=== PATIENT | female | born 1960 | race Hispanic/Latino ===

== ENCOUNTER 2017-07-31 05:38 | Emergency (ER) | payer OTHER ==
[~2017-07-31] VITALS: Ht 157.5 cm; Wt 149.7 kg
[~2017-07-31 05:38] MED LIST: ASPIR 8181 MG PO; GABAPENTIN300 MG PO; HIGH CHOLESTEROL; LANTUS100 UNITS/ SC; LIPITOR20 MG PO; LISINOPRIL-HCT1 EACH PO; METFORMIN HCL500 M2 PO; METOPROLOL SUCC50 MG PO; NOVOLOG100 UNITS1 SC/PO; PRILOSEC40 MG PO; VICTOZA 2-0.6 MG/0.1
[2017-07-31 06:32] LABS: BASOPHILS % 0.2 % (0.0-1.0); EOSINOPHILS # (AUTO) 0.1 (0.0-0.4); EOSINOPHILS % 1.4 % (0.0-6.0); HEMATOCRIT 28.4 % (34.2-44.1); HEMOGLOBIN 8.4 g/dL (12.0-16.0); LYMPHOCYTES # (AUTO) 1.6 (1.0-3.2); LYMPHOCYTES % 18.6 % (18.0-39.1); MEAN CORPUSCULAR HEMOGLOBIN 22.4 pg (28-32); MEAN CORPUSCULAR HGB CONC 29.6 g/dL (31-35); MEAN CORPUSCULAR VOLUME 75.7 fL (81-99); MONOCYTES # (AUTO) 0.6 (0.2-0.8); MONOCYTES % 7.3 % (4.4-11.3); NEUTROPHILS # (AUTO) 6.1 (2.1-6.9); NEUTROPHILS % 72.1 % (38.7-80.0); PLATELET COUNT 258 x10e3/uL (140-360); RED BLOOD COUNT 3.75 x10e6/uL (3.6-5.1); RED CELL DISTRIBUTION WIDTH 17.9 % (11.7-14.4)
[2017-07-31 06:44] LABS: INR 1.58; PROTHROMBIN TIME 17.7 seconds (11.9-14.5)
[2017-07-31 06:45] LABS: PARTIAL THROMBOPLASTIN TIME 40.7 seconds (23.8-35.5)
--- NOTE | 2017-07-31 06:53 | Diagnostic Imaging Report ---
CHEST SINGLE (PORTABLE), 07/31/2017 5:49 AM Technique: CHEST SINGLE (PORTABLE) Comparison: None available. Clinical history: Dizziness Findings: See Impression Impression: Limited by body habitus, portable technique and motion 1. Mildly enlarged cardiomediastinal silhouette, accentuated by technique. 2. No consolidation. No effusion or pneumothorax. Signed by: Dr Shari Omer MD on 07/31/2017 6:49 AM
--- NOTE | 2017-07-31 06:58 | Diagnostic Imaging Report ---
Examination: CT BRAIN WITHOUT CONTRAST History:Dizziness. Comparison studies:None Technique: Axial images were obtained from the skull base to the vertex. Coronal and sagittal images reconstructed from the axial data. Intravenous contrast: None Findings: Scalp: No abnormalities. Bones: No fractures, blastic or lytic lesions. Brain sulci: Appropriate for age. Ventricles: Normal in size and configuration. No hydrocephalus. Extra-axial space: No abnormalities. Parenchyma: No abnormal densities. No masses, hemorrhage, or acute or chronic cortical based vascular insults.. Sellar/suprasellar region: No abnormalities. Craniocervical junction: Patent foramen magnum. No Chiari one malformation. Incidental findings: None. Impression: No intracranial abnormalities. Signed by: Dr. Karina Bautista M.D. on 07/31/2017 6:54 AM
[2017-07-31 07:01] LABS: ALANINE AMINOTRANSFERASE 18 IU/L (0-55); ALBUMIN 3.4 g/dL (3.5-5.0); ALBUMIN/GLOBULIN RATIO 0.8 (0.8-2.0); ALKALINE PHOSPHATASE 85 IU/L (40-150); ANION GAP 14.8 mmol/L (8-16); BLOOD UREA NITROGEN 22 mg/dL (7-26); BUN/CREATININE RATIO 19 (6-25); CALCIUM 9.5 mg/dL (8.4-10.2); CARBON DIOXIDE 29 mmol/L (22-29); CHLORIDE 100 mmol/L (98-107); CREATINE KINASE 259 IU/L (29-168); CREATININE, SERUM 1.18 mg/dL (0.57-1.11); EST GLOMERULAR FILTRATION RATE 47 ML/MIN (60-); GLUCOSE 264 mg/dL (74-118); POTASSIUM 3.8 mmol/L (3.5-5.1); SODIUM 140 mmol/L (136-145)
== END 2017-07-31 07:21 | disposition home or self-care (01) ==
LOC: ER 05:38
DX: R42 Dizziness and giddiness (principal); I10 Essential (primary) hypertension; D50.0 Iron deficiency anemia secondary to blood loss (chronic)
CPT/HCPCS: 36415; 70450; 71045; 80053; 82550; 82553; 84484; 85025; 85610; 85730; 99283

== ENCOUNTER → 2019-10-06 | Outpatient (CLI) | payer OTHER ==
[2019-10-06 11:26] LABS: ALBUMIN 3.5 g/dL (3.5-5.0)
[2019-10-06 12:41] LABS: BILIRUBIN,DIRECT 0.2 mg/dL (0.0-0.5)
== END ==
LOC: LAB 10:24
PROVIDERS: ATTEND Podiatrist Foot & Ankle Surgery
DX: B35.1 Tinea unguium (principal)
CPT/HCPCS: 36415; 80076

== ENCOUNTER 2019-12-03 09:54 | Inpatient (IN) | payer OTHER ==
[~2019-12-03] VITALS: Ht 157.5 cm; Wt 149.7 kg
--- NOTE | 2019-12-03 10:12 | Emergency Department Note ---
History of Present Illnes History of Present Illness History of Present Illness This is a 59 year old female with 2 week history of LLE infection without tactile fevers or dypsnea. . Historian: Patient, Family Member Arrival Mode: Car [employer]ision Dyer Required: No Onset (how long ago): week(s) (2) Radiation: Reports extremity Severity: moderate Timing of current episode: constant Progression: worsening Context: Reports recent immobilization Exacerbating factors: immobilization Associated symptoms: Denies denies other symptoms, Denies confusion, Denies chest pain, Denies cough, Denies diaphoresis, Denies fever/chills, Denies headaches, Denies loss of appetite, Denies malaise, Denies nausea/vomiting, Denies rash, Denies seizure, Denies shortness of breath, Denies syncope, Denies weakness, Denies other Past Medical/Family History Physician Review I have reviewed the patient's past medical and family history. Any updates have been documented here. Past Medical History Recent Fever: Yes Clinical Suspicion of Infectio: Yes New/Unexplained Change in Ment: No Past Medical History: Hypertension, Diabetes Other Medical History: PULMONARY EMBOLISM Past Surgical History: Cholecysctectomy, Other Surgery: C SECTION Social History Smoking Cessation: Never Smoker Alcohol Use: None Any Illegal Drug Use: No Other Last Tetanus: UTD Review of Systems Review of Systems Constitutional: Denies fever EENTM: Reports no symptoms Cardiovascular: Reports no symptoms Respiratory: Reports dyspnea Gastrointestinal: Reports no symptoms Genitourinary: Reports no symptoms Musculoskeletal: Reports no symptoms Integumentary: Reports no symptoms, Reports rash, Reports poor turgor Neurological: Reports no symptoms Psychological: Reports no symptoms Endocrine: Reports no symptoms Hematological/Lymphatic: Reports no symptoms Physical Exam Related Data Allergies: Coded Allergies: No Known Drug Allergies (Verified Allergy, Unknown, 02/06/16) Triage Vital Signs Vital Signs Date Time Temp Pulse Resp B/P (MAP) Pulse Ox O2 Delivery O2 Flow Rate FiO2 12/03/19 10:10 98.4 122 32 138/66 60 Room Air 12/03/19 11:07 6.0 12/03/19 23:25 40 Vital signs reviewed: Yes Physical Exam CONSTITUTIONAL Constitutional: Present morbidly obese, Present ill appearing HENT HENT: Present normocephalic, Present atraumatic, Present oropharynx clear/moist, Present nose normal HENT L/R: Present left ext ear normal, Present right ext ear normal EYES Eyes: Reports PERRL, Reports conjunctivae normal NECK Neck: Present ROM normal PULMONARY Pulmonary: Present effort normal, Present breath sounds normal CARDIOVASCULAR Cardiovascular: Present LLE edema, Present RLE edema GASTROINTESTINAL Abdominal: Present soft, Present nontender, Present bowel sounds normal GENITOURINARY Genitourinary: Present exam deferred SKIN Skin: Present erythema (LLE ) MUSCULOSKELETAL Musculoskeletal: Present ROM normal NEUROLOGICAL Neurological: Present alert, Present oriented x 3, Present no gross motor or sensory deficits PSYCHOLOGICAL Psychological: Present mood/affect normal, Present judgement normal Results Laboratory Lab results reviewed: Yes Laboratory comments Laboratory Tests Test 12/04/19 16:09 Bedside Glucose 147 mg/dL (70-120) Imaging Imaging results reviewed: Yes Impressions [place] [id number] Patient Name: MAHESH LEWIS MR #: [id number] : 1960 Age/Sex: 59/F Req #: [id number] Adm Physician: Ordered by: RAZIA SRIVASTAVA DO Report #: [id number] Location: ER Room/Bed: Procedure: [id number] DX/CHEST SINGLE (PORTABLE) Exam Date: 12/03/19 Exam Time: 1250 REPORT STATUS: Signed TECHNIQUE: Frontal view of the chest. INDICATION: ^Y ^60% room air ^20191203 ^1250 COMPARISON: 07/31/2017 DISCUSSION: Limited evaluation due to portable technique and patient body habitus. Lines and hardware: Overlying EKG leads are noted Heart and mediastinum: Cardio medius on the silhouette is enlarged. Central vascular congestive opacities are noted. Lungs and pleura: Prominent interstitial markings are noted. Negative for large effusion, focal consolidation or large pneumothorax. Soft tissues and bones: No acute abnormality. IMPRESSION: Limited evaluation. Cardiomegaly, significant vascular congestion and prominent interstitial markings are concerning for fluid overload/pulmonary edema. Negative for effusions. Signed by: Brittany Orozco MD on 12/03/2019 2:56 PM Dictated By: BRITTANY OROZCO MD 55 Transcribed By: WILDA on 12/03/191455 COPY TO: RAZIA SRIVASTAVA DO~ Venous Duplex L LE : NEGATIVE FOR DVT Procedures 12 Lead ECG Interpretation ECG Interpretation : ECG: ECG 1 Precision Dyer: Interpreted by ED physician Date: Dec 03, 2019 Prior ECG tracings: reviewed Rhythm: sinus tachycardia Rate: tachycardia Conduction: right bundle branch block ST segments normal: Yes T waves normal: Yes Clinical Impression: dysrhythmia - atrial Critical Care Time Total Critical Care Time (min): 31 Critcal care necessary due to: cardiac failure, respiratory failure, sepsis Critcal care time spent by me: develop tx plan w patient/surrogate, discussion w consultants, discussion w primary provider, examination of patient, obtaining hx from patient/surrogate, order/perform tx or interventions, order/review laboratory studies, order/review radiographic studies, pulse oximetry, re- evaluation of patient condition Assessment & Plan Medical Decision Making MDM Diff Dx : sepsis, COVID-19 infection, pulmonary embolus, ACS. Case d/w with cardiology regarding elevated troponin. Plan to treat conservatively. Dr Martina López input much appreciated. Reassessment Reassessment time: 15:55 Reassessment seen at bedside NAD. Denies CP or SOB. Troponins negative Assessment & Plan Final Impression: (1) Hypoxia (2) Cellulitis of left leg (3) Renal insufficiency (4) Elevated troponin Depart Disposition: ADMITTED Home Meds Reported Medications Insulin Aspart (Insulin Aspart Flexpen) 100 Unit/1 Ml Insuln.pen, 60 SQ TIDWM 12/04/19 Buspirone Hcl (BUSPIRONE HCL) 5 Mg Tablet, 7.5 MG PO BID, #60 TAB 12/04/19 Insulin Degludec (Tresiba Flextouch U-200) 200 Unit/1 Ml Insuln.pen, 120 UNITS SQ HS 12/04/19 Rivaroxaban (XARELTO) 20 Mg Tablet, 20 MG PO DAILY 12/04/19 Pregabalin (LYRICA) 150 Mg Capsule, 150 MG PO BID, CAP 12/04/19 Losartan/Hydrochlorothiazide (LOSARTAN-HCTZ 100-25 MG TAB) 1 Each Tablet, 1 TAB PO DAILY 12/04/19 Terbinafine Hcl (TERBINAFINE HCL) 250 Mg Tablet, 250 MG PO DAILY, #30 TAB 12/04/19 Ferrous Sulfate (FERROUS SULFATE) 325 Mg Tablet, 325 MG PO 12/04/19 Clindamycin Hcl (CLINDAMYCIN HCL) 150 Mg Capsule, 3 CAP PO Q8HR 12/04/19 Duloxetine Hcl (CYMBALTA) 30 Mg Capsule.dr, 30 MG PO DAILY, #30 CAP 12/04/19 Omeprazole (PRILOSEC) 40 Mg Capsule.dr, 40 MG PO DAILY 02/07/16 Atorvastatin Calcium (LIPITOR) 20 Mg Tablet, 40 MG PO HS, #30 TAB 02/07/16 Metoprolol Succinate (METOPROLOL SUCCINATE) 50 Mg Tab.er.24h, 50 MG PO BID, MG 02/07/16 Discontinued Reported Medications Aspirin (ASPIR 81) 81 Mg Tablet.dr, 81 MG PO DAILY 02/07/16 Lisinopril/Hydrochlorothiazide (LISINOPRIL-HCTZ 20-12.5 MG TAB) 1 Each Tablet, 1 TAB PO BID 02/07/16 Gabapentin (GABAPENTIN) 300 Mg Capsule, 600 MG PO TID, #60 CAP 02/07/16 Insulin Glargine (LANTUS) 100 Units/Ml Ml, 40 UNITS SC HS 02/06/16 Insulin Glargine (LANTUS) 100 Units/Ml Ml, 60 UNITS SC TIDWM 02/06/16 Insulin Aspart (NOVOLOG) 100 Units/1 Ml Inj, 10 SC/PO TID 02/06/16 Metformin Hcl (METFORMIN HCL ER) 500 Mg Tab.er.24, 1000 MG PO BID, #60 TAB 02/06/16 RAZIA SRIVASTAVA DO Dec 03, 2019 10:11
[2019-12-03] MEDS ORDERED: VANCOMYCIN 500MG/NS 0.9% 100ML 100 ML IV ONE (11:00)
[2019-12-03 11:22] LABS: BASOPHILS % 0.2 % (0.0-1.0); EOSINOPHILS % 0.1 % (0.0-6.0); HEMATOCRIT 31.6 % (34.2-44.1); HEMOGLOBIN 9.5 g/dL (12.0-16.0); LYMPHOCYTES % 12.5 % (18.0-39.1); MEAN CORPUSCULAR HEMOGLOBIN 26.7 pg (28-32); MEAN CORPUSCULAR HGB CONC 30.1 g/dL (31-35); MEAN CORPUSCULAR VOLUME 88.8 fL (81-99); MONOCYTES # (AUTO) 0.8 (0.2-0.8); MONOCYTES % 9.5 % (4.4-11.3); NEUTROPHILS # (AUTO) 6.3 (2.1-6.9); NEUTROPHILS % 77.2 % (38.7-80.0); PLATELET COUNT 195 x10e3/uL (140-360); RED BLOOD COUNT 3.56 x10e6/uL (3.6-5.1); RED CELL DISTRIBUTION WIDTH 16.7 % (11.7-14.4)
--- OUTSIDE RECORDS SUMMARY | 2019-12-03 11:23 | XMS REPORT ---
Author Author Desi Parnell Organization [employer] Address Unknown Phone Unavailable Care Team Providers Care Structural Architect Name Role Phone Pako Parnell CP Unavailable Allergies, Adverse Reactions, Alerts Substance Reaction Event Type N.K.D.A. Info Not Available Non Drug Allergy Problems Problem Type Condition Code Onset Dates Condition Statu s Problem Morbid (severe) obesity due to excess calories E66.01 Active Problem Lower extremity edema M79.89 Active Problem Type 2 diabetes mellitus with diabetic neuropathy, uns pecified E11.40 Active Problem Personal history of pulmonary embolism Z86.711 Active Problem Hypertensive heart disease without heart failure I11.9 Active Problem Venous insufficiency (chronic) (peripheral) I87.2 Active Problem Right bundle-branch block I45.10 Ac tive Problem Dyspnea, unspecified R06.00 Active Problem Mixed hyperlipidemia E78.2 Active Problem Tachycardia, unspecified R00.0 Act lon Assessment Right bundle-branch block I45.10 Ac tive Assessment Mixed hyperlipidemia E78.2 Active Assessment Morbid (severe) obesity due to excess calories E66.01 Active Assessment Type 2 diabetes mellitus with diabetic n europathy, unspecified E11.40 Active Assessment Hypertensive heart disease without heart failure I11.9 Active Assessment Venous insufficiency (chronic) (peripheral) I87.2 Active Assessment Personal history of pulmonary embolism Z86.711 Active Assessment Lower extremity edema M79.89 Active Assessment Dyspnea, unspecified R06.00 Active Medications Medication Code System Code Instructions Start Date End Date Status Dosage Potassium Chloride [place] [facility] [place] 51253123873 20 MEQ Orally Once a day August 19, 2018 Feb 15, 2019 Active 1 tablet with food NovoLog Flexpen ND 76396710965 100 UNIT/ML Subcutaneous Active not defined Atorvastatin Calcium ND 77396476555 40 MG Orally Once a day Active 1 tablet Furosemide ND 97630428954 40 mg Oral Twice a day Ac tive 1 tablet Losartan Potassium-HCTZ [facility] [place] 10947688895 100-25 MG Orally Once a day Active 1 tablet Lantus [facility] [place] 65919886219 100 UNIT/ML Subcutaneous Ac tive not defined Omeprazole [facility] [place] 91758166055 40 MG Orally Once a day A ctive 1 capsule Gabapentin [facility] [place] 41353036785 300 MG Orally Three times a day Active 1 capsule Xarelto [facility] [place] 86789948839 15 MG Orally Once a day Acti ve 1 tablet with food Vital Signs Date/Time: October 29, 2018 BMI 60.22 Index Weight 340 lbs Height 5 ft 3 in in Cardiac Monitoring Heart Rate 87 /min Blood Pressure Diastolic 69 mm Hg Blood Pressure Systolic 126 mm Hg Results No Known Results Summary Purpose [employer] Submission
--- OUTSIDE RECORDS SUMMARY | 2019-12-03 11:23 | XMS REPORT ---
Author Author Desi Iqbal Organization [employer] Address Unknown Phone Unavailable Care Team Providers Care Cyber Security Consultant Name Role Phone Miranda Iqbal Unavailable Allergies, Adverse Reactions, Alerts Substance Reaction Event Type N.K.D.A. Info Not Available Non Drug Allergy Problems Problem Type Condition Code Onset Dates Condition Statu s Assessment Type 2 diabetes mellitus with diabetic chronic k idney disease E11.22 Active Assessment BMI 50.0-59.9, adult Z68.43 Active Assessment Chronic kidney disease, stage III (moderate) N18.3 Active Assessment Hot flashes R23.2 Active Assessment Arthritis M19.90 Active Assessment Gastroesophageal reflux disease without esophagitis K2 1.9 Active Assessment Diabetic neuropathy E11.40 Active Problem GERD (gastroesophageal reflux disease) K21.9 Active Assessment Hyperlipemia E78.5 Active Problem Gastroesophageal reflux disease without esophagitis K2 1.9 Active Assessment Acquired hypothyroidism E03.9 Acti ve Problem Epistaxis R04.0 Active Problem Dyspnea on exertion R06.09 Active Problem Arthritis M19.90 Active Problem Decreased urine output R34 Activ e Problem Hot flashes R23.2 Active Problem Leg swelling M79.89 Active Assessment Hypertension I10 Active Problem Acquired hypothyroidism E03.9 Acti ve Assessment Type 2 diabetes mellitus with hyperglycemia E11.65 Active Problem Localized swelling of both lower legs R22.43 Active Problem Shortness of breath R06.02 Active Problem Type 2 diabetes mellitus with diabetic chronic kidney disease E11.22 Active Problem Chronic kidney disease, stage III (moderate) N18.3 Active Problem BMI 50.0-59.9, adult Z68.43 Active Problem Type 2 diabetes mellitus with hyperglycemia E11.65 Active Problem Diabetic neuropathy E11.40 Active Problem Obesity, morbid, BMI 50 or higher E66.01 Active Problem Microalbuminuria R80.9 Active Problem Hyperlipemia E78.5 Active Problem Hypertension I10 Active Problem Low vitamin D level E55.9 Active Medications Medication Code System Code Instructions Start Date End Date Status Dosage Tresiba FlexTouch [facility] [address]-55 200 UNIT/ML Subcutaneous daily Active 130 units at night NovoLog [facility] [address]-28 100 UNIT/ML Subcutaneous three times a day (tid) Active 55 units Atorvastatin Calcium [facility] [address]-29 40 mg Orally Once a day Active 1 tablet Synthroid [facility] 08742767475 50 MCG Orally daily Active take 1 tablet by mouth at 6.30 am Losartan Potassium-HCTZ [facility] [address]-61 100-25 MG Orally Once a day Active 1 tablet Metoprolol Tartrate [facility] [address]-90 100 MG Orally Twice a day Active 1 tablet Gabapentin [facility] [address]-74 800 MG Orally three times a day (tid) Active 1 capsule Omeprazole [facility] [address]-01 40 mg Orally Once a day Active 1 capsule Cymbalta [facility] [address]-20 30 MG Orally twice a day (bid) Active 1 capsule Accu-Chek SmartView [facility] 77051924876 - Active USE TO CHECK BLOOD GLUCOSE TWICE A DAY Amlodipine Besylate [facility] [address]-42 5 MG Orally Once a day Active 1 tablet Vital Signs Date/Time: November 07, 2016 BMI 57.99 Index Weight 317.1 lbs Height 62 in Temperature 97.1 F Cardiac Monitoring Heart Rate 75 /min Blood Pressure Diastolic 76 mm Hg Blood Pressure Systolic 143 mm Hg Results No Known Results Summary Purpose [employer] Submission
--- OUTSIDE RECORDS SUMMARY | 2019-12-03 11:23 | XMS REPORT ---
Author Author Desi Iqbal Organization [employer] Address Unknown Phone Unavailable Care Team Providers Care Director Of Business Continuity Name Role Phone Miranda Iqbal Unavailable Allergies, [...] Active Problem Leg swelling M79.89 Active Assessment Type 2 diabetes mellitus with hyperglycemia E11.65 Active Problem Acquired hypothyroidism E03.9 Acti ve Assessment Hypertension I10 Active Problem Localized swelling of both lower [...] Instructions Start Date End Date Status Dosage Atorvastatin Calcium [facility] [address]-48 40 mg Orally Once a day Active 1 tablet Gabapentin [facility] [address]-10 800 MG Orally three times a day (tid) Active 1 capsule Metoprolol Tartrate [facility] [address]-58 100 MG Orally Twice a day Active 1 tablet Lisinopril-Hydrochlorothiazide [facility] [address]-62 2 0-12.5 MG Orally twice a day (bid) Inactive 1 tablet Losartan Potassium-HCTZ [facility] [address]-35 100-25 MG Orally Once a day September 04, 2016 Active 1 tablet Synthroid [facility] 75266309506 50 MCG Orally daily Active take 1 tablet by mouth at 6.30 am Cymbalta [facility] [address]-97 30 MG Orally twice a day (bid) Active 1 capsule Tresiba FlexTouch [facility] [address]-72 200 UNIT/ML Subcutaneous daily Active 120 units at night Accu-Chek SmartView [facility] 84643520359 - Active USE TO CHECK BLOOD GLUCOSE TWICE A DAY Amlodipine Besylate [facility] [address]-01 5 MG Orally Once a day September 04, 2016 Active 1 tablet Omeprazole [facility] [address]-87 40 mg Orally Once a day Active 1 capsule Vital Signs Date/Time: September 04, 2016 BMI 57.90 Index Weight 316.6 lbs Height 62 in Temperature 98.4 F Cardiac Monitoring Heart Rate 73 /min Blood Pressure Diastolic 82 mm Hg Blood Pressure Systolic 160 mm Hg Results No Known Results Summary Purpose [employer] Submission
--- OUTSIDE RECORDS SUMMARY | 2019-12-03 11:23 | XMS REPORT ---
Author Author Desi Iqbal Organization [employer] Address Unknown Phone Unavailable Care Team Providers Care Sample Card Maker Name Role Phone Miranda Iqbal Unavailable Encounters Encounter Location Date new patient here to establish [facility] 2015 Unknown [facility] August 01, 2015 Problems Problem Type Condition ICD-9 Code Onset Dates Condition Statu s Problem Type 2 diabetes mellitus with hyperglycemia E11.65 Active Problem BMI 50.0-59.9, adult Z68.43 Active Problem Hypertension I10 Active Problem Leg swelling M79.89 Active Problem Obesity, morbid, BMI 50 or higher E66.01 Active Problem Diabetic neuropathy E11.40 Active Social History Social History Element Qualifiers Date Reported Tobacco Use: . Are you a: never smoker July 13 Use of recreational / street drugs? . Answer: No Avinash 2015 Do you have pets? . Status: No July 14, 2015 Caffeine intake? . Status: No July 14, 2015 Do you exercise? . Answer: No July 14, 2015 Do you drink alcohol? . Status: No July 14, 2015 Summary Purpose [employer]Works Submission
--- OUTSIDE RECORDS SUMMARY | 2019-12-03 11:23 | XMS REPORT ---
Author Author Desi Parnell Organization [employer] Address Unknown Phone Unavailable Care Team Providers Care Toll Collector Name Role Phone Pako Parnell CP Unavailable Allergies, Adverse Reactions, Alerts Substance Reaction Event Type N.K.D.A. Info Not Available Non Drug Allergy Problems Problem Type Condition Code Onset Dates Condition Statu s Problem Morbid (severe) obesity due to excess calories E66.01 Active Problem Lower extremity edema M79.89 Active Problem Hypertensive heart disease without heart failure I11.9 Active Problem Mixed hyperlipidemia E78.2 Active Problem Personal history of pulmonary embolism Z86.711 Active Problem Dyspnea, unspecified R06.00 Active Problem Type 2 diabetes mellitus with diabetic neuropathy, uns pecified E11.40 Active Problem Tachycardia, unspecified R00.0 Act lon Problem Right bundle-branch block I45.10 Ac tive Assessment Morbid (severe) obesity due to excess calories E66.01 Active Assessment Type 2 diabetes mellitus with diabetic n europathy, unspecified E11.40 Active Assessment Personal history of pulmonary embolism Z86.711 Active Assessment Hypertensive heart disease without heart failure I11.9 Active Assessment Right bundle-branch block I45.10 Ac tive Assessment Lower extremity edema M79.89 Active Assessment Mixed hyperlipidemia E78.2 Active Assessment Dyspnea, unspecified R06.00 Active Medications Medication Code System Code Instructions Start Date End Date Status Dosage Xarelto [facility] 37407857553 15 MG Orally Once a day Acti ve 1 tablet with food Atorvastatin Calcium ND 70030121174 40 MG Orally Once a day Active 1 tablet Gabapentin ND 95002246258 300 MG Orally Three times a day Active 1 capsule Lantus ND 06623004868 100 UNIT/ML Subcutaneous Ac tive not defined Lisinopril-Hydrochlorothiazide ND 78209909721 20-12.5 MG Orally Once a day Active 1 tablet Metformin HCl ND 51551244861 1000 mg Orally Twice a day Active 1 tablet NovoLog Flexpen ND 67941648753 100 UNIT/ML Subcutaneous Active not defined Losartan Potassium-HCTZ [facility] 59884463897 100-25 MG Orally Once a day Active 1 tablet Omeprazole [facility] 16304552173 40 MG Orally Once a day A ctive 1 capsule Aspirin [facility] 63301653714 81 MG Orally Once a day Acti ve 1 tablet Duloxetine HCl [facility] 00375289023 30 MG Orally Once a day Active 1 capsule Metoprolol Tartrate [facility] 37624695877 100 MG Orally Twice a day Active 1 tablet Ergocalciferol [facility] 79776234501 70419 UNIT Orally Ac tive 1 capsule Victoza [facility] 60818613008 18 MG/3ML Subcutaneous Once a day Active 0.2 ml Amlodipine Besylate [facility] 81973026182 5 MG Orally Once a day Active 1 tablet Vital Signs Date/Time: July 21, 2018 BMI 65.18 Index Weight 368 lbs Height 5 ft 3 in in Cardiac Monitoring Heart Rate 89 /min Blood Pressure Diastolic 89 mm Hg Blood Pressure Systolic 160 mm Hg Results No Known Results Summary Purpose [employer]Works Submission
--- OUTSIDE RECORDS SUMMARY | 2019-12-03 11:23 | XMS REPORT ---
Author Author Desi Iqbal Organization [employer] Address Unknown Phone Unavailable Care Team Providers Care Pipe Supervisor Name Role Phone Miranda Iqbal Unavailable Allergies, Adverse Reactions, Alerts Substance Reaction Event Type N.K.D.A. Info Not Available Non Drug Allergy Encounters Encounter Location Date new patient here to [facility] 2015 Problems Problem Type Condition ICD-9 Code Onset Dates Condition Statu s Assessment Obesity, morbid, BMI 50 or higher E66.01 Active Assessment Type 2 diabetes mellitus with hyperglycemia E11.65 Active Assessment BMI 50.0-59.9, adult Z68.43 Active Assessment Leg swelling M79.89 Active Assessment Diabetic neuropathy E11.40 Active Problem Type 2 diabetes mellitus with hyperglycemia E11.65 Active Problem BMI 50.0-59.9, adult Z68.43 Active Problem Hypertension I10 Active Problem Leg swelling M79.89 Active Assessment Hypertension I10 Active Problem Obesity, morbid, BMI 50 or higher E66.01 Active Problem Diabetic neuropathy E11.40 Active Medications Medication Code System Code Instructions Start Date End Date Status Dosage Gabapentin [facility] [address]-15 300 MG Orally daily Ac tive Unknown Amlodipine Besylate [facility] [address]-69 10 MG Orally Once a day Active 1 tablet NovoLog Flexpen [facility] [address]-35 15 Subcutaneous three ti mes a day (tid) Active Unknown Lisinopril [facility] [address]-24 40 MG Orally Once a day Active 1 tablet Metformin HCl [facility] [address]-78 1000 mg Orally Twice a day Jun Active 1 tablet with meals Gabapentin [facility] [address]-31 300 MG Orally twice a day ( bid) July 14, 2015 Active 1 capsule Lansoprazole [facility] [address]-60 30 MG Orally Once a day Active 1 capsule Victoza [facility] [address]-69 Active Unknown Lisinopril-Hydrochlorothiazide [facility] [address]-20 2 0-12.5 MG Orally Once a day July 14, 2015 Active 1 tablet Metformin HCl [facility] [address]-31 1000 MG Orally Twice a day Active 1 tablet with meals Lantus SoloStar [facility] [address]-10 100 UNIT/ML Subcutaneous every morning July 14, 2015 Active 10 units NIFEdipine ER [facility] [address]-85 90 MG Orally Once a day Active 1 tablet Social History Social History Element Qualifiers Date [...] alcohol? . Status: No July 14, 2015 Vital Signs Date/Time: July 14, 2015 Weight 304.4 lbs Height 62 in Temperature 98.6 F Cardiac Monitoring Heart Rate 105 /min Blood Pressure Diastolic 101 mm Hg Blood Pressure Systolic 168 mm Hg Summary Purpose [employer] Submission
--- OUTSIDE RECORDS SUMMARY | 2019-12-03 11:23 | XMS REPORT ---
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 Name Role Phone Pako Parnell CP Unavailable [...] diabetic n europathy, unspecified E11.40 Active Assessment Venous insufficiency (chronic) (peripheral) I87.2 Active Assessment Lower extremity edema M79.89 Active Assessment Personal history of pulmonary embolism Z86.711 Active Assessment Dyspnea, unspecified R06.00 Active Assessment Hypertensive heart disease without heart failure I11.9 Active Medications Medication Code System Code Instructions Start Date End Date Status Dosage Atorvastatin Calcium ND 28460864079 40 MG Orally Once a day Active 1 tablet NovoLog Flexpen [facility] 70366258655 100 UNIT/ML Subcutaneous Active not defined Gabapentin ND 15070338012 300 MG Orally Three times a day Active 1 capsule Duloxetine HCl ND 64401372553 30 MG Orally Once a day Active 1 capsule Potassium Chloride ER [facility] 12842370953 20 MEQ Orally Once a day August 19, 2018 Feb 15, 2019 Active 1 tablet with food Xarelto [facility] 73369790867 15 MG Orally Once a day Acti ve 1 tablet with food Amlodipine Besylate [facility] 52839810537 5 MG Orally Once a day Inactive 1 tablet Lantus [facility] 69748884855 100 UNIT/ML Subcutaneous Ac tive not defined Omeprazole [facility] 65658380296 40 MG Orally Once a day A ctive 1 capsule Furosemide [facility] 16514262411 40 mg Oral Twice a day Ac tive 1 tablet Losartan Potassium-HCTZ [facility] 12504796081 100-25 MG Orally Once a day Active 1 tablet Vital Signs Date/Time: August 19, 2018 BMI 65.54 Index Weight 370 lbs Height 5 ft 3 in in Cardiac Monitoring Heart Rate 86 /min Blood Pressure Diastolic 68 mm Hg Blood Pressure Systolic 138 mm Hg Results No Known Results Summary Purpose [employer] Submission
--- OUTSIDE RECORDS SUMMARY | 2019-12-03 11:23 | XMS REPORT | Continuity of Care Document ---
Author Author Jose Luis [place] [employer] Address Unknown Phone Unavailable Care Team Providers Care Crew Caller Name Role Phone [facility] [email or web address] Information [employer] Unavailable Un available Problems Problem Status Onset Date Classification Date Reported Comments Source Obstructive sleep apnea (adult) (pediatric) 04/02/2018 10/14/2018 [facility] Pain in left knee 03/27/2018 10/09/2018 [facility] CPAP [id number] Active 03/12/2018 [facility] 1ST NIGHT - 17090 Active 01/21/2018 [facility] Encounter for screening for malignant neoplasm of colo n 12/26/2017 07/08/2018 [facility] UNK Active 0 12/18/2017 [facility] DIFF BREATHING Active 07/27/2017 [facility] MARCUM (DYSPNEA ON EXERTION), BILATERAL PUL Active 07/27/2017 [facility] RENAL FAILURE Active 06/06/2016 [facility] SCREENING NO PAIN, NO LUMPS, NO IMPLA Active 03/28/2016 [facility] M79.89=OTHER SPECIFIED SOFT TISSUE DISOR Active 08/09/2015 [facility] BMI 50.0-59.9, adult Active Diagnosis 11/08/2016 [facility] Chronic kidney disease, stage III (moderate) Active Diagnosis 11/08/2016 [facility] Hot flashes Active Diagnosis 11/08/2016 [facility] Arthritis Active Diagnosis 11/08/2016 [facility] Gastroesophageal reflux disease without esophagitis Active Diagnosis 11/08/2016 [facility] Diabetic neuropathy Active Diagnosis 11/08/2016 [facility] GERD (gastroesophageal reflux disease) Active Problem [facility] Hyperlipemia Active Diagnosis 11/08/2016 [facility] Acquired hypothyroidism Active Diagnosis 11/08/2016 [facility] Epistaxis Active Problem 11/08/2016 [facility] Dyspnea on exertion Active Problem 11/08/2016 [facility] Decreased urine output Active Problem 11/08/2016 [facility] Leg swelling Active Problem 11/08/2016 [facility] Type 2 diabetes mellitus with hyperglycemia Active Diagnosis 11/08/2016 [facility] Hypertension Active Diagnosis 11/08/2016 [facility] Localized swelling of both lower legs Active Problem [facility] Shortness of breath Active Problem 11/08/2016 [facility] Obesity, morbid, BMI 50 or higher Active Problem [facility] Microalbuminuria Active Problem 11/08/2016 [facility] Low vitamin D level Active Problem 11/08/2016 [facility] Morbid (severe) obesity due to excess calories Active Problem 10/30/2018 Pako Parnell MD, P A Lower extremity edema Active Problem 10/30/2018 Pako Parnell MD, PA Type 2 diabetes mellitus with diabetic n europathy, unspecified Active Prob kassandra 10/30/2018 Pako Parnell MD, PA Personal history of pulmonary embolism Active Problem Pako Parnell MD, PA Hypertensive heart disease without heart failure Active Problem 10/30/2018 Pako Parnell MD, P A Venous insufficiency (chronic) (peripheral) Active Problem 10/30/2018 Pako Parnell MD, P A Right bundle-branch block Acti ve Problem Pako Parnell MD, PA Dyspnea, unspecified Active Problem 10/30/2018 Pako Parnell MD, PA Mixed hyperlipidemia Active Problem 10/30/2018 Pako Parnell MD, PA Tachycardia, unspecified Active Problem 10/30/2018 Pako Parnell MD, PA UTI (urinary tract infection) Active Diagnosis 0 08/05/2015 [facility] Concern about STD in female without diagnosis Active Diagnosis 03/23/2016 [facility] Final: Acute kidney failure, unspecified 06/11/2016 [facility] Diabetes mellitus (disorder) R esolved Problem 07/2018 [facility] [place] Hyperlipidemia (disorder) Reso lved Problem 07/2018 [facility] J[place],[facility] Hypertensive disorder, systemic arterial (disorder) Resolved Problem 10/16/2018 [facility], [place] [place],[facility] Morbid obesity (disorder) Acti ve Problem 07/2018 [facility], [place],[facility] Unspecified chronic gastritis without bleeding 07/08/2018 [facility] Anemia, unspecified 07/08/2018 [facility] Hypertensive chronic kidney disease with stage 1 through stage 4 chronic kidney disease, or unspecified chronic kidney disease 07/08/2018 [facility] Chronic kidney disease, stage 3 (moderate) 07/08/2018 [facility] Type 2 diabetes mellitus with diabetic c hronic kidney disease 07/08/2018 [facility] Vitamin D deficiency, unspecified 07/08/2018 [facility] Other tear of medial meniscus, current i njury, left knee, initial encounter 10/09/2018 [facility] [place] Effusion, left knee 10/09/2018 [facility] [place] Spinal stenosis, lumbar region without n eurogenic claudication 10/09/2018 [facility] [place] Osteophyte, vertebrae 10/09/2018 [facility] [place] Other intervertebral disc displacement, lumbar region 10/09/2018 [facility] [place] Unilateral primary osteoarthritis, left knee 10/09/2018 [facility] [place] Dorsalgia, unspecified 10/09/2018 [facility] [place] Other forms of dyspnea 08/02/2017 [facility] ACUTE KIDNEY FAILURE, UNSPECIFIED Active [facility] RENAL FAILURE FOLLOWING INCOMPLETE SPONT Active [facility] COUGH Active [facility] UNSPECIFIED ASTHMA, UNCOMPLICATED Active [facility] OTHER FORMS OF DYSPNEA Active [facility] OTHER PULMONARY EMBOLISM WITHOUT ACUTE C Active [facility] Medications Medication Details Route Status Patient Instructions Ordering Provider Order Date Source Potassium Chloride ER 1 tablet with food Orally Active 20 MEQ Orally Once a day Parmjit 08/19/2018 Pako Parnell MD, PA Sodium Chloride 0.9% IV 1,000 mL 1,000 mL, Rate: 25 ml/hr, Infuse over: 40 hr, Route: IV, Dosing Weight 140.909 kg, Total Volume: 1,000, Start date: 12/19/17 8:06:00 CDT, Duration: 30 day, Stop date: 01/18/18 8:05:00 CDT, 2.54, m2 Inactive 12/19/2017 [facility] Ferrousal 325 mg oral tablet 3 25 mg = 1 tab, PO, Q-M-W-F, 0 Refill(s) Active 12/18/2017 [facility] ferrous sulfate PO, 0 Refill(s) Inactive 12/18/2017 [facility] gabapentin 800 MG Oral Tablet [Neurontin] 800 mg = 1 tab, PO, 0 Refill(s) Active 12/18/2017 [facility] Oxymetazoline hydrochloride 0.5 MG/ML Na [facility] [Afrin] Notes: (Same as: Afrin) Inactive 07/30/2017 [facility] Amlodipine 5 mg, PO, Daily, 0 Refill(s) Active 07/30/2017 [facility] Hydrochlorothiazide 25 MG / Losartan Pot assium 100 MG Oral Tablet 1 tab, PO, Daily, 0 Refill(s) Active 07/30/2017 [facility] metoprolol tartrate 100 mg oral tablet 100 mg = 1 tab, PO, BID, 0 Refill(s) Active 07/30/2017 [facility] DULoxetine 30 mg oral delayed release capsule 30 mg = 1 cap, PO, BID, 0 Refill(s) Active 07/30/2017 [facility] Vitamin D3 10,000 intl units oral capsule 10,000 IntlUnit = 1 cap, PO, QID, 0 Refill(s) Active 07/30/2017 [facility] Aspirin 81 MG Enteric Coated Tablet 81 mg = 1 tab, PO, Daily, # 90 tab, 3 Refill(s) Active 07/30/2017 [facility] omeprazole 40 mg oral delayed release capsule 40 mg = 1 cap, PO, Daily, 0 Refill(s) Active 07/30/2017 [facility] Furosemide 40 MG Oral Tablet 4 0 mg = 1 tab, PO, Daily, 0 Refill(s) Active 07/30/2017 [facility] levothyroxine 50 mcg (0.05 mg) oral tablet 50 microgram = 1 tab, PO, Q630AM, # 30 tab, 0 Refill(s), Pharmacy: [facility]/pharmacy #[id number] Active 07/29/2017 [facility] metoprolol tartrate 50 mg oral tablet 50 mg = 1 tab, PO, Q12H, # 60 tab, 0 Refill(s), Pharmacy: [facility]/pharmacy #[id number] Inactive 07/29/2017 [facility] rivaroxaban 15 MG Oral Tablet [Xarelto] 15 mg = 1 tab, PO, Q12H, # 42 tab, 0 Refill(s), Pharmacy: [facility]/pharmacy #[id number] Active 07/29/2017 [facility] Thyroxine Notes: Take 1 hour b efore or 2 hours after meal; Enteral feeds may interefere with the absorption of this medication.(Same as:Levothroid, Synthroid) No Longer Active 07/29/2017 [facility] Xarelto Notes: (Same as: Xarel to) Administer with food No Longer Active 07/29/2017 [facility] Mupirocin 0.02 MG/MG Topical Ointment 1 appl, Route: TOP, Q12H, Drug form: OINT, Start date: 07/28/17 21:00:00 CDT, Duration: 5 day, Stop date: 08/02/17 9:00:00 CDT No Longer Active 07/29/2017 [facility] Insulin Lispro Notes: (Same as : Humalog ) Roll in palms of hands gently; Do not shake `vigorously. "Single Patient Use Only " WASTE: F/P - Black; E - Municipal Trash Bin Stable for 28 days at room temp erature. Expires in days from Date No Longer Active 07/29/2017 [facility] Tylenol Notes: Do not exceed 4 gm/day. (Same as: Tylenol) No Longer Active 07/28/2017 [facility] Hydrochlorothiazide 25 MG / Metoprolol T artrate 100 MG Oral Tablet 1 tab, PO, BID, # 60 tab, 0 Refill(s) No Longer Active 07/28/2017 [facility] Tresiba FlexTouch 140 units, S UB-Q, Bedtime, 0 Refill(s) Active 07/28/2017 [facility] NovoLog 55 units, SUB-Q, TID-M eals, 0 Refill(s) Active 07/28/2017 [facility] insulin detemir 65 unit, Route : SUB-Q, Drug form: SOLN, Daily, Dosing Weight 150, kg, Start date: 07/28/17 9:00:00 CDT, Duration: 30 day, Stop date: 08/26/17 9:00:00 CDT Inactive 07/28/2017 [facility] metoprolol tartrate Notes: (Sa me as: Lopressor) No Longer Active 07/28/2017 [facility] insulin glargine Notes: (Same as: Lantus) Do not hold insulin without contacting prescriber WASTE: F/P - Black; E - Municipal Trash Bin "single patient use only" Inactive 07/28/2017 [facility] Humalog Notes: (Same as: Humal og ) Roll in palms of hands gently; Do not shake `vigorously. "Single Patient Use Only " WASTE: F/P - Black; E - Municipal Trash Bin Stable for 28 days at room temperature. Expires in days from Date No Longer Active 07/28/2017 [facility] NovoLog 12 unit, Route: SUB-Q, Drug form: SOLN, TID- Before Meals, Dosing Weight 150, kg, Start date: 07/28/17 7:30:00 CDT, Duration: 30 day, Stop date: 08/26/17 16:30:00 CDT Inactive 07/28/2017 [facility] Hydralazine Notes: (Same as: A presoline) Push over 5 minutes No Longer Active 07/28/2017 [facility] Insulin Lispro Notes: (Same as : Humalog ) Roll in palms of hands gently; Do not shake `vigorously. "Single Patient Use Only " WASTE: F/P - Black; E - Municipal Trash Bin Stable for 28 days at room temp erature. Expires in days from Date No Longer Active 07/28/2017 [facility] Dextrose 50% Syringe 12.5 gm, 25 mL, Route: IVP, Drug Form: INJ, Dosing Weight 150, kg, PRN, PRN Blood Glucose Results, Start date: 07/28/17 4:50:00 CDT, Duration: 30 day, Stop date: 08/27/17 4:49:00 CDT No Longer Active 07/28/2017 [facility] Glucagon 1 mg, Route: IM, Drug form: PDR/INJ, PRN, Dosing Weight 150, kg, PRN Blood Glucose Results, Start date: 07/28/17 4:50:00 CDT, Duration: 30 day, Stop date: 08/27/17 4:49:00 CDT No Longer Active 07/28/2017 [facility] Lasix Notes: (Same as: Lasix) Inactive 07/28/2017 [facility] Heparin 40 unit/kg Bolus (Heparin Dosing Weight) Route: IVP, PRN, 3,600 unit, 3.6 mL, Drug form: INJ, PRN, Heparin Protocol, Start date: 07/28/17 2:47:00 CDT Stop date: 08/27/17 2:46:00 CDT, 30 day Inactive 07/28/2017 [facility] Saline Flush 0.9% Notes: (Same as: BD Posiflush) No Longer Active 07/28/2017 [facility] Ondansetron Notes: (Same as: Rebecca hopper) MEDICATION WASTE Product Size: 4 mg Product Wasted: ___ mg No Longer Active 07/28/2017 [facility] Heparin 80 unit/kg Bolus (Heparin Dosing Weight) Route: IVP, PRN, 7,200 unit, 7.2 mL, Drug form: INJ, PRN, Heparin Protocol, Start date: 07/28/17 0:43:00 CDT Stop date: 08/27/17 0:42:00 CDT, 30 day Inactive 07/28/2017 [facility] heparin additive 25,000 unit [18 unit/kg /hr] + Premix Diluent Dextrose 5% 500 mL 500 mL, Rate: 32.42 ml/hr, Infuse over: 15.4 hr, Route: IV, Dosing Weight 90.06 kg, Total Volume: 500 mL, Start date: 07/28/17 0:43:00 CDT, Duration: 30 day, Stop date: 08/27/17 0:42:00 CDT, 2.02, m2 Inactive 07/28/2017 [facility] Heparin - one time bolus for DVT/PE 7,200 unit, 7.2 mL, Route: IVP, Drug form: INJ, ONCE, Dosing Weight 150, kg, Priority: STAT, Start date: 07/28/17 0:43:00 CDT, Stop date: 07/28/17 0:43:00 CDT Inactive 07/28/2017 [facility] Losartan Potassium-HCTZ 1 tabl et Orally Active 100-25 MG Orally Once a day 09/04/2016 [facility] Amlodipine Besylate 1 tablet Orally Active 5 MG Orally Once a day 09/04/2016 [facility] Cymbalta 1 capsule Orally Active 30 MG Orally twice a da y (bid) 06/19/2016 [facility] Insulin, Aspart, Human Notes: Roll in palms of hands gently; Do not shake vigorously. (Same as: NovoLOG) "single patient use only" WASTE: F/P - Black; E - Municipal Trash Bin Stable for 28 days at room temperature. Expires in days from Date Inactive 06/09/2016 [facility] insulin detemir 100 units/mL subcutaneous solution 65 unit, SUB-Q, Bedtime, # 15 mL, 0 Refill(s), Pharmacy: [facility]/pharmacy #[id number] Active 06/08/2016 [facility] levothyroxine 50 mcg (0.05 mg) oral tablet 50 microgram = 1 tab, PO, Q630AM, # 30 tab, 0 Refill(s), Pharmacy: [facility]/pharmacy #[id number] Active 06/08/2016 [facility] Insulin, Aspart, Human 100 UNT/ML Inject able Solution [NovoLog] 12 unit, SUB-Q, TID-Before Meals, # 15 m L, 0 Refill(s), other Active 06/08/2016 [facility] levothyroxine 50 mcg (0.05 mg) oral tablet 50 microgram = 1 tab, PO, Q630AM, # 30 tab, 0 Refill(s), other Inactive 06/08/2016 [facility] insulin detemir 100 units/mL subcutaneous solution 65 unit, SUB-Q, Bedtime, 0 Refill(s) Inactive 06/08/2016 [facility] Insulin, Aspart, Human Notes: Roll in palms of hands gently; Do not shake vigorously. (Same as: NovoLOG) "single patient use only" WASTE: F/P - Black; E - Municipal Trash Bin Stable for 28 days at room temperature. Expires in days from Date No Longer Active 06/08/2016 [facility] Glucagon 1 mg, Route: IM, PRN, Dosing Weight 150.085, kg, PRN Blood Glucose Results, Start date: 06/07/16 22:14:00 [employer]ARMACEUTICAL SALES SPECIALIST, Duration: 30 day, Stop date: 07/07/16 23:13:00 CDT Inactive 06/08/2016 [facility] Dextrose 50% Syringe 50 mL, Ro mohegan: IVP, Dosing Weight 150.085, kg, PRN, PRN Blood Glucose Results, Start date: 06/07/16 22:14:00 PHARMACEUTICAL SALES SPECIALIST, Duration: 30 day, Stop date: 07/07/16 23:13:00 CDT Inactive 06/08/2016 [facility] Magnesium Sulfate Notes: WASTE : F/P - Sink; E - Municipal Trash Bin Inactive 06/07/2016 [facility] Calcium Carbonate Notes: (Same As: Tumblanquita) Calcium Carbonate 500 mg = 200 mg elemental calcium Dose = mg calcium carbonate ( mg elemental calcium) No Longer Active 06/07/2016 [facility] Synthroid Notes: Take 1 hour b efore or 2 hours after meal; Enteral feeds may interefere with the absorption of this medication.(Same as:Levothroid, Synthroid) No Longer Active 06/07/2016 [facility] Insulin Glargine 100 UNT/ML Injectable S olution [Lantus] Route: SUB-Q, Drug form: SOLN, Bedtime, Dosing Weight 150.085, kg, Start date: 06/06/16 21:00:00 PHARMACEUTICAL SALES SPECIALIST, Duration: 30 day, Stop date: 07/05/16 21:00:00 CDT Inactive 06/07/2016 [facility] Levemir FlexPen Notes: Same as Levemir Do not hold insulin without contacting prescriber WASTE: F/P - Black; E - Municipal Trash Bin "single patient use only" No Longer Active 06/07/2016 [facility] sodium chloride 0.9% 1000 ml INJ 1,000 mL 1,000 mL, Rate: 75 ml/hr, Infuse over: 13.3 hr, Route: IV, Dosing Weight 150.085 kg, Total Volume: 1,000, Start date: 06/06/16 16:01:00 PHARMACEUTICAL SALES SPECIALIST, Duration: 2 doses or times, Stop date: 06/07/16 18:36:00 PHARMACEUTICAL SALES SPECIALIST No Longer Active 06/06/2016 [facility] Calcium Gluconate Notes: WASTE : F/P - Sink; E - Municipal Trash Bin Inactive 06/06/2016 [facility] gabapentin 300 MG Oral Capsule Notes: (Same as: Neurontin) No Longer Active 06/06/2016 [facility] metoprolol tartrate Notes: (Sa me as: Lopressor) No Longer Active 06/06/2016 [facility] atorvastatin Notes: (Same as: Lipitor) No Longer Active 06/06/2016 [facility] Aspirin Notes: Take with food. No Longer Active 06/06/2016 [facility] pneumococcal capsular polysaccharide typ e 1 vaccine / pneumococcal capsular polysaccharide type 10A vaccine / pneumococcal capsular polysaccharide type 11A vaccine / pneumococcal capsular polysaccharide type 12F vaccine / pneumococcal capsular polysacchar Notes: (Same as: Pneumovax 23) Refrigerate Inactive 06/06/2016 [facility] influenza virus vaccine, inactivated Notes: (Same as: Fluzone Quadrivalent, Fluarix Quadrivalent) For 3 years of age and older (0.5 mL IM) Shake well before use Inactive 06/06/2016 [facility] Lasix Notes: (Same as: Lasix) MEDICATION WASTE Product Size: 40 mg Product Wasted: ___ mg No Longer Active 06/06/2016 [facility] Lovenox Notes: (Same as: Loven ox) No Longer Active 06/06/2016 [facility] Insulin Glargine 100 UNT/ML Injectable S olution [Lantus] Route: SUB-Q, Drug form: SOLN, Breakfast , Dosing Weight 150.085, kg, Start date: 06/06/16 8:00:00 PHARMACEUTICAL SALES SPECIALIST, Duration: 30 day, Stop date: 07/05/16 8:00:00 CDT Inactive 06/06/2016 [facility] Levemir FlexPen Notes: Same as Levemir Do not hold insulin without contacting prescriber WASTE: F/P - Black; E - Municipal Trash Bin "single patient use only" No Longer Active 06/06/2016 [facility] Zithromax Notes: (Same As: Zit hromax IV) No Longer Active 06/06/2016 [facility] NovoLog Notes: Roll in palms o f hands gently; Do not shake vigorously. (Same as: NovoLOG) "single patient use only" WASTE: F/P - Black; E - Municipal Trash Bin Stable for 28 days at room temperature. Expires in days from Date No Longer Active 06/06/2016 [facility] Insulin, Aspart, Human Notes: Roll in palms of hands gently; Do not shake vigorously. (Same as: NovoLOG) "single patient use only" WASTE: F/P - Black; E - Municipal Trash Bin Stable for 28 days at room temperature. Expires in days from Date No Longer Active 06/06/2016 [facility] Dextrose 50% Syringe 12.5 gm, 25 mL, Route: IVP, Drug Form: INJ, Dosing Weight 150.085, kg, PRN, PRN Blood Glucose Results, Start date: 06/06/16 7:06:00 PHARMACEUTICAL SALES SPECIALIST, Duration: 30 day, Stop date: 07/06/16 8:05:00 CDT No Longer Active 06/06/2016 [facility] Glucagon 1 mg, Route: IM, Drug form: PDR/INJ, PRN, Dosing Weight 150.085, kg, PRN Blood Glucose Results, Start date: 06/06/16 7:06:00 PHARMACEUTICAL SALES SPECIALIST, Duration: 30 day, Stop date: 07/06/16 8:05:00 CDT No Longer Active 06/06/2016 [facility] Ondansetron Notes: (Same as: Rebecca hopper) MEDICATION WASTE Product Size: 4 mg Product Wasted: ___ mg No Longer Active 06/06/2016 [facility] Morphine Notes: (Same as:MORPh ine Sulfate) No Longer Active 06/06/2016 [facility] naproxen 500 mg oral tablet 50 0 mg = 1 tab, PO, BID, PRN Pain Score 1-5, 0 Refill(s) N o Longer Active 06/06/2016 [facility] NovoLog 10 unit, SUB-Q, TID-Be fore Meals, 0 Refill(s) No Longer Active 06/06/2016 [facility] metoprolol tartrate 100 mg oral tablet 100 mg = 1 tab, PO, BID, 0 Refill(s) Active 06/06/2016 [facility] Hydrochlorothiazide 12.5 MG / Lisinopril 20 MG Oral Tablet 1 tab, PO, BID, 0 Refill(s) No Longer Active 06/06/2016 [facility] Insulin Glargine 100 UNT/ML Injectable S olution [Lantus] 60 units, SUB-Q, Bedtime, 0 Refill(s) Active 06/06/2016 [facility] Aspirin 81 mg, PO, Daily, 0 Re fill(s) Active 06/06/2016 [facility] gabapentin 800 MG Oral Tablet 800 mg = 1 tab, PO, TID, 0 Refill(s) Active 06/06/2016 [facility] Metformin 1,000 mg, PO, BID, w ith meals, 0 Refill(s) No Longer Active 06/06/2016 [facility] atorvastatin 40 mg oral tablet 40 mg = 1 tab, PO, Daily, 0 Refill(s) Active 06/06/2016 [facility] Lasix 1 tablet Orally Active 40 MG Orally three time s a day (tid) [facility] 05/30/2016 [facility] Naproxen 1 tablet as needed Orally Active 500 MG Orally every 12 hrs [facility] 04/27/2016 [facility] Victoza 1.8 mg Subcutaneous Active 18 MG/3ML Subcutaneous Once a day [facility] 01/20/2016 [facility] Victoza 1.2 mg Subcutaneous Active 18 MG/3ML Subcutaneous Once a day [facility] 11/26/2015 [facility] Metoprolol Tartrate 1 tablet Orally Active 25 MG Orally Twice a day [facility] 09/05/2015 [facility] Victoza 1.2 mg Subcutaneous Active 18 MG/3ML Subcutaneous Once a day [facility] 09/05/2015 [facility] NovoLog Flexpen as directed Subcutaneous Active 100 UNIT/ML Subcutaneous as directed [facility] 08/04/2015 [facility] Ergocalciferol 1 capsule Orally Active 50444 UNIT Orally once a week [facility] 08/04/2015 [facility] Omeprazole 1 capsule Orally Active 40 mg Orally Once a day [facility] 08/04/2015 [facility] Ciprofloxacin HCl 1 tablet Orally Active 500 mg Orally Twice a day [facility] 08/04/2015 [facility] Atorvastatin Calcium 1 tablet Orally Active 40 mg Orally Once a day [facility] 08/04/2015 [facility] Metformin HCl 1 tablet with me als Orally Active 1000 mg Orally Twice a day [facility] 07/14/2015 [facility] Gabapentin 1 capsule Orally Active 300 MG Orally twice a d ay (bid) [facility] 07/14/2015 [facility] Lisinopril-Hydrochlorothiazide 1 tablet Orally Active 20-12.5 MG Orally Once a day [facility] 07/14/2015 [facility] Lantus SoloStar 20 units Subcutaneous Active 100 UNIT/ML Subcutaneous every morning [facility] 07/14/2015 [facility] Atorvastatin Calcium 1 tablet Orally Active 40 mg Orally Once a day [facility] Gabapentin 1 capsule Orally Active 800 MG Orally three mingo es a day (tid) [facility] Metoprolol Tartrate 1 tablet Orally Active 100 MG Orally Twice a day [facility] Lisinopril-Hydrochlorothiazide 1 tablet Orally Active 20-12.5 MG Orally twice a day (bid) [facility] [place] Synthroid take 1 tablet by trice th at 6.30 am Orally Active 50 MCG Orally daily [facility] Cymbalta 1 capsule Orally Active 30 MG Orally twice a da y (bid) [facility] Tresiba FlexTouch 130 units at night Subcutaneous Active 200 UNIT/ML Subcutaneous daily [facility] Accu-Chek SmartView USE TO CORNELIUS CK BLOOD GLUCOSE TWICE A DAY NA Active - [facility] Omeprazole 1 capsule Orally Active 40 mg Orally Once a day [facility] Atorvastatin Calcium 1 tablet Orally Active 40 MG Orally Once a day Parmjit Parnell MD, PA NovoLog Flexpen not defined Subcutaneous Active 100 UNIT/ML Subcutaneous Parmjit Parnell MD, PA Gabapentin 1 capsule Orally Active 300 MG Orally Three mingo es a day Parmjit Parnell MD, DIXON Duloxetine HCl 1 capsule Orally Active 30 MG Orally Once a day Parmjit Parnell MD, PA Xarelto 1 tablet with food Orally Active 15 MG Orally Once a day Parmjit Parnell MD, PA Amlodipine Besylate 1 tablet Orally Active 5 MG Orally Once a day Parmjit Parnell MD, PA Lantus not defined Subcutaneous Active 100 UNIT/ML Subcutaneou s Parmjit Parnell MD, PA Omeprazole 1 capsule Orally Active 40 MG Orally Once a day Parmjit Parnell MD, DIXON Furosemide 1 tablet Oral Active 40 mg Oral Twice a day Parmjit Parnell MD, DIXON Losartan Potassium-HCTZ 1 tabl et Orally Active 100-25 MG Orally Once a day Parmjit Parnell MD, PA Gabapentin 1 capsule Orally Active 300 MG Orally three mingo es a day (tid) [facility] Amlodipine Besylate 1 tablet Orally Active 10 MG Orally Once a day [facility] NovoLog Flexpen 35 units Subcutaneous Active 100 UNIT/ML Subcutaneous three times a day (tid) [facility] Lisinopril 1 tablet Orally Active 40 MG Orally Once a day [facility] Lansoprazole 1 capsule Orally Active 30 MG Orally Once a day [facility] Victoza Unknown NA Active [facility] Metformin HCl 1 tablet with me als Orally Active 1000 mg Orally Twice a day [facility] NIFEdipine ER 1 tablet Orally Active 90 MG Orally Once a day [facility] Lisinopril-Hydrochlorothiazide 1 tablet Orally Active 20-12.5 MG Orally Once a day Parmjit Parnell MD, PA Metformin HCl 1 tablet Orally Active 1000 mg Orally Twice a day Parmjit Parnell MD, DIXON Aspirin 1 tablet Orally Active 81 MG Orally Once a day Parmjit Parnell MD, PA Metoprolol Tartrate 1 tablet Orally Active 100 MG Orally Twice a day Parmjit Parnell MD, PA Ergocalciferol 1 capsule Orally Active 95914 UNIT Orally Parmjit Parnell MD, DIXON Victoza 0.2 ml Subcutaneous Active 18 MG/3ML Subcutaneous Once a day Parmjit Parnell MD, PA NovoLog 55 units Subcutaneous Active 100 UNIT/ML Subcutaneou s three times a day (tid) [facility] Losartan Potassium-HCTZ 1 tabl et Orally Active 100-25 MG Orally Once a day [facility] Amlodipine Besylate 1 tablet Orally Active 5 MG Orally Once a day [facility] Lantus SoloStar 90 units in th e mornings and 70 units at night Subcutaneous Active 100 UNIT/ML Subcutaneous every morning [facility] Gabapentin 1 capsule Orally Active 600 MG Orally three mingo es a day (tid) [facility] Metoprolol Tartrate 1 tablet Orally Active 50 mg Orally Twice a day [facility] Allergies, Adverse Reactions, Alerts Substance Category Reaction Severity Reaction type Status Date Reported Comments Source N.K.D.A. Adverse Reaction Info Not Available Adverse Reaction Active 10/29/2018 Pako Parnell MD, PA No Known Medication Allergies Assertion Drug nacho Sainz Neuro Immunizations Immunization Date Given Site Status Last Updated Comments Source FLU SHOT 3 & UP 06/19/2016 completed [facility] Primary pneumococcal 23-valent vaccine 06/06/2016 Right deltoid completed [facility] [place] [facility], inactivated 06/06/2016 Left deltoid completed Arnaldo Crowley, KELLY [facility] JONO [place] FLU SHOT 3 & UP 05/30/2016 completed [facility] Primary FLU SHOT 3 & UP 03/22/2016 completed [facility] Primary FLU SHOT 3 & UP 02/21/2016 completed [facility] Primary FLU SHOT 3 & UP 09/27/2015 completed [facility] Primary Results Order Name Results Value Reference Range Date Interpretation Comments Source ELECTROLYTES AGAP 16.9 10.0 - 20.0 07/30/2017 [facility] ELECTROLYTES eGFR 57 07/30/2017 Result Comment: The eGFR is calculated using the CKD-EPI formula. In most young, healthy individuals the eGFR will be >90 mL/min/1.73m2. The eGFR declines with age. An eGFR of 60-89 may be normal in some populations, particularly the elderly, for whom the CKD-EPI formula has not been extensively validated. Use of the eGFR is not recommended in the following populations:

Individuals with unstable creatinine concentrations, including patients and those with serious co-morbid conditions.

Patients with extremes in muscle mass or diet.

The data above are obtained from the National Kidney Disease Education Program (NKDEP) which additionally recommends that when the eGFR is used in patients with extremes of body mass index for purposes of drug dosing, the eGFR should be multiplied by the estimated BMI. [facility] ELECTROLYTES Sodium Lvl 145 135 - 145 07/30/2017 [facility] ELECTROLYTES Potassium Lvl 3.9 3.5 - 5.1 07/30/2017 [facility] ELECTROLYTES Chloride Lvl 103 95 - 109 07/30/2017 [facility] ELECTROLYTES BUN 23 7 - 22 07/30/2017 [facility] ELECTROLYTES Creatinine Lvl 1.0 8 0.50 - 1.40 07/30/2017 [facility] ELECTROLYTES Glucose Lvl 298 70 - 99 07/30/2017 [facility] ELECTROLYTES Calcium Lvl 9.6 8.5 - 10.5 07/30/2017 [facility] ELECTROLYTES CO2 29 24 - 32 07/30/2017 [facility] HEMATOLOGY Platelet 276 133 - 450 07/30/2017 [facility] HEMATOLOGY MPV 8.6 7.4 - 10.4 07/30/2017 [facility] HEMATOLOGY MCH 22.2 27.0 - 31.0 07/30/2017 [facility] HEMATOLOGY MCHC 30.6 32.0 - 36.0 07/30/2017 [facility] HEMATOLOGY RDW 18.1 11.5 - 14.5 07/30/2017 [facility] HEMATOLOGY Hct 30.9 36.0 - 48.0 07/30/2017 [facility] HEMATOLOGY MCV 72.6 80.0 - 98.0 07/30/2017 [facility] HEMATOLOGY WBC 9.4 3.7 - 10.4 07/30/2017 [facility] HEMATOLOGY RBC 4.25 4.20 - 5.40 07/30/2017 [facility] HEMATOLOGY Hgb 9.4 12.0 - 16.0 07/30/2017 [facility] HEMATOLOGY Segs-Bands # 7.1 1.5 - 8.1 07/30/2017 [facility] HEMATOLOGY Lymphocytes # 1.4 1.0 - 5.5 07/30/2017 [facility] HEMATOLOGY Monocytes # 0.8 0.0 - 0.8 07/30/2017 [facility] HEMATOLOGY Eosinophils # 0.1 0.0 - 0.5 07/30/2017 [facility] HEMATOLOGY Microcyte 1+ *ABN* (07/30/17 6:04 AM) None Seen 07/30/2017 [facility] HEMATOLOGY Hypochrom 1+ (07/30/17 6:04 AM) None Seen 07/30/2017 [facility] HEMATOLOGY Lymphocytes 15.4 20.0 - 40.0 07/30/2017 [facility] HEMATOLOGY Segs 75.5 45.0 - 75.0 07/30/2017 [facility] HEMATOLOGY Basophils 0.4 0.0 - 1.0 07/30/2017 [facility] Monocytes 8.1 2.0 - 12.0 07/30/2017 [facility] HEMATOLOGY Eosinophils 0.6 0.0 - 4.0 07/30/2017 [facility] HEMATOLOGY Plt Morph Tiana l (07/30/17 6:04 AM) 07/30/2017 [facility] SPECIAL CHEMISTRY Hgb A1C 7.8 <=5.6 % 07/29/2017 [facility] CARDIAC ENZYMES CK MB <1.0 0.5 - 3.6 07/28/2017 [facility] CARDIAC ENZYMES CK MB Index <1.2 0.0 - 2.5 07/28/2017 [facility] CARDIAC ENZYMES Total CK 81 12 - 191 07/28/2017 [facility] CARDIAC ENZYMES Troponin-I <0.02 0.00 - 0.40 07/28/2017 [facility] HEMATOLOGY PTT 91.2 22.9 - 35.8 07/28/2017 [facility] URINE CHEM U Creatinine 15.30 07/28/2017 [facility] URINE CHEM U Sodium 124 07/28/2017 [facility] CARDIAC ENZYMES CK MB Index 1.1 0.0 - 2.5 07/28/2017 [facility] CARDIAC ENZYMES CK MB 1.0 0.5 - 3.6 07/28/2017 [facility] CARDIAC ENZYMES Troponin-I <0.02 0.00 - 0.40 07/28/2017 [facility] CARDIAC ENZYMES Total CK 93 12 - 191 07/28/2017 [facility] CHEM PANEL eGFR 43 07/28/2017 Result Comment: The eGFR is calculated using the CKD-EPI formula. In most young, healthy individuals the eGFR will be >90 mL/min/1.73m2. The eGFR declines with age. An eGFR of 60-89 may be normal in some populations, particularly the elderly, for whom the CKD-EPI formula has not been extensively validated. Use of the eGFR is not recommended in the following populations:

Individuals with unstable creatinine concentrations, including patients and those with serious co-morbid conditions.

Patients with extremes in muscle mass or diet.

The data above are obtained from the National Kidney Disease Education Program (NKDEP) which additionally recommends that when the eGFR is used in patients with extremes of body mass index for purposes of drug dosing, the eGFR should be multiplied by the estimated BMI. [facility] CHEM PANEL BUN 34 7 - 22 07/28/2017 [facility] CHEM PANEL Glucose Lvl 177 70 - 99 07/28/2017 [facility] CHEM PANEL Potassium Lvl 3.7 3.5 - 5.1 07/28/2017 [facility] CHEM PANEL Chloride Lvl 107 95 - 109 07/28/2017 [facility] CHEM PANEL Sodium Lvl 143 135 - 145 07/28/2017 [facility] CHEM PANEL Creatinine Lvl 1.37 0.50 - 1.40 07/28/2017 [facility] CHEM PANEL B/C Ratio 25 6 - 25 07/28/2017 [facility] CHEM PANEL AGAP 8.7 10.0 - 20.0 07/28/2017 [facility] CHEM PANEL CO2 31 24 - 32 07/28/2017 [facility] CHEM PANEL Total Protein 7.3 6.4 - 8.4 07/28/2017 [facility] CHEM PANEL Globulin 4.1 2.7 - 4.2 07/28/2017 [facility] CHEM PANEL A/G Ratio 0.8 0.7 - 1.6 07/28/2017 [facility] CHEM PANEL Bili Total 0.3 0.2 - 1.3 07/28/2017 [facility] CHEM PANEL Alk Phos 92 39 - 136 07/28/2017 [facility] CHEM PANEL Calcium Lvl 8.5 8.5 - 10.5 07/28/2017 [facility] CHEM PANEL AST 17 0 - 37 07/28/2017 [facility] CHEM PANEL ALT 20 0 - 65 07/28/2017 [facility] CHEM PANEL Albumin Lvl 3.2 3.5 - 5.0 07/28/2017 [facility] MCHC 30.7 32.0 - 36.0 07/28/2017 [facility] MCH 22.4 27.0 - 31.0 07/28/2017 [facility] HEMATOLOGY RDW 18.1 11.5 - 14.5 07/28/2017 [facility] MCV 73.0 80.0 - 98.0 07/28/2017 [facility] Platelet 263 133 - 450 07/28/2017 [facility] MPV 8.6 7.4 - 10.4 07/28/2017 [facility] RBC 3.82 4.20 - 5.40 07/28/2017 [facility] Hgb 8.6 12.0 - 16.0 07/28/2017 [facility] Hct 27.9 36.0 - 48.0 07/28/2017 [facility] WBC 7.6 3.7 - 10.4 07/28/2017 [facility] Microcyte 1+ *ABN* (07/28/17 3:45 AM) None Seen 07/28/2017 [facility] Eosinophils # 0.2 0.0 - 0.5 07/28/2017 [facility] Lymphocytes 33.6 20.0 - 40.0 07/28/2017 [facility] HEMATOLOGY Segs 55.4 45.0 - 75.0 07/28/2017 [facility] Monocytes # 0.6 0.0 - 0.8 07/28/2017 [facility] Basophils 0.5 0.0 - 1.0 07/28/2017 [facility] Segs-Bands # 4.2 1.5 - 8.1 07/28/2017 [facility] Lymphocytes # 2.5 1.0 - 5.5 07/28/2017 [facility] Eosinophils 2.9 0.0 - 4.0 07/28/2017 [facility] Monocytes 7.6 2.0 - 12.0 07/28/2017 [facility] CARDIAC ENZYMES BNP 13 <=100 pg/mL 07/28/2017 [facility] CARDIAC ENZYMES Total CK 103 12 - 191 07/28/2017 [facility] CARDIAC ENZYMES CK MB <1.0 0.5 - 3.6 07/28/2017 [facility] CARDIAC ENZYMES Troponin-I <0.02 0.00 - 0.40 07/28/2017 [facility] CARDIAC ENZYMES CK MB Index <1.0 0.0 - 2.5 07/28/2017 [facility] CHEM PANEL eGFR 36 07/28/2017 Result Comment: The eGFR is calculated using the CKD-EPI formula. In most young, healthy individuals the eGFR will be >90 mL/min/1.73m2. The eGFR declines with age. An eGFR of 60-89 may be normal in some populations, particularly the elderly, for whom the CKD-EPI formula has not been extensively validated. Use of the eGFR is not recommended in the following populations:

Individuals with unstable creatinine concentrations, including patients and those with serious co-morbid conditions.

Patients with extremes in muscle mass or diet.

The data above are obtained from the National Kidney Disease Education Program (NKDEP) which additionally recommends that when the eGFR is used in patients with extremes of body mass index for purposes of drug dosing, the eGFR should be multiplied by the estimated BMI. [facility] CHEM PANEL Total Protein 7.8 6.4 - 8.4 07/28/2017 [facility] CHEM PANEL Calcium Lvl 8.2 8.5 - 10.5 07/28/2017 [facility] CHEM PANEL CO2 31 24 - 32 07/28/2017 [facility] CHEM PANEL Chloride Lvl 103 95 - 109 07/28/2017 [facility] CHEM PANEL Potassium Lvl 3.8 3.5 - 5.1 07/28/2017 [facility] CHEM PANEL Bili Total 0.3 0.2 - 1.3 07/28/2017 [facility] CHEM PANEL Alk Phos 105 39 - 136 07/28/2017 [facility] CHEM PANEL AST 13 0 - 37 07/28/2017 [facility] CHEM PANEL ALT 20 0 - 65 07/28/2017 [facility] CHEM PANEL Albumin Lvl 3.2 3.5 - 5.0 07/28/2017 [facility] CHEM PANEL Creatinine Lvl 1.57 0.50 - 1.40 07/28/2017 [facility] CHEM PANEL Sodium Lvl 145 135 - 145 07/28/2017 [facility] CHEM PANEL BUN 38 7 - 22 07/28/2017 [facility] CHEM PANEL Glucose Lvl 296 70 - 99 07/28/2017 [facility] CHEM PANEL A/G Ratio 0.7 0.7 - 1.6 07/28/2017 [facility] CHEM PANEL Globulin 4.6 2.7 - 4.2 07/28/2017 [facility] CHEM PANEL B/C Ratio 24 6 - 25 07/28/2017 [facility] CHEM PANEL AGAP 14.8 10.0 - 20.0 07/28/2017 [facility] HEMATOLOGY PTT 32.6 22.9 - 35.8 07/28/2017 [facility] HEMATOLOGY PT 12.9 12.0 - 14.7 07/28/2017 [facility] HEMATOLOGY INR 0.97 0.85 - 1.17 07/28/2017 [facility] MCH 23.0 27.0 - 31.0 07/28/2017 [facility] RBC 4.01 4.20 - 5.40 07/28/2017 [facility] MCV 74.0 80.0 - 98.0 07/28/2017 [facility] Hgb 9.2 12.0 - 16.0 07/28/2017 [facility] WBC 8.1 3.7 - 10.4 07/28/2017 [facility] HEMATOLOGY Hct 29.7 36.0 - 48.0 07/28/2017 [facility] Platelet 280 133 - 450 07/28/2017 [facility] MPV 8.3 7.4 - 10.4 07/28/2017 [facility] MCHC 31.0 32.0 - 36.0 07/28/2017 [facility] RDW 18.1 11.5 - 14.5 07/28/2017 [facility] Monocytes 5.8 2.0 - 12.0 07/28/2017 [facility] Lymphocytes 22.0 20.0 - 40.0 07/28/2017 [facility] Segs 69.1 45.0 - 75.0 07/28/2017 [facility] Microcyte 1+ *ABN* (07/27/17 9:14 PM) None Seen 07/28/2017 [facility] HEMATOLOGY Basophils 0.5 0.0 - 1.0 07/28/2017 [facility] HEMATOLOGY Eosinophils 2.6 0.0 - 4.0 07/28/2017 [facility] Lymphocytes # 1.8 1.0 - 5.5 07/28/2017 [facility] Segs-Bands # 5.6 1.5 - 8.1 07/28/2017 [facility] HEMATOLOGY Monocytes # 0.5 0.0 - 0.8 07/28/2017 [facility] HEMATOLOGY Eosinophils # 0.2 0.0 - 0.5 07/28/2017 [facility] CHEM PANEL eGFR 31 06/08/2016 Result Comment: The eGFR is calculated using the CKD-EPI formula. In most young, healthy individuals the eGFR will be >90 mL/min/1.73m2. The eGFR declines with age. An eGFR of 60-89 may be normal in some populations, particularly the elderly, for whom the CKD-EPI formula has not been extensively validated. Use of the eGFR is not recommended in the following populations:

Individuals with unstable creatinine concentrations, including patients and those with serious co-morbid conditions.

Patients with extremes in muscle mass or diet.

The data above are obtained from the National Kidney Disease Education Program (NKDEP) which additionally recommends that when the eGFR is used in patients with extremes of body mass index for purposes of drug dosing, the eGFR should be multiplied by the estimated BMI. [facility] CHEM PANEL Calcium Lvl 7.4 8.5 - 10.5 06/08/2016 [facility] CHEM PANEL Sodium Lvl 137 135 - 145 06/08/2016 [facility] CHEM PANEL Creatinine Lvl 1.80 0.50 - 1.40 06/08/2016 [facility] CHEM PANEL AGAP 13.8 10.0 - 20.0 06/08/2016 [facility] CHEM PANEL CO2 29 24 - 32 06/08/2016 [facility] CHEM PANEL Chloride Lvl 98 95 - 109 06/08/2016 [facility] CHEM PANEL Potassium Lvl 3.8 3.5 - 5.1 06/08/2016 [facility] CHEM PANEL Glucose Lvl 339 70 - 99 06/08/2016 [facility] CHEM PANEL BUN 39 7 - 22 06/08/2016 [facility] HEMATOLOGY RDW 15.0 11.5 - 14.5 06/08/2016 [facility] HEMATOLOGY MCHC 31.9 32.0 - 36.0 06/08/2016 [facility] MPV 9.9 7.4 - 10.4 06/08/2016 [facility] Platelet 253 133 - 450 06/08/2016 [facility] MCH 24.4 27.0 - 31.0 06/08/2016 [facility] HEMATOLOGY Hgb 10.1 12.0 - 16.0 06/08/2016 [facility] HEMATOLOGY MCV 76.4 80.0 - 98.0 06/08/2016 [facility] HEMATOLOGY Hct 31.7 36.0 - 48.0 06/08/2016 [facility] HEMATOLOGY RBC 4.15 4.20 - 5.40 06/08/2016 [facility] HEMATOLOGY WBC 6.4 3.7 - 10.4 06/08/2016 [facility] CHEM PANEL Glucose Lvl 300 70 - 99 06/07/2016 [facility] CHEM PANEL BUN 53 7 - 22 06/07/2016 [facility] CHEM PANEL Calcium Lvl 6.7 8.5 - 10.5 06/07/2016 Result Comment: Critical Result(s) lulu hines at 06/07/2016 06:47 byjw. Read back OK. [facility] CHEM PANEL B/C Ratio 20 6 - 25 06/07/2016 [facility] CHEM PANEL CO2 29 24 - 32 06/07/2016 [facility] CHEM PANEL AGAP 16.2 10.0 - 20.0 06/07/2016 [facility] CHEM PANEL Potassium Lvl 4.2 3.5 - 5.1 06/07/2016 [facility] CHEM PANEL Chloride Lvl 95 95 - 109 06/07/2016 [facility] CHEM PANEL Creatinine Lvl 2.60 0.50 - 1.40 06/07/2016 [facility] CHEM PANEL Sodium Lvl 136 135 - 145 06/07/2016 [facility] CHEM PANEL Bili Total 0.5 0.2 - 1.3 06/07/2016 [facility] CHEM PANEL Alk Phos 77 39 - 136 06/07/2016 [facility] CHEM PANEL ALT 32 0 - 65 06/07/2016 [facility] CHEM PANEL AST 27 0 - 37 06/07/2016 [facility] CHEM PANEL Albumin Lvl 2.9 3.5 - 5.0 06/07/2016 [facility] CHEM PANEL Globulin 3.0 2.7 - 4.2 06/07/2016 [facility] CHEM PANEL A/G Ratio 1.0 0.7 - 1.6 06/07/2016 [facility] CHEM PANEL Total Protein 5.9 6.4 - 8.4 06/07/2016 [facility] CHEM PANEL eGFR 20 06/07/2016 Result Comment: The eGFR is calculated using the CKD-EPI formula. In most young, healthy individuals the eGFR will be >90 mL/min/1.73m2. The eGFR declines with age. An eGFR of 60-89 may be normal in some populations, particularly the elderly, for whom the CKD-EPI formula has not been extensively validated. Use of the eGFR is not recommended in the following populations:

Individuals with unstable creatinine concentrations, including patients and those with serious co-morbid conditions.

Patients with extremes in muscle mass or diet.

The data above are obtained from the National Kidney Disease Education Program (NKDEP) which additionally recommends that when the eGFR is used in patients with extremes of body mass index for purposes of drug dosing, the eGFR should be multiplied by the estimated BMI. [facility] CHEM PANEL Magnesium Lvl 1.4 1.8 - 2.4 06/07/2016 [facility] HEMATOLOGY Microcyte 1+ *ABN* (06/07/16 6:06 AM) None Seen 06/07/2016 [facility] Basophils # 0.1 0.0 - 0.2 06/07/2016 [facility] HEMATOLOGY Basophils 1.1 0.0 - 1.0 06/07/2016 [facility] HEMATOLOGY Monocytes # 0.7 0.0 - 0.8 06/07/2016 [facility] HEMATOLOGY Eosinophils 5.9 0.0 - 4.0 06/07/2016 [facility] HEMATOLOGY Monocytes 10.3 2.0 - 12.0 06/07/2016 [facility] Segs-Bands # 3.6 1.5 - 8.1 06/07/2016 [facility] Lymphocytes # 1.9 1.0 - 5.5 06/07/2016 [facility] Eosinophils # 0.4 0.0 - 0.5 06/07/2016 [facility] HEMATOLOGY Segs 54.3 45.0 - 75.0 06/07/2016 [facility] Lymphocytes 28.4 20.0 - 40.0 06/07/2016 [facility] HEMATOLOGY WBC 6.6 3.7 - 10.4 06/07/2016 [facility] HEMATOLOGY RBC 3.66 4.20 - 5.40 06/07/2016 [facility] MCV 76.4 80.0 - 98.0 06/07/2016 [facility] MCH 24.3 27.0 - 31.0 06/07/2016 [facility] MCHC 31.9 32.0 - 36.0 06/07/2016 [facility] HEMATOLOGY Hgb 8.9 12.0 - 16.0 06/07/2016 [facility] HEMATOLOGY Hct 28.0 36.0 - 48.0 06/07/2016 [facility] HEMATOLOGY RDW 15.3 11.5 - 14.5 06/07/2016 [facility] HEMATOLOGY Platelet 225 133 - 450 06/07/2016 [facility] HEMATOLOGY MPV 10.0 7.4 - 10.4 06/07/2016 [facility] PARATHYROID PROFILE Ca Norm WB 0.80 1.05 - 1.25 06/07/2016 [facility] PARATHYROID PROFILE Ca Ion WB 0.83 1.05 - 1.25 06/07/2016 Result Comment: Critical Result(s) lulu zuñiga at 06/07/2016 06:32 byjw. Read back OK. [facility] ANEMIA STUDY TIBC 402 228 - 428 06/07/2016 [facility] ANEMIA STUDY Iron 41 30 - 160 06/07/2016 [facility] ANEMIA STUDY UIBC 361 110 - 370 06/07/2016 [facility] ANEMIA STUDY % [place] 10 12 - 57 06/07/2016 [facility] CHEM PANEL eGFR 16 06/06/2016 Result Comment: The eGFR is calculated using the CKD-EPI formula. In most young, healthy individuals the eGFR will be >90 mL/min/1.73m2. The eGFR declines with age. An eGFR of 60-89 may be normal in some populations, particularly the elderly, for whom the CKD-EPI formula has not been extensively validated. Use of the eGFR is not recommended in the following populations:

Individuals with unstable creatinine concentrations, including patients and those with serious co-morbid conditions.

Patients with extremes in muscle mass or diet.

The data above are obtained from the National Kidney Disease Education Program (NKDEP) which additionally recommends that when the eGFR is used in patients with extremes of body mass index for purposes of drug dosing, the eGFR should be multiplied by the estimated BMI. [facility] CHEM PANEL AGAP 16.7 10.0 - 20.0 06/06/2016 [facility] CHEM PANEL CO2 29 24 - 32 06/06/2016 [facility] CHEM PANEL Calcium Lvl 6.6 8.5 - 10.5 06/06/2016 Result Comment: Critical Result(s) lulu Mcintosh at 06/06/2016 11:04 by iona. Read back OK. [facility] CHEM PANEL Glucose Lvl 329 70 - 99 06/06/2016 [facility] CHEM PANEL BUN 54 7 - 22 06/06/2016 [facility] CHEM PANEL Sodium Lvl 137 135 - 145 06/06/2016 [facility] CHEM PANEL Creatinine Lvl 3.10 0.50 - 1.40 06/06/2016 [facility] CHEM PANEL Potassium Lvl 3.7 3.5 - 5.1 06/06/2016 [facility] CHEM PANEL Chloride Lvl 95 95 - 109 06/06/2016 [facility] URINE AND STOOL UA Urobilinogen <=1.0 mg/dL 0.1 - 1.0 06/06/2016 [facility] URINE AND STOOL UA Color Ltyellow 06/06/2016 [facility] URINE AND STOOL UA Sq Epi None Seen 06/06/2016 [facility] URINE AND STOOL UA pH 5.0 5.0 - 8.0 06/06/2016 [facility] URINE AND STOOL UA Bacteria Occasional /HPF None Seen /HPF 06/06/2016 [facility] URINE AND STOOL UA Hyal Cast 1 0 - 2 06/06/2016 [facility] URINE AND STOOL UA RBC <1 0 - 2 06/06/2016 [facility] URINE AND STOOL UA WBC <1 0 - 5 06/06/2016 [facility] URINE AND STOOL UA Leuk Est Negative (06/06/16 6:51 AM) Negative 06/06/2016 [facility] URINE AND STOOL UA Blood Negative (06/06/16 6:51 AM) Negative 06/06/2016 [facility] URINE AND STOOL UA Bili Negative *NA* (06/06/16 6:51 AM) Negative 06/06/2016 [facility] URINE AND STOOL UA Nitrite Negative (06/06/16 6:51 AM) Negative 06/06/2016 [facility] URINE AND STOOL UA Protein Negative mg/dL Negative mg/dL 06/06/2016 [facility] URINE AND STOOL UA Ketones Negative mg/dL Negative mg/dL 06/06/2016 [facility] URINE AND STOOL UA Glucose Negative mg/dL Negative mg/dL 06/06/2016 [facility] URINE AND STOOL UA Spec Grav 1.009 <=1.030 06/06/2016 [facility] URINE AND STOOL UA Turbidity Slight *ABN* (06/06/16 6:51 AM) Clear 06/06/2016 [facility] Pathology Reports No Data Provided for This Section Diagnostic Reports Report Value Date Source Spine lumbar series DX EXAM: X R LUMBAR SPINE 5 VIEWS DATE: 07/10/2018 16:33 CDT INDICATION: - acute low back pain COMPARISON: None. TECHNIQUE: AP, lateral, coned lateral, LPO and RPO radiographs of the lumbar spine FINDINGS: 5 nonrib bearing, lumbar-type vertebral bodies are present. Vertebral body heights are preserved. Degenerative disc height loss is present at L3-L4 and L4-L5. Anterior and lateral osteophytes are present throughout the lumbar spine. There is no spondylolysis or spondylolisthesis. Aortic calcifications are noted. Cholecystectomy clips are present in the right upper abdomen. IMPRESSION: 1. No acute abnormality. 2. Multilevel degenerative changes. 07/10/2018 [facility] Hip 2/3 views uni w pelvis DX EXAM: XR RIGHT HIP 2 VIEW DATE: 07/10/2018 16:33 CDT INDICATION: - right hip pain. Fall 2 weeks ago COMPARISON: None. TECHNIQUE: 2 views of the hip including the pelvis FINDINGS: Limited study due to patient body habitus/technique. No acute fracture or malalignment is identified. Hip joint spaces are preserved. Bilateral greater trochanteric enthesophytes. Degenerative changes of the lower lumbar spine. No soft tissue abnormality is identified. IMPRESSION: No acute abnormality. MRI of the hip may be considered if there is a persistent clinical concern. 07/10/2018 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 CLINICAL INDICATION: 57 years Female M54.9 Dorsalgia, u nspecified - M54.9 Dorsalgia, unspecified . Comparison: None available. TECHNIQUE: Sagittal T1, sagittal T2 with fat saturation, axial T1 and axial T2 images were obtained. FINDINGS: Mild straightening of the lumbar lordosis. The vertebrae are otherwise normal in shape, signal intensity and alignment. The paravertebral musculature demonstrates mild fatty atrophy in keeping with deconditioning. The conus medullaris terminates normally at the T12-L1 level. There is no intradural mass lesion. T12-L1: There is preservation of the disc signal intensity, height, with no bulging, herniation, spinal stenosis, or neural foraminal stenosis. L1-L2: There is preservation of the disc signal intensity, height, with no bulging, herniation, spinal stenosis, or neural foraminal stenosis. L2-L3: There is preservation of the disc signal intensity, height, with no bulging, herniation, spinal stenosis, or neural foraminal stenosis. L3-L4: Disc is desiccated with mild disc height loss. 4 mm disc bulge with minimal facet hypertrophy and ligamentum flavum thickening. This results in mild bilateral canal, neural foraminal, and lateral recess narrowing with slight crowding of the nerve roots. No focal disc herniation. L4-L5: Disc is desiccated with mild disc height loss. Midline subligamentous 4 mm disc protrusion with mild annular fissuring and superimposed mild/moderate disc bulge with minimal facet hypertrophy, right-sided joint fluid, ligamentum flavum thickening. This results in mild right greater than left lateral recess narrowing with slight displacement/impingement on the descending right L5 nerve root. No significant canal/neural foraminal narrowing. L5-S1: Disc is desiccated with mild disc height loss. Midline subligamentous 5 mm disc protrusion with mild annular fissuring and superimposed mild disc bulge. This results in moderate right and mild left lateral recess narrowing. Impingement/compression of the descending right S1 nerve root and contact with the descending left S1 nerve root. Extraforaminal disc osteophyte complexes measure up to 5 mm with mild bilateral neural foraminal narrowing causing deformity of bilateral L5 foraminal/extraforaminal nerve roots. No significant canal stenosis. IMPRESSION: 1. Disc protrusions with annular fissuri ng at L5-S1 greater than L4-5 with slight impingement/compression of the descending right S1 nerve root and contact to the descending right L5 and left S1 nerve roots. 2. Foraminal/extraforaminal disc osteoph yte complexes also causes slight deformity of bilateral L5 nerve roots. Other mild stenoses as above. 03/21/2018 [facility] [place] Knee wo contrast MRI EXAMINATI ON: MRI of the left knee without contrast HISTORY: M25.562 Pain in left knee;; left knee medial meniscus tear; left knee patellofemoral compartment predominant chondrosis/osteoarthrosis COMPARISON: Radiographs dated 01/27/2018 are reviewed. TECHNIQUE: Multiplanar, multisequence magnetic resonance imaging of the left knee is performed with a local coil without contrast. Dedicated extremity coil could not be utilized secondary to body habitus. FINDINGS: Menisci: --Medial: There are 2 separate horizonta l undersurface tears of the medial meniscus including a horizontal undersurface tear near the body/posterior horn junction and an additional horizontal undersurface tear involving the posterior horn, near the posterior horn/root junction (series 4, image 11 and series 100, images 23 and 20). --Lateral: The anterior horn, body, and posterior horn are intact. Ligaments: The cruciate ligaments are intact. The medial collateral ligament and lateral collateral ligament complex are intact. Extensor mechanism: The extensor mechanism is intact. Muscles: There is normal signal intensity and muscle bulk of the musculature at the knee. Cartilage: Within the medial compartment, there is deep partial thickness chondrosis and chondral thinning involving the central weightbearing medial femoral condyle and matching medial tibial plateau. Within the lateral compartment, there is no substantial focal chondral defect identified. Within the patellofemoral compartment, there are foci of deep partial thickness to near full-thickness chondrosis involving the patellar median ridge and medial aspect of the lateral patellar facet with underlying subchondral cyst formation. There is also mild partial-thickness chondrosis involving the matching superior aspect of the lateral trochlea. Bone: There is subchondral cyst formation along the patellar median ridge and medial aspect of the lateral patellar facet. There is no acute fracture. There is medial and patellofemoral compartment osteophyte formation. There are no suspicious bone marrow replacing lesions. Soft tissues: There is mild scattered subcutaneous edema along the anterior aspect of the knee. There is a small knee effusion without Weller's cyst. IMPRESSION: 1. Multifocal horizontal undersurface te aring of the left knee medial meniscus as described in detail above. 2. Moderate patellofemoral and mild to m oderate medial compartment, bicompartmental chondrosis of the left knee as described in detail above, including subchondral cyst formation along the patellar median ridge and medial aspect of the lateral patellar facet. 3. Small left knee effusion. 4. Nonspecific mild scattered subcutaneo us edema along the anterior aspect of the left knee. 5. Intact left knee cruciate and collate ral ligaments. 03/21/2018 [facility] [place] Knee 1-2 Views unilateral DX E XAM: XR LEFT KNEE 2 VIEWS DATE: 01/27/2018 11:32 AM CDT INDICATION: - acute pain of left knee COMPARISON: None. TECHNIQUE: AP and lateral radiographs of the knee FINDINGS: No acute fracture or malalignment is identified. Moderate medial joint space narrowing is seen along with mild tricompartmental osteophytosis. No knee joint effusion is present. No soft tissue abnormality is identified. IMPRESSION: Moderate osteoarthrosis of the right knee most prominent in the medial compartment. 01/27/2018 [facility] Pulmonary Embolism CTA Clinical Indication: Dyspnea. Comparison: Chest radiograph dated 07/27/2017 TECHNIQUE: Sequential trans-axial images were obtained with a multi-detector helical CT after iodinated contrast administration. Coronal and sagittal reconstructions were obtained. 3-D MIP reconstructions performed. 75 cc of Visipaque contrast material was used for the exam. CT Radiation Dose DLP 942.12 mGy-cm FINDINGS: LUNG PARENCHYMA AND PLEURA: There are no lung nodules. There is no interstitial lung disease. Mild vascular congestion is noted. No airspace opacities identified There are no pleural effusions. There is no pneumothorax. AIRWAY: The central airway is normal. MEDIASTINUM: There is no mediastinal lymphadenopathy. HEART: The cardiac chambers appear unremarkable. There is no pericardial effusion. VASCULAR STRUCTURES: There is suboptimal opacification of the pulmonary arterial tree. There is filling defect in the subsegmental branch of the left lower lobe pulmonary artery (image #54, series 2 similarly there is to resume the defect in the right lower lobe pulmonary arterial subsegmental branch. The main, right and left pulmonary arteries are normal. The great vessels are unremarkable. Calcified plaque in gastric aorta are noted. There is no aneurysm or dissection of the thoracic aorta.. There is no thoracic aortic dissection or aneurysm. The superior vena cava is unremarkable. OSSEOUS STRUCTURES: There are mild degenerative changes in the thoracic spine.. VISUALIZED UPPER ABDOMEN: Cholecystectomy.. IMPRESSION: 1. Positive for pulmonary embolism in manzano bsegmental branch of bilateral lower lobe pulmonary arteries. 2. Mild vascular congestion. No pneumoni a seen. 3. Cholecystectomy. Findings were discussed with Dr. Landry on 07/28/2017, 1217 hours SL: NOEMI 07/27/2017 [facility] Chest 1view DX Patient Name: Sy GOLDBERG : 1960; Age: 57 years y/o Female MR: [id number] * CHEST, portable, 1 view HISTORY: Dyspnea. COMPARISON: None TECHNIQUE: A portable frontal radiograph of the chest was obtained. FINDINGS: There is no evidence of an active or acute process within the chest. The lungs are clear. There are no pleural effusions. The heart is normal in size. The regional skeleton is unremarkable. IMPRESSION: 1. No active disease. SL: SYLVIA-PC 07/27/2017 [facility] Knee 1-2 Views unilateral DX E XAM: XR RIGHT KNEE 2 VIEWS DATE: 02/05/2017 10:30 AM CDT INDICATION: - M25.561 Pain in right knee COMPARISON: None. TECHNIQUE: AP and lateral radiographs of the knee FINDINGS: No acute fracture or malalignment is identified. Minimal amount of joint space narrowing in the medial compartment. No knee joint effusion is present. No soft tissue abnormality is identified. IMPRESSION: Minimal joint space narrowing of the medial compartment. 02/05/2017 [facility] Spine lumbar series DX EXAM: X R LUMBAR SPINE 5 VIEWS DATE: 02/05/2017 10:30 AM CDT INDICATION: - M54.5 Low back pain COMPARISON: None. TECHNIQUE: AP, lateral, coned lateral, LPO and RPO radiographs of the lumbar spine FINDINGS: 5 nonrib bearing, lumbar-type vertebral bodies are present. Vertebral body heights and disc heights are preserved. There is no spondylolysis or spondylolisthesis. Osteophytes involving L4, L3, L2, T12, T11, and T10. There is a moderate amount of joint space narrowing in the thoracic spine with sclerotic endplate changes. No soft tissue abnormality is identified. IMPRESSION: 1. 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 2. Limited exam due to poor image quali ty. 02/05/2017 [facility] Femur series DX EXAM: XR RIGHT FEMUR 2 VIEWS DATE: 02/05/2017 10:31 AM CDT INDICATION: - M79.651 Pain in right thigh COMPARISON: None. TECHNIQUE: AP and lateral radiographs of the femur FINDINGS: No acute fracture or malalignment is identified. No soft tissue abnormality is identified. IMPRESSION: No acute abnormality. 02/05/2017 [facility] Retroperitoneal Complete US St udy: Retroperitoneal Complete US Clinical Indication: Abdominal fullness Comparison: None TECHNIQUE: Multiple longitudinal and transverse real time sonographic images of the kidneys and urinary bladder are obtained. FINDINGS: The kidneys are normal in size and echotexture and without stones or hydronephrosis. The right kidney measures 12.8 x 4.3 x 6.6 cm. The left kidney measures 11.8 x 5.4 x 5.7 cm. The urinary bladder is collapsed and contains a Lopez catheter, limiting evaluation. IMPRESSION: 1. Normal renal ultrasound. SL: [id number] 06/06/2016 [facility] Breast Mammo Scrn SILAS incl CAD MA - BREAST MAMMO SCRN SILAS INCL CAD MA BILATERAL DIGITAL SCREENING MAMMOGRAM WITH CAD: 05/30/2016 CLINICAL: Routine. Current study was evaluated with a Computer Aided Detection (CAD) system. Comparison is made with mammogram(s) dated 02/02/13 - 10/05/10. There are scattered fibroglandular densities in both breasts. Technologist indicates the exam is limited secondary to the patient's body habitus. Optimal positioning was not allowed. Best images obtained were submitted. There are benign calcifications in both breasts. There also are benign intramammary nodes in the right breast. Additionally there are benign vascular calcifications in the left breast. There also are benign densities in the left breast. No significant masses, calcifications, or other findings are seen in either breast. There has been no significant interval change. IMPRESSION: BENIGN There is no mammographic evidence of malignancy. A 1 year screening mammogram is recommended. Jessica guido/penrad:05/31/2016 14:53:39 Insurance Claims Assistant: Gabby Guevara, [facility] This exam was dictated and interpreted by [id number] for [facility]. 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 Lungs: The lungs are grossly clear. Mediastinum: The cardiac silhouette is mildly enlarged. Midline trachea. Bones and soft tissues: No acute abnormalities. IMPRESSION: No acute cardiopulmonary abnormalities. SL: [id number] 05/30/2016 [facility] Ext Lower Arterial Doppler bilat US Clinical Indication: leg pain and swelling; Comparison: None Bilateral lower extremity arterial Doppler ultrasound exam. Normal triphasic waveforms seen within the lower extremity arteries from the common femoral to the distal anterior tibial and posterior tibial at the ankle. Normal peak systolic velocity in the right femoral artery up to 1.4 m/s. Normal peak systolic velocity left femoral artery up to 1.6 m/s. Normal popliteal artery peak systolic velocity of 0.7 m/s on the right and 0.9 m/s on the left. Normal waveforms and velocities within the distal anterior tibial artery and posterior tibial artery at both ankles. IMPRESSION: Sonographically unremarkable. SL: [id number] 08/12/2015 [facility] Ext Lower Venous Doppler Bilat US Clinical Indication: Bilateral leg swelling.; Comparison: None Findings: Bilateral lower extremity venous Doppler ultrasound exam demonstrates normal flow and compressibility of the common femoral, superficial femoral and popliteal venous segments. Normal distal augmentation. IMPRESSION: No evidence for deep vein thrombosis within either lower extremity. SL: [id number] 08/12/2015 [facility] Consultation Notes No Data Provided for This Section Discharge Summaries No Data Provided for This Section History and Physicals No Data Provided for This Section Vital Signs Vital Sign Value Date Comments Source Weight 340 10/29/2018 Pako Parnell MD, [place] Heart Rate 87 10/29/2018 Pako Parnell MD, [place] Diastolic (mm Hg) 69 10/29/2018 Pako Parnell MD, [place] Systolic (mm Hg) 126 10/29/2018 Pako Parnell MD, [facility] Weight 370 08/19/2018 Pako Parnell MD, [facility] Heart Rate 86 08/19/2018 Pako Parnell [facility], [facility] Diastolic (mm Hg) 68 08/19/2018 Pako Parnell MD, [facility] Systolic (mm Hg) 138 08/19/2018 Pako Parnell MD, [facility] Weight 368 07/21/2018 Pako Parnell MD, [facility] Heart Rate 89 07/21/2018 Pako Parnell MD, [facility] Diastolic (mm Hg) 89 07/21/2018 Pako Parnell MD, [facility] Systolic (mm Hg) 160 07/21/2018 Pako Parnell MD, [facility] Respitory Rate 11 12/19/2017 [facility] Systolic (mm Hg) 124 12/19/2017 [facility] Diastolic (mm Hg) 54 12/19/2017 [facility] Systolic (mm Hg) 125 12/19/2017 [facility] Diastolic (mm Hg) 60 12/19/2017 [facility] Respitory Rate 20 12/19/2017 [facility] Respitory Rate 21 12/19/2017 [facility] Systolic (mm Hg) 99 12/19/2017 [facility] Diastolic (mm Hg) 43 12/19/2017 [facility] Weight 140.909 12/18/2017 [facility] Height 157.48 cm 12/18/2017 [facility] BMI Calculated 56.82 12/18/2017 [facility] Systolic (mm Hg) 162 07/30/2017 [facility] Diastolic (mm Hg) 77 07/30/2017 [facility] Heart Rate 92 07/30/2017 [facility] Temperature Oral (F) 99 F 07/30/2017 [facility] Respitory Rate 20 07/30/2017 [facility] Systolic (mm Hg) 155 07/30/2017 [facility] Diastolic (mm Hg) 74 07/30/2017 [facility] Respitory Rate 20 07/30/2017 [facility] Heart Rate 100 07/30/2017 [facility] Temperature Oral (F) 98.2 F 07/30/2017 [facility] Systolic (mm Hg) 162 07/30/2017 [facility] Diastolic (mm Hg) 76 07/30/2017 [facility] Heart Rate 98 07/30/2017 [facility] Respitory Rate 20 07/30/2017 [facility] Temperature Oral (F) 98.5 F 07/30/2017 [facility] Weight 159.003 07/28/2017 [facility] BMI Calculated 60.48 07/28/2017 [facility] Weight 150 07/28/2017 [facility] Height 157.48 cm 07/28/2017 [facility] Weight 317.1 11/07/2016 [facility] Primary Height 62 0 11/07/2016 [facility] Primary Temperature Oral (F) 97.1 F 11/07/2016 [facility] Primary Heart Rate 75 11/07/2016 [facility] Primary Diastolic (mm Hg) 76 11/07/2016 [facility] Primary Systolic (mm Hg) 143 11/07/2016 [facility] Primary Weight 316.6 09/04/2016 [facility] Primary Height 62 0 09/04/2016 [facility] Primary Temperature Oral (F) 98.4 F 09/04/2016 [facility] Primary Heart Rate 73 09/04/2016 [facility] Primary Diastolic (mm Hg) 82 09/04/2016 [facility] Primary Systolic (mm Hg) 160 09/04/2016 [facility] Primary Weight 318.0 07/31/2016 [facility] Primary Height 62 0 07/31/2016 [facility] Primary Temperature Oral (F) 97.9 F 07/31/2016 [facility] Primary Heart Rate 112 07/31/2016 [facility] Primary Diastolic (mm Hg) 77 07/31/2016 [facility] Primary Systolic (mm Hg) 153 07/31/2016 [facility] Primary Weight 321.6 06/19/2016 [facility] Primary Height 62 0 06/19/2016 [facility] Primary Temperature Oral (F) 97.0 F 06/19/2016 [facility] Primary Heart Rate 76 06/19/2016 [facility] Primary Diastolic (mm Hg) 79 06/19/2016 [facility] Primary Systolic (mm Hg) 136 06/19/2016 [facility] Primary Systolic (mm Hg) 155 06/08/2016 [facility] Diastolic (mm Hg) 77 06/08/2016 [facility] Temperature Oral (F) 98.1 F 06/08/2016 [facility] Respitory Rate 18 06/08/2016 [facility] Heart Rate 72 06/08/2016 [facility] Temperature Oral (F) 97.6 F 06/08/2016 [facility] Respitory Rate 18 06/08/2016 [facility] Heart Rate 71 06/08/2016 [facility] Systolic (mm Hg) 137 06/08/2016 [facility] Diastolic (mm Hg) 73 06/08/2016 [facility] Systolic (mm Hg) 122 06/08/2016 [facility] Diastolic (mm Hg) 69 06/08/2016 [facility] Heart Rate 70 06/08/2016 [facility] Respitory Rate 18 06/08/2016 [facility] Temperature Oral (F) 98 F 06/08/2016 [facility] Height 157.48 cm 06/06/2016 [facility] Weight 150.085 06/06/2016 [facility] BMI Calculated 60.52 06/06/2016 [facility] Weight 336.6 05/30/2016 [facility] Primary Height 62 0 05/30/2016 [facility] Primary Temperature Oral (F) 97.7 F 05/30/2016 [facility] Primary Heart Rate 87 05/30/2016 [facility] Primary Diastolic (mm Hg) 79 05/30/2016 [facility] Primary Systolic (mm Hg) 149 05/30/2016 [facility] Primary Weight 321.9 04/27/2016 [facility] Primary Height 62 0 04/27/2016 [facility] Primary Temperature Oral (F) 98.2 F 04/27/2016 [facility] Primary Heart Rate 90 04/27/2016 [facility] Primary Diastolic (mm Hg) 95 04/27/2016 [facility] Primary Systolic (mm Hg) 178 04/27/2016 [facility] Primary Weight 319.7 03/22/2016 [facility] Primary Height 62 1 05/23/2015 [facility] Primary Temperature Oral (F) 98.0 F 03/22/2016 [facility] Primary Heart Rate 91 03/22/2016 [facility] Primary Diastolic (mm Hg) 79 03/22/2016 [facility] Primary Systolic (mm Hg) 149 03/22/2016 [facility] Primary Weight 312.1 02/21/2016 [facility] Primary Height 62 1 04/22/2015 [facility] Primary Temperature Oral (F) 98.2 F 02/21/2016 [facility] Primary Heart Rate 90 02/21/2016 [facility] Primary Diastolic (mm Hg) 92 02/21/2016 [facility] Primary Systolic (mm Hg) 170 02/21/2016 [facility] Primary Weight 310.2 11/21/2015 [facility] Primary Height 62 0 11/21/2015 [facility] Primary Temperature Oral (F) 97.9 F 11/21/2015 [facility] Primary Heart Rate 101 11/21/2015 [facility] Primary Diastolic (mm Hg) 87 11/21/2015 [facility] Primary Systolic (mm Hg) 151 11/21/2015 [facility] Primary Weight 305.2 09/27/2015 [facility] Primary Height 62 0 09/27/2015 [facility] Primary Temperature Oral (F) 97.9 F 09/27/2015 [facility] Primary Heart Rate 101 09/27/2015 [facility] Primary Diastolic (mm Hg) 90 09/27/2015 [facility] Primary Systolic (mm Hg) 159 09/27/2015 [facility] Primary Weight 306.0 09/05/2015 [facility] Primary Height 62 0 09/05/2015 [facility] Primary Temperature Oral (F) 98.2 F 09/05/2015 [facility] Primary Heart Rate 101 09/05/2015 [facility] Primary Diastolic (mm Hg) 84 09/05/2015 [facility] Primary Systolic (mm Hg) 156 09/05/2015 [facility] Primary Weight 299.7 08/04/2015 [facility] Primary Height 62 0 08/04/2015 [facility] Primary Temperature Oral (F) 97.1 F 08/04/2015 [facility] Primary Heart Rate 50 08/04/2015 [facility] Primary Diastolic (mm Hg) 81 08/04/2015 [facility] Primary Systolic (mm Hg) 158 08/04/2015 [facility] Primary Weight 304.4 07/14/2015 [facility] Primary Height 62 0 07/14/2015 [facility] Primary Temperature Oral (F) 98.6 F 07/14/2015 [facility] Primary Heart Rate 105 07/14/2015 [facility] Primary Diastolic (mm Hg) 101 07/14/2015 [facility] Primary Systolic (mm Hg) 168 07/14/2015 [facility] Primary Encounters Location Location Details Encounter Type Encounter Number Reason For Visit Attending Provider ADM Date DC Date Status Source [facility] Primary Care new patient here to establish care [id number] 07/14/2015 07/14/2015 [facility] Primary Care new patient here to establish care [id number] 07/14/2015 07/14/2015 [facility] Primary Care new patient here to establish care [id number] 07/14/2015 07/14/2015 Pako Parnell MD, [facility] Primary Care new patient here to establish care [id number] 07/14/2015 07/14/2015 [facility] Primary Care new patient here to establish care [id number] 07/14/2015 07/14/2015 [facility] Primary Care new patient here to establish care [id number] 07/14/2015 07/14/2015 [facility] Primary Care new patient here to establish care [id number] 07/14/2015 07/14/2015 [facility] Primary Care new patient here to establish care [id number] 07/14/2015 07/14/2015 [facility] Primary Care new patient here to establish care [id number] 07/14/2015 07/14/2015 [facility] Primary Care new patient here to establish care [id number] 07/14/2015 07/14/2015 [facility] Primary Care new patient here to establish care [id number] 07/14/2015 07/14/2015 [facility] Primary Care new patient here to establish care [id number] 07/14/2015 07/14/2015 [facility] Primary Care Unknown [id number] 08/01/19 16 08/01/2015 [facility] Primary Care Unknown [id number] 08/01/19 16 08/01/2015 Pako Parnell MD, [facility] Care Unknown [id number] 08/01/19 16 08/01/2015 [facility] Primary Care Unknown [id number] 08/01/19 16 08/01/2015 [facility] Primary Care Unknown [id number] 08/01/19 16 08/01/2015 [facility] Care Unknown [id number] 08/01/19 16 08/01/2015 [facility] Primary Care Unknown [id number] 08/01/19 16 08/01/2015 [facility] Care Unknown [id number] 08/01/19 16 08/01/2015 [facility] Care Unknown [id number] 08/01/19 16 08/01/2015 [facility] Care Unknown [id number] 08/01/19 16 08/01/2015 [facility] Care Unknown [id number] 08/01/19 16 08/01/2015 [facility] Primary Care Patient here to follow up on labs, blood pressure and diabetes [id number] 08/04/2015 08/04/2015 Pako Parnell MD, [place] [facility] Primary Care Patient here to follow up on labs, blood pressure and diabetes [id number] 08/04/2015 08/04/2015 [facility] Primary Care Patient here to follow up on labs, blood pressure and diabetes [id number] 08/04/2015 08/04/2015 [facility] Primary Care Patient here to follow up on labs, blood pressure and diabetes [id number] 08/04/2015 08/04/2015 [facility] Primary Care Patient here to follow up on labs, blood pressure and diabetes [id number] 08/04/2015 08/04/2015 [facility] Primary Care Patient here to follow up on labs, blood pressure and diabetes [id number] 08/04/2015 08/04/2015 [facility] Primary Care Patient here to follow up on labs, blood pressure and diabetes [id number] 08/04/2015 08/04/2015 [facility] Primary Care Patient here to follow up on labs, blood pressure and diabetes [id number] 08/04/2015 08/04/2015 [facility] Primary Care Patient here to follow up on labs, blood pressure and diabetes [id number] 08/04/2015 08/04/2015 [facility] Primary Care Patient here to follow up on labs, blood pressure and diabetes [id number] 08/04/2015 08/04/2015 [facility] Outpatient [id number] Miranda Iqbal 08/12/2015 08/13/2015 [facility] Primary Care Unknown [id number] 09/05/19 16 09/05/2015 Pako Parnell MD, [place] [facility] Primary Care Unknown [id number] 09/05/19 16 09/05/2015 [facility] Primary Care Unknown [id number] 09/05/19 16 09/05/2015 [facility] Care Unknown [id number] 09/05/19 16 09/05/2015 [facility] Care Unknown [id number] 09/05/19 16 09/05/2015 [facility] Care Unknown [id number] 09/05/19 16 09/05/2015 [facility] Care Unknown [id number] 09/05/19 16 09/05/2015 [facility] Care Unknown [id number] 09/05/19 16 09/05/2015 [facility] Care Unknown [id number] 09/05/19 16 09/05/2015 [facility] Primary Care Patient here to follow up on diabetes and blood pressure [id number] 09/27/2015 09/27/2015 Pako Parnell MD, PA [facility] Primary Care Patient here to follow up on diabetes and blood pressure [id number] 09/27/2015 09/27/2015 [facility] Primary Care Patient here to follow up on diabetes and blood pressure [id number] 09/27/2015 09/27/2015 [facility] Primary Care Patient here to follow up on diabetes and blood pressure [id number] 09/27/2015 09/27/2015 [facility] Primary Care Patient here to follow up on diabetes and blood pressure [id number] 09/27/2015 09/27/2015 [facility] Primary Care Patient here to follow up on diabetes and blood pressure [id number] 09/27/2015 09/27/2015 [facility] Primary Care Patient here to follow up on diabetes and blood pressure [id number] 09/27/2015 09/27/2015 [facility] Primary Care Patient here to follow up on diabetes and blood pressure [id number] 09/27/2015 09/27/2015 [facility] Pako Parnell MD, [place] carotid & arterial dopplers [id number] 09/27/2015 09/27/2015 Pako Parnell MD, [place] Pako Parnell MD, [place] carotid & arterial dopplers [id number] 09/27/2015 09/27/2015 [facility] Pako Parnell MD, [place] carotid & arterial dopplers [id number] 09/27/2015 09/27/2015 [facility] Pako Parnell MD, [place] carotid & arterial dopplers [id number] 09/27/2015 09/27/2015 [facility] Pako Parnell MD, [place] carotid & arterial dopplers [id number] 09/27/2015 09/27/2015 [facility] Pako Parnell MD, PA carotid & arterial dopplers [id number] 09/27/2015 09/27/2015 [facility] Pako Parnell MD, [place] carotid & arterial dopplers [id number] 09/27/2015 09/27/2015 [facility] Primary Care patient here for medication refill [id number] 11/21/2015 11/21/2015 [facility] Primary Care patient here for medication refill [id number] 11/21/2015 11/21/2015 [facility] Primary Care patient here for medication refill [id number] 11/21/2015 11/21/2015 [facility] Primary Care patient here for medication refill [id number] 11/21/2015 11/21/2015 [facility] Primary Care patient here for medication refill [id number] 11/21/2015 11/21/2015 [facility] Primary Care patient here for medication refill [id number] 11/21/2015 11/21/2015 [facility] Care Patient here for ER follow up on stomach pain. [id number] 02/21/2016 02/21/2016 [facility] Care Patient here for ER follow up on stomach pain. [id number] 02/21/2016 02/21/2016 [facility] Primary Care Patient here for ER follow up on stomach pain. [id number] 02/21/2016 02/21/2016 [facility] Primary Care Patient here for ER follow up on stomach pain. [id number] 02/21/2016 02/21/2016 [facility] Primary Care Patient here for ER follow up on stomach pain. [id number] 02/21/2016 02/21/2016 [facility] Care wwe and labs [id number] 03/22/20 16 03/22/2016 [facility] wwe and labs [id number] 03/22/20 16 03/22/2016 [facility] Care wwe and labs [id number] 03/22/20 16 03/22/2016 [facility] Care wwe and labs [id number] 03/22/20 16 03/22/2016 [facility] Primary Care patient here need medication refill [id number] 04/27/2016 04/27/2016 [facility] Primary Care patient here need medication refill [id number] 04/27/2016 04/27/2016 [facility] Primary Care patient here need medication refill [id number] 04/27/2016 04/27/2016 [facility] Care Patient here for high blood pressure and diabetes [id number] 05/30/2016 05/30/2016 [facility] Primary Care Patient here for high blood pressure and diabetes [id number] 05/30/2016 05/30/2016 [facility] Outpatient [id number] Miranda Iqbal 05/30/2016 05/31/2016 [facility] Inpatient [id number] Stanley Galeana 06/06/2016 06/09/2016 [facility] Primary Care patient here for sick visit, went to the ER and stated that she was diagnosed with strep, but was not scribed anything for it [id number] 06/19/2016 06/19/2016 [facility] [place] [facility] [id number] Alexx Kwok 02/05/2017 02/06/2017 [facility] Inpatient [id number] Navya Nevarez 07/28/2017 07/30/2017 [facility] Outpatient [id number] Avinash Locke 12/19/2017 12/19/2017 [facility] [place] [facility] [id number] 00 Alexx Kwok 01/27/2018 01/28/2018 [facility] Outpatient [id number] Tyrese Garrison 02/05/2018 02/05/2018 [facility] - [place] Out[facility] Diag Services [id number] Alexx Kwok 03/21/2018 03/22/2018 [facility] Outpatient [id number] Tyrese Garrison 03/27/2018 03/27/2018 [facility] Neuro[facility] Phone Message [id number] 03/27/2018 03/29/2018 [facility] [place] [facility] Di[facility] Services [id number] Genoveva Ramos 07/10/2018 07/11/2018 [facility] Procedures Procedure Code Date Perfomer Comments Source Colonoscopy [id number] 12/19/2017 [facility], [facility] [place], [place],[facility] section [id number] 04/15/1991 [facility] [place],[facility] ast,[facility] Cholecystectomy [id number] 04/15/1991 [facility] Assessment and Plan Assessment and Plan Date Source Extracted from:Title: Clinical Document Author: Rosendo Orozco MD Date: 07/30/17 Pulmonary/Critical Care Medicine progess note Rosendo Orozco MD SUBJECTIVE: Examined. Patient feeling comfortable. She is ambulating. No more active bleeding. OBJECTIVE: Vitals Tmp(F) Tmp(C) Ttype BP MAP Pulse RR SpO2 FIO2 ETCO2 07/30 07:25 98.2 36.78 oral 155/74 --- 100 20 95 --- --- 07/30 04:48 ---- ---- ---- 1 62/76 --- --- -- --- --- --- 07/30 04:15 98.5 36.94 oral 188/74 --- 98 20 --- --- --- 07/30 01:52 ---- ---- ---- 1 64/78 --- --- -- --- --- --- 07/30 00:02 98.9 37.17 oral 191/81 --- 94 20 --- --- --- 24 Hr Tmax: 98.9F (37.17c) at 07/30 00:0 2 Vital Signs are the last 5 in the past 48 hours. 24 Hr Tmin: 98.2F (36.78c) at 07/30 07: 25 Weights are the last 5 in 60 days, plus initial. Date Wt(kg) Wt(lb) Ht(cm) Ht(in) Method BMI BSA 07/28 159.00 349.81 Measur ed 04/14 (initial) 150.00 330.00 Estimated 60.5 2.56 07/27 157.48 62.00 Stated 24 Hr Point of Care Glucoses 07/30 1218 Glucose POC 293 H 07/30 0820 Glucose POC 335 H 07/30 0324 Glucose POC 285 H 07/29 2043 Glucose POC 352 H 07/29 1716 Glucose POC 361 H 07/29 1225 Glucose POC 252 H Most Recent Scores: 07/30/17 Pain Intensity NRS (0-10 ) 0 07/29/17 [facility] Fall Score 6 07/29/17 [place] Score 15 07/29/17 [place] Score 21 Lines, Tubes, and Drains: 07/27/2017 21:14 Peripheral Lines: Antec ubital Left 18 gauge Over the needle catheter (no surgical procedures documented) Labs (Last four charted values) WBC 9.4 (JUL 30) 7.6 (JUL 15) 8.1 (JUL 14) Hgb L 9.4 (JUL 30) L 8.6 (JUL 15) L 9.2 (JUL 14) Hct L 30.9 (JUL 30) L 27.9 (JUL 15) L 29.7 (JUL 14) Plt 276 (JUL 30) 263 (JUL 15) 280 (JUL 14) Na 145 (JUL 17) 143 (JUL 15) 145 (JUL 14) K 3.9 (JUL 17) 3.7 (JUL 15) 3.8 (JUL 14) CO2 29 (JUL 17) 31 (JUL 15) 31 (JUL 14) Cl 103 (JUL 30) 107 (JUL 15) 103 (JUL 14) Cr 1.08 (JUL 30) 1.37 (JUL 15) H 1.57 (JUL 14) BUN H 23 (JUL 17) H 34 (JUL 15) H 38 (JUL 14) Glucose Random H 298 (JUL 17) H 177 (JUL 15) H 296 (JUL 14) Ca 9.6 (JUL 17) 8.5 (JUL 15) L 8.2 (JUL 14) PT 12.9 (JUL 27) INR 0.97 (JUL 27) PTT H 91.2 (JUL 15) 32.6 (JUL 14) Troponin <0.02 (JUL 15) <0.02 (JUL 15) <0.02 (JUL 14) CK MB <1.0 (JUL 15) 1.0 (JUL 15) <1.0 (APR 14) Total CK 81 (JUL 28) 93 (JUL 28) 103 (JUL 27) RADIOLOGY: ASSESSMENT and EXAM: HEENT:normocephalic,atraumatic, morbid obesity Skin:no rash Chest: symmetrical expansion, no wheezing,no rales, no crackles Heart: Regular rhythm, no murmurs Abdomen: Soft, nontender, bowel sounds present Ext: no edema CLOTH DYEING RANGE TENDER: alert and oriented, no focal neurological defecits DIAGNOSES and PROBLEMS: Pulmonary embolism Morbid Obesity Epistaxis PLAN and TREATMENT: Seen and examined. Patient breathing better. No more active bleeding. She can be discharged home on Xarelto. She will follow-up with me in 1 week. She will require polysomnography and pulmonary function tests as outpatient. Weight reduction would be appropriate. Discussed with patient at length. All questions answered. Scheduled Meds (6): 07/28/17 insulin lispro (Humalog) 12 uni t SUB-Q TID-Before Meals 07/29/17 levothyroxine 50 microgram PO Q 630AM 07/28/17 metoprolol (metoprolol tartrate ) 50 mg PO Q12H 07/28/17 mupirocin topical (mupirocin to pical 2% ointment) 1 appl TOP Q12H 07/30/17 oxymetazoline nasal (Afrin 0.05 % nasal spray) 2 spray NASAL Q8H 07/28/17 rivaroxaban (Xarelto) 15 mg PO Q12H Unscheduled Meds: None Extracted from:Title: ENT Consultation Author: Ady Faria MD Date: 07/30/17 Impression and Plan 57 yo F with h/o morbid obesity, HTN, DM , now with epistaxis on xarelto for PE - nose bleeds have stopped with nasal sa line and afrin. Clear for discharge from ENT perspective - continued afrin BID x 5 days, nasal sa line TID - she can come to my clinic in 2 weeks. Will follow. Extracted from:Title: Admission H&P * Author: Tab Dong MD Date: 07/28/17 Impression and Plan #SOB Likely due to new onset PEs. CXR and EKG are unremarkable. Started on PE treatment as below. #PE CTA PE shows bilateral lower lobe PEs. Started on heparin infusion due to elevated Cr #JAYLENE Unknown cause. Has a Hx of HTN and DM. Will get urine studies. #DM Uses insulin per records. BG is high and last a1c was 9.7 in 2017. Will add long acting insulin and sliding scale and check A1C. #ANEMIA Possibly anemia of chronic disease. no active bleeding. will check iron studies. DVT PPX: on heparin ggt Diet: carb controlled Dispo: CLYDE DONG MD HOSPITALIST - UIP 07/30/2017 [facility] Extracted from:Title: Progress Note Author: Sejal Young MD Date: 06/08/16 Assessment/Plan 1.Acute renal failure Creatinine with slight improvement to 2.6<3.1 mg/dL with baseline 0.9 mg/dL from March. discontinue lopez catheter and assess urine output follow up in renal clinic 2.Hypocalcemia calcium better 3.Urine retention voiding after lopez removed Extracted from:Title: Nephrology Consult Note Author: Sejal Young MD Date: 06/06/16 Assessment/Plan 1.Acute renal failure Creatinine significantly elevated at 3.1 mg/dL with baseline 0.9 mg/dL from March. will give fluid challenge with NS hold lasix 2.Hypocalcemia check ionized calcium check magnesium 3.Urine retention better afterfoley catheter placement Orders: calcium carbonate, 1,000 mg, 2 tab, Route: PO, Drug form: CHEWTAB, BID-Meals, Dosing Weight 150.085, kg, Start date: 06/07/16 8:00:00 [employer] SALES [employer]IST, Duration: 30 day, Stop date: 07/06/16 17:00:00 CDT 06/09/2016 [facility] Plan of Care No Data Provided for This Section Social History Social History Date Source Social History ElementQualifiersDate Rep orted Smoke Exposure: . Second Hand Smoke Exposure: No June 19, 2016 Tobacco Use: . Are you a: never smoker June 19, 2016 Use of recreational / street drugs? . Answer: No June 19, 2016 Alcohol Screening: . Points: 0, Interpretation: Negative June 19, 2016 Do you have pets? . Status: No June 19, 2016 Caffeine intake? . Status: No June 19, 2016 New since last visit: none. June 19, 2016 Do you exercise? . Answer: No June 19, 2016 Do you drink alcohol? . Status: No June 19, 2016 06/19/2016 [facility] Primary Social History TypeResponse Substance Abuse Use: None. Alcohol Never Smoking Status Cigarette Smoking Last 365 Days No; Reg Smoking Cessation Counseling No; Never smoker; Exposure to Tobacco Smoke None entered on: 12/18/17 06/06/2016 [facility] Social History TypeResponse Substance Abuse Use: None. Alcohol Never Smoking Status Cigarette Smoking Last 365 Days No; Reg Smoking Cessation Counseling No; Never smoker; Exposure to Tobacco Smoke None entered on: 12/18/17 06/06/2016 [facility] Social History TypeResponse Substance Abuse Use: None. Alcohol Never Smoking Status Cigarette Smoking Last 365 Days No; Reg Smoking Cessation Counseling No; Never smoker; Exposure to Tobacco Smoke None entered on: 12/18/17 06/06/2016 [facility] Social History TypeResponse Substance Abuse Use: None. Alcohol Never Smoking Status Cigarette Smoking Last 365 Days No; Reg Smoking Cessation Counseling No; Never smoker; Exposure to Tobacco Smoke None entered on: 12/18/17 06/06/2016 [facility] Family History Value Date S ource QualifierDescriptionCommentDate Reported Maternal Grandmother Comment not available September 27, 2015 Paternal Grandmother Comment not available September 27, 2015 Siblings Comment not available September 27, 2015 Maternal Grandfather Comment not available September 27, 2015 Children Comment not available September 27, 2015 Father Comment not available September 27, 2015 Paternal Grandfather Comment not available September 27, 2015 Mother Comment not available September 27, 2015 Other: Comment not available September 27, 2015 09/28/2015 [facility] Primary Advance Directives No Data Provided for This Section Functional Status No Data Provided for This Section
--- OUTSIDE RECORDS SUMMARY | 2019-12-03 11:24 | XMS REPORT | Summary of Care ---
Author Author [facility] Organization [facility] Address Unknown Phone Unavailable Encounter PRAKASH Lama(FIN) [id number] Date(s): 12/19/17 - 12/19/17 [facility] [address] [place] [address]- Encounter Diagnosis Encounter for screening for malignant neoplasm of colon (Final) - 12/25/17 Unspecified chronic gastritis without bleeding (Final) - Anemia, unspecified (Final) - Hypertensive chronic kidney disease with stage 1 through stage 4 chronic kidney disease, or unspecified chronic kidney disease (Final) - Chronic kidney disease, stage 3 (moderate) (Final) - Type 2 diabetes mellitus with diabetic chronic kidney disease (Final) - Vitamin D deficiency, unspecified (Final) - Discharge Disposition: Home or Self Care Attending Physician: Avinash Locke MD Referring Physician: Avinash Locke MD Vital Signs 1 2 3 Most recent to oldest [Reference Range]: 157.48 cm (12/18/17 4:23 PM) Height 124/54 mmHg (12/19/17 9:50 AM) 125/60 mmHg (12/19/17 9:35 AM) 99/43 mmHg (12/19/17 9:18 AM) Blood Pressure [90-140/60-90 mmHg] 11 BRMIN *LOW* (12/19/17 9:50 AM) 20 BRMIN (12/19/17 9:35 AM) 21 BRMIN *HI* (12/19/17 9:18 AM) Respiratory Rate [14-20 BRMIN] 140.909 kg (12/18/17 4:23 PM) Weight 56.82 m2 (12/18/17 4:23 PM) Body Mass Index Problem List Condition Effective Dates Status Health Status Informan t Diabetes Resolved mellitus(Confirmed) Hyperlipemia(Confirm Resolved ed) Hypertension(Confirm Resolved ed) Morbid Active obesity(Confirmed) Allergies, Adverse Reactions, Alerts Substance Reaction Severity Status NKDA Active Medications ferrous sulfate PO, 0 Refill(s) Start Date: 12/18/17 Stop Date: 12/18/17 Status: Deleted Ferrousal 325 mg oral tablet 325 mg = 1 tab, PO, Q-M-W-F, 0 Refill(s) Start Date: 12/18/17 Status: Ordered Neurontin 800 mg oral tablet 800 mg = 1 tab, PO, 0 Refill(s) Start Date: 12/18/17 Status: Ordered Sodium Chloride 0.9% IV 1,000 mL 1,000 mL, Rate: 25 ml/hr, Infuse over: 40 hr, Route: IV, Dosing Weight 140.909 k g, Total Volume: 1,000, Start date: 12/19/17 8:06:00 CDT, Duration: 30 day, Stop date: 01/18/18 8:05:00 CDT, 2.54, m2 Start Date: 12/19/17 Stop Date: 12/19/17 Status: Discontinued Results No data available for this section Immunizations Given and Recorded Vaccine Date Status Refusal Reason pneumococcal 23-valent vaccine 06/06/16 Given influenza virus vaccine, inactivated 06/06/16 G iven Procedures Procedure Date Related Diagnosis Body Site Status Colonoscopy 12/19/17 Completed section 1991 Completed Cholecystectomy 1991 Completed Social History Social History Type Response Substance Abuse Use: None. Alcohol Never Smoking Status Cigarette Smoking Last 365 Days No; Reg Smoking Cessation Counseling No; Never smoker; Exposure to Tobacco Smoke None entered on: 12/18/17 Assessment and Plan No data available for this section
--- OUTSIDE RECORDS SUMMARY | 2019-12-03 11:24 | XMS REPORT ---
Author Author Desi Iqbal Organization [employer] Address Unknown Phone Unavailable Care Team Providers Care Pig Iron Loader Name Role Phone Miranda Iqbal Unavailable Allergies, Adverse Reactions, Alerts Substance Reaction Event Type N.K.D.A. Info Not Available Non Drug Allergy Encounters Encounter Location Date Unknown [facility] September 05, 2015 Patient here to follow up on diabetes and blood pressu re [facility] September 27, 2015 patient here for medication refill [facility] A 2015 Patient here for ER follow up on stomach pain. [facility] Feb 21, 2016 new patient here to [facility] M 2015 Unknown [facility] August 01, 2015 Patient here to follow up on labs, blood pressure and diabetes [facility] August 04, 2015 carotid & arterial dopplers Pako Parnell MD, [place] September 26, 2 016 Problems Problem Type Condition ICD-9 Code Onset Dates Condition Statu s Problem Diabetic neuropathy E11.40 Active Problem BMI 50.0-59.9, adult Z68.43 Active Problem Obesity, morbid, BMI 50 or higher E66.01 Active Problem GERD (gastroesophageal reflux disease) K21.9 Active Problem Hyperlipemia E78.5 Active Problem Gastroesophageal reflux disease without esophagitis K2 1.9 Active Problem Hypertension I10 Active Problem Type 2 diabetes mellitus with hyperglycemia E11.65 Active Problem Microalbuminuria R80.9 Active Problem Low vitamin D level E55.9 Active Assessment Gastroesophageal reflux disease without esophagitis K2 1.9 Active Assessment Microalbuminuria R80.9 Active Assessment Hyperlipemia E78.5 Active Assessment Hypertension I10 Active Assessment Diabetic neuropathy E11.40 Active Assessment Type 2 diabetes mellitus with hyperglycemia E11.65 Active Assessment BMI 50.0-59.9, adult Z68.43 Active Problem Leg swelling M79.89 Active Medications Medication Code System Code Instructions Start Date End Date Status Dosage Lisinopril-Hydrochlorothiazide [facility] [address]-53 2 0-12.5 MG Orally twice a day (bid) Active 1 tablet Omeprazole [facility] [address]-85 40 mg Orally Once a day Active 1 capsule Gabapentin [facility] [address]-85 800 MG Orally three times a day (ti d) Active 1 capsule Metoprolol Tartrate [facility] [address]-60 25 MG Orally Twice a day September 05, 2015 Active 1 tablet Atorvastatin Calcium [facility] [address]-32 40 mg Orally Once a day Active 1 tablet Lantus SoloStar [facility] [address]-40 100 UNIT/ML Subcutaneous mis ry morning Active 70 units in the mornings and 40 units at night NovoLog Flexpen [facility] [address]-28 100 UNIT/ML Subc utaneous three times a day (tid) Active 10 units Metformin HCl [facility] [address]-96 1000 mg Orally Twice a day Active 1 tablet with meals Metoprolol Tartrate [facility] [address]-81 50 mg Orally Twice a day Active 1 tablet Social History Social History Element Qualifiers Date Reported Smoke Exposure: . Second Hand Smoke Exposure: No Feb Tobacco Use: . Are you a: never smoker Feb 21, 2016 Use of recreational / street drugs? . Answer: No Feb 21, 2016 Alcohol Screening: . Points: 0, Interpretation: Negative Feb 21, 2016 Do you have pets? . Status: No Feb 21, 2016 Caffeine intake? . Status: No Feb 21, 2016 New since last visit: none. Feb 21, 2016 Do you exercise? . Answer: No Feb 21, 2016 Do you drink alcohol? . Status: No Feb 21, 2016 Vital Signs Date/Time: Feb 21, 2016 Weight 312.1 lbs Height 62 in Temperature 98.2 F Cardiac Monitoring Heart Rate 90 /min Blood Pressure Diastolic 92 mm Hg Blood Pressure Systolic 170 mm Hg Immunizations Vaccine Administration Date FLU SHOT 3 & UP Feb 21, 2016 Summary Purpose [employer]ClinicalWorks Submission
--- OUTSIDE RECORDS SUMMARY | 2019-12-03 11:24 | XMS REPORT | Summary of Care ---
Author Author [facility] Organization [facility] Address Unknown Phone Unavailable Encounter HQ Daina(FIN) [id number] Date(s): 03/26/18 - 03/26/18 [facility] [address] [place] [address]- Encounter Diagnosis Obstructive sleep apnea (adult) (pediatric) (Final) - 04/01/18 Discharge Disposition: Home or Self Care Attending Physician: Tyrese Garrison MD Referring Physician: Tyrese Garrison MD Vital Signs No data available for this section Problem List Condition Effective Dates Status Health Status Informan t Diabetes Resolved mellitus(Confirmed) Hyperlipemia(Confirm Resolved ed) Hypertension(Confirm Resolved ed) Morbid Active obesity(Confirmed) Allergies, Adverse Reactions, Alerts No Known Medication Allergies Medications No data available for this section Results No data available for this section [...]
--- OUTSIDE RECORDS SUMMARY | 2019-12-03 11:24 | XMS REPORT ---
Author Author Desi Ibqal Organization [employer] Address Unknown Phone Unavailable Care Team Providers Care Dispute Specialist Name Role Phone Miranda Iqbal Unavailable Allergies, Adverse Reactions, Alerts Substance Reaction Event Type N.K.D.A. Info Not Available Non Drug Allergy Encounters Encounter Location Date new patient here to establish care [facility] M arch 2015 Unknown [facility] August 01, 2015 Patient here to follow up on labs, blood pressure and diabetes [facility] August 04, 2015 Problems Problem Type Condition ICD-9 Code Onset Dates Condition Statu s Problem Leg swelling M79.89 Active Problem Obesity, morbid, BMI 50 or higher E66.01 Active Problem Diabetic neuropathy E11.40 Active Problem Hyperlipemia E78.5 Active Assessment Low vitamin D level E55.9 Active Problem Microalbuminuria R80.9 Active Problem GERD (gastroesophageal reflux disease) K21.9 Active Problem Type 2 diabetes mellitus with hyperglycemia E11.65 Active Problem BMI 50.0-59.9, adult Z68.43 Active Problem Low vitamin D level E55.9 Active Problem Hypertension I10 Active Assessment GERD (gastroesophageal reflux disease) K21.9 Active Assessment Leg swelling M79.89 Active Assessment UTI (urinary tract infection) N39.0 Active Assessment Microalbuminuria R80.9 Active Assessment BMI 50.0-59.9, adult Z68.43 Active Assessment Hyperlipemia E78.5 Active Assessment Diabetic neuropathy E11.40 Active Assessment Type 2 diabetes mellitus with hyperglycemia E11.65 Active Assessment Obesity, morbid, BMI 50 or higher E66.01 Active Assessment Hypertension I10 Active Medications Medication Code System Code Instructions Start Date End Date Status Dosage NovoLog Flexpen [facility] [address]-60 100 UNIT/ML Subcutaneous as directed August 04, 2015 Active as directed Lant[facility] Solo[facility] [address]-73 100 UNIT/ML Subcutaneous every morning July 14, 2015 Active 20 units Ergocalciferol [facility] [address]-73 64805 UNIT Orally once a week August 04, 2015 November 02, 2015 Active 1 capsule Metformin HCl [facility] [address]-36 1000 mg Orally Twice a day Jun Active 1 tablet with meals Metformin HCl [facility] [address]-35 1000 mg Orally Twice a day Active 1 tablet with meals Lisinopril-Hydrochlorothiazide [facility] [address]-70 2 0-12.5 MG Orally twice a day (bid) Active 1 tablet Gabapentin [facility] [address]-38 300 MG Orally twice a day ( bid) July 14, 2015 Active 1 capsule Omeprazole [facility] [address]-28 40 mg Orally Once a day August 03 016 Active 1 capsule Gabapentin [facility] [address]-34 300 MG Orally three times a day (ti d) Active 1 capsule Ciprofloxacin HCl [facility] [address]-86 500 mg Orally Twice a day August 04, 2015 August 09, 2015 Active 1 tablet Lisinopril-Hydrochlorothiazide [facility] [address]-66 2 0-12.5 MG Orally Once a day July 14, 2015 Active 1 tablet Lantus SoloStar [facility] [address]-69 100 UNIT/ML Subcutaneous mis ry morning Active 40 units in the mornings and 10 units at night Atorvastatin Calcium [facility] [address]-42 40 mg Orally Once a day August 04, 2015 Active 1 tablet Social History Social History Element Qualifiers Date Reported Tobacco Use: . Are you a: never smoker August 03 Use of recreational / street drugs? . Answer: No 2015 Do you have pets? . Status: No August 04, 2015 Caffeine intake? . Status: No August 04, 2015 Do you exercise? . Answer: No August 04, 2015 Do you drink alcohol? . Status: No August 04, 2015 Vital Signs Date/Time: August 04, 2015 Weight 299.7 lbs Height 62 in Temperature 97.1 F Cardiac Monitoring Heart Rate 50 /min Blood Pressure Diastolic 81 mm Hg Blood Pressure Systolic 158 mm Hg Summary Purpose eClinicalWorks Submission
--- OUTSIDE RECORDS SUMMARY | 2019-12-03 11:24 | XMS REPORT | Summary of Care ---
Author Author [facility] Organization [facility] Address Unknown Phone Unavailable Encounter PRAKASH Lama(FIN) [id number] Date(s): 02/05/17 - 02/05/17 [facility] Outpatient Imaging - [address], [address] [place] [phone] Discharge Disposition: Home or Self Care Attending Physician: Alexx Kwok MD Vital Signs No data available for this section Problem List Condition Effective Dates Status Health Status Informan t Diabetes Resolved mellitus(Confirmed) Hyperlipemia(Confirm Resolved ed) Hypertension(Confirm Resolved ed) Allergies, Adverse Reactions, Alerts Substance Reaction Severity Status NKDA Active Medications No data available for this section Results No data available for this section Immunizations Given and Recorded Vaccine Date Status Refusal Reason influenza virus vaccine, inactivated 06/06/16 G iven pneumococcal 23-valent vaccine 06/06/16 Given Procedures Procedure Date Related Diagnosis Body Site section Cholecystectomy Social History Social History Type Response Substance Abuse Use: None. Alcohol Never Smoking Status Never smoker; Exposure to T obacco Smoke None; Cigarette Smoking Last 365 Days No; Reg Smoking Cessation Counseli ng No Assessment and Plan No data available for this section
--- OUTSIDE RECORDS SUMMARY | 2019-12-03 11:24 | XMS REPORT ---
Author Author Desi Iqbal Organization [employer] Address Unknown Phone Unavailable Care Team Providers Care Circuit Court Clerk Name Role Phone Miranda Iqbal CP Unavailable Allergies, Adverse Reactions, Alerts Substance Reaction Event Type N.K.D.A. Info Not Available Non Drug Allergy Encounters Encounter Location Date Unknown [facility] September 05, 2015 Patient here to follow up on diabetes and blood pressu re [facility] September 27, 2015 patient here for medication refill [facility] A 2015 Patient here for ER follow up on stomach pain. [facility] Feb 21, 2016 new patient here to establish care [facility] M 2015 carotid & arterial dopplers Pako Parnell MD, [place] September 26 016 Unknown [facility] August 01, 2015 Patient here to follow up on labs, blood pressure and diabetes [facility] August 04, 2015 Patient here for high blood pressure and diabetes [facility] May 30, 2016 wwe and labs [facility] Mar 22, 2016 patient here need medication refill [facility] Apr 27, 2016 Problems Problem Type Condition ICD-9 Code Onset Dates Condition Statu s Assessment BMI 50.0-59.9, adult Z68.43 Active Assessment Arthritis M19.90 Active Problem Type 2 diabetes mellitus with hyperglycemia E11.65 Active Assessment Gastroesophageal reflux disease without esophagitis K2 1.9 Active Problem Hypertension I10 Active Assessment Microalbuminuria R80.9 Active Problem Low vitamin D level E55.9 Active Problem Hyperlipemia E78.5 Active Problem Microalbuminuria R80.9 Active Problem Shortness of breath R06.02 Active Problem Dyspnea on exertion R06.09 Active Assessment Dyspnea on exertion R06.09 Active Assessment Hyperlipemia E78.5 Active Problem Localized swelling of both lower legs R22.43 Active Assessment Diabetic neuropathy E11.40 Active Problem Gastroesophageal reflux disease without esophagitis K2 1.9 Active Problem GERD (gastroesophageal reflux disease) K21.9 Active Problem Arthritis M19.90 Active Problem Epistaxis R04.0 Active Assessment Hypertension I10 Active Assessment Type 2 diabetes mellitus with hyperglycemia E11.65 Active Assessment Localized swelling of both lower legs R22.43 Active Assessment Shortness of breath R06.02 Active Problem Obesity, morbid, BMI 50 or higher E66.01 Active Problem BMI 50.0-59.9, adult Z68.43 Active Problem Leg swelling M79.89 Active Problem Diabetic neuropathy E11.40 Active Medications Medication Code System Code Instructions Start Date End Date Status Dosage Lantus SoloStar [facility] [address]-29 100 UNIT/ML Subcutaneous mis ry morning Active 90 units in the mornings and 70 units at night Atorvastatin Calcium [facility] [address]-48 40 mg Orally Once a day Active 1 tablet Lasix [facility] [address]-82 40 MG Orally three times a day (t id) May 30, 2016 Active 1 tablet Metformin HCl [facility] [address]-23 1000 mg Orally Twice a day Active 1 tablet with meals Lisinopril-Hydrochlorothiazide [facility] [address]-73 2 0-12.5 MG Orally twice a day (bid) Active 1 tablet Gabapentin [facility] [address]-04 800 MG Orally three times a day (ti d) Active 1 capsule Metoprolol Tartrate [facility] [address]-17 100 MG Orally Twice a day Active 1 tablet Omeprazole [facility] [address]-29 40 mg Orally Once a day Active 1 capsule NovoLog Flexpen [facility] [address]-79 100 UNIT/ML Subc utaneous twice a day (bid) Active 20-30 units Social History Social History Element Qualifiers Date Reported Smoke Exposure: . Second Hand Smoke Exposure: No May Tobacco Use: . Are you a: never smoker May 30, 2016 Use of recreational / street drugs? . Answer: No May 30, 2016 Alcohol Screening: . Points: 0, Interpretation: Negative May 30, 2016 Do you have pets? . Status: No May 30, 2016 Caffeine intake? . Status: No May 30, 2016 New since last visit: none. May 30, 2016 Do you exercise? . Answer: No May 30, 2016 Do you drink alcohol? . Status: No May 30, 2016 Vital Signs Date/Time: May 30, 2016 Weight 336.6 lbs Height 62 in Temperature 97.7 F Cardiac Monitoring Heart Rate 87 /min Blood Pressure Diastolic 79 mm Hg Blood Pressure Systolic 149 mm Hg Immunizations Vaccine Administration Date FLU SHOT 3 & UP May 30, 2016 Summary Purpose eClinicalWorks Submission
--- OUTSIDE RECORDS SUMMARY | 2019-12-03 11:24 | XMS REPORT | Summary of Care ---
Author Author [facility] Organization [facility] Address Unknown Phone Unavailable Encounter HQ Saidantr_maria elena(FIN) [id number] Date(s): 03/27/18 - 03/28/18 [facility] [address] [place] [address]- [phone] Vital Signs No data available for this [...]
--- OUTSIDE RECORDS SUMMARY | 2019-12-03 11:24 | XMS REPORT | Summary of Care ---
Author Author [facility]patient [facility] - [facility] Organization [facility] - [facility] Address Unknown Phone Unavailable Encounter HQ Daina(FIN) [id number] Date(s): 01/27/18 - 01/27/18 [facility] Outpatient Imaging [address], [address] [place] [phone] Encounter Diagnosis Pain in left knee (Final) - 01/31/18 Discharge Disposition: Home or Self Care Attending Physician: Alexx Kwok MD Referring Physician: Alexx Kwok MD Vital Signs No [...]
--- OUTSIDE RECORDS SUMMARY | 2019-12-03 11:24 | XMS REPORT ---
Author Author Desi Iqbal Organization [employer] Address Unknown Phone Unavailable Care Team Providers Care Railways Assistant Name Role Phone Miranda Iqbal Unavailable Allergies, Adverse Reactions, Alerts Substance Reaction Event Type N.K.D.A. Info Not Available Non Drug Allergy Encounters Encounter Location Date Unknown [facility] September 05, 2015 Patient here to follow up on diabetes and blood pressu re [facility] September 27, 2015 patient here for medication refill [facility] A ug 2015 Patient here for ER follow up on stomach pain. [facility] Feb 21, 2016 new patient here to establish care [facility] M arch 2015 Unknown [facility] August 01, 2015 Patient here to follow up on labs, blood pressure and diabetes [facility] August 04, 2015 wwe and labs [facility] Mar 22, 2016 carotid & arterial dopplers Pako Parnell MD, [place] September 26 016 Problems Problem Type Condition ICD-9 Code [...] Low vitamin D level E55.9 Active Assessment Colon cancer screening Z12.11 Activ e Assessment Concern about STD in female without diagnosis Z71.1 Active Assessment Well woman exam Z01.419 Active Problem Leg swelling M79.89 Active Medications Medication Code System Code Instructions Start Date End Date Status Dosage [facility] [address]-85 800 MG Orally three times a day (ti d) Active 1 capsule Metformin HCl [facility] [address]-01 1000 mg Orally Twice a day Active 1 tablet with meals Atorvastatin [facility] [address]-30 40 mg Orally Once a day Active 1 tablet Lantus SoloStar [facility] [address]-58 100 UNIT/ML Subcutaneous mis ry morning Active 70 units in the mornings and 40 units at night Metoprolol Tartrate [facility] [address]-44 25 MG Orally Twice a day September 05, 2015 Active 1 tablet Lisinopril-Hydrochlorothiazide [facility] [address]-60 2 0-12.5 MG Orally twice a day (bid) Active 1 tablet Metoprolol Tartrate [facility] [address]-90 50 mg Orally Twice a day Active 1 tablet NovoLog Flexpen [facility] [address]-48 100 UNIT/ML Subc utaneous three times a day (tid) Active 10 units Omeprazole [facility] [address]-47 40 mg Orally Once a day Active 1 capsule Social History Social History Element Qualifiers Date Reported Smoke Exposure: . Second Hand Smoke Exposure: No Mar Tobacco Use: . Are you a: never smoker Mar 22, 2016 Use of recreational / street drugs? . Answer: No Mar 22, 2016 Alcohol Screening: . Points: 0, Interpretation: Negative Mar 22, 2016 Do you have pets? . Status: No Mar 22, 2016 Caffeine intake? . Status: No Mar 22, 2016 New since last visit: none. Mar 22, 2016 Do you exercise? . Answer: No Mar 22, 2016 Do you drink alcohol? . Status: No Mar 22, 2016 Vital Signs Date/Time: Mar 22, 2016 Weight 319.7 lbs Height 62 in Temperature 98.0 F Cardiac Monitoring Heart Rate 91 /min Blood Pressure Diastolic 79 mm Hg Blood Pressure Systolic 149 mm Hg Immunizations Vaccine Administration Date FLU SHOT 3 & UP Mar 22, 2016 Summary Purpose eClinicalWorks Submission
--- OUTSIDE RECORDS SUMMARY | 2019-12-03 11:24 | XMS REPORT | Summary of Care ---
Author Author [facility] Address Unknown Phone Unavailable Encounter HQ Yadir_maria elena(BRUCE) [id number] Date(s): 08/12/15 - 08/12/15 [facility] [address] [place] [address]- [phone] Discharge Disposition: Home Attending Physician: Miranda Iqbal MD Referring Physician: Miranda Iqbal MD Vital Signs No data available for this section Problem List No data available for this section Allergies, Adverse Reactions, Alerts No data available for this section Medications No data available for this section Results No data available for this section Immunizations No data available for this section Procedures No data available for this section Social History No data available for this section Assessment and Plan No data available for this section
--- OUTSIDE RECORDS SUMMARY | 2019-12-03 11:24 | XMS REPORT ---
Author Author Desi Iqbal Organization [employer] Address Unknown Phone Unavailable Care Team Providers Care Plant Ecologist Name Role Phone Miranda Iqbal Unavailable Allergies, Adverse Reactions, Alerts Substance Reaction Event Type N.K.D.A. Info Not Available Non Drug Allergy Encounters Encounter Location Date Unknown [facility] September 05, 2015 Patient here to follow up on diabetes and blood pressu re [facility] September 27, 2015 patient here for medication refill [facility] A ug 2015 carotid & arterial dopplers Pako Parnell MD, [place] September 26 016 new patient here to [facility] arch 2015 Unknown [facility] August 01, 2015 Patient here to follow up on labs, blood pressure and diabetes [facility] August 04, 2015 Problems Problem Type Condition ICD-9 Code Onset Dates Condition Statu s Problem Leg swelling M79.89 Active Problem Obesity, morbid, BMI 50 or higher E66.01 Active Problem Diabetic neuropathy E11.40 Active Problem Hyperlipemia E78.5 Active Problem Microalbuminuria R80.9 Active Problem GERD (gastroesophageal reflux disease) K21.9 Active Problem Type 2 diabetes mellitus with hyperglycemia E11.65 Active Problem BMI 50.0-59.9, adult Z68.43 Active Problem Low vitamin D level E55.9 Active Problem Hypertension I10 Active Assessment BMI 50.0-59.9, adult Z68.43 Active Assessment Hyperlipemia E78.5 Active Assessment Microalbuminuria R80.9 Active Assessment Hypertension I10 Active Assessment Diabetic neuropathy E11.40 Active Assessment Type 2 diabetes mellitus with hyperglycemia E11.65 Active Medications Medication Code System Code Instructions Start Date End Date Status Dosage Lantus SoloStar [facility] [address]-09 100 UNIT/ML Subcutaneous mis ry morning Active 60 units in the mornings and 20 units at night [facility] [address]-91 40 mg Orally Once a day Active 1 capsule Lisinopril-Hydrochlorothiazide [facility] [address]-92 2 0-12.5 MG Orally twice a day (bid) Active 1 tablet Gabapentin [facility] [address]-79 600 MG Orally three times a day (ti d) Active 1 capsule NovoLog Flexpen [facility] [address]-01 100 UNIT/ML Subcutaneous as di rected Active as directed Metformin HCl [facility] [address]-57 1000 mg Orally Twice a day Active 1 tablet with meals Victoza [facility] [address]-66 18 MG/3ML Subcutaneous Once a day Jan 20, 2016 Active 1.8 mg Metoprolol Tartrate [facility] [address]-40 50 mg Orally Twice a day Active 1 tablet Atorvastatin Calcium [facility] [address]-66 40 mg Orally Once a day Active 1 tablet Metoprolol Tartrate [facility] [address]-51 25 MG Orally Twice a day September 05, 2015 Active 1 tablet Social History Social History Element Qualifiers Date Reported Tobacco Use: . Are you a: never smoker Nov 21, 2015 Use of recreational / street drugs? . Answer: No Nov 21, 2015 Do you have pets? . Status: No Nov 21, 2015 Caffeine intake? . Status: No Nov 21, 2015 Do you exercise? . Answer: No Nov 21, 2015 Do you drink alcohol? . Status: No Nov 21, 2015 Vital Signs Date/Time: Nov 21, 2015 Weight 310.2 lbs Height 62 in Temperature 97.9 F Cardiac Monitoring Heart Rate 101 /min Blood Pressure Diastolic 87 mm Hg Blood Pressure Systolic 151 mm Hg Summary Purpose eClinicalWorks Submission
--- OUTSIDE RECORDS SUMMARY | 2019-12-03 11:24 | XMS REPORT | Summary of Care ---
Author Author [facility] Organization [facility] Address Unknown Phone Unavailable Encounter HQ Daina(FIN) [id number] Date(s): 03/21/18 - 03/21/18 [facility] - [place] [address] [place] [address]- [phone] Encounter Diagnosis Other tear of medial meniscus, current injury, left knee, initial encounter (Final) - Effusion, left knee (Final) - Spinal stenosis, lumbar region without neurogenic claudication (Final) - Osteophyte, vertebrae (Final) - Other intervertebral disc displacement, lumbar region (Final) - Unilateral primary osteoarthritis, left knee (Final) - Pain in left knee (Final) - 03/26/18 Dorsalgia, unspecified (Final) - Discharge Disposition: Home or [...]
--- OUTSIDE RECORDS SUMMARY | 2019-12-03 11:24 | XMS REPORT ---
Author Author Desi Iqbal Organization [employer] Address Unknown Phone Unavailable Care Team Providers Care Grounds Cleaner Name Role Phone Miranda Iqbal Unavailable Allergies, Adverse Reactions, Alerts Substance Reaction Event Type N.K.D.A. Info Not Available Non Drug Allergy Encounters Encounter Location Date Unknown [facility] September 05, 2015 new patient here to establish care [facility] arch 2015 Unknown [facility] August 01, 2015 Patient here to follow up on labs, blood pressure and diabetes [facility] August 04, 2015 Problems Problem [...] E55.9 Active Problem Hypertension I10 Active Assessment Microalbuminuria R80.9 Active Assessment GERD (gastroesophageal reflux disease) K21.9 Active Assessment BMI 50.0-59.9, adult Z68.43 Active Assessment Hyperlipemia E78.5 Active Assessment Leg swelling M79.89 Active Assessment Type 2 diabetes mellitus with hyperglycemia E11.65 Active Assessment Diabetic neuropathy E11.40 Active Assessment Hypertension I10 Active Medications Medication Code System Code Instructions Start Date End Date Status Dosage NovoLog Flexpen [facility] [address]-81 100 UNIT/ML Subcutaneous as directed August 04, 2015 Active as directed Lisinopril-Hydrochlorothiazide [facility] [address]-04 2 0-12.5 MG Orally twice a day (bid) Active [address] [facility] [address]-31 100 UNIT/ML Subcutaneous as di rected Active as directed Ergocalciferol [facility] [address]-47 46376 UNIT Orally once a week August 04, 2015 November 02, 2015 Active 1 capsule Lantus SoloStar [facility] [address]-97 100 UNIT/ML Subcutaneous mis ry morning Active 50 units in the mornings and 20 units at night Omeprazole [facility] [address]-67 40 mg Orally Once a day Active 1 capsule Atorvastatin Calcium [facility] [address]-46 40 mg Orally Once a day Active 1 tablet Victoza [facility] [address]-86 18 MG/3ML Subcutaneous Once a day September 05, 2015 November 04, 2015 Active 1.2 mg Atorvastatin Calcium [facility] [address]-22 40 mg Orally Once a day August 04, 2015 Active 1 tablet Metformin HCl [facility] [address]-56 1000 mg Orally Twice a day Active 1 tablet with meals Metoprolol Tartrate [facility] [address]-58 25 MG Orally Twice a day September 05, 2015 Active 1 tablet Gabapentin [facility] [address]-57 300 MG Orally three times a day (ti d) Active 1 capsule Omeprazole [facility] [address]-54 40 mg Orally Once a day August 03 016 Active 1 capsule Lantus SoloStar [facility] [address]-74 100 UNIT/ML Subcutaneous mis ry morning Active 40 units in the mornings and 10 units at night Lantus SoloStar [facility] [address]-84 100 UNIT/ML Subcutaneous every morning July 14, 2015 Active 20 units Social History Social History Element Qualifiers Date Reported Tobacco Use: . Are you a: never smoker September 05, 2015 Use of recreational / street drugs? . Answer: No September 05, 2015 Do you have pets? . Status: No September 05, 2015 Caffeine intake? . Status: No September 05, 2015 Do you exercise? . Answer: No September 05, 2015 Do you drink alcohol? . Status: No September 05, 2015 Vital Signs Date/Time: September 05, 2015 Weight 306.0 lbs Height 62 in Temperature 98.2 F Cardiac Monitoring Heart Rate 101 /min Blood Pressure Diastolic 84 mm Hg Blood Pressure Systolic 156 mm Hg Summary Purpose eClinicalWorks Submission
--- OUTSIDE RECORDS SUMMARY | 2019-12-03 11:24 | XMS REPORT | Summary of Care ---
Author Author [facility] Organization [facility] Address Unknown Phone Unavailable Encounter PRAKASH Lama(BRUCE) [id number] Date(s): 07/10/18 - 07/10/18 [facility] Outpatient Imaging [facility] [address], [address] [place] [phone] Discharge Disposition: Home or Self Care Attending Physician: Genoveva Ramos MD Referring Physician: Genoveva Ramos MD Vital Signs No data available for [...]
--- OUTSIDE RECORDS SUMMARY | 2019-12-03 11:24 | XMS REPORT ---
Author Author Desi Iqbal Organization [employer] Address Unknown Phone Unavailable Care Team Providers Care Bath Mixer Name Role Phone Miranda Iqbal Unavailable Allergies, Adverse Reactions, Alerts Substance Reaction Event Type N.K.D.A. Info Not Available Non Drug Allergy Encounters Encounter Location Date Unknown [facility] September 05, 2015 Patient here to follow up on diabetes and blood pressu re [facility] September 27, 2015 patient here for medication refill [facility] A 2015 Patient here for ER follow up on stomach pain. [facility] Feb 21, 2016 new patient here to [facility] M 2015 patient here for sick visit, went to the ER and stated that she was diagnosed with strep, but was not scribed anything for it [facility] June 19, 2016 Unknown [facility] August 01, 2015 carotid & arterial dopplers Pako Parnell MD, PA September 26 016 Patient here to follow up on labs, blood pressure and diabetes [facility] August 04, 2015 Patient here for high blood pressure and diabetes [facility] May 30, 2016 wwe and labs [facility] Mar 22, 2016 patient here need medication refill [facility] Apr 27, 2016 Problems Problem Type Condition ICD-9 Code Onset Dates Condition Statu s Assessment Type 2 diabetes mellitus with diabetic chronic k idney disease E11.22 Active Assessment Hot flashes R23.2 Active Assessment Chronic kidney disease, stage III (moderate) N18.3 Active Assessment BMI 50.0-59.9, adult Z68.43 Active Assessment Arthritis M19.90 Active Assessment Gastroesophageal reflux disease without esophagitis K2 1.9 Active Assessment Microalbuminuria R80.9 Active Assessment Diabetic neuropathy E11.40 Active Problem Microalbuminuria R80.9 Active Assessment Hyperlipemia E78.5 Active Problem Hyperlipemia E78.5 Active Assessment Dyspnea on exertion R06.09 Active Problem GERD (gastroesophageal reflux disease) K21.9 Active Problem Epistaxis R04.0 Active Problem Gastroesophageal reflux disease without esophagitis K2 1.9 Active Problem Type 2 diabetes mellitus with diabetic chronic kidney disease E11.22 Active Problem Chronic kidney disease, stage III (moderate) N18.3 Active Assessment Hypertension I10 Active Assessment Shortness of breath R06.02 Active Problem Hot flashes R23.2 Active Assessment Localized swelling of both lower legs R22.43 Active Problem Dyspnea on exertion R06.09 Active Problem Arthritis M19.90 Active Problem Localized swelling of both lower legs R22.43 Active Problem Shortness of breath R06.02 Active Problem Diabetic neuropathy E11.40 Active Problem Obesity, morbid, BMI 50 or higher E66.01 Active Assessment Type 2 diabetes mellitus with hyperglycemia E11.65 Active Problem Leg swelling M79.89 Active Problem Hypertension I10 Active Problem Low vitamin D level E55.9 Active Problem BMI 50.0-59.9, adult Z68.43 Active Problem Type 2 diabetes mellitus with hyperglycemia E11.65 Active Medications Medication Code System Code Instructions Start Date End Date Status Dosage Lasix [facility] [address]-94 40 MG Orally three times a day (t id) May 30, 2016 Active 1 tablet Lisinopril-Hydrochlorothiazide [facility] [address]-19 2 0-12.5 MG Orally twice a day (bid) Active 1 tablet Tresiba FlexTouch [facility] [address]-89 200 UNIT/ML Subcutaneous hany ly Active 100 units at night Gabapentin [facility] [address]-45 800 MG Orally three times a day (ti d) Active 1 capsule Metoprolol Tartrate [facility] [address]-68 100 MG Orally Twice a day Active 1 tablet Atorvastatin Calcium [facility] [address]-80 40 mg Orally Once a day Active 1 tablet Lantus SoloStar [facility] [address]-94 100 UNIT/ML Subcutaneous mis ry morning Active 90 units in the mornings and 70 units at night Metformin HCl [facility] [address]-93 1000 mg Orally Twice a day Active 1 tablet with meals NovoLog Flexpen [facility] [address]-35 100 UNIT/ML Subc utaneous three times a day (tid) Active 50 units Cymbalta [facility] [address]-70 30 MG Orally twice a day (bid) June 19, 2016 Active 1 capsule Omeprazole [facility] [address]-51 40 mg Orally Once a day Active 1 capsule Social History Social History Element Qualifiers Date Reported Smoke Exposure: . Second Hand Smoke Exposure: No June 19, 2016 Tobacco Use: . Are you a: never smoker June 19 Use of recreational / street drugs? . Answer: No Avinash 2016 Alcohol Screening: . Points: 0, Interpretation: Negative June 19, 2016 Do you have pets? . Status: No June 19, 2016 Caffeine intake? . Status: No June 19, 2016 New since last visit: none. June 19, 2016 Do you exercise? . Answer: No June 19, 2016 Do you drink alcohol? . Status: No June 19, 2016 Vital Signs Date/Time: June 19, 2016 Weight 321.6 lbs Height 62 in Temperature 97.0 F Cardiac Monitoring Heart Rate 76 /min Blood Pressure Diastolic 79 mm Hg Blood Pressure Systolic 136 mm Hg Immunizations Vaccine Administration Date FLU SHOT 3 & UP June 19, 2016 Summary Purpose eClinicalWorks Submission
--- OUTSIDE RECORDS SUMMARY | 2019-12-03 11:24 | XMS REPORT ---
Author Author Desi Iqbal Organization [employer] Address Unknown Phone Unavailable Care Team Providers Care Informatics Pharmacist Name Role Phone Miranda Iqbal Unavailable Allergies, Adverse Reactions, Alerts Substance Reaction Event Type N.K.D.A. Info Not Available Non Drug Allergy Encounters Encounter Location Date Unknown [facility] September 05, 2015 Patient here to follow up on diabetes and blood pressu re [facility] September 27, 2015 new patient here to establish care [facility] M arch 2015 Unknown [facility] August 01, 2015 Patient here to follow up on labs, blood pressure and diabetes [facility] August 04, 2015 Problems [...] E78.5 Active Assessment Microalbuminuria R80.9 Active Assessment Type 2 diabetes mellitus with hyperglycemia E11.65 Active Assessment Diabetic neuropathy E11.40 Active Assessment Hypertension I10 Active Medications Medication Code System Code Instructions Start Date End Date Status Dosage [facility] [address]-89 2 0-12.5 MG Orally twice a day (bid) Active 1 tablet Victoza [facility] [address]-52 18 MG/3ML Subcutaneous Once a day September 05, 2015 November 04, 2015 Active 1.2 mg NovoLog Flexpen [facility] [address]-83 100 UNIT/ML Subcutaneous as di rected Active as directed Lantus SoloStar [facility] [address]-16 100 UNIT/ML Subcutaneous mis ry morning Active 50 units in the mornings and 20 units at night Metoprolol Tartrate [facility] [address]-08 25 MG Orally Twice a day September 05, 2015 Active 1 tablet Gabapentin [facility] [address]-69 600 MG Orally three times a day (ti d) Active 1 capsule Ergocalciferol [facility] [address]-20 52676 UNIT Orally once a week August 04, 2015 November 02, 2015 Active 1 capsule Victoza [facility] [address]-71 18 MG/3ML Subcutaneous Once a day Nov 26, 2015 Active 1.2 mg Atorvastatin Calcium [facility] [address]-77 40 mg Orally Once a day Active 1 tablet Metformin HCl [facility] [address]-94 1000 mg Orally Twice a day Active 1 tablet with meals Omeprazole [facility] [address]-16 40 mg Orally Once a day Active 1 capsule Metoprolol Tartrate [facility] [address]-04 50 MG Orally Twice a day Active 1 tablet Social History Social History Element Qualifiers Date Reported Tobacco Use: . Are you a: never smoker September 27, 2015 Use of recreational / street drugs? . Answer: No September 27, 2015 Do you have pets? . Status: No September 27, 2015 Caffeine intake? . Status: No September 27, 2015 Do you exercise? . Answer: No September 27, 2015 Do you drink alcohol? . Status: No September 27, 2015 Family history Qualifier Description Comment Date Reported Maternal Grandmother Comment not available September 27, 2015 Paternal Grandmother Comment not available September 27, 2015 Siblings Comment not available September 26 Maternal Grandfather Comment not available September 27, 2015 Children Comment not available September 26 Father Comment not available September 26 Paternal Grandfather Comment not available September 27, 2015 Mother Comment not available September 26 Other: Comment not available September 26 Vital Signs Date/Time: September 27, 2015 Weight 305.2 lbs Height 62 in Temperature 97.9 F Cardiac Monitoring Heart Rate 101 /min Blood Pressure Diastolic 90 mm Hg Blood Pressure Systolic 159 mm Hg Immunizations Vaccine Administration Date FLU SHOT 3 & UP September 27, 2015 Summary Purpose eClinicalWorks Submission
--- OUTSIDE RECORDS SUMMARY | 2019-12-03 11:24 | XMS REPORT | Summary of Care ---
Author Author [facility] Organization [facility] Address Unknown Phone Unavailable Encounter PRAKASH Lama(BRUCE) [id number] Date(s): 07/27/17 - 07/30/17 [facility] [address] [place] [address]- [phone] Encounter Diagnosis Other forms of dyspnea (Final) - Discharge Disposition: Home or Self Care Attending Physician: Navya Nevarez MD Admitting Physician: Navya Nevarez MD Vital Signs 1 2 3 Most recent to oldest [Reference Range]: 157.48 cm (07/27/17 8:28 PM) Height 99 DegF (07/30/17 11:17 AM) 98.2 DegF (07/30/17 7:25 AM) 98.5 DegF (07/30/17 4:15 AM) Temperature Oral [96.4-99.1 DegF] 162/77 mmHg *HI* (07/30/17 11:17 AM) 155/74 mmHg *HI* (07/30/17 7:25 AM) 162/76 mmHg *HI* (07/30/17 4:48 AM) Blood Pressure [90-140/60-90 mmHg] 20 BRMIN (07/30/17 11:17 AM) 20 BRMIN (07/30/17 7:25 AM) 20 BRMIN (07/30/17 4:15 AM) Respiratory Rate [14-20 BRMIN] 92 bpm (07/30/17 11:17 AM) 100 bpm (07/30/17 7:25 AM) 98 bpm (07/30/17 4:15 AM) Peripheral Pulse Rate [60-100 bpm] 159.003 kg (07/28/17 6:06 AM) 150 kg (07/27/17 8:28 PM) Weight 60.48 m2 (07/27/17 8:28 PM) Body Mass Index Problem List Condition Effective Dates Status Health Status Informan t Diabetes Resolved mellitus(Confirmed) Hyperlipemia(Confirm Resolved ed) Hypertension(Confirm Resolved ed) Allergies, Adverse Reactions, Alerts Substance Reaction Severity Status NKDA Active Medications Afrin 0.05% nasal spray 2 spray, Route: NASAL, Q8H, Drug form: SPRY, Start date: 07/30/17 0:00:00 CDT, D uration: 3 day, Stop date: 08/01/17 16:00:00 CDT Notes: (Same as: Afrin) Start Date: 07/30/17 Stop Date: 07/30/17 Status: Discontinued amLODIPine 5 mg, PO, Daily, 0 Refill(s) Start Date: 07/29/17 Status: Ordered aspirin 81 mg tablet, enteric coated 81 mg = 1 tab, PO, Daily, # 90 tab, 3 Refill(s) Start Date: 07/29/17 Status: Ordered Dextrose 50% Syringe 12.5 gm, 25 mL, Route: IVP, Drug Form: INJ, Dosing Weight 150, kg, PRN, PRN Bloo d Glucose Results, Start date: 07/28/17 4:50:00 CDT, Duration: 30 day, Stop date : 08/27/17 4:49:00 CDT Start Date: 07/28/17 Stop Date: 07/30/17 Status: Discontinued Dextrose 50% Syringe 25 gm, 50 mL, Route: IVP, Drug Form: INJ, Dosing Weight 150, kg, PRN, PRN Blood Glucose Results, Start date: 07/28/17 4:50:00 CDT, Duration: 30 day, Stop date: 08/27/17 4:49:00 CDT Start Date: 07/28/17 Stop Date: 07/30/17 Status: Discontinued DULoxetine 30 mg oral delayed release capsule 30 mg = 1 cap, PO, BID, 0 Refill(s) Start Date: 07/29/17 Status: Ordered furosemide 40 mg oral tablet 40 mg = 1 tab, PO, Daily, 0 Refill(s) Start Date: 07/29/17 Status: Ordered glucagon 1 mg, Route: IM, Drug form: PDR/INJ, PRN, Dosing Weight 150, kg, PRN Blood Gluco se Results, Start date: 07/28/17 4:50:00 CDT, Duration: 30 day, Stop date: 08/27 4:49:00 CDT Start Date: 07/28/17 Stop Date: 07/30/17 Status: Discontinued Heparin - one time bolus for DVT/PE 7,200 unit, 7.2 mL, Route: IVP, Drug form: INJ, ONCE, Dosing Weight 150, kg, Gina ority: STAT, Start date: 07/28/17 0:43:00 CDT, Stop date: 07/28/17 0:43:00 CDT Start Date: 07/28/17 Stop Date: 07/28/17 Status: Completed Heparin 40 unit/kg Bolus (Heparin Dosing Weight) Route: IVP, PRN, 3,600 unit, 3.6 mL, Drug form: INJ, PRN, Heparin Protocol, Star t date: 07/28/17 2:47:00 CDT Stop date: 08/27/17 2:46:00 CDT, 30 day Start Date: 07/28/17 Stop Date: 07/28/17 Status: Discontinued Heparin 80 unit/kg Bolus (Heparin Dosing Weight) Route: IVP, PRN, 7,200 unit, 7.2 mL, Drug form: INJ, PRN, Heparin Protocol, Star t date: 07/28/17 0:43:00 CDT Stop date: 08/27/17 0:42:00 CDT, 30 day Start Date: 07/28/17 Stop Date: 07/28/17 Status: Discontinued heparin additive 25,000 unit [18 unit/kg/hr] + Premix Diluent Dextrose 5% 500 mL 500 mL, Rate: 32.42 ml/hr, Infuse over: 15.4 hr, Route: IV, Dosing Weight 90.06 kg, Total Volume: 500 mL, Start date: 07/28/17 0:43:00 CDT, Duration: 30 day, St op date: 08/27/17 0:42:00 CDT, 2.02, m2 Start Date: 07/28/17 Stop Date: 07/28/17 Status: Discontinued Humalog 12 unit, 0.12 mL, Route: SUB-Q, Drug form: SOLN, TID-Before Meals, Start date: 0 07/28/17 7:30:00 CDT, Duration: 30 day, Stop date: 08/26/17 16:30:00 CDT Notes: (Same as: Humalog ) Roll in palms of hands gently; Do not shake `eliasu sly. "Single Patient Use Only " WASTE: F/P - Black; E - [facility] St able for 28 days at room temperature.Expires in days from Da te Start Date: 07/28/17 Stop Date: 07/30/17 Status: Discontinued hydrALAZINE 10 mg, 0.5 mL, Route: IV, Drug form: INJ, Q4H, Dosing Weight 150, kg, PRN Hypert ension, Start date: 07/28/17 5:00:00 CDT, Duration: 30 day, Stop date: 08/27/17 4:59:00 CDT Notes: (Same as: Apresoline)Push over 5 minutes Start Date: 07/28/17 Stop Date: 07/30/17 Status: Discontinued hydrochlorothiazide-losartan 25 mg-100 mg oral tablet 1 tab, PO, Daily, 0 Refill(s) Start Date: 07/29/17 Status: Ordered hydrochlorothiazide-metoprolol 25 mg-100 mg oral tablet 1 tab, PO, BID, # 60 tab, 0 Refill(s) Start Date: 07/28/17 Stop Date: 07/29/17 Status: Discontinued insulin detemir 65 unit, Route: SUB-Q, Drug form: SOLN, Daily, Dosing Weight 150, kg, Start date : 07/28/17 9:00:00 CDT, Duration: 30 day, Stop date: 08/26/17 9:00:00 CDT Start Date: 07/28/17 Stop Date: 07/28/17 Status: Deleted insulin glargine 65 unit, 0.65 mL, Route: SUB-Q, Drug form: SOLN, Daily, Start date: 07/28/17 9:0 0:00 CDT, Duration: 30 day, Stop date: 08/26/17 9:00:00 CDT Notes: (Same as: Lantus)Do not hold insulin without contacting prescriberWASTE: F/P - Black; E - [employer] [facility] "single patient use only" Start Date: 07/28/17 Stop Date: 07/28/17 Status: Discontinued insulin lispro 1 unit, 0.01 mL, Route: SUB-Q, Drug form: SOLN, TID-Before Meals, Dosing Weight 150, kg, PRN Blood Glucose Results, Start date: 07/28/17 4:50:00 CDT, Duration: 30 day, Stop date: 08/27/17 4:49:00 CDT Notes: (Same as: Humalog ) Roll in palms of hands gently; Do not shake `vigorou sly. "Single Patient Use Only " WASTE: F/P - Black; E - [facility] [address] able for 28 days at room temperature.Expires in days from Da te Start Date: 07/28/17 Stop Date: 07/30/17 Status: Discontinued insulin lispro 2 unit, 0.02 mL, Route: SUB-Q, Drug form: SOLN, TID-Before Meals, Dosing Weight 150, kg, PRN Blood Glucose Results, Start date: 07/28/17 4:50:00 CDT, Duration: 30 day, Stop date: 08/27/17 4:49:00 CDT Notes: (Same as: Humalog ) Roll in palms of hands gently; Do not shake `vigorou sly. "Single Patient Use Only " WASTE: F/P - Black; E - [facility] [address] able for 28 days at room temperature.Expires in days from Da te Start Date: 07/28/17 Stop Date: 07/30/17 Status: Discontinued insulin lispro 3 unit, 0.03 mL, Route: SUB-Q, Drug form: SOLN, TID-Before Meals, Dosing Weight 150, kg, PRN Blood Glucose Results, Start date: 07/28/17 4:50:00 CDT, Duration: 30 day, Stop date: 08/27/17 4:49:00 CDT Notes: (Same as: Humalog ) Roll in palms of hands gently; Do not shake `vigorou sly. "Single Patient Use Only " WASTE: F/P - Black; E - [facility] [address] able for 28 days at room temperature.Expires in days from Da te Start Date: 07/28/17 Stop Date: 07/30/17 Status: Discontinued insulin lispro 4 unit, 0.04 mL, Route: SUB-Q, Drug form: SOLN, TID-Before Meals, Dosing Weight 150, kg, PRN Blood Glucose Results, Start date: 07/28/17 4:50:00 CDT, Duration: 30 day, Stop date: 08/27/17 4:49:00 CDT Notes: (Same as: Humalog ) Roll in palms of hands gently; Do not shake `vigorou sly. "Single Patient Use Only " WASTE: F/P - Black; E - [facility] [address] [address] able for 28 days at room temperature.Expires in days from Da te Start Date: 07/28/17 Stop Date: 07/30/17 Status: Discontinued insulin lispro 5 unit, 0.05 mL, Route: SUB-Q, Drug form: SOLN, TID-Before Meals, Dosing Weight 150, kg, PRN Blood Glucose Results, Start date: 07/28/17 4:50:00 CDT, Duration: 30 day, Stop date: 08/27/17 4:49:00 CDT Notes: (Same as: Humalog ) Roll in palms of hands gently; Do not shake `vigorou sly. "Single Patient Use Only " WASTE: F/P - Black; E - [facility] [address] able for 28 days at room temperature.Expires in days from Da te Start Date: 07/28/17 Stop Date: 07/30/17 Status: Discontinued insulin lispro 4 unit, 0.04 mL, Route: SUB-Q, Drug form: SOLN, Bedtime, Dosing Weight 159.003, kg, PRN Blood Glucose Results, Start date: 07/28/17 20:19:00 CDT, Duration: 30 d ay, Stop date: 08/27/17 20:18:00 CDT Notes: (Same as: Humalog ) Roll in palms of hands gently; Do not shake `vigorou sly. "Single Patient Use Only " WASTE: F/P - Black; E - [facility] [address] able for 28 days at room temperature.Expires in days from Da te Start Date: 07/28/17 Stop Date: 07/30/17 Status: Discontinued insulin lispro 3 unit, 0.03 mL, Route: SUB-Q, Drug form: SOLN, Bedtime, Dosing Weight 159.003, kg, PRN Blood Glucose Results, Start date: 07/28/17 20:19:00 CDT, Duration: 30 d ay, Stop date: 08/27/17 20:18:00 CDT Notes: (Same as: Humalog ) Roll in palms of hands gently; Do not shake `vigorou sly. "Single Patient Use Only " WASTE: F/P - Black; E - [facility] [address] able for 28 days at room temperature.Expires in days from Da te Start Date: 07/28/17 Stop Date: 07/30/17 Status: Discontinued insulin lispro 2 unit, 0.02 mL, Route: SUB-Q, Drug form: SOLN, Bedtime, Dosing Weight 159.003, kg, PRN Blood Glucose Results, Start date: 07/28/17 20:19:00 CDT, Duration: 30 d ay, Stop date: 08/27/17 20:18:00 CDT Notes: (Same as: Humalog ) Roll in palms of hands gently; Do not shake `vigorou sly. "Single Patient Use Only " WASTE: F/P - Black; E - [facility] [address] able for 28 days at room temperature.Expires in days from Da te Start Date: 07/28/17 Stop Date: 07/30/17 Status: Discontinued insulin lispro 1 unit, 0.01 mL, Route: SUB-Q, Drug form: SOLN, Bedtime, Dosing Weight 159.003, kg, PRN Blood Glucose Results, Start date: 07/28/17 20:19:00 CDT, Duration: 30 d ay, Stop date: 08/27/17 20:18:00 CDT Notes: (Same as: Humalog ) Roll in palms of hands gently; Do not shake `vigorou sly. "Single Patient Use Only " WASTE: F/P - Black; E - [facility] [address] able for 28 days at room temperature.Expires in days from Da te Start Date: 07/28/17 Stop Date: 07/30/17 Status: Discontinued Lasix 20 mg, 2 mL, Route: IV, Drug form: INJ, ONCE, Dosing Weight 150, kg, Start date: 07/28/17 4:13:00 CDT, Stop date: 07/28/17 4:13:00 CDT Notes: (Same as: Lasix) Start Date: 07/28/17 Stop Date: 07/28/17 Status: Completed levothyroxine 50 microgram, 1 tab, Route: PO, Drug form: TAB, Q630AM, Dosing Weight 159.003, k g, Start date: 07/29/17 6:30:00 CDT, Duration: 30 day, Stop date: 08/27/17 6:30: 00 CDT Notes: Take 1 hour before or 2 hours after meal; Enteral feeds may interefere wi th the absorption of this medication.(Same as:Levothroid, Synthroid) Start Date: 07/29/17 Stop Date: 07/30/17 Status: Discontinued levothyroxine 50 mcg (0.05 mg) oral tablet 50 microgram = 1 tab, PO, Q630AM, # 30 tab, 0 Refill(s), Pharmacy: [facility]/pharmacy #[id number] Start Date: 07/29/17 Status: Ordered metoprolol tartrate 50 mg, 1 tab, Route: PO, Drug form: TAB, Q12H, Dosing Weight 150, kg, Start date : 07/28/17 9:00:00 CDT, Duration: 30 day, Stop date: 08/26/17 21:00:00 CDT Notes: (Same as: Lopressor) Start Date: 07/28/17 Stop Date: 07/30/17 Status: Discontinued metoprolol tartrate 100 mg oral tablet 100 mg = 1 tab, PO, BID, 0 Refill(s) Start Date: 07/29/17 Status: Ordered metoprolol tartrate 50 mg oral tablet 50 mg = 1 tab, PO, Q12H, # 60 tab, 0 Refill(s), Pharmacy: [facility]/pharmacy #[id number] Start Date: 07/29/17 Stop Date: 07/29/17 Status: Discontinued mupirocin topical 2% ointment 1 appl, Route: TOP, Q12H, Drug form: OINT, Start date: 07/28/17 21:00:00 CDT, Du ration: 5 day, Stop date: 08/02/17 9:00:00 CDT Start Date: 07/28/17 Stop Date: 07/30/17 Status: Discontinued NovoLOG 55 units, SUB-Q, TID-Meals, 0 Refill(s) Start Date: 07/28/17 Status: Ordered NovoLOG 12 unit, Route: SUB-Q, Drug form: SOLN, TID-Before Meals, Dosing Weight 150, kg, Start date: 07/28/17 7:30:00 CDT, Duration: 30 day, Stop date: 08/26/17 16:30:00 CDT Start Date: 07/28/17 Stop Date: 07/28/17 Status: Deleted omeprazole 40 mg oral delayed release capsule 40 mg = 1 cap, PO, Daily, 0 Refill(s) Start Date: 07/29/17 Status: Ordered ondansetron 4 mg, 2 mL, Route: IVP, Drug form: INJ, Q6H, Dosing Weight 150, kg, PRN Nausea & Vomiting, Start date: 07/28/17 2:32:00 CDT, Duration: 30 day, Stop date: 2:31:00 CDT Notes: (Same as: Hua) MEDICATION WASTE Product Size: 4 mgProduct Was megan: ___ mg Start Date: 07/28/17 Stop Date: 07/30/17 Status: Discontinued Saline Flush 0.9% 10 ml, Route: IVP, Drug Form: INJ, Dosing Weight 150, kg, PRN, PRN Line Flush, S tart date: 07/28/17 2:32:00 CDT, Duration: 30 day, Stop date: 08/27/17 2:31:00 C DT Notes: (Same as: BD Posiflush) Start Date: 07/28/17 Stop Date: 07/30/17 Status: Discontinued Tresiba FlexTouch 140 units, SUB-Q, Bedtime, 0 Refill(s) Start Date: 07/28/17 Status: Ordered Tylenol 650 mg, 2 tab, Route: PO, Drug form: TAB, Q6H, Dosing Weight 159.003, kg, PRN Pa in 1-3/Temp > 100.4 F, Start date: 07/28/17 12:16:00 CDT, Duration: 30 day, Stop date: 08/27/17 12:15:00 CDT Notes: Do not exceed 4 gm/day. (Same as: Tylenol) Start Date: 07/28/17 Stop Date: 07/30/17 Status: Discontinued Vitamin D3 10,000 intl units oral capsule 10,000 IntlUnit = 1 cap, PO, QID, 0 Refill(s) Start Date: 07/29/17 Status: Ordered Xarelto 15 mg, 1 tab, Route: PO, Drug form: TAB, Q12H, Dosing Weight 159.003, kg, Start date: 07/28/17 21:00:00 CDT, Duration: 30 day, Stop date: 08/27/17 9:00:00 CDT Notes: (Same as: Xarelto)Administer with food Start Date: 07/28/17 Stop Date: 07/30/17 Status: Discontinued Xarelto 15 mg oral tablet 15 mg = 1 tab, PO, Q12H, # 42 tab, 0 Refill(s), Pharmacy: [facility]/pharmacy #[id number] Start Date: 07/29/17 Stop Date: 08/19/17 Status: Ordered Results ELECTROLYTES 1 2 3 Most recent to oldest [Reference Range]: 145 mEq/L (07/30/17 6:04 AM) 143 mEq/L (07/28/17 3:45 AM) 145 mEq/L (07/27/17 9:14 PM) Sodium Lvl [135-145 mEq/L] 3.9 mEq/L (07/30/17 6:04 AM) 3.7 mEq/L (07/28/17 3:45 AM) 3.8 mEq/L (07/27/17 9:14 PM) Potassium Lvl [3.5-5.1 mEq/L] 103 mEq/L (07/30/17 6:04 AM) 107 mEq/L (07/28/17 3:45 AM) 103 mEq/L (07/27/17 9:14 PM) Chloride Lvl [95-109 mEq/L] 29 mEq/L (07/30/17 6:04 AM) 31 mEq/L (07/28/17 3:45 AM) 31 mEq/L (07/27/17 9:14 PM) CO2 [24-32 mEq/L] 16.9 mEq/L (07/30/17 6:04 AM) 8.7 mEq/L *LOW* (07/28/17 3:45 AM) 14.8 mEq/L (07/27/17 9:14 PM) AGAP [10.0-20.0 mEq/L] CHEM PANEL 1 2 3 Most recent to oldest [Reference Range]: 1.08 mg/dL (07/30/17 6:04 AM) 1.37 mg/dL (07/28/17 3:45 AM) 1.57 mg/dL *HI* (07/27/17 9:14 PM) Creatinine Lvl [0.50-1.40 mg/dL] 57 mL/min/1.73m2 1 *NA* (07/30/17 6:04 AM) 43 mL/min/1.73m2 2 *NA* (07/28/17 3:45 AM) 36 mL/min/1.73m2 3 *NA* (07/27/17 9:14 PM) eGFR 23 mg/dL *HI* (07/30/17 6:04 AM) 34 mg/dL *HI* (07/28/17 3:45 AM) 38 mg/dL *HI* (07/27/17 9:14 PM) BUN [7-22 mg/dL] 25 (07/28/17 3:45 AM) 24 (07/27/17 9:14 PM) B/C Ratio [6-25] 298 mg/dL *HI* (07/30/17 6:04 AM) 177 mg/dL *HI* (07/28/17 3:45 AM) 296 mg/dL *HI* (07/27/17 9:14 PM) Glucose Lvl [70-99 mg/dL] 7.3 g/dL (07/28/17 3:45 AM) 7.8 g/dL (07/27/17 9:14 PM) Total Protein [6.4-8.4 g/dL] 3.2 g/dL *LOW* (07/28/17 3:45 AM) 3.2 g/dL *LOW* (07/27/17 9:14 PM) Albumin Lvl [3.5-5.0 g/dL] 4.1 g/dL (07/28/17 3:45 AM) 4.6 g/dL *HI* (07/27/17 9:14 PM) Globulin [2.7-4.2 g/dL] 0.8 (07/28/17 3:45 AM) 0.7 (07/27/17 9:14 PM) A/G Ratio [0.7-1.6] 9.6 mg/dL (07/30/17 6:04 AM) 8.5 mg/dL (07/28/17 3:45 AM) 8.2 mg/dL *LOW* (07/27/17 9:14 PM) Calcium Lvl [8.5-10.5 mg/dL] 20 unit/L (07/28/17 3:45 AM) 20 unit/L (07/27/17 9:14 PM) ALT [0-65 unit/L] 17 unit/L (07/28/17 3:45 AM) 13 unit/L (07/27/17 9:14 PM) AST [0-37 unit/L] 92 unit/L (07/28/17 3:45 AM) 105 unit/L (07/27/17 9:14 PM) Alk Phos [39-136 unit/L] 0.3 mg/dL (07/28/17 3:45 AM) 0.3 mg/dL (07/27/17 9:14 PM) Bili Total [0.2-1.3 mg/dL] 1Result Comment: The eGFR is calculated using the [...] from the National Kid[employer] Education Program ( NKDEP) which additionally recommends that when the eGFR is used in patients with extremes of body mass index for purposes of drug dosing, the eGFR should be mul tiplied by the estimated BMI. 2Result Comment: The eGFR is calculated using the [...] from the National Kid[employer] Education Program ( NKDEP) which additionally recommends that when the eGFR is used in patients with extremes of body mass index for purposes of drug dosing, the eGFR should be mul tiplied by the estimated BMI. 3Result Comment: The eGFR is calculated using the [...] from the National Kid[employer] Disease Education Program ( NKDEP) which additionally recommends that when the eGFR is used in patients with extremes of body mass index for purposes of drug dosing, the eGFR should be mul tiplied by the estimated BMI. CARDIAC ENZYMES 1 2 3 Most recent to oldest [Reference Range]: 81 unit/L (07/28/17 8:18 AM) 93 unit/L (07/28/17 3:45 AM) 103 unit/L (07/27/17 9:14 PM) Total CK [12-191 unit/L] <1.0 ng/mL (07/28/17 8:18 AM) 1.0 ng/mL (07/28/17 3:45 AM) <1.0 ng/mL (07/27/17 9:14 PM) CK MB [0.5-3.6 ng/mL] <1.2 (07/28/17 8:18 AM) 1.1 (07/28/17 3:45 AM) <1.0 (07/27/17 9:14 PM) CK MB Index [0.0-2.5] <0.02 ng/mL (07/28/17 8:18 AM) <0.02 ng/mL (07/28/17 3:45 AM) <0.02 ng/mL (07/27/17 9:14 PM) Troponin-I [0.00-0.40 ng/mL] 13 pg/mL (07/27/17 9:14 PM) BNP [<=100 pg/mL] SPECIAL CHEMISTRY 1 2 3 Most recent to oldest [Reference Range]: 7.8 % *HI* (07/29/17 6:08 AM) Hgb A1C [<=5.6 %] URINE CHEM 1 2 3 Most recent to oldest [Reference Range]: 15.30 mg/dL *NA* (07/28/17 6:40 AM) U Creatinine 124 mEq/L *NA* (07/28/17 6:40 AM) U Sodium HEMATOLOGY 1 2 3 Most recent to oldest [Reference Range]: 9.4 K/CMM (07/30/17 6:04 AM) 7.6 K/CMM (07/28/17 3:45 AM) 8.1 K/CMM (07/27/17 9:14 PM) WBC [3.7-10.4 K/CMM] 4.25 M/CMM (07/30/17 6:04 AM) 3.82 M/CMM *LOW* (07/28/17 3:45 AM) 4.01 M/CMM *LOW* (07/27/17 9:14 PM) RBC [4.20-5.40 M/CMM] 9.4 g/dL *LOW* (07/30/17 6:04 AM) 8.6 g/dL *LOW* (07/28/17 3:45 AM) 9.2 g/dL *LOW* (07/27/17 9:14 PM) Hgb [12.0-16.0 g/dL] 30.9 % *LOW* (07/30/17 6:04 AM) 27.9 % *LOW* (07/28/17 3:45 AM) 29.7 % *LOW* (07/27/17 9:14 PM) Hct [36.0-48.0 %] 72.6 fL *LOW* (07/30/17 6:04 AM) 73.0 fL *LOW* (07/28/17 3:45 AM) 74.0 fL *LOW* (07/27/17 9:14 PM) MCV [80.0-98.0 fL] 22.2 pg *LOW* (07/30/17 6:04 AM) 22.4 pg *LOW* (07/28/17 3:45 AM) 23.0 pg *LOW* (07/27/17 9:14 PM) MCH [27.0-31.0 pg] 30.6 g/dL *LOW* (07/30/17 6:04 AM) 30.7 g/dL *LOW* (07/28/17 3:45 AM) 31.0 g/dL *LOW* (07/27/17 9:14 PM) MCHC [32.0-36.0 g/dL] 18.1 % *HI* (07/30/17 6:04 AM) 18.1 % *HI* (07/28/17 3:45 AM) 18.1 % *HI* (07/27/17 9:14 PM) RDW [11.5-14.5 %] 8.6 fL (07/30/17 6:04 AM) 8.6 fL (07/28/17 3:45 AM) 8.3 fL (07/27/17 9:14 PM) MPV [7.4-10.4 fL] 276 K/CMM (07/30/17 6:04 AM) 263 K/CMM (07/28/17 3:45 AM) 280 K/CMM (07/27/17 9:14 PM) Platelet [133-450 K/CMM] 75.5 % *HI* (07/30/17 6:04 AM) 55.4 % (07/28/17 3:45 AM) 69.1 % (07/27/17 9:14 PM) Segs [45.0-75.0 %] 15.4 % *LOW* (07/30/17 6:04 AM) 33.6 % (07/28/17 3:45 AM) 22.0 % (07/27/17 9:14 PM) Lymphocytes [20.0-40.0 %] 8.1 % (07/30/17 6:04 AM) 7.6 % (07/28/17 3:45 AM) 5.8 % (07/27/17 9:14 PM) Monocytes [2.0-12.0 %] 0.6 % (07/30/17 6:04 AM) 2.9 % (07/28/17 3:45 AM) 2.6 % (07/27/17 9:14 PM) Eosinophils [0.0-4.0 %] 0.4 % (07/30/17 6:04 AM) 0.5 % (07/28/17 3:45 AM) 0.5 % (07/27/17 9:14 PM) Basophils [0.0-1.0 %] 7.1 K/CMM (07/30/17 6:04 AM) 4.2 K/CMM (07/28/17 3:45 AM) 5.6 K/CMM (07/27/17 9:14 PM) Segs-Bands # [1.5-8.1 K/CMM] 1.4 K/CMM (07/30/17 6:04 AM) 2.5 K/CMM (07/28/17 3:45 AM) 1.8 K/CMM (07/27/17 9:14 PM) Lymphocytes # [1.0-5.5 K/CMM] 0.8 K/CMM (07/30/17 6:04 AM) 0.6 K/CMM (07/28/17 3:45 AM) 0.5 K/CMM (07/27/17 9:14 PM) Monocytes # [0.0-0.8 K/CMM] 0.1 K/CMM (07/30/17 6:04 AM) 0.2 K/CMM (07/28/17 3:45 AM) 0.2 K/CMM (07/27/17 9:14 PM) Eosinophils # [0.0-0.5 K/CMM] 1+ (07/30/17 6:04 AM) Hypochrom [None Seen] 1+ *ABN* (07/30/17 6:04 AM) 1+ *ABN* (07/28/17 3:45 AM) 1+ *ABN* (07/27/17 9:14 PM) Microcyte [None Seen] Normal (07/30/17 6:04 AM) Plt Morph 12.9 seconds (07/27/17 9:14 PM) PT [12.0-14.7 seconds] 0.97 (07/27/17 9:14 PM) INR [0.85-1.17] 91.2 seconds *HI* (07/28/17 8:18 AM) 32.6 seconds (07/27/17 9:14 PM) PTT [22.9-35.8 seconds] Immunizations Given and Recorded Vaccine Date Status Refusal Reason pneumococcal 23-valent vaccine 06/06/16 Given influenza virus vaccine, inactivated 06/06/16 G iven Procedures Procedure Date Related Diagnosis Body Site Status section 1991 Completed Cholecystectomy 1991 Completed Social History Social History Type Response Substance Abuse Use: None. Alcohol Never Smoking Status Never smoker; Exposure to T obacco Smoke None; Cigarette Smoking Last 365 Days No; Reg Smoking Cessation Counseli ng No entered on: 07/27/17 Assessment and Plan Extracted from: Title: Clinical Document Author: Rosendo Orozco Date: 07/30/17 Pulmonary/Critical Care Medicine progess note Rosendo Orozco MD SUBJECTIVE: Examined. Patient feeling comfortable. She is ambulating. No more active bleeding. OBJECTIVE: VitalsTmp(F)Tmp(C)[id number] 07/30 07:2598.236.24kner097/74---[id number] ------ 07/30 04:48 162/76 ------ 07/30 04:1598.536.60mhdn300/74---9820--- ------ 07/30 01:52 164/78 ------ 07/30 00:0298.937.21jfgo041/81---9420--- ------ 24 Hr Tmax: 98.9F (37.17c) at 07/30 00:0 2Vital Signs are the last 5 in the past 48 hours. 24 Hr Tmin: 98.2F (36.78c) at 07/30 07: 25Weights are the last 5 in 60 days, plus initial. DateWt(kg)Wt(lb)Ht(cm)Ht(in)MethodBMIBSA 59.00 349.81Measured 07/27 (initial)150.00 330.00Estimated 60 .52.56 10915.48 62.00Stated 24 Hr Point of Care Glucoses 07/30 1218Glucose HYG764 H 07/30 0820Glucose BQR068 H 07/30 0324Glucose OON025 H 07/29 2043Glucose NUY635 H 07/29 1716Glucose CNG894 H 07/29 1225Glucose BGQ955 H Most Recent Scores: 07/30/17Pain Intensity NRS (0-10)0 07/29/17Johns Chatterjee Fall Score6 07/29/17Glasgow Coma Score15 07/29/17Braden Score21 Lines, Tubes, and Drains: 07/27/2017 21:14 Peripheral Lines: Antec ubital Left 18 gauge Over the needle catheter (no surgical procedures documented) Labs (Last four charted values) WBC 9.4(JUL 30)7.6(JUL 28)8.1(JUL 27) Hgb L 9.4(JUL 30)L 8.6(JUL 28)L 9.2(JUL 27) Hct L 30.9(JUL 30)L 27.9(JUL 28)L 29.7(JUL 27) Plt 276(JUL 30)263(JUL 28)280(APR 14) Na 145(APR 17)143(JUL 15)145(JUL 14) K 3.9(JUL 17)3.7(JUL 15)3.8(JUL 14) CO2 29(JUL 30)31(JUL 15)31(JUL 14) Cl 103(JUL 17)107(JUL 15)103(JUL 14) Cr 1.08(JUL 30)1.37(JUL 15)H 1.57(JUL 14) BUN H 23(JUL 30)H 34(JUL 15)H 38(JUL 27) Glucose Random H 298(JUL 30)H 177(JUL 15)H 296(JUL 27) Ca 9.6(JUL 30)8.5(JUL 28)L 8.2(JUL 27) PT 12.9(JUL 27) INR 0.97(JUL 27) PTT H 91.2(JUL 28)32.6(JUL 27) Troponin <0.02(JUL 28)<0.02(JUL 28)<0.02(JUL 27) CK MB <1.0(JUL 28)1.0(JUL 28)<1.0(JUL 27) Total CK 81(JUL 15)93(JUL 15)103(JUL 27) RADIOLOGY: ASSESSMENT & EXAM: HEENT:normocephalic,atraumatic, morbid obesity Skin:no rash Chest: symmetrical expansion, no wheezing,no rales, no crackles Heart: Regular rhythm, no murmurs Abdomen: Soft, nontender, bowel sounds present Ext: no edema [employer]: alert and oriented, no focal neurological defecits DIAGNOSES & PROBLEMS: Pulmonary embolism Morbid Obesity Epistaxis PLAN & TREATMENT: Seen and examined. Patient breathing better. [...] mg PO Q12H Unscheduled Meds: None Extracted from: Title: ENT Consultation Author: Ady Faria MD Da te: 07/30/17 Impression and Plan 57 yo F with h/o morbid obesity, HTN, DM , now with epistaxis on xarelto for PE - nose bleeds have stopped with nasal sa line and afrin. Clear for discharge from ENT perspective - continued afrin BID x 5 days, nasal sa line TID - she can come to my clinic in 2 weeks. Will follow. Extracted from: Title: Admission H&P * Author: Tab Dong MD Da te: 07/28/17 Impression and Plan #SOB Likely due [...] controlled Dispo: CLYDE DONG MD HOSPITALIST - [facility]
--- OUTSIDE RECORDS SUMMARY | 2019-12-03 11:24 | XMS REPORT | Summary of Care ---
Author Author [facility] Address Unknown Phone Unavailable Encounter [facility] Daina(FIN) [phone] Date(s): 02/04/18 - 02/04/18 [facility] [address] [place] [address]- Encounter Diagnosis Obstructive sleep apnea (adult) (pediatric) (Final) - 02/07/18 Discharge Disposition: Home or Self Care Attending [...]
--- OUTSIDE RECORDS SUMMARY | 2019-12-03 11:24 | XMS REPORT ---
Author Author Desi Parnell Organization [employer] Address Unknown Phone Unavailable Care Team Providers Care School Transportation Director Name Role Phone Pako Parnell Unavailable Encounters Encounter Location Date Unknown [facility] September 05, 2015 Patient here to follow up on diabetes and blood pressu re [facility] September 27, 2015 carotid & arterial dopplers Pako Parnell [place], [place] September 26 016 new patient here to formerly [facility] care [facility] arch 2015 Unknown [facility] August 01, 2015 Patient here to follow up on labs, blood pressure and diabetes [facility] August 04, 2015 Summary Purpose [employer] Submission
--- OUTSIDE RECORDS SUMMARY | 2019-12-03 11:24 | XMS REPORT ---
Author Author Desi Iqbal Organization [employer] Address Unknown Phone Unavailable Care Team Providers Care Diamond Cleaver Name Role Phone Miranda Iqbal Unavailable Allergies, Adverse Reactions, Alerts Substance Reaction Event Type N.K.D.A. 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 Active Assessment BMI 50.0-59.9, adult Z68.43 Active Assessment Hot flashes R23.2 Active Assessment Arthritis M19.90 Active Assessment Gastroesophageal reflux disease without esophagitis K2 1.9 Active Assessment Microalbuminuria R80.9 Active Assessment Diabetic neuropathy E11.40 Active Assessment Hyperlipemia E78.5 Active Problem Hyperlipemia E78.5 Active Assessment Dyspnea on exertion R06.09 Active Problem GERD (gastroesophageal reflux disease) K21.9 Active Assessment Localized swelling of both lower legs R22.43 Active Problem Gastroesophageal reflux disease without esophagitis K2 1.9 Active Problem Arthritis M19.90 Active Problem Epistaxis R04.0 Active Problem Hot flashes R23.2 Active Problem Type 2 diabetes mellitus with diabetic chronic kidney disease E11.22 Active Assessment Type 2 diabetes mellitus with hyperglycemia E11.65 Active Assessment Hypertension I10 Active Problem Decreased urine output R34 Activ e Assessment Shortness of breath R06.02 Active Problem Shortness of breath R06.02 Active Problem Dyspnea on exertion R06.09 Active Problem Chronic kidney disease, stage III (moderate) N18.3 Active Problem Localized swelling of both lower legs R22.43 Active Problem Obesity, morbid, BMI 50 or higher E66.01 Active Assessment Decreased urine output R34 Activ e Problem BMI 50.0-59.9, adult Z68.43 Active Problem Leg swelling M79.89 Active Problem Diabetic neuropathy E11.40 Active Problem Low vitamin D level E55.9 Active Problem Microalbuminuria R80.9 Active Problem Type 2 diabetes mellitus with hyperglycemia E11.65 Active Problem Hypertension I10 Active Medications Medication Code System Code Instructions Start Date End Date Status Dosage Atorvastatin Calcium [facility] [address]-16 40 mg Orally Once a day Active 1 tablet Gabapentin [facility] [address]-27 800 MG Orally three times a day (tid) Active 1 capsule NovoLog Flexpen [facility] [address]-32 100 UNIT/ML Subc utaneous three times a day (tid) Inactive 35 units Omeprazole [facility] [address]-61 40 mg Orally Once a day Active 1 capsule Lisinopril-Hydrochlorothiazide [facility] [address]-16 2 0-12.5 MG Orally twice a day (bid) Active 1 tablet Cymbalta [facility] [address]-87 30 MG Orally twice a day (bid) Active 1 capsule Tresiba FlexTouch [facility] [address]-98 200 UNIT/ML Subcutaneous daily Active 110 units at night Synthroid [facility] 86379934009 50 MCG Active TAKE 1 TA BLET BY MOUTH AT 6.30 AM Metoprolol Tartrate [facility] [address]-18 100 MG Orally Twice a day Active 1 tablet Vital Signs Date/Time: July 31, 2016 BMI 58.16 Index Weight 318.0 lbs Height 62 in Temperature 97.9 F Cardiac Monitoring Heart Rate 112 /min Blood Pressure Diastolic 77 mm Hg Blood Pressure Systolic 153 mm Hg Results No Known Results Summary Purpose [employer] Submission
--- OUTSIDE RECORDS SUMMARY | 2019-12-03 11:24 | XMS REPORT | Summary of Care ---
Author Author [facility] Organization [facility] Address Unknown Phone Unavailable Encounter HQ Daina(BRUCE) [id number] Date(s): 06/06/16 - 06/08/16 [facility] [address] [place] [address]- [phone] Final: Acute kidney failure, unspecified Discharge Disposition: Home or Self Care Attending Physician: Stanley Galeana MD Admitting Physician: Stanley Galeana MD Vital Signs 1 2 3 Most recent to oldest [Reference Range]: 157.48 cm (06/06/16 3:54 AM) Height 98.1 DegF (06/08/16 11:16 AM) 97.6 DegF (06/08/16 7:37 AM) 98 DegF (06/08/16 3:08 AM) Temperature Oral [96.4-99.1 DegF] 155/77 mmHg *HI* (06/08/16 11:16 AM) 137/73 mmHg (06/08/16 7:37 AM) 122/69 mmHg (06/08/16 3:08 AM) Blood Pressure [90-140/60-90 mmHg] 18 BRMIN (06/08/16 11:16 AM) 18 BRMIN (06/08/16 7:37 AM) 18 BRMIN (06/08/16 3:08 AM) Respiratory Rate [14-20 BRMIN] 72 bpm (06/08/16 11:16 AM) 71 bpm (06/08/16 7:37 AM) 70 bpm (06/08/16 3:08 AM) Peripheral Pulse Rate [60-100 bpm] 150.085 kg (06/06/16 3:54 AM) Weight 60.52 m2 (06/06/16 3:54 AM) Body Mass Index Problem List Condition Effective Dates Status Health Status Informan t Diabetes Resolved mellitus(Confirmed) Hyperlipemia(Confirm Resolved ed) Hypertension(Confirm Resolved ed) Allergies, Adverse Reactions, Alerts Substance Reaction Severity Status NKDA Active Medications aspirin 81 mg, 1 tab, Route: PO, Drug form: CHEWTAB, Daily, Dosing Weight 150.085, kg, S tart date: 06/06/16 9:00:00 SYSTEM VALIDATION ENGINEER, Duration: 30 day, Stop date: 07/05/16 9:00:00 C DT Notes: Take with food. Start Date: 06/06/16 Stop Date: 06/08/16 Status: Discontinued aspirin 81 mg, PO, Daily, 0 Refill(s) Start Date: 06/06/16 Status: Ordered atorvastatin 40 mg, 1 tab, Route: PO, Drug form: TAB, Daily, Dosing Weight 150.085, kg, Start date: 06/06/16 9:00:00 SYSTEM VALIDATION ENGINEER, Duration: 30 day, Stop date: 07/05/16 9:00:00 CDT Notes: (Same as: Lipitor) Start Date: 06/06/16 Stop Date: 06/08/16 Status: Discontinued atorvastatin 40 mg oral tablet 40 mg = 1 tab, PO, Daily, 0 Refill(s) Start Date: 06/06/16 Status: Ordered calcium carbonate 1,000 mg, 2 tab, Route: PO, Drug form: CHEWTAB, BID-Meals, Dosing Weight 150.085 , kg, Start date: 06/07/16 8:00:00 SYSTEM VALIDATION ENGINEER, Duration: 30 day, Stop date: 07/06/16 17 :00:00 CDT Notes: (Same As: Jose)Calcium Carbonate 500 mg = 200 mg elemental calcium Dose = mg calcium carbonate ( mg elemental calcium) Start Date: 06/07/16 Stop Date: 06/08/16 Status: Discontinued calcium gluconate + sodium chloride 0.9% INJ 100 mL 2,000 mg, 20 mL, Route: IVPB, ONCE, Dosing Weight 150.085, kg, Start date: 06/06 15:45:00 SYSTEM VALIDATION ENGINEER, Stop date: 06/06/16 15:45:00 SYSTEM VALIDATION ENGINEER Notes: WASTE: F/P - Sink; E - Municipal Trash Bin Start Date: 06/06/16 Stop Date: 06/06/16 Status: Completed Dextrose 50% Syringe 50 mL, Route: IVP, Dosing Weight 150.085, kg, PRN, PRN Blood Glucose Results, art date: 06/07/16 22:14:00 SYSTEM VALIDATION ENGINEER, Duration: 30 day, Stop date: 07/07/16 23:13:00 CDT Start Date: 06/07/16 Stop Date: 06/07/16 Status: Deleted Dextrose 50% Syringe 25 mL, Route: IVP, Dosing Weight 150.085, kg, PRN, PRN Blood Glucose Results, art date: 06/07/16 22:14:00 SYSTEM VALIDATION ENGINEER, Duration: 30 day, Stop date: 07/07/16 23:13:00 CDT Start Date: 06/07/16 Stop Date: 06/07/16 Status: Deleted Dextrose 50% Syringe 12.5 gm, 25 mL, Route: IVP, Drug Form: INJ, Dosing Weight 150.085, kg, PRN, PRN Blood Glucose Results, Start date: 06/06/16 7:06:00 SYSTEM VALIDATION ENGINEER, Duration: 30 day, Stop date: 07/06/16 8:05:00 CDT Start Date: 06/06/16 Stop Date: 06/08/16 Status: Discontinued Dextrose 50% Syringe 25 gm, 50 mL, Route: IVP, Drug Form: INJ, Dosing Weight 150.085, kg, PRN, PRN Bl ood Glucose Results, Start date: 06/06/16 7:06:00 SYSTEM VALIDATION ENGINEER, Duration: 30 day, Stop da te: 07/06/16 8:05:00 CDT Start Date: 06/06/16 Stop Date: 06/08/16 Status: Discontinued gabapentin 300 mg oral capsule 600 mg, 2 cap, Route: PO, Drug form: CAP, Q12H, Dosing Weight 150.085, kg, (CrCl 30 - 59 ml/min), Start date: 06/06/16 9:00:00 SYSTEM VALIDATION ENGINEER, Duration: 30 day, Stop date: 07/05/16 21:00:00 CDT Notes: (Same as: Neurontin) Start Date: 06/06/16 Stop Date: 06/08/16 Status: Discontinued gabapentin 800 mg oral tablet 800 mg = 1 tab, PO, TID, 0 Refill(s) Start Date: 06/06/16 Status: Ordered glucagon 1 mg, Route: IM, PRN, Dosing Weight 150.085, kg, PRN Blood Glucose Results, Star t date: 06/07/16 22:14:00 SYSTEM VALIDATION ENGINEER, Duration: 30 day, Stop date: 07/07/16 23:13:00 CD T Start Date: 06/07/16 Stop Date: 06/07/16 Status: Deleted glucagon 1 mg, Route: IM, Drug form: PDR/INJ, PRN, Dosing Weight 150.085, kg, PRN Blood G lucose Results, Start date: 06/06/16 7:06:00 SYSTEM VALIDATION ENGINEER, Duration: 30 day, Stop date: 0 07/06/16 8:05:00 CDT Start Date: 06/06/16 Stop Date: 06/08/16 Status: Discontinued hydrochlorothiazide-lisinopril 12.5 mg-20 mg oral tablet 1 tab, PO, BID, 0 Refill(s) Start Date: 06/06/16 Stop Date: 06/08/16 Status: Discontinued influenza virus vaccine, inactivated 0.5 mL, Route: IM, Drug Form: SUSP, Daily, Start date: 06/06/16 9:00:00 SYSTEM VALIDATION ENGINEER, Sto p date: 06/06/16 13:00:00 SYSTEM VALIDATION ENGINEER Notes: (Same as: Fluzone Quadrivalent, Fluarix Quadrivalent)For 3 years of age a nd older (0.5 mL IM)Shake well before use Start Date: 06/06/16 Stop Date: 06/06/16 Status: Completed insulin aspart 2 unit, 0.02 mL, Route: SUB-Q, Drug form: SOLN, Bedtime, Dosing Weight 150.085, kg, PRN Blood Glucose Results, Start date: 06/07/16 22:14:00 SYSTEM VALIDATION ENGINEER, Duration: 30 d ay, Stop date: 07/07/16 22:13:00 CDT Notes: Roll in palms of hands gently; Do not shake vigorously. (Same as: NovoMALCOLM Barriga)"single patient use only"WASTE: F/P - Black; E - Municipal Trash Bin Stable f or 28 days at room temperature.Expires in days from Date Start Date: 06/07/16 Stop Date: 06/08/16 Status: Discontinued insulin aspart 1 unit, 0.01 mL, Route: SUB-Q, Drug form: SOLN, Bedtime, Dosing Weight 150.085, kg, PRN Blood Glucose Results, Start date: 06/07/16 22:14:00 SYSTEM VALIDATION ENGINEER, Duration: 30 d ay, Stop date: 07/07/16 22:13:00 CDT Notes: Roll in palms of hands gently; Do not shake vigorously. (Same as: Uriel Barriga)"single patient use only"WASTE: F/P - Black; E - Municipal Trash Bin Stable f or 28 days at room temperature.Expires in days from Date Start Date: 06/07/16 Stop Date: 06/08/16 Status: Discontinued insulin aspart 3 unit, 0.03 mL, Route: SUB-Q, Drug form: SOLN, Bedtime, Dosing Weight 150.085, kg, PRN Blood Glucose Results, Start date: 06/07/16 22:14:00 SYSTEM VALIDATION ENGINEER, Duration: 30 d ay, Stop date: 07/07/16 22:13:00 CDT Notes: Roll in palms of hands gently; Do not shake vigorously. (Same as: Uriel Barriga)"single patient use only"WASTE: F/P - Black; E - Municipal Trash Bin Stable f or 28 days at room temperature.Expires in days from Date Start Date: 06/07/16 Stop Date: 06/08/16 Status: Discontinued insulin aspart 4 unit, 0.04 mL, Route: SUB-Q, Drug form: SOLN, Bedtime, Dosing Weight 150.085, kg, PRN Blood Glucose Results, Start date: 06/07/16 22:14:00 SYSTEM VALIDATION ENGINEER, Duration: 30 d ay, Stop date: 07/07/16 22:13:00 CDT Notes: Roll in palms of hands gently; Do not shake vigorously. (Same as: Uriel Barriga)"single patient use only"WASTE: F/P - Black; E - Municipal Trash Bin Stable f or 28 days at room temperature.Expires in days from Date Start Date: 06/07/16 Stop Date: 06/08/16 Status: Discontinued insulin aspart 12 unit, 0.12 mL, Route: SUB-Q, Drug form: SOLN, ONCE, Dosing Weight 150.085, kg , Start date: 06/08/16 18:58:00 SYSTEM VALIDATION ENGINEER, Stop date: 06/08/16 18:58:00 SYSTEM VALIDATION ENGINEER Notes: Roll in palms of hands gently; Do not shake vigorously. (Same as: Uriel Barriga)"single patient use only"WASTE: F/P - Black; E - Municipal Trash Bin Stable f or 28 days at room temperature.Expires in days from Date Start Date: 06/08/16 Stop Date: 06/08/16 Status: Completed insulin aspart 5 unit, 0.05 mL, Route: SUB-Q, Drug form: SOLN, TID-Before Meals, Dosing Weight 150.085, kg, PRN Blood Glucose Results, Start date: 06/06/16 7:06:00 SYSTEM VALIDATION ENGINEER, Durati on: 30 day, Stop date: 07/06/16 7:05:00 CDT Notes: Roll in palms of hands gently; Do not shake vigorously. (Same as: Uriel Barriga)"single patient use only"WASTE: F/P - Black; E - Municipal Trash Bin Stable f or 28 days at room temperature.Expires in days from Date Start Date: 06/06/16 Stop Date: 06/08/16 Status: Discontinued insulin aspart 3 unit, 0.03 mL, Route: SUB-Q, Drug form: SOLN, TID-Before Meals, Dosing Weight 150.085, kg, PRN Blood Glucose Results, Start date: 06/06/16 7:06:00 SYSTEM VALIDATION ENGINEER, Durati on: 30 day, Stop date: 07/06/16 7:05:00 CDT Notes: Roll in palms of hands gently; Do not shake vigorously. (Same as: Uriel Barriga)"single patient use only"WASTE: F/P - Black; E - Municipal Trash Bin Stable f or 28 days at room temperature.Expires in days from Date Start Date: 06/06/16 Stop Date: 06/08/16 Status: Discontinued insulin aspart 2 unit, 0.02 mL, Route: SUB-Q, Drug form: SOLN, TID-Before Meals, Dosing Weight 150.085, kg, PRN Blood Glucose Results, Start date: 06/06/16 7:06:00 SYSTEM VALIDATION ENGINEER, Durati on: 30 day, Stop date: 07/06/16 7:05:00 CDT Notes: Roll in palms of hands gently; Do not shake vigorously. (Same as: Uriel Barriga)"single patient use only"WASTE: F/P - Black; E - Municipal Trash Bin Stable f or 28 days at room temperature.Expires in days from Date Start Date: 06/06/16 Stop Date: 06/08/16 Status: Discontinued insulin aspart 1 unit, 0.01 mL, Route: SUB-Q, Drug form: SOLN, TID-Before Meals, Dosing Weight 150.085, kg, PRN Blood Glucose Results, Start date: 06/06/16 7:06:00 SYSTEM VALIDATION ENGINEER, Durati on: 30 day, Stop date: 07/06/16 7:05:00 CDT Notes: Roll in palms of hands gently; Do not shake vigorously. (Same as: Uriel Barriga)"single patient use only"WASTE: F/P - Black; E - Municipal Trash Bin Stable f or 28 days at room temperature.Expires in days from Date Start Date: 06/06/16 Stop Date: 06/08/16 Status: Discontinued insulin aspart 4 unit, 0.04 mL, Route: SUB-Q, Drug form: SOLN, TID-Before Meals, Dosing Weight 150.085, kg, PRN Blood Glucose Results, Start date: 06/06/16 7:06:00 SYSTEM VALIDATION ENGINEER, Durati on: 30 day, Stop date: 07/06/16 7:05:00 CDT Notes: Roll in palms of hands gently; Do not shake vigorously. (Same as: NovoLO G)"single patient use only"WASTE: F/P - Black; E - Municipal Trash Bin Stable f or 28 days at room temperature.Expires in days from Date Start Date: 06/06/16 Stop Date: 06/08/16 Status: Discontinued insulin detemir 100 units/mL subcutaneous solution 65 unit, SUB-Q, Bedtime, # 15 mL, 0 Refill(s), Pharmacy: [facility]/pharmacy #[id number] Start Date: 06/08/16 Status: Ordered insulin detemir 100 units/mL subcutaneous solution 65 unit, SUB-Q, Bedtime, 0 Refill(s) Start Date: 06/08/16 Stop Date: 06/08/16 Status: Deleted insulin detemir 100 units/mL subcutaneous solution 80 unit, SUB-Q, Breakfast, 0 Refill(s) Start Date: 06/08/16 Status: Ordered Lantus 100 units/mL Route: SUB-Q, Drug form: SOLN, Breakfast, Dosing Weight 150.085, kg, Start date: 06/06/16 8:00:00 SYSTEM VALIDATION ENGINEER, Duration: 30 day, Stop date: 07/05/16 8:00:00 CDT Start Date: 06/06/16 Stop Date: 06/06/16 Status: Deleted Lantus 100 units/mL Route: SUB-Q, Drug form: SOLN, Bedtime, Dosing Weight 150.085, kg, Start date: 0 06/06/16 21:00:00 SYSTEM VALIDATION ENGINEER, Duration: 30 day, Stop date: 07/05/16 21:00:00 CDT Start Date: 06/06/16 Stop Date: 06/06/16 Status: Deleted Lantus 100 units/mL 60 units, SUB-Q, Bedtime, 0 Refill(s) Start Date: 06/06/16 Status: Ordered Lantus 100 units/mL 80 units, SUB-Q, Breakfast, 0 Refill(s) Start Date: 06/06/16 Status: Ordered Lasix 40 mg, 4 mL, Route: IV, Drug form: INJ, Daily, Dosing Weight 150.085, kg, Start date: 06/06/16 9:00:00 SYSTEM VALIDATION ENGINEER, Duration: 30 day, Stop date: 07/05/16 9:00:00 CDT Notes: (Same as: Lasix) MEDICATION WASTE Product Size: 40 mgProduct Was megan: ___ mg Start Date: 06/06/16 Stop Date: 06/08/16 Status: Discontinued Levemir FlexPen 65 unit, 0.65 mL, Route: SUB-Q, Drug form: INJ, Bedtime, Start date: 06/06/16 21 :00:00 SYSTEM VALIDATION ENGINEER, Stop date: 07/05/16 21:00:00 CDT Notes: Same as LevemirDo not hold insulin without contacting prescriberWASTE: F/ P - Black; E - Municipal Trash Bin "single patient use only" Start Date: 06/06/16 Stop Date: 06/08/16 Status: Discontinued Levemir FlexPen 80 unit, 0.8 mL, Route: SUB-Q, Drug form: INJ, Breakfast, Start date: 06/06/16 8 :00:00 SYSTEM VALIDATION ENGINEER, Duration: 30 day, Stop date: 07/05/16 8:00:00 CDT Notes: Same as LevemirDo not hold insulin without contacting prescriberWASTE: F/ P - Black; E - Municipal Trash Bin "single patient use only" Start Date: 06/06/16 Stop Date: 06/08/16 Status: Discontinued levothyroxine 50 mcg (0.05 mg) oral tablet 50 microgram = 1 tab, PO, Q630AM, # 30 tab, 0 Refill(s), other Start Date: 06/08/16 Stop Date: 06/08/16 Status: Deleted levothyroxine 50 mcg (0.05 mg) oral tablet 50 microgram = 1 tab, PO, Q630AM, # 30 tab, 0 Refill(s), Pharmacy: [facility]/pharmacy #[id number] Start Date: 06/08/16 Status: Ordered Lovenox 40 mg, 0.4 mL, Route: SUB-Q, Drug form: INJ, [id number], Dosing Weight 150.085, kg , For CrCl <30mL/min, Start date: 06/06/16 9:00:00 SYSTEM VALIDATION ENGINEER, Duration: 30 day, Stop date: 07/05/16 9:00:00 CDT Notes: (Same as: Lovenox) Start Date: 06/06/16 Stop Date: 06/08/16 Status: Discontinued magnesium sulfate 2 gm, 50 mL, Route: IVPB, Drug form: INJ, ONCE, Dosing Weight 150.085, kg, Total dose = 2 gm, Start date: 06/07/16 8:29:00 SYSTEM VALIDATION ENGINEER, Duration: 1 doses or times, Stop date: 06/07/16 8:29:00 SYSTEM VALIDATION ENGINEER Notes: WASTE: F/P - Sink; E - Municipal Trash Bin Start Date: 06/07/16 Stop Date: 06/07/16 Status: Completed metFORMIN 1,000 mg, PO, BID, with meals, 0 Refill(s) Start Date: 06/06/16 Stop Date: 06/08/16 Status: Discontinued metoprolol tartrate 100 mg, 2 tab, Route: PO, Drug form: TAB, Q12H, Dosing Weight 150.085, kg, Start date: 06/06/16 9:00:00 SYSTEM VALIDATION ENGINEER, Duration: 30 day, Stop date: 07/05/16 21:00:00 CDT Notes: (Same as: Lopressor) Start Date: 06/06/16 Stop Date: 06/08/16 Status: Discontinued metoprolol tartrate 100 mg oral tablet 100 mg = 1 tab, PO, BID, 0 Refill(s) Start Date: 06/06/16 Status: Ordered morphine Sulfate 2 mg, 1 mL, Route: IVP, Drug form: INJ, Q4H, Dosing Weight 150.085, kg, PRN Pain Score 7-10, Start date: 06/06/16 6:02:00 SYSTEM VALIDATION ENGINEER, Duration: 30 day, Stop date: 06/14 07/30 6:01:00 CDT Notes: (Same as:MORPhine Sulfate) Start Date: 06/06/16 Stop Date: 06/08/16 Status: Discontinued naproxen 500 mg oral tablet 500 mg = 1 tab, PO, BID, PRN Pain Score 1-5, 0 Refill(s) Start Date: 06/06/16 Stop Date: 06/08/16 Status: Discontinued NovoLOG 12 unit, 0.12 mL, Route: SUB-Q, Drug form: SOLN, TID-Before Meals, Dosing Weight 150.085, kg, Start date: 06/06/16 7:30:00 SYSTEM VALIDATION ENGINEER, Stop date: 07/05/16 16:30:00 CDT Notes: Roll in palms of hands gently; Do not shake vigorously. (Same as: Uriel Barriga)"single patient use only"WASTE: F/P - Black; E - Municipal Trash Bin Stable f or 28 days at room temperature.Expires in days from Date Start Date: 06/06/16 Stop Date: 06/08/16 Status: Discontinued NovoLOG 10 unit, SUB-Q, TID-Before Meals, 0 Refill(s) Start Date: 06/06/16 Stop Date: 06/08/16 Status: Discontinued NovoLOG 100 units/mL 12 unit, SUB-Q, TID-Before Meals, # 15 mL, 0 Refill(s), other Start Date: 06/08/16 Status: Ordered ondansetron 4 mg, 2 mL, Route: IVP, Drug form: INJ, Q6H, Dosing Weight 150.085, kg, PRN Naus ea & Vomiting, Start date: 06/06/16 6:02:00 SYSTEM VALIDATION ENGINEER, Duration: 30 day, Stop date: 07/06/16 6:01:00 CDT Notes: (Same as: Hua) MEDICATION WASTE Product Size: 4 mgProduct Was megan: ___ mg Start Date: 06/06/16 Stop Date: 06/08/16 Status: Discontinued pneumococcal 23-valent vaccine 0.5 mL, Route: IM, Drug Form: INJ, Daily, Start date: 06/06/16 9:00:00 SYSTEM VALIDATION ENGINEER, Stop date: 06/06/16 13:00:00 SYSTEM VALIDATION ENGINEER Notes: (Same as: Pneumovax 23) Refrigerate Start Date: 06/06/16 Stop Date: 06/06/16 Status: Completed sodium chloride 0.9% 1000 ml INJ 1,000 mL 1,000 mL, Rate: 75 ml/hr, Infuse over: 13.3 hr, Route: IV, Dosing Weight 150.085 kg, Total Volume: 1,000, Start date: 06/06/16 16:01:00 SYSTEM VALIDATION ENGINEER, Duration: 2 doses or times, Stop date: 06/07/16 18:36:00 SYSTEM VALIDATION ENGINEER Start Date: 06/06/16 Stop Date: 06/07/16 Status: Completed Synthroid 50 microgram, 1 tab, Route: PO, Drug form: TAB, Q630AM, Dosing Weight 150.085, k g, Start date: 06/07/16 6:30:00 SYSTEM VALIDATION ENGINEER, Duration: 30 day, Stop date: 07/06/16 6:30: 00 CDT Notes: Take 1 hour before or 2 hours after meal; Enteral feeds may interefere wi th the absorption of this medication.(Same as:Levothroid, Synthroid) Start Date: 06/07/16 Stop Date: 06/08/16 Status: Discontinued Zithromax + sodium chloride 0.9% INJ 250 mL 500 mg, Route: IV, Q24H, Dosing Weight 150.085, kg, Start date: 06/06/16 8:00:00 SYSTEM VALIDATION ENGINEER, Duration: 30 day, Stop date: 07/05/16 8:00:00 CDT Notes: (Same As: Zithromax IV) Start Date: 06/06/16 Stop Date: 06/08/16 Status: Discontinued Results ELECTROLYTES 1 2 3 Most recent to oldest [Reference Range]: 137 mEq/L (06/08/16 4:28 AM) 136 mEq/L (06/07/16 6:06 AM) 137 mEq/L (06/06/16 10:26 AM) Sodium Lvl [135-145 mEq/L] 3.8 mEq/L (06/08/16 4:28 AM) 4.2 mEq/L (06/07/16 6:06 AM) 3.7 mEq/L (06/06/16 10:26 AM) Potassium Lvl [3.5-5.1 mEq/L] 98 mEq/L (06/08/16 4:28 AM) 95 mEq/L (06/07/16 6:06 AM) 95 mEq/L (06/06/16 10:26 AM) Chloride Lvl [95-109 mEq/L] 29 mEq/L (06/08/16 4:28 AM) 29 mEq/L (06/07/16 6:06 AM) 29 mEq/L (06/06/16 10:26 AM) CO2 [24-32 mEq/L] 13.8 mEq/L (06/08/16 4:28 AM) 16.2 mEq/L (06/07/16 6:06 AM) 16.7 mEq/L (06/06/16 10:26 AM) AGAP [10.0-20.0 mEq/L] CHEM PANEL 1 2 3 Most recent to oldest [Reference Range]: 1.80 mg/dL *HI* (06/08/16 4:28 AM) 2.60 mg/dL *HI* (06/07/16 6:06 AM) 3.10 mg/dL *HI* (06/06/16 10:26 AM) Creatinine Lvl [0.50-1.40 mg/dL] 31 mL/min/1.73m2 1 *NA* (06/08/16 4:28 AM) 20 mL/min/1.73m2 2 *NA* (06/07/16 6:06 AM) 16 mL/min/1.73m2 3 *NA* (06/06/16 10:26 AM) eGFR 39 mg/dL *HI* (06/08/16 4:28 AM) 53 mg/dL *HI* (06/07/16 6:06 AM) 54 mg/dL *HI* (06/06/16 10:26 AM) BUN [7-22 mg/dL] 20 (06/07/16 6:06 AM) B/C Ratio [6-25] 339 mg/dL *HI* (06/08/16 4:28 AM) 300 mg/dL *HI* (06/07/16 6:06 AM) 329 mg/dL *HI* (06/06/16 10:26 AM) Glucose Lvl [70-99 mg/dL] 5.9 g/dL *LOW* (06/07/16 6:06 AM) Total Protein [6.4-8.4 g/dL] 2.9 g/dL *LOW* (06/07/16 6:06 AM) Albumin Lvl [3.5-5.0 g/dL] 3.0 g/dL (06/07/16 6:06 AM) Globulin [2.7-4.2 g/dL] 1.0 (06/07/16 6:06 AM) A/G Ratio [0.7-1.6] 7.4 mg/dL *LOW* (06/08/16 4:28 AM) 6.7 mg/dL 4 *CRIT* (06/07/16 6:06 AM) 6.6 mg/dL 5 *CRIT* (06/06/16 10:26 AM) Calcium Lvl [8.5-10.5 mg/dL] 1.4 mg/dL *LOW* (06/07/16 6:06 AM) Magnesium Lvl [1.8-2.4 mg/dL] 32 unit/L (06/07/16 6:06 AM) ALT [0-65 unit/L] 27 unit/L (06/07/16 6:06 AM) AST [0-37 unit/L] 77 unit/L (06/07/16 6:06 AM) Alk Phos [39-136 unit/L] 0.5 mg/dL (06/07/16 6:06 AM) Bili Total [0.2-1.3 mg/dL] 1Result Comment: The [...] be mul tiplied by the estimated BMI. 4Result Comment: Critical Result(s) called to mateo hines at 06/07/2016 06:47 byjw. Read back OK. 5Result Comment: Critical Result(s) called to Arleen Mcintosh at 06/06/2016 11:04 by ka. Read back OK. ANEMIA STUDY 1 2 3 Most recent to oldest [Reference Range]: 41 ug/dl (06/07/16 6:06 AM) Iron [30-160 ug/dl] 10 % *LOW* (06/07/16 6:06 AM) % Satur Fe [12-57 %] 361 ug/dl (06/07/16 6:06 AM) UIBC [110-370 ug/dl] 402 ug/dl (06/07/16 6:06 AM) TIBC [228-428 ug/dl] PARATHYROID PROFILE 1 2 3 Most recent to oldest [Reference Range]: 0.83 mMol/L 1 *CRIT* (06/07/16 6:06 AM) Ca Ion WB [1.05-1.25 mMol/L] 0.80 mMol/L *CRIT* (06/07/16 6:06 AM) Ca Norm WB [1.05-1.25 mMol/L] 1Result Comment: Critical Result(s) called to mateo zuñiga at 06/07/2016 06:32 byjw. Read back OK. URINE AND STOOL 1 2 3 Most recent to oldest [Reference Range]: Slight *ABN* (06/06/16 6:51 AM) UA Turbidity [Clear] Ltyellow *NA* (06/06/16 6:51 AM) UA Color 5.0 (06/06/16 6:51 AM) UA pH [5.0-8.0] 1.009 (06/06/16 6:51 AM) UA Spec Grav [<=1.030] Negative mg/dL *NA* (06/06/16 6:51 AM) UA Glucose [Negative mg/dL] Negative (06/06/16 6:51 AM) UA Blood [Negative] Negative mg/dL *NA* (06/06/16 6:51 AM) UA Ketones [Negative mg/dL] Negative mg/dL (06/06/16 6:51 AM) UA Protein [Negative mg/dL] <=1.0 mg/dL *NA* (06/06/16 6:51 AM) UA Urobilinogen [0.1-1.0 mg/dL] Negative *NA* (06/06/16 6:51 AM) UA Bili [Negative] Negative (06/06/16 6:51 AM) UA Leuk Est [Negative] Negative (06/06/16 6:51 AM) UA Nitrite [Negative] <1 /HPF (06/06/16 6:51 AM) UA WBC [0-5 /HPF] <1 /HPF (06/06/16 6:51 AM) UA RBC [0-2 /HPF] Occasional /HPF *NA* (06/06/16 6:51 AM) UA Bacteria [None Seen /HPF] None Seen *NA* (06/06/16 6:51 AM) UA Sq Epi 1 /LPF (06/06/16 6:51 AM) UA Hyal Cast [0-2 /LPF] HEMATOLOGY 1 2 3 Most recent to oldest [Reference Range]: 6.4 K/CMM (06/08/16 4:28 AM) 6.6 K/CMM (06/07/16 6:06 AM) WBC [3.7-10.4 K/CMM] 4.15 M/CMM *LOW* (06/08/16 4:28 AM) 3.66 M/CMM *LOW* (06/07/16 6:06 AM) RBC [4.20-5.40 M/CMM] 10.1 g/dL *LOW* (06/08/16 4:28 AM) 8.9 g/dL *LOW* (06/07/16 6:06 AM) Hgb [12.0-16.0 g/dL] 31.7 % *LOW* (06/08/16 4:28 AM) 28.0 % *LOW* (06/07/16 6:06 AM) Hct [36.0-48.0 %] 76.4 fL *LOW* (06/08/16 4:28 AM) 76.4 fL *LOW* (06/07/16 6:06 AM) MCV [80.0-98.0 fL] 24.4 pg *LOW* (06/08/16 4:28 AM) 24.3 pg *LOW* (06/07/16 6:06 AM) MCH [27.0-31.0 pg] 31.9 g/dL *LOW* (06/08/16 4:28 AM) 31.9 g/dL *LOW* (06/07/16 6:06 AM) MCHC [32.0-36.0 g/dL] 15.0 % *HI* (06/08/16 4:28 AM) 15.3 % *HI* (06/07/16 6:06 AM) RDW [11.5-14.5 %] 253 K/CMM (06/08/16 4:28 AM) 225 K/CMM (06/07/16 6:06 AM) Platelet [133-450 K/CMM] 9.9 fL (06/08/16 4:28 AM) 10.0 fL (06/07/16 6:06 AM) MPV [7.4-10.4 fL] 54.3 % (06/07/16 6:06 AM) Segs [45.0-75.0 %] 28.4 % (06/07/16 6:06 AM) Lymphocytes [20.0-40.0 %] 10.3 % (06/07/16 6:06 AM) Monocytes [2.0-12.0 %] 5.9 % *HI* (06/07/16 6:06 AM) Eosinophils [0.0-4.0 %] 1.1 % *HI* (06/07/16 6:06 AM) Basophils [0.0-1.0 %] 3.6 K/CMM (06/07/16 6:06 AM) Segs-Bands # [1.5-8.1 K/CMM] 1.9 K/CMM (06/07/16 6:06 AM) Lymphocytes # [1.0-5.5 K/CMM] 0.7 K/CMM (06/07/16 6:06 AM) Monocytes # [0.0-0.8 K/CMM] 0.4 K/CMM (06/07/16 6:06 AM) Eosinophils # [0.0-0.5 K/CMM] 0.1 K/CMM (06/07/16 6:06 AM) Basophils # [0.0-0.2 K/CMM] 1+ *ABN* (06/07/16 6:06 AM) Microcyte [None Seen] Immunizations Given and Recorded Vaccine Date Status [...] Cessation Counseli ng No Assessment and Plan Extracted from: Title: Progress Note Author: Sejal Young MD Date: 06/08/16 Assessment/Plan 1.Acute renal failure Creatinine with slight improvement to 2.6<3.1 mg/dL with baseline 0.9 mg/dL from March. discontinue lopez catheter and assess urine output follow up in renal clinic 2.Hypocalcemia calcium better 3.Urine retention voiding after lopez removed Extracted from: Title: Nephrology Consult Note Author: Sejal Young MD [...] Weight 150.085, kg, Start date: 06/07/16 8:00:00 [employer], Duration: 30 day, Stop date: 07/06/16 17:00:00 CDT
--- OUTSIDE RECORDS SUMMARY | 2019-12-03 11:24 | XMS REPORT | Summary of Care ---
Author Author [facility] Organization [facility] Address Unknown Phone Unavailable Encounter HQ Cj_maria elena(BRUCE) [id number] Date(s): 05/30/16 - 05/30/16 [facility] [address] [place] [address]- [phone] Discharge Disposition: Home or Self Care Attending Physician: Miranda Iqbal MD Referring Physician: [...]
--- OUTSIDE RECORDS SUMMARY | 2019-12-03 11:24 | XMS REPORT ---
Author Author Desi Iqbal Organization [employer] Address Unknown Phone Unavailable Care Team Providers Care Disposal Man Name Role Phone Miranda Iqbal Unavailable Allergies, Adverse Reactions, Alerts Substance Reaction Event Type N.K.D.A. Info Not Available Non Drug Allergy Encounters Encounter Location Date Unknown [facility] September 05, 2015 Patient here to follow up on diabetes and blood pressu re [facility] September 27, 2015 patient here for medication refill [facility] A 2015 Patient here for ER follow up on stomach pain. [facility] Feb 21, 2016 [facility] M 2015 Unknown [facility] August 01, 2015 Patient here to follow up on labs, blood pressure and diabetes [facility] August 04, 2015 carotid & arterial dopplers Pako Parnell [place], [place] September 26, 016 wwe and labs [facility] Mar 22, 2016 patient here need medication refill [facility] Apr 27, 2016 Problems Problem Type Condition ICD-9 Code Onset Dates Condition Statu s Problem BMI 50.0-59.9, adult Z68.43 Active Problem Hypertension I10 Active Problem Type 2 diabetes mellitus with hyperglycemia E11.65 Active Problem Epistaxis R04.0 Active Assessment Epistaxis R04.0 Active Problem Gastroesophageal reflux disease without esophagitis K2 1.9 Active Assessment BMI 50.0-59.9, adult Z68.43 Active Problem Arthritis M19.90 Active Problem Microalbuminuria R80.9 Active Problem Low vitamin D level E55.9 Active Problem GERD (gastroesophageal reflux disease) K21.9 Active Problem Hyperlipemia E78.5 Active Assessment Microalbuminuria R80.9 Active Assessment Diabetic neuropathy E11.40 Active Assessment Arthritis M19.90 Active Assessment Gastroesophageal reflux disease without esophagitis K2 1.9 Active Assessment Type 2 diabetes mellitus with hyperglycemia E11.65 Active Problem Leg swelling M79.89 Active Assessment Hyperlipemia E78.5 Active Problem Diabetic neuropathy E11.40 Active Assessment Hypertension I10 Active Problem Obesity, morbid, BMI 50 or higher E66.01 Active Medications Medication Code System Code Instructions Start Date End Date Status Dosage Lisinopril-Hydrochlorothiazide [facility] [address]-44 2 0-12.5 MG Orally twice a day (bid) Active 1 tablet NovoLog Flexpen [facility] [address]-05 100 UNIT/ML Subc utaneous three times a day (tid) Active 10 units Lantus SoloStar [facility] [address]-61 100 UNIT/ML Subcutaneous mis ry morning Active 80 units in the mornings and 50 units at night Omeprazole [facility] [address]-04 40 mg Orally Once a day Active 1 capsule Naproxen [facility] [address]-79 500 MG Orally every 12 hrs AprMay 27, 2016 Active 1 tablet as needed Atorvastatin Calcium [facility] [address]-15 40 mg Orally Once a day Active 1 tablet Gabapentin [facility] [address]-54 800 MG Orally three times a day (ti d) Active 1 capsule Metformin HCl [facility] [address]-87 1000 mg Orally Twice a day Active 1 tablet with meals Metoprolol Tartrate [facility] [address]-65 100 MG Orally Twice a day Active 1 tablet Social History Social History Element Qualifiers Date Reported Smoke Exposure: . Second Hand Smoke Exposure: No Apr Tobacco Use: . Are you a: never smoker Apr 27, 2016 Use of recreational / street drugs? . Answer: No Apr 27, 2016 Alcohol Screening: . Points: 0, Interpretation: Negative Apr 27, 2016 Do you have pets? . Status: No Apr 27, 2016 Caffeine intake? . Status: No Apr 27, 2016 New since last visit: none. Apr 27, 2016 Do you exercise? . Answer: No Apr 27, 2016 Do you drink alcohol? . Status: No Apr 27, 2016 Vital Signs Date/Time: Apr 27, 2016 Weight 321.9 lbs Height 62 in Temperature 98.2 F Cardiac Monitoring Heart Rate 90 /min Blood Pressure Diastolic 95 mm Hg Blood Pressure Systolic 178 mm Hg Summary Purpose [employer] Submission
--- OUTSIDE RECORDS SUMMARY | 2019-12-03 11:25 | XMS REPORT | Continuity of Care Document ---
Author Author [facility] t Organization [facility] Address [address] [place] [address] Phone Unavailable Care Team Providers Care Him Specialists Name Role Phone NONSTAFF PCP Unavailable Chintan Ramos Attphys Tyrese Garrison Attphys Mich Kwok Attphys Laura Locke Attphys Bobbi DENSON Attphys Unavailable Roque, Vang Adnan Attphys Anton Kwok Attphys Ghebrankiarra, Ramsis Amir Attphys Caitlin Iqbal Attphys Roque, Vang Adnan Admphys Ghebranious, Ramsis Amir Admphys Payers Payer Name Policy Type Policy Number Effective Date Expiration Date [facility] Choice Excha [id number] 2015 00:0 0:00 [facility] Problems Condition Name Condition Details Condition Category Status Onset Date Resolution Date Last Treatment Date Treating Clinician Comments Source CPAP [id number] CPAP [id number] Active 03/12/2018 [facility] Active 2018-03-12 00:00:00 2018-03-26 19:18:00 Jose Luis Rock NIGHT - 74887 - [id number] Active 01/21/2018 [facility] Active 2018-01-21 00:00:00 2018-02-04 19:50:00 [facility] UNK UNK Active 12/18/2017 [facility] Active 2017-12-18 00:00:00 2017-12-19 07:42:00 [facility] DIFF BREATHING DIFF BREATHING Active 07/27/2017 [facility] Active 2017-07-27 00:00:00 2017-07-27 22:07:00 [facility] Pranav MARCUM (DYSPNEA ON EXERTION), BILATERAL PUL MARCUM (DYSPNEA ON EXERTION), BILATERAL PUL Active 07/27/2017 [facility] Ac tive 2017-07-27 00:00:00 2017-07-29 14:58:00 M emorilisa Rock RENAL FAILURE TRE L FAILURE Active 06/06/2016 [facility] Active 2016-06-06 02:45:00 2016-06-22 19:12:00 [facility] SCREENING NO PAIN, NO LUMPS, NO IMPLA SCREENING NO PAIN, NO LUMPS, NO IMPLA Active 03/28/2016 [facility] Ac tive 2016-03-28 00:00:00 2016-05-30 14:58:00 [facility] 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 Active 08/09/2015 [facility] Ac tive 2015-08-09 00:00:00 2015-08-12 15:05:00 M emorilisa Rock Pancreatitis Pancreatitis Problem Active [facility] Final: Acute kidney failure, unspecified Final: Acute kidney failure, unspecified 06/11/2016 [facility] Problem 2016-06-11 03:11:26 [facility] Pranav Unspecified chronic gastritis without bleeding Unspecified chronic gastritis without bleeding 07/08/2018 [facility] Problem 2018-07-08 13:58:20 [facility] Anemia, unspecified Anem ia, unspecified 07/08/2018 [facility] Problem 2018-07-08 13:58:20 Nm brannon Rock Hypertensive chronic kidney disease with stage 1 through stage 4 chronic kidney disease, or unspecified chronic kidney disease Hypertensive chronic kidney disease with stage 1 through stage 4 chronic kidney disease, or unspecified chronic kidney disease 07/08/2018 [facility] Problem 2018-07-08 13:58:20 Nic paulbobbi Rock Chronic kidney disease, stage 3 (moderate) Chronic kidney disease, stage 3 (moderate) 07/08/2018 [facility] Problem 2018-07-08 13:58:20 Jose Luis Rock Type 2 diabetes mellitus with diabetic chronic kidney disease Type 2 diabetes mellitus with diabetic chronic kidney disease 07/08/2018 [facility] Primary Problem 2018-07-08 13: 58:20 [facility] Pranav Vitamin D deficiency, unspecified Vitamin D deficiency, unspecified 07/08/2018 [facility] Problem 2018-07-08 1 3:58:20 Jose Luis Pranav Other tear of medial meniscus, current injury, left kn ee, initial encounter Other tear of medial meniscus, current injury, left knee, initial encounter 10/09/2018 [facility] [place] Problem 2018-10-09 11:39:39 [facility] Pranav Effusion, left knee Effu gilberto, left knee 10/09/2018 [facility] [place] Problem 2018-10-09 11:39:39 [facility] Pranav Spinal stenosis, lumbar region without neurogenic tyrese dication Spinal stenosis, lumbar region without neurogenic claudication 10/09/2018 [facility] [place] Problem 2018-10-09 11:39:[facility] Osteophyte, vertebrae Oste ophyte, vertebrae 10/09/2018 [facility] [place] Problem 2018-10-09 11:39:39 [facility] Other intervertebral disc displacement, lumbar region Other intervertebral disc displacement, lumbar region 10/09/2018 [facility] [place] Problem 2018-10-09 11:39:39 Edmond christal Pranav Unilateral primary osteoarthritis, left knee Unilateral primary osteoarthritis, left knee 10/09/2018 [facility] [place] Problem 2018-10-09 11:39:39 [facility] Dorsalgia, unspecified Dors algia, unspecified 10/09/2018 [facility] [place] Problem 2018-10-09 11:39:39 [facility] Other forms of dyspnea Othe r forms of dyspnea 08/02/2017 [facility] Problem 2017-08-02 02:45:56 Jose Luis Rock Diabetes mellitus (disorder) D iabetes mellitus (disorder) Resolved Problem 10/16/2018 [facility], [facility] [place],[facility], [facility] [place] Problem Resolved 2018-10-16 12:08:53 Jose Luis Rock Hyperlipidemia (disorder) Hype rlipidemia (disorder) Resolved Problem 10/16/2018 [facility], [facility] [place], [facility], [facility] [place] Problem Resolved 2018-10-16 12:08:53 Leander Rock Hypertensive disorder, systemic arterial (disorder) Hypertensive disorder, systemic arterial (disorder) Resolved Problem 10/16/2018 [facility], [facility] [place], [facility], [facility] [place] Problem Resolved 2018-10-16 12:08:53 Leanderor kristina Rock BMI 50.0-59.9, adult BMI 50.0-59.9, adult Active Diagnosis 11/08/2016 [facility] Primary Diagnosis Active 2016-11-08 0 2:45:18 Jose Luis Rock Hot flashes Hot flashes Active Diagnosis 11/08/2016 [facility] Primary Diagnosis Active 2016-11-08 02:45:18 Jose Luis Rock Arthritis Arth ritis Active Diagnosis 11/08/2016 [facility] Primary Diagnosis Active 2016-11-08 02:45:18 Jose Luis Rock Gastroesophageal reflux disease without esophagitis Gastroesophageal reflux disease without esophagitis Active Diagnosis 11/08/2016 [facility] Primary Diagnosis Active 2016-11-08 02:45:1 8 Jose Luis Rock Hyperlipemia Hype rlipemia Active Diagnosis 11/08/2016 [facility] Primary Diagnosis Active 2016-11-08 02:45:18 Jose Luis Rock Acquired hypothyroidism Acqu ired hypothyroidism Active Diagnosis 11/08/2016 [facility] Primary Diagnosis Active 2016-11-08 02:45:18 Jose Luis Rock Epistaxis Epis taxis Active Problem 11/08/2016 [facility] Primary Problem Active 2016-11-08 02:45:18 Jose Luis Rock Decreased urine output Decr eased urine output Active Problem 11/08/2016 [facility] Primary Problem Active 2016-11-08 02: 45:18 Jose Luis Rock Type 2 diabetes mellitus with hyperglycemia Type 2 diabetes mellitus with hyperglycemia Active Diagnosis 11/08/2016 [facility] Primary Diagnosis Active 2016-11-08 02:45:18 Nm brannon Rock Hypertension Hype rtension Active Diagnosis 11/08/2016 [facility] Primary Diagnosis Active 2016-11-08 02:45:18 Jose Luis Rock Localized swelling of both lower legs Localized swelling of both lower legs Active Problem 11/08/2016 [facility] Primary Problem Ac tive 2016-11-08 02:45:18 Jose Luis nino Shortness of breath Shor tness of breath Active Problem 11/08/2016 [facility] Primary Problem Active 2016-11-08 02:45:18 Jose Luis Rock Microalbuminuria Micr oalbuminuria Active Problem 11/08/2016 [facility] Primary Problem Active 2016-11-08 02:45:18 Jose Luis Rock Morbid (severe) obesity due to excess calories Morbid (severe) obesity due to excess calories Active Problem 10/30/2018 Pako Parnell MD, PA Problem Active 2018-10-30 04:10:20 Edmond Rock Lower extremity edema Lowe r extremity edema Active Problem 10/30/2018 Pako Parnell MD, PA Problem Active 2018-10-30 04 :10:20 Jose Luis Rock Type 2 diabetes mellitus with diabetic neuropathy, uns pecified Type 2 diabetes mellitus with diabetic neuropathy, unspecified Active Problem 10/30/2018 Pako Parnell MD, PA Problem Active 2018-10-30 04 :10:20 Jose Luis Rock Personal history of pulmonary embolism Personal history of pulmonary embolism Active Problem 10/30/2018 Pako Parnlel MD, PA Problem Active 2018-10-30 04:10:20 Nic Rock Hypertensive heart disease without heart failure Hypertensive heart disease without heart failure Active Problem 10/30/2018 Pako Parnell MD, PA Problem Active 2018-10-30 04:10:20 Jose Luis Rock Venous insufficiency (chronic) (peripheral) Venous insufficiency (chronic) (peripheral) Active Problem 10/30/2018 Pako Parnell MD, PA Problem Active 2018-10-30 04:10:20 Edmond Rock Right bundle-branch block Righ t bundle-branch block Active Problem 10/30/2018 Pako Parnell MD, PA Problem Active 2018-10-30 04:10:20 Jose Luis Rock Dyspnea, unspecified Dysp sudhakar, unspecified Active Problem 10/30/2018 Pako Parnell MD, PA Problem Active 2018-10-30 04 :10:20 Jose Luis Rock Mixed hyperlipidemia Mixe d hyperlipidemia Active Problem 10/30/2018 Pako Parnell MD, PA Problem Active 2018-10-30 04 :10:20 Jose Luis Rock Tachycardia, unspecified Tach ycardia, unspecified Active Problem 10/30/2018 Pako Parnell MD, PA Problem Active 2018-10-30 04:10:20 Jose Luis Rock UTI (urinary tract infection) UTI (urinary tract infection) Active Diagnosis 08/05/2015 [facility] Primary Diagnosis Active 2015-08-05 02:53:10 Jose Luis Rock Concern about STD in female without diagnosis Concern about STD in female without diagnosis Active Diagnosis 03/23/2016 [facility] Primary Diagnosis Active 2016-03-23 03:46:45 Me brannon Rock Morbid obesity (disorder) Morb id obesity (disorder) Active Problem 10/16/2018 [facility], JONO Bell, [facility], [facility] [place] Problem Active 2018-10-16 12:08:53 Edmond Rock ACUTE KIDNEY FAILURE, UNSPECIFIED ACUTE KIDNEY FAILURE, UNSPECIFIED Active [facility] Diagnosis Active 2016-06-22 19 :12:00 Jose Luis Rock RENAL FAILURE FOLLOWING INCOMPLETE SPONT RENAL FAILURE FOLLOWING INCOMPLETE SPONT Active [facility] Active 2016-06-06 03:28:00 Jose Luis Rock COUGH COUG H Active [facility] Diagnosis Active 2016-06-07 10:01:00 Jose Luis Rock UNSPECIFIED ASTHMA, UNCOMPLICATED UNSPECIFIED ASTHMA, UNCOMPLICATED Active [facility] Diagnosis Active 2016-06-07 1 0:01:00 Jose Luis Rock OTHER FORMS OF DYSPNEA OTHE R FORMS OF DYSPNEA Active [facility] Diagnosis Active 2017-07-29 14:58:00 M emochristal Rock OTHER PULMONARY EMBOLISM WITHOUT ACUTE C OTHER PULMONARY EMBOLISM WITHOUT ACUTE C Active [facility] Diagnosis Active 2017-07-29 14:58:00 Jose Luis Rock Obstructive sleep apnea (adult) (pediatric) Obstructive sleep apnea (adult) (pediatric) 04/02/2018 10/14/2018 [facility] Problem 2018-04-02 05:08:30 2018-10-14 11:16:28 2018-10-14 11:16:28 Jose Luis Rock Pain in left knee Pain in left knee 03/27/2018 10/09/2018 JONO Bell, [facility] [place] Problem 2018-03-27 04: 40:06 2018-10-09 11:39:39 2018-10-09 11:39:39 Jose Luis nino Encounter for screening for malignant neoplasm of colo n Encounter for screening for malignant neoplasm of colon 12/26/2017 07/08/2018 [facility] Problem 2017-12-26 04:06:16 2018-07-08 13:58:20 2018-06 13:58:20 [facility] Allergies, Adverse Reactions, Alerts Allergy Name Allergy Type Status Severity Reaction(s) Onset Date Inacti ve Date Treating Clinician Comments Source Lu Leigh Active Info Not Available 2018-10-29 00:00:00 [facility] No Known Allergies DA Active U 2015-07-17 00:00:00 [facility] No Known Medication Allergies No Known Medication Allergies Active [facility] Family History Family Member Diagnosis Comments Start Date Stop Date Source Unknown Family Member Family History 2015-09-28 02:48:06 2 02:48:06 [facility] Social History Social Habit Start Date Stop Date Quantity Comments Source SmokeExposure: 2016-06-19 00:00:00 2016-06-19 00:00:00 [facility] Social History 2016-06-06 10:00:08 2016-06-06 10:00:08 [facility] Medications Ordered Medication Name Filled Medication Name Start Date Stop Da te Current Medication? Ordering Clinician Indication Dosage Frequency Signature (SIG) Comments Components Source Atorvastatin Calcium 2018-10-30 04:10:20 Yes Pako Parnell 1 tablet [facility] NovoLog Flexpen 2018-10-30 04:10:20 Yes Pako Louie tanna not defined [facility] Gabapentin 2018-10-30 04:10:20 Yes Pako Louieyan 1 capsule [facility] Xarelto 2018-10-30 04:10:20 Yes Pako Louieyan 1 tablet with food [facility] Lantus 2018-10-30 04:10:20 Yes Pako Parnell not defined [facility] Omeprazole 2018-10-30 04:10:20 Yes Pako Louieyan 1 capsule [facility] Furosemide 2018-10-30 04:10:20 Yes Pako Louieyan 1 tablet [facility] Losartan Potassium-HCTZ 2018-10-30 04:10:20 Yes Pako Louieyan 1 tablet [facility] Duloxetine HCl 2018-08-20 04:10:33 Yes Pako Louieyan 1 capsule [facility] Amlodipine Besylate 2018-08-20 04:10:33 Yes Pako Parnell 1 tablet [facility] Potassium Chloride ER 2018-08-19 00:00:00 Yes Pako Parnell 1 tablet with food Jose Luis Rock Lisinopril-Hydrochlorothiazide 2018-07-24 04:10:07 Yes Pako Parnell 1 tablet Jose Luis Cortez nn Metformin HCl 2018-07-24 04:10:07 Yes Pako Louieyan 1 tablet Jose Luis Rock Aspirin 2018-07-24 04:10:07 Yes Pako Louieyan 1 tablet Jose Luis Rock Metoprolol Tartrate 2018-07-24 04:10:07 Yes Pako Parnell 1 tablet Jose Luis Rock Ergocalciferol 2018-07-24 04:10:07 Yes Pako Parnell 1 capsule Jose Luis Rock Victoza 2018-07-24 04:10:07 Yes Pako Angelchecogoyo Parnell 0.2 ml Jose Luis Pranav Sodium Chloride 0.9% IV 1,000 mL 2017-12-19 13:06:00 No 1,000 mL, Rate: 25 ml/hr, Infuse over: 40 hr, Route: IV, Dosing Weight 140.909 kg, Total Volume: 1,000, Start date: 12/19/17 8:06:00 CDT, Duration: 30 day, Stop date: 01/18/18 8:05:00 CDT, 2.54, m2 Jose Luis Rushann Ferrousal 325 mg oral tablet 2017-12-18 21:37:00 Yes 325 mg = 1 tab, PO, Q-M-W-F, 0 Refill(s) Jose Luis Martin n ferrous sulfate 2017-12-18 21:37:00 No PO, 0 Refill(s) Jose Luis Rock gabapentin 800 MG Oral Tablet [Neurontin] 2017-12-18 21:36:00 Yes 800 mg = 1 tab, PO, 0 Refill(s) Jose Luis Rock Oxymetazoline hydrochloride 0.5 MG/ML Nasal [employer] [Afrin] 2017-07-30 05:00:00 No Notes: (Same as: Afrin) Jose Luis Rock Amlodipine 2017-07-30 01:53:00 Yes 5 mg, PO, Daily, 0 Refill(s) Jose Luis Rock Hydrochlorothiazide 25 MG / Losartan Potassium 100 MG Oral T ablet 2017-07-30 01:53:00 Yes 1 tab, PO, Daily, 0 Refill(s) Jose Luis Rock metoprolol tartrate 100 mg oral tablet 2017-07-30 01:53:00 Yes 100 mg = 1 tab, PO, BID, 0 Refill(s) Leandernati bobbi Rock DULoxetine 30 mg oral delayed release capsule 2017-07-30 01:53:0 0 Yes 30 mg = 1 cap, PO, BID, 0 Refill(s) Jose Luis Rock Vitamin D3 10,000 intl units oral capsule 2017-07-30 01:53:00 Yes 10,000 IntlUnit = 1 cap, PO, QID, 0 Refill(s) Jose Luis Rock Aspirin 81 MG Enteric Coated Tablet 2017-07-30 01:53:00 Yes 81 mg = 1 tab, PO, Daily, # 90 tab, 3 Refill(s) Jose Luis Rock omeprazole 40 mg oral delayed release capsule 2017-07-30 01:53:0 0 Yes 40 mg = 1 cap, PO, Daily, 0 Refill(s) Jose Luis Rock Furosemide 40 MG Oral Tablet 2017-07-30 01:53:00 Yes 40 mg = 1 tab, PO, Daily, 0 Refill(s) Jose Luis Rock levothyroxine 50 mcg (0.05 mg) oral tablet 2017-07-29 19:11:00 Yes 50 microgram = 1 tab, PO, Q630AM, # 30 tab, 0 Refill(s), Pharmacy: [facility]/pharmacy #[id number] Jose Luis Rock metoprolol tartrate 50 mg oral tablet 2017-07-29 19:11:00 N o 50 mg = 1 tab, PO, Q12H, # 60 tab, 0 Refill(s), Pharmacy: [facility]/pharmacy #[id number] Jose Luis Rock rivaroxaban 15 MG Oral Tablet [Xarelto] 2017-07-29 18:35:00 Yes 15 mg = 1 tab, PO, Q12H, # 42 tab, 0 Refill(s), Pharmacy: [facility]/pharmacy #[id number] Jose Luis Pranav Thyroxine 2017-07-29 11:30:00 No Notes: Take 1 hour before or 2 hours after meal; Enteral feeds may interefere with the absorption of this medication.(Same as:Levothroid, Synthroid) Jose Luis Rock Xarelto 2017-07-29 02:00:00 No Notes: (Same as: Xarelto) Administer with food Jose Luis Rock Mupirocin 0.02 MG/MG Topical Ointment 2017-07-29 02:00:00 N o 1 appl, Route: TOP, Q12H, Drug form: OINT, Start date: 07/28/17 21:00:00 CDT, Duration: 5 day, Stop date: 08/02/17 9:00:00 CDT Jose Luis Rock Insulin Lispro 2017-07-29 01:19:00 No Notes: (Same as: Humalog ) Roll in palms of hands gently; Do not shake `vigorously. "Single Patient Use Only " WASTE: F/P - Black; E - Municipal Trash Bin Stable for 28 days at room temperature. Expires in days from Date Jose Luis Rock Tylenol 2017-07-28 17:16:00 No Notes: Do not exceed 4 gm/day. (Same as: Tylenol) Jose Luis Rock Hydrochlorothiazide 25 MG / Metoprolol Tartrate 100 MG Oral Tablet 2017-07-28 16:39:00 No 1 tab, PO, BID, # 60 tab, 0 R efill(s) Jose Luis Rock Tresiba FlexTouch 2017-07-28 16:35:00 Yes 140 units, SUB-Q, Bedtime, 0 Refill(s) Jose Luis Rock NovoLog 2017-07-28 16:35:00 Yes 55 units, SUB-Q, TID-Meals, 0 Refill(s) Jose Luis Rock insulin detemir 2017-07-28 14:00:00 No 65 unit, Route: SUB-Q, Drug form: SOLN, Daily, Dosing Weight 150, kg, Start date: 07/28/17 9:00:00 CDT, Duration: 30 day, Stop date: 08/26/17 9:00:00 CDT Jose Luis Rock metoprolol tartrate 2017-07-28 14:00:00 No Notes: (Same as: Lopressor) Jose Luis Rock insulin glargine 2017-07-28 14:00:00 No Notes: (Same as: Lantus) Do not hold insulin without contacting prescriber WASTE: F/P - Black; E - Municipal Trash Bin "single patient use only" Jose Luis Rock Humalog 2017-07-28 12:30:00 No Notes: (Same as: Humalog ) Roll in palms of hands gently; Do not shake `vigorously. "Single Patient Use Only " WASTE: F/P - Black; E - Municipal Trash Bin Stable for 28 days at room temperature. Expires in days from Date [facility] NovoLog 2017-07-28 12:30:00 No 12 unit, Route: SUB-Q, Drug form: SOLN, TID-Before Meals, Dosing Weight 150, kg, Start date: 07/28/17 7:30:00 CDT, Duration: 30 day, Stop date: 08/26/17 16:30:[address] [facility] Hydralazine 2017-07-28 10:00:00 No Notes: (Same as: Apresoline) Push over 5 minutes [facility] Insulin Lispro 2017-07-28 09:50:00 No Notes: (Same as: Humalog ) Roll in palms of hands gently; Do not shake `vigorously. "Single Patient Use Only " WASTE: F/P - Black; E - Municipal Trash Bin Stable for 28 days at room temperature. Expires in days from Date [facility] Dextrose 50% Syringe 2017-07-28 09:50:00 No 12.5 gm, 25 mL, Route: IVP, Drug Form: INJ, Dosing Weight 150, kg, PRN, PRN Blood Glucose Results, Start date: 07/28/17 4:50:00 CDT, Duration: 30 day, Stop date: 08/27/17 4:49:00 CDT [facility] Glucagon 2017-07-28 09:50:00 No 1 mg, Route: IM, Drug form: PDR/INJ, PRN, Dosing Weight 150, kg, PRN Blood Glucose Results, Start date: 07/28/17 4:50:00 CDT, Duration: 30 day, Stop date: 08/27/17 4:49:[address] [facility] Lasix 2017-07-28 09:13:00 No Notes: (Same a s: Lasix) [facility] Heparin 40 unit/kg Bolus (Heparin Dosing Weight) 2017-07-28 07:4 7:00 No Route: IVP, PRN, 3,600 unit, 3.6 mL, Drug form: INJ, PRN, Heparin Protocol, Start date: 07/28/17 2:47:00 CDT Stop date: 08/27/17 2:46:00 CDT, 30 day [facility] Saline Flush 0.9% 2017-07-28 07:32:00 No Notes: (Same as: BD Posiflush) [facility] Ondansetron 2017-07-28 07:32:00 No Notes: (Same as: Zofran) MEDICATION WASTE Product Size: 4 mg Product Wasted: ___ mg [facility] Heparin 80 unit/kg Bolus (Heparin Dosing Weight) 2017-07-28 05:4 3:00 No Route: IVP, PRN, 7,200 unit, 7.2 mL, Drug form: INJ, PRN, Heparin Protocol, Start date: 07/28/17 0:43:00 CDT Stop date: 08/27/17 0:42:00 CDT, 30 day [facility] heparin additive 25,000 unit [18 unit/kg /hr] + Premix Diluent Dextrose 5% 500 mL 2017-07-28 05:43:00 No 500 mL, Rate: 32.42 ml/hr, Infuse over: 15.4 hr, Route: IV, Dosing Weight 90.06 kg, Total Volume: 500 mL, Start date: 07/28/17 0:43:00 CDT, Duration: 30 day, Stop date: 08/27/17 0:42:00 CDT, 2.02, m2 [facility] Heparin - one time bolus for DVT/PE 2017-07-28 05:43:00 No 7,200 unit, 7.2 mL, Route: IVP, Drug form: INJ, ONCE, Dosing Weight 150, kg, Priority: STAT, Start date: 07/28/17 0:43:00 CDT, Stop date: 07/28/17 0:43:00 CDT [facility] Atorvastatin Calcium 2016-11-08 02:45:18 Yes Miranda Rasheed 1 tablet [facility] Gabapentin 2016-11-08 02:45:18 Yes Miranda Rasheed 1 capsule [facility] Metoprolol Tartrate 2016-11-08 02:45:18 Yes Miranda Rasheed 1 tablet [facility] Synthroid 2016-11-08 02:45:18 Yes Miranda Rasheed take 1 tablet by mouth at 6.30 am [facility] Cymbalta 2016-11-08 02:45:18 Yes Miranda Rasheed 1 c apsule [facility] Tresiba FlexTouch 2016-11-08 02:45:18 Yes Miranda Rasheed 130 units at night [facility] Accu-Chek SmartView 2016-11-08 02:45:18 Yes Miranda Rasheed USE TO CHECK BLOOD GLUCOSE TWICE A DAY [facility] nn Omeprazole 2016-11-08 02:45:18 Yes Miranda Rasheed 1 capsule [facility] NovoLog 2016-11-08 02:45:18 Yes Miranda Rasheed 55 u nits [facility] Losartan Potassium-HCTZ 2016-11-08 02:45:18 Yes Miranda Rasheed 1 tablet [facility] Amlodipine Besylate 2016-11-08 02:45:18 Yes Miranda Rasheed 1 tablet [facility] Lisinopril-Hydrochlorothiazide 2016-09-05 02:45:02 Yes W deviha Rasheed 1 tablet [facility] Losartan Potassium-HCTZ 2016-09-04 00:00:00 Yes Miranda Rasheed 1 tablet [facility] Amlodipine Besylate 2016-09-04 00:00:00 Yes Miranda Rasheed 1 tablet [facility] NovoLog Flexpen 2016-08-01 02:45:15 Yes Miranda Rasheed 35 units [facility] Metformin HCl 2016-06-20 03:51:04 Yes Miranda Rasheed 1 tablet with meals [facility] Lantus SoloStar 2016-06-20 03:51:04 Yes Miradna Rasheed 90 units in the mornings and 70 units at night [facility] Cymbalta 2016-06-19 00:00:00 Yes [facility] Insulin, Aspart, Human 2016-06-09 00:58:00 No Notes: Roll in palms of hands gently; Do not shake vigorously. (Same as: NovoLOG) "single patient use only" WASTE: F/P - Black; E - Municipal Trash Bin Stable for 28 days at room temperature. Expires in days from Date [facility] insulin detemir 100 units/mL subcutaneous solution 2016-05 21:05:00 Yes 65 unit, SUB-Q, Bedtime, # 15 mL, 0 Refill(s), Pharmacy: [facility]/pharmacy #[id number] Jose Luis Rock levothyroxine 50 mcg (0.05 mg) oral tablet 2016-06-08 21:04:00 Yes 50 microgram = 1 tab, PO, Q630AM, # 30 tab, 0 Refill(s), Pharmacy: [facility]/pharmacy #[id number] [facility] Insulin, Aspart, Human 100 UNT/ML Injectable Solution [NovoL og] 2016-06-08 15:55:00 Yes 12 unit, S UB-Q, TID-Before Meals, # 15 mL, 0 Refill(s), other Jose Luis Rock levothyroxine 50 mcg (0.05 mg) oral tablet 2016-06-08 15:55:00 No 50 microgram = 1 tab, PO, Q630AM, # 30 tab, 0 Refill(s), other Jose Luis Rushann insulin detemir 100 units/mL subcutaneous solution 2016-05-17 4 15:55:00 No 65 unit, SUB-Q, Bedtime, 0 Refill(s) Jose Luis Rushann Insulin, Aspart, Human 2016-06-08 04:14:00 No Notes: Roll in palms of hands gently; Do not shake vigorously. (Same as: NovoLOG) "single patient use only" WASTE: F/P - Black; E - Municipal Trash Bin Stable for 28 days at room temperature. 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 Magnesium Sulfate 2016-06-07 14:29:00 No Notes: WASTE: F/P - Sink; E - Municipal Trash Bin [facility] Calcium Carbonate 2016-06-07 14:00:00 No Notes: (Same As: Tums) Calcium Carbonate 500 mg = 200 mg elemental calcium Dose = mg calcium carbonate ( mg elemental calcium) [facility] Synthroid 2016-06-07 12:30:00 No Notes: Take 1 hour before or 2 hours after meal; Enteral feeds may interefere with the absorption of this medication.(Same as:Levothroid, Synthroid) 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 Calcium Gluconate 2016-06-06 21:45:00 No Notes: WASTE: F/P - Sink; E - Municipal Trash Bin [facility] gabapentin 300 MG Oral Capsule 2016-06-06 15:00:00 No Notes: (Same as: Neurontin) [facility] metoprolol tartrate 2016-06-06 15:00:00 No Notes: (Same as: Lopressor) [facility] atorvastatin 2016-06-06 15:00:00 No Notes: (Same as: Lipitor) [facility] Aspirin 2016-06-06 15:00:00 No Notes: Take with food. [facility] pneumococcal capsular polysaccharide typ e 1 vaccine / pneumococcal capsular polysaccharide type 10A vaccine / pneumococcal capsular polysaccharide type 11A vaccine / pneumococcal capsular polysaccharide type 12F vaccine / pneumococcal capsular polysacchar 2016-06-06 15:00:00 No Notes: (Same as: Pneumovax 23) Refrigerate [facility] alejandro influenza virus vaccine, inactivated 2016-06-06 15:00:00 No Notes: (Same as: Fluzone Quadrivalent, Fluarix Quadrivalent) For 3 years of age and older (0.5 mL IM) Shake well before use [facility] Lasix 2016-06-06 15:00:00 No Notes: (Same as: Lasix) MEDICATION WASTE Product Size: 40 mg Product Wasted: ___ mg 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 Levemir FlexPen 2016-06-06 14:00:00 No Notes: Same as Levemir Do not hold insulin without contacting prescriber WASTE: F/P - Black; E - Municipal Trash Bin "single patient use only" [facility] Zithromax 2016-06-06 14:00:00 No Notes: (Sa me As: Zithromax IV) [facility] NovoLog 2016-06-06 13:30:00 No Notes: Roll in palms of hands gently; Do not shake vigorously. (Same as: NovoLOG) "single patient use only" WASTE: F/P - Black; E - Municipal Trash Bin Stable for 28 days at room temperature. Expires in days from Date [facility] Insulin, Aspart, Human 2016-06-06 13:06:00 No Notes: Roll in palms of hands gently; Do not shake vigorously. (Same as: NovoLOG) "single patient use only" WASTE: F/P - Black; E - Municipal Trash Bin Stable for 28 days at room temperature. 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 Ondansetron 2016-06-06 12:02:00 No Notes: (Same as: Hua) MEDICATION WASTE Product Size: 4 mg Product Wasted: ___ mg [facility] Morphine 2016-06-06 12:02:00 No Not es: (Same as:MORPhine Sulfate) [facility] naproxen 500 mg oral tablet 2016-06-06 10:30:00 No 500 mg = 1 tab, PO, BID, PRN Pain Score 1-5, 0 Refill(s) [facility] NovoLog 2016-06-06 10:30:00 No 10 unit, SUB-Q, TID-Before Meals, 0 Refill(s) [facility] metoprolol tartrate 100 mg oral tablet 2016-06-06 10:30:00 Yes 100 mg = 1 tab, PO, BID, 0 Refill(s) [facility] Hydrochlorothiazide 12.5 MG / Lisinopril 20 MG Oral Tablet 2016-06-06 10:30:00 No 1 tab, PO, BID, 0 Refill(s) [facility] Insulin Glargine 100 UNT/ML Injectable Solution [Lantus] 2016-06-06 10:30:00 Yes 60 units, SUB-Q, Bedtime, 0 Refi ll(s) [facility] Aspirin 2016-06-06 10:30:00 Yes 81 mg, PO, D aily, 0 Refill(s) [facility] gabapentin 800 MG Oral Tablet 2016-06-06 10:30:00 Yes 800 mg = 1 tab, PO, TID, 0 Refill(s) [facility] Metformin 2016-06-06 10:30:00 No 1,000 mg, PO, BID, with meals, 0 Refill(s) [facility] atorvastatin 40 mg oral tablet 2016-06-06 10:30:00 Yes 40 mg = 1 tab, PO, Daily, 0 Refill(s) [facility] nino Lasix 2016-05-30 00:00:00 Yes Miranda Rasheed [address] [facility] Naproxen 2016-04-27 00:00:00 Yes Miranda Iqbal 1 t ablet as needed [facility] Metoprolol Tartrate 2016-03-23 03:46:45 Yes Miranda Rasheed 1 tablet [facility] Victoza 2016-01-20 00:00:00 Yes Miranda Rasheed 1.[address] [facility] Victoza 2015-11-26 00:00:00 Yes Miranda Rasheed 1.2 mg [facility] Gabapentin 2015-11-22 02:54:44 Yes Miranda Rasheed 1 capsule [facility] Gabapentin 2015-09-07 02:47:19 Yes Miranda Rasheed 1 capsule [facility] Metoprolol Tartrate 2015-09-05 00:00:00 Yes Miranda Rasheed 1 tablet [facility] Victoza 2015-09-05 00:00:00 Yes Miranda Rasheed 1.2 mg [facility] NovoLog Flexpen 2015-08-04 00:00:00 Yes Miranda Iqbal as directed [facility] Ergocalciferol 2015-08-04 00:00:00 Yes Miranda Rasheed 1 capsule [facility] Omeprazole 2015-08-04 00:00:00 Yes Miranda Gutierrezmar 1 capsule [facility] Ciprofloxacin HCl 2015-08-04 00:00:00 Yes Miranda Rasheed 1 tablet [facility] Atorvastatin Calcium 2015-08-04 00:00:00 Yes Miranda Gutierrezmar 1 tablet [facility] Amlodipine Besylate 2015-07-15 02:47:09 Yes Miranda Rasheed 1 tablet [facility] Lisinopril 2015-07-15 02:47:09 Yes Miranda Rasheed 1 tablet [facility] Lansoprazole 2015-07-15 02:47:09 Yes Miranda Rasheed 1 capsule [facility] Victoza 2015-07-15 02:47:09 Yes Miranda Gutierrezmar Unkn own [facility] NIFEdipine ER 2015-07-15 02:47:09 Yes Miranda Gutierrezmar 1 tablet [facility] Metformin HCl 2015-07-14 00:00:00 Yes Miranda Rasheed 1 tablet with meals [facility] Gabapentin 2015-07-14 00:00:00 Yes Miranda Rasheed 1 capsule [facility] Lisinopril-Hydrochlorothiazide 2015-07-14 00:00:00 Yes Sami Gutierrezmar 1 tablet [facility] Lantus SoloStar 2015-07-14 00:00:00 Yes Miranda Rasheed 20 units [facility] Aspirin (Aspir 81) 81 Mg Tablet. Aspirin (Aspir 81) 81 Mg Tablet. Yes 81 Daily [facility] Atorvastatin Calcium (Lipitor) 20 Mg Tablet Atorvastat in Calcium (Lipitor) 20 Mg Tablet Yes 40 Bedtime [facility] Gabapentin 300 Mg Capsule Gabapentin 300 Mg Capsule Yes 600 Three Times A Day [facility] Insulin Aspart (Novolog) 100 Units/1 Ml Inj Insulin As part (Novolog) 100 Units/1 Ml Inj Yes 10 Three Times A Day [facility] Insulin Glargine (Lantus) 100 Units/Ml Ml Insulin Glar gine (Lantus) 100 Units/Ml Ml Yes [address] [facility] Insulin Glargine (Lantus) 100 Units/Ml Ml Insulin Glar gine (Lantus) 100 Units/Ml Ml Yes 40 Bedtime [facility] Lisinopril/Hydrochlorothiazide (Lisinopril-Hctz 20-12. 5 Mg Tab) 1 Each Tablet Lisinopril/Hydrochlorothiazide (Lisinopril-Hctz 20-12.5 Mg Tab) 1 Each Tablet Yes 1 Twice A Day [facility] Metformin Hcl (Metformin Hcl Er) 500 Mg Tab.er.24 Metf ormin Hcl (Metformin Hcl Er) 500 Mg Tab.er.24 Yes 1000 Twice A Day [facility] Metoprolol Succinate 50 Mg Tab.er.24h Metoprolol Succinate 50 Mg Ta b.er.24h Yes 50 Twice A Day [facility] Omeprazole (Prilosec) 40 Mg Capsule. Omeprazole (Prilosec) 40 Mg Capsule. Yes 40 Daily [facility] High Cholesterol Unknown Strength , Unknown Dose High Cholesterol Unknown Strength , Unknown Dose 2016-02-07 00:00:00 [facility] Liraglutide (Victoza 2-Stephen) 0.6 Mg/0.1 Ml Pen.injctr, Liraglutide (Victoza 2- Stephen) 0.6 Mg/0.1 Ml Pen.injctr, 2016-02-07 00:00:00 [facility] Vital Signs Vital Name Observation Time Observation Value Comments Source Weight 2018-10-29 19:15:00 [facility] Heart Rate 2018-10-29 19:15:00 [facility] Diastolic (mm Hg) 2018-10-29 19:15:[address] [facility] orial Pranav Systolic (mm Hg) 2018-10-29 19:15:00 [facility] Weight 2018-08-19 16:15:00 [facility] Heart Rate 2018-08-19 16:15:00 [facility] Diastolic (mm Hg) 2018-08-19 16:15:00 [facility] Systolic (mm Hg) 2018-08-19 16:15:00 [facility] Weight 2018-07-21 20:30:00 [facility] Heart Rate 2018-07-21 20:30:00 [facility] Diastolic (mm Hg) 2018-07-21 20:30:00 [facility] Systolic (mm Hg) 2018-07-21 20:30:00 [facility] conradl [facility] Respitory Rate 2017-12-19 14:50:00 [facility] Systolic (mm Hg) 2017-12-19 14:50:00 [facility] Diastolic (mm Hg) 2017-12-19 14:50:00 [facility] Systolic (mm Hg) 2017-12-19 14:35:00 [facility] Diastolic (mm Hg) 2017-12-19 14:35:00 [facility] Respitory Rate 2017-12-19 14:35:00 [facility] Respitory Rate 2017-12-19 14:18:00 [facility] Systolic (mm Hg) 2017-12-19 14:18:00 [facility] Diastolic (mm Hg) 2017-12-19 14:18:00 [facility] Weight 2017-12-18 21:23:00 [facility] Height 2017-12-18 21:23:00 157.48 cm [facility] BMI Calculated 2017-12-18 21:23:00 [facility] Systolic (mm Hg) 2017-07-30 16:17:00 [facility] Diastolic (mm Hg) 2017-07-30 16:17:00 [facility] Heart Rate 2017-07-30 16:17:00 [facility] Temperature Oral (F) 2017-07-30 16:17:00 99 F [facility] Respitory Rate 2017-07-30 16:17:00 [facility] Systolic (mm Hg) 2017-07-30 12:25:00 [facility] Diastolic (mm Hg) 2017-07-30 12:25:00 [facility] Respitory Rate 2017-07-30 12:25:00 [facility] Heart Rate 2017-07-30 12:25:00 [facility] Temperature Oral (F) 2017-07-30 12:25:00 98.2 F [facility] Systolic (mm Hg) 2017-07-30 09:48:00 [facility] Diastolic (mm Hg) 2017-07-30 09:48:00 [facility] Heart Rate 2017-07-30 09:15:00 [facility] Respitory Rate 2017-07-30 09:15:00 [facility] Temperature Oral (F) 2017-07-30 09:15:00 98.5 F [facility] Weight 2017-07-28 11:06:00 [facility] BMI Calculated 2017-07-28 01:28:00 Lianet al [facility] Weight 2017-07-28 01:28:00 [facility] Height 2017-07-28 01:28:00 157.48 cm [facility] Weight 2016-11-07 14:00:00 [facility] Height 2016-11-07 14:00:00 [facility] Temperature Oral (F) 2016-11-07 14:00:00 97.1 F [facility] Heart Rate 2016-11-07 14:00:00 [facility] Diastolic (mm Hg) 2016-11-07 14:00:00 [facility] Systolic (mm Hg) 2016-11-07 14:00:00 [facility] Weight 2016-09-04 14:00:00 [facility] Height 2016-09-04 14:00:00 [facility] Temperature Oral (F) 2016-09-04 14:00:00 98.4 F [facility] Heart Rate 2016-09-04 14:00:00 [facility] Diastolic (mm Hg) 2016-09-04 14:00:00 [facility] Systolic (mm Hg) 2016-09-04 14:00:00 [facility] Weight 2016-07-31 14:00:00 [facility] Height 2016-07-31 14:00:00 [facility] Temperature Oral (F) 2016-07-31 14:00:00 97.9 F [facility] Heart Rate 2016-07-31 14:00:00 [facility] Diastolic (mm Hg) 2016-07-31 14:00:00 [facility] Systolic (mm Hg) 2016-07-31 14:00:00 [facility] Weight 2016-06-19 15:15:00 [facility] Height 2016-06-19 15:15:00 [facility] Temperature Oral (F) 2016-06-19 15:15:00 97.0 F [facility] Heart Rate 2016-06-19 15:15:00 [facility] Diastolic (mm Hg) 2016-06-19 15:15:00 [facility] Systolic (mm Hg) 2016-06-19 15:15:00 [facility] Systolic (mm Hg) 2016-06-08 17:16:00 [facility] Diastolic (mm Hg) 2016-06-08 17:16:00 [facility] Temperature Oral (F) 2016-06-08 17:16:00 98.1 F [facility] Respitory Rate 2016-06-08 17:16:00 [facility] Heart Rate 2016-06-08 17:16:00 [facility] Temperature Oral (F) 2016-06-08 13:37:00 97.6 F [facility] Respitory Rate 2016-06-08 13:37:00 [facility] Heart Rate 2016-06-08 13:37:00 [facility] Systolic (mm Hg) 2016-06-08 13:37:00 [facility] Diastolic (mm Hg) 2016-06-08 13:37:00 [facility] Systolic (mm Hg) 2016-06-08 09:08:00 [facility] Diastolic (mm Hg) 2016-06-08 09:08:00 [facility] Heart Rate 2016-06-08 09:08:00 [facility] Respitory Rate 2016-06-08 09:08:00 [facility] Temperature Oral (F) 2016-06-08 09:08:00 98 F [facility] Height 2016-06-06 09:54:00 157.48 cm [facility] Weight 2016-06-06 09:54:00 [facility] BMI Calculated 2016-06-06 09:54:00 [facility] Weight 2016-05-30 19:15:00 [facility] Height 2016-05-30 19:15:00 [facility] Temperature Oral (F) 2016-05-30 19:15:00 97.7 F [facility] Heart Rate 2016-05-30 19:15:00 [facility] Diastolic (mm Hg) 2016-05-30 19:15:00 [facility] Systolic (mm Hg) 2016-05-30 19:15:00 [facility] Weight 2016-04-27 20:45:00 [facility] Height 2016-04-27 20:45:00 [facility] Temperature Oral (F) 2016-04-27 20:45:00 98.2 F [facility] Heart Rate 2016-04-27 20:45:00 [facility] Diastolic (mm Hg) 2016-04-27 20:45:00 [facility] Systolic (mm Hg) 2016-04-27 20:45:00 [facility] Weight 2016-03-22 14:45:00 [facility] Height 2016-03-22 14:45:00 [facility] Temperature Oral (F) 2016-03-22 14:45:00 98.0 F [facility] Heart Rate 2016-03-22 14:45:00 [facility] Diastolic (mm Hg) 2016-03-22 14:45:00 [facility] Systolic (mm Hg) 2016-03-22 14:45:00 [facility] Weight 2016-02-21 14:45:00 [facility] Height 2016-02-21 14:45:00 [facility] Temperature Oral (F) 2016-02-21 14:45:00 98.2 F [facility] Heart Rate 2016-02-21 14:45:00 [facility] Diastolic (mm Hg) 2016-02-21 14:45:00 [facility] Systolic (mm Hg) 2016-02-21 14:45:00 [facility] Weight 2015-11-21 14:00:00 [facility] Height 2015-11-21 14:00:00 [facility] Temperature Oral (F) 2015-11-21 14:00:00 97.9 F [facility] Heart Rate 2015-11-21 14:00:00 [facility] Diastolic (mm Hg) 2015-11-21 14:00:00 [facility] Systolic (mm Hg) 2015-11-21 14:00:00 [facility] Weight 2015-09-27 14:15:00 [facility] Height 2015-09-27 14:15:00 [facility] Temperature Oral (F) 2015-09-27 14:15:00 97.9 F [facility] Heart Rate 2015-09-27 14:15:00 [facility] Diastolic (mm Hg) 2015-09-27 14:15:00 [facility] Systolic (mm Hg) 2015-09-27 14:15:00 [facility] Weight 2015-09-05 19:45:00 [facility] Height 2015-09-05 19:45:00 [facility] Temperature Oral (F) 2015-09-05 19:45:00 98.2 F [facility] Heart Rate 2015-09-05 19:45:00 [facility] Diastolic (mm Hg) 2015-09-05 19:45:00 [facility] Systolic (mm Hg) 2015-09-05 19:45:00 [facility] Weight 2015-08-04 18:15:00 [facility] Height 2015-08-04 18:15:00 [facility] Temperature Oral (F) 2015-08-04 18:15:00 97.1 F [facility] Heart Rate 2015-08-04 18:15:00 [facility] Diastolic (mm Hg) 2015-08-04 18:15:00 [facility] Systolic (mm Hg) 2015-08-04 18:15:00 [facility] Weight 2015-07-14 14:15:00 [facility] Height 2015-07-14 14:15:00 [facility] Temperature Oral (F) 2015-07-14 14:15:00 98.6 F [facility] Heart Rate 2015-07-14 14:15:00 [facility] Diastolic (mm Hg) 2015-07-14 14:15:00 [facility] Systolic (mm Hg) 2015-07-14 14:15:00 [facility] Procedures Procedure Date / Time Performed Performing Clinician [facility] e Colonoscopy 2017-12-19 05:00:00 [facility] Her nino Computed tomography of brain without radiopaque contrast 201 11-16-17 00:00:00 JORDIN DENSON [facility] section 1991-04-15 00:00:00 [facility] rmann Cholecystectomy 1991-04-15 00:00:00 [facility] nino Encounters Start Date/Time End Date/Time Encounter Type Admission Type [facility] Care Department Encounter ID Source 2018-10-29 14:15:00 2018-10-29 14:15:00 Outpatient Pako Reyes [id number] eClinicalWorks 2018-08-19 11:15:00 2018-08-19 11:15:00 Outpatient Pako Reyes [id number] eClinicalWorks 2018-07-21 15:30:00 2018-07-21 15:30:00 [place] [id number] eClinicalWorks 2018-07-10 16:30:00 2018-07-10 23:59:00 Outpatient Genoveva Dominguez Chintan MHOIB MHOIB [id number] 2018-03-27 14:04:00 2018-03-28 23:59:59 Outpatient MHMIS ESTELLE MENDOZAMISCHYAEL [id number] 2018-03-26 18:58:00 2018-03-26 23:59:00 Outpatient Yanelis Garrison MHSE MHSE [id number] 2018-03-21 13:34:00 2018-03-21 23:59:00 Outpatient Alexx Kwok MHHOIP MHHOIP [id number] 2018-02-04 19:41:00 2018-02-04 23:59:00 Outpatient Yanelis Garrison MHSE MHSE [id number] 2018-01-27 11:20:00 2018-01-27 23:59:00 Outpatient Evonne Kwok MHOIB MHOIB [id number] 2017-12-19 07:33:00 2017-12-19 10:00:00 Outpatient Jeanne Locke MHSE MHSE [id number] 2017-07-31 05:38:00 2017-07-31 07:21:00 Departed Emergency Room ER [facility]ORDIN DENSON [facility] [id number] [facility] 2017-07-27 20:27:00 2017-07-30 17:34:00 Outpatient Alex Nevarez MHSE MHSE [id number] 2017-02-05 09:22:00 2017-02-05 23:59:00 Outpatient Evonne Kwok MHOIB MHOIB [id number] 2016-11-07 09:00:00 2016-11-07 09:00:00 Outpatient [facility] Primary Care [facility] [id number] eClinicalWo rks 2016-09-04 09:00:00 2016-09-04 09:00:00 Outpatient [facility] Primary Care [facility] Primary [facility] [id number] eClinicalWo rks 2016-07-31 09:00:00 2016-07-31 09:00:00 Outpatient [facility] Primary Care [facility] Primary [facility] [id number] eClinicalWo rks 2016-06-19 09:15:00 2016-06-19 09:15:00 Outpatient [facility] Care [facility] Care [id number] eClinicalWorks 2016-06-06 16:16:00 2016-06-08 19:40:00 Outpatient Stanley Grace MHSE MHSE [id number] 2016-05-30 14:49:00 2016-05-30 23:59:00 Outpatient Checo Iqbal belgica Tucker MHSE MHSE [id number] 2016-05-30 13:15:00 2016-05-30 13:15:00 Outpatient [facility] Primary Care [facility] [id number] eClinicalWorks 2016-04-27 14:45:00 2016-04-27 14:45:00 Outpatient [facility] Care [facility] Care [id number] eClinicalWorks 2016-03-22 08:45:00 2016-03-22 08:45:00 Outpatient [facility] Care [id number] eClinicalWorks 2016-02-21 08:45:00 2016-02-21 08:45:00 Outpatient [facility] [id number] eClinicalWorks 2015-11-21 09:00:00 2015-11-21 09:00:00 Outpatient [facility] [id number] eClinicalWorks 2015-09-27 11:00:00 2015-09-27 11:00:00 Outpatient Pako Parnell [place], [place] [id number] eClinicalWorks 2015-09-27 09:15:00 2015-09-27 09:15:00 Outpatient [facility] [id number] eClinicalWorks 2015-09-05 14:45:00 2015-09-05 14:45:00 Outpatient [facility] Care [id number] eClinicalWorks 2015-08-12 14:25:00 2015-08-12 23:59:00 Outpatient Checo Iqbal Caitlin MHSE MHSE [id number] 2015-08-04 13:15:00 2015-08-04 13:15:00 Outpatient [facility] Care [id number] eClinicalWorks 2015-08-01 11:09:00 2015-08-01 11:09:00 Outpatient [facility] Primary [facility] [id number] [employer] 2015-07-14 09:15:00 2015-07-14 09:15:00 Outpatient [facility] Primary Care [id number] [employer] Results Test Description Test Time Test Comments Results Result Comments Source - DUP VEIN SILAS 2018-09-24 14:26:00 Name: MAHESH VENTURA [facility] : 1960 Age/S: 58 / F [address] [facility] Unit #: [id number] Loc: [place] [address] Phys: Preston Ennis MD Acct: [id number] Dis Date: Status: REG RCR PHONE #: [phone] Exam Date: 09/16/2018 1203 FAX #: [phone] Reason: CVI,WOUND OF LLE EXAMS: CPT CODE: [id number] DUP VEIN SILAS 45817 EXAM: Duplex sonography of the venous system of both lower extremities, venous insufficiency study; Bilateral ABIs; INFORMATION: Chronic venous insufficiency; TECHNIQUE: Arterial ankle brachial indices were measured bilaterally. Grayscale sonography of the venous system of both legs was performed bilaterally, combined with color Doppler imaging and spectral analysis. IMPRESSION: 1. The ankle brachial index on the right is 0.9. On the left it is 0.99. 2. Venous duplex study of the left leg: Reflux was noticed at the saphenous femoral junction over 4099 ms; no reflux was noticed within the greater saphenous vein above and below the knee and no reflux was noticed in the smaller saphenous vein. The right saphenous femoral junction measured 9 mm in diameter; the greater s aphenous vein measured 6 to 8 mm in the thigh region in 2 to 5 mm below the knee. 3. Venous duplex study of the left leg: Reflux was noticed at the left saphenofemoral junction during 4693 ms. No reflux was noted in the greater saphenous vein in the left thigh region. Mild reflux was noted in the proximal greater saphenous vein below the knee over 382 ms; no reflux was noticed in the mid and distal portion of the infrarenal G SFA. The left smaller saphenous vein was not seen. at 1426 Reported and signed by: Bashir Fregoso M.D. CC: Kareen Coleman; Preston Ennis MD Technologist: BARRY WOLF T Trnscb Date/Time: 09/24/2018 (1425) AdrienGRW Orig Print D/T: S: 09/24/2018 (9012) Probe: PAGE 1 Signed Report - DOP ART 1-2 LEVELS SILAS 2018-09-24 14:26:00 N lana: GOLDBERGMAHESH [facility] : 1960 Age/S: 58 / F [address] [facility] Unit #: [id number] Loc: JO[place] [address] Phys: Preston Ennis MD Acct: [id number] Dis Date: Status: REG RCR PHONE #: [phone] Exam Date: 09/16/2018 1204 FAX #: [phone] Reason: LLE WOUND EXAMS: CPT CODE: [id number] DOP ART 1-2 LEVELS SILAS 74771 EXAM: Duplex sonography of the venous system of both lower extremities, venous insufficiency study; Bilateral ABIs; INFORMATION: Chronic venous insufficiency; TECHNIQUE: Arterial ankle brachial indices were measured bilaterally. Grayscale sonography of the venous system of both legs was performed bilaterally, combined with color Doppler imaging and spectral analysis. IMPRESSION: 1. The ankle brachial index on the right is 0.9. On the left it is 0.99. 2. Venous duplex study of the left leg: Reflux was noticed at the saphenous femoral junction over 4099 ms; no reflux was noticed within the greater saphenous vein above and below the knee and no reflux was noticed in the smaller saphenous vein. The right saphenous femoral junction measured 9 mm in diameter; the greater s aphenous vein measured 6 to 8 mm in the thigh region in 2 to 5 mm below the knee. 3. Venous duplex study of the left leg: Reflux was noticed at the left saphenofemoral junction during 4693 ms. No reflux was noted in the greater saphenous vein in the left thigh region. Mild reflux was noted in the proximal greater saphenous vein below the knee over 382 ms; no reflux was noticed in the mid and distal portion of the infrarenal G SFA. The left smaller saphenous vein was not seen. at 1427 Reported and signed by: Bashir Fregoso M.D. CC: Kareen Coleman; Preston Ennis MD Technologist: BARRY WOLF RVT Trninb Date/Time: 09/24/2018 (706) [email or web address] Orig Print D/T: S: 09/24/2018 (4220) Probe: PAGE 1 Signed Report Sodium Level 2017-07-31 07:03:00 Test Item Sodium Level (test code = 2951-2) 140 136-145 [facility] Vbntl4339-40-69 07:03:00* Test Item Value Reference Range Interpretation Comments Potassium Level (test code = 2823-3) 3.8 3.5-5.1 [facility] HospitalChloride Bdkrn9179-75-47 07:03:00* Test Item Value Reference Range Interpretation Comments Chloride Level (test code = 2075-0) 100 98-107 [facility] HospitalCarbon Dioxide Umzcj3130-35-16 07:03:00* Test Item Value Reference Range Interpretation Comments Carbon Dioxide Level (test code = 2028-9) 29 22-29 [facility] HospitalAnion Ikl0195-05-26 07:03:00* Test Item Value Reference Range Interpretation Comments Anion Gap (test code = 41190-5) 14.8 8-16 [facility] HospitalBlood Urea Yedyeici3267-82-04 07:03:00* Test Item Value Reference Range Interpretation Comments Blood Urea Nitrogen (test code = 3094-0) 22 7-26 [facility] HospitalCreatinine2018-04-18 07:03:00* Test Item Value Reference Range Interpretation Comments Creatinine (test code = 2160-0) 1.18 0.57-1.11 H [facility] HospitalBUN/Creatinine Jxqry2034-93-12 07:03:00* Test Item Value Reference Range Interpretation Comments BUN/Creatinine Ratio (test code = 3097-3) 19 6-25 [facility] HospitalEstimat Glomerular Filtration Rate 2017-07-31 07:03:00* Test Item Value Reference Range Interpretation Comments Estimat Glomerular Filtration Rate (test code = 08343-8) 47 >60 L Ranges were taken from the National Kidney Disease Education Program and the [facility] literature.Reference ranges:60 or greater: Efthnj46-04 ( for 3 consecutive months): Chronic kidney disease 15 or less: Kidney failureMidland Memorial HospitalGlucose Ippnl2256-66-89 07:03:00* Test Item Value Reference Range Interpretation Comments Glucose Level (test code = QDK0607) 264 74-118 H [facility] HospitalCalcium Domtc2103-22-41 07:03:00* Test Item Value Reference Range Interpretation Comments Calcium Level (test code = 90315-8) 9.5 8.4-10.2 [facility] HospitalTotal Twjhjuvfr2648-59-29 07:03:00* Test Item Value Reference Range Interpretation Comments Total Bilirubin (test code = 1975-2) 0.7 0.2-1.2 [facility] HospitalAspartate Amino Transf (AST/SGOT) 2017-07-31 07:03:00* Test Item Value Reference Range Interpretation Comments Aspartate Amino Transf (AST/SGOT) (test code = Aspartate Amino Transf (AST/SGOT)) 21 5-34 [facility] HospitalAlanine Aminotransferase (ALT/SGPT) 2017-07-31 07:03:00* Test Item Value Reference Range Interpretation Comments Alanine Aminotransferase (ALT/SGPT) (test code = 1742-6) 18 0-55 [facility] HospitalTotal Pzihqqy6318-75-06 07:03:00* Test Item Value Reference Range Interpretation Comments Total Protein (test code = 2885-2) 7.6 6.5-8.1 [facility] HospitalAlbumin2018-04-18 07:03:00* Test Item Value Reference Range Interpretation Comments Albumin (test code = 1751-7) 3.4 3.5-5.0 L [facility] HospitalGlobulin2018-04-18 07:03:00* Test Item Value Reference Range Interpretation Comments Globulin (test code = 55755-9) 4.2 2.3-3.5 H [facility] HospitalAlbumin/Globulin Ekxcs7264-88-53 07:03:00 * Test Item Value Reference Range Interpretation Comments Albumin/Globulin Ratio (test code = 1759-0) 0.8 0.8-2.0 [facility] HospitalAlkaline Vdthqwlvzjw9174-28-46 07:03:00* Test Item Value Reference Range Interpretation Comments Alkaline Phosphatase (test code = 6768-6) 85 40-150 [facility] HospitalCreatine Bmipfh6322-98-54 07:03:00* Test Item Value Reference Range Interpretation Comments Creatine Kinase (test code = 2157-6) 259 29-168 H [facility] HospitalCreatine Kinase JU4056-44-08 06:58:00* Test Item Value Reference Range Interpretation Comments Creatine Kinase MB (test code = 25660-5) 2.20 0-5.0 [facility] HospitalTroponin D3570-04-39 06:58:00* Test Item Value Reference Range Interpretation Comments Troponin I (test code = IQO6889) -0.001 0-0.300 [facility] HospitalActivated Partial Thromboplast Time 2017-07-31 06:48:00* Test Item Value Reference Range Interpretation Comments Activated Partial Thromboplast Time (test code = 84242-8) 40.7 23.8-35.5 H [facility] HospitalProthrombin Jqsd7350-32-82 06:45:00* Test Item Value Reference Range Interpretation Comments Prothrombin Time (test code = 5902-2) 17.7 11.9-14.5 H [facility] HospitalProthromb Time International Ratio 2017-07-31 06:45:00* Test Item Value Reference Range Interpretation Comments Prothromb Time International Ratio (test code = 6301-6) 1.58 Oral Anticoagulant Therapy INR Values:1. Low Intensity Therapy 1.5 - 2.02 . Moderate Intensity Therapy 2.0 - 3.03. High Intensity Therapy(1) 2.5 - 3. 54. High Intensity Therapy(2) 3.0 - 4.05. Panic Value INR > 5.0 [facility] HospitalWhite Blood Ssjyl6751-28-26 06:38:00* Test Item Value Reference Range Interpretation Comments White Blood Count (test code = 6690-2) 8.46 4.8-10.8 [facility] HospitalRed Blood Xdofd6807-14-45 06:38:00* Test Item Value Reference Range Interpretation Comments Red Blood Count (test code = 789-8) 3.75 3.6-5.1 [facility] HospitalHemoglobin2018-04-18 06:38:00* Test Item Value Reference Range Interpretation Comments Hemoglobin (test code = 39276-7) 8.4 12.0-16.0 L [facility] HospitalHematocrit2018-04-18 06:38:00* Test Item Value Reference Range Interpretation Comments Hematocrit (test code = 4544-3) 28.4 34.2-44.1 L [facility] HospitalMean Corpuscular Ztzztc3322-71-08 06:38:00* Test Item Value Reference Range Interpretation Comments Mean Corpuscular Volume (test code = 787-2) 75.7 81-99 L [facility] HospitalMean Corpuscular Poboextupf7438-96-01 06:38:00* Test Item Value Reference Range Interpretation Comments Mean Corpuscular Hemoglobin (test code = 785-6) 22.4 28-32 L [facility] HospitalMean Corpuscular Hemoglobin Concent 2017-07-31 06:38:00* Test Item Value Reference Range Interpretation Comments Mean Corpuscular Hemoglobin Concent (test code = 786-4) 29.6 31-35 L [facility] HospitalRed Cell Distribution Xnmwu4629-10-15 06:38:00* Test Item Value Reference Range Interpretation Comments Red Cell Distribution Width (test code = 49190-1) 17.9 11.7 -14.4 H [facility] HospitalPlatelet Tlqdt8797-30-20 06:38:00* Test Item Value Reference Range Interpretation Comments Platelet Count (test code = 777-3) 258 140-360 [facility] HospitalNeutrophils (%) (Auto)2017-07-31 06:38:00 * Test Item Value Reference Range Interpretation Comments Neutrophils (%) (Auto) (test code = 67232-5) 72.1 38.7-80.0 [facility] HospitalLymphocytes (%) (Auto)2017-07-31 06:38:00 * Test Item Value Reference Range Interpretation Comments Lymphocytes (%) (Auto) (test code = 736-9) 18.6 18.0-39.1 [facility] HospitalMonocytes (%) (Auto)2017-07-31 06:38:00* Test Item Value Reference Range Interpretation Comments Monocytes (%) (Auto) (test code = 5905-5) 7.3 4.4-11.3 [facility] HospitalEosinophils (%) (Auto)2017-07-31 06:38:00 * Test Item Value Reference Range Interpretation Comments Eosinophils (%) (Auto) (test code = 713-8) 1.4 0.0-6.0 [facility] HospitalBasophils (%) (Auto)2017-07-31 06:38:00* Test Item Value Reference Range Interpretation Comments Basophils (%) (Auto) (test code = 706-2) 0.2 0.0-1.0 [facility] HospitalIM GRANULOCYTES %2017-07-31 06:38:00* Test Item Value Reference Range Interpretation Comments IM GRANULOCYTES % (test code = IM GRANULOCYTES %) 0.4 0.0- 1.0 [facility] HospitalNeutrophils # (Auto)2017-07-31 06:38:00* Test Item Value Reference Range Interpretation Comments Neutrophils # (Auto) (test code = 751-8) 6.1 2.1-6.9 [facility] HospitalLymphocytes # (Auto)2017-07-31 06:38:00* Test Item Value Reference Range Interpretation Comments Lymphocytes # (Auto) (test code = 88971-9) 1.6 1.0-3.2 [facility] HospitalMonocytes # (Auto)2017-07-31 06:38:00* Test Item Value Reference Range Interpretation Comments Monocytes # (Auto) (test code = 742-7) 0.6 0.2-0.8 [facility] HospitalEosinophils # (Auto)2017-07-31 06:38:00* Test Item Value Reference Range Interpretation Comments Eosinophils # (Auto) (test code = 711-2) 0.1 0.0-0.4 [facility] HospitalBasophils # (Auto)2017-07-31 06:38:00* Test Item Value Reference Range Interpretation Comments Basophils # (Auto) (test code = 704-7) 0.0 0.0-0.1 [facility] HospitalAbsolute Immature Granulocyte (auto 2017-07-31 06:38:00* Test Item Value Reference Range Interpretation Comments Absolute Immature Granulocyte (auto (raul t code = Absolute Immature Granulocyte (auto) 0.03 0-0.1 [facility] HospitalELECTROLYTES2018-04-17 11:04:0016.9 [facility] AmydnvyUDVICRZQLDNU7985-46-40 11:04:0057[facility] HermannELECTROLYTES 2017-07-30 11:04:51669Ajcmmzer RhtplqiJOYWPRYRHXBT5455-96-42 11:04:003.9[facility] MmuypsoTVHLUMXXAZWL5636-58-91 11:04:40113Tlojsohd IcprlatFRHQQPHLGPFZ3658-70-76 11:04:0023[facility] RszjwenNWFVPYIMOVDF3895-85-80 11:04:001.08[facility] Pr[facility]av ZGDOWBEZOGJA6384-72-96 11:04:05331Barbmkgs IuqsmvjAIBCDDGAPXGK2229-48-71 11:04:009.6[facility] DbuwarrBWQGBRTDTVUH2935-43-07 11:04:0029[facility] KDVHDUDNAM6948-85-51 11:04:52353Htppkmbo ItkgqvqIGTJYWCAWY9010-73-08 11:04:008.6 [facility] KoambjxJPXJUEZQBP1826-26-22 11:04:00* Test Item Value Reference Range Interpretation Comments MCH (test code = MCH) 22.2 pg 27.0-31.0 [facility] RjygepoVNJORPOHRR5379-20-23 11:04:0030.6[facility] HermannHEMATOLOGY 2017-07-30 11:04:0018.1[facility] HhqmexdTQXBJZHDFT0016-38-73 11:04:0030.9[facility] FimgpdrRWUFUJDSTQ1270-26-29 11:04:0072.6[facility] HjnpixtFIOLXUKJIA1697-58-12 11:04:009.4[facility] QnqoggdOKXROTCRRW3035-70-43 11:04:004.25[facility] AELZONYFKX6765-40-59 11:04:009.4[facility] PizhdqqVQIBNYCUZC8135-15-94 11:04:007.1 [facility] HwzrsdxIABKSTFTTZ8766-57-63 11:04:001.4[facility] HermannHEMATOLOGY 2017-07-30 11:04:000.8[facility] WjozociZTMWBALSGQ2308-90-41 11:04:000.1[facility] IqgghvrVBFJEIJTDM9968-62-10 11:04:001+ *ABN*(07/30/17 6:04 AM)[facility] SFYURZVKUB8365-17-19 11:04:001+ (07/30/17 6:04 AM)[facility]annHEMATOLOGY 2017-07-30 11:04:0015.4[facility] RrrlwfgUBYEJSUNWN0875-40-11 11:04:0075.5[facility] YbchkjdOFTSVEJTHR0782-82-07 11:04:000.4[facility] AmqzoinKJEVGNHHEC5845-77-62 11:04:008.1[facility] ZhrkmhaFVSSGAZRYU4576-11-45 11:04:000.6[facility] SHFJIHDWPO9910-20-69 11:04:00Normal (07/30/17 6:04 AM)[facility]annSPECIAL VRSDQBULQ1034-58-27 11:08:007.8[facility] HermannCARDIAC NLWJQGC0964-90-09 13:18:00<1.0[facility]annCARDIAC KNQDTFX5879-61-41 13:18:00<1.2[facility]annCARDIAC DCBFMVL2214-52-36 13:18:0081[facility]annCARDIAC ENZYMES 2017-07-28 13:18:00<0.02[facility] AoxjtyrANBIZJLPBO5146-93-45 13:18:00* Test Item Value Reference Range Interpretation Comments PTT (test code = PTT) 91.2 s 22.9-35.8 [facility]annURINE BMLL0582-89-20 11:40:0015.30[facility]annURINE CHEM 2017-07-28 11:40:09173Rbgjhglb HermannCARDIAC ELRYGQZ3913-01-72 08:45:00* Test Item Value Reference Range Interpretation Comments CK MB Index (test code = CK MB Index) 1.1 1 <=2.5 [facility]annCARDIAC EDMNMAD2133-79-69 08:45:001.0[facility]annCARDIAC NKTRICS8425-90-25 08:45:00<0.02[facility]annCARDIAC RGVKTWC5195-00-05 08:45:0093[facility]annCHEM DDEJW8930-33-53 08:45:0043[facility] HermannCHEM JBUIN3173-07-54 08:45:0034[facility] HermannCHEM UOIQS6867-05-30 08:45:77989 [facility]annCHEM EAAUK5247-50-97 08:45:003.7[facility] HermannCHEM PANEL 2017-07-28 08:45:70741Zypkcrqh HermannCHEM FJYUP9003-46-62 08:45:94450Jlntciqa HermannCHEM IPETF5348-65-57 08:45:001.37[facility] HermannCHEM OZAZK0669-76-91 08:45:00* Test Item Value Reference Range Interpretation Comments B/C Ratio (test code = B/C Ratio) 25 1 6-25 [facility]annCHEM SOPMI7170-07-30 08:45:008.7[facility] HermannCHEM PANEL 2017-07-28 08:45:0031[facility] HermannCHEM PFBQD7834-23-65 08:45:007.3[facility] HermannCHEM GBRWH9706-22-31 08:45:004.1[facility] HermannCHEM JKTHW8725-72-28 08:45:00* Test Item Value Reference Range Interpretation Comments A/G Ratio (test code = A/G Ratio) 0.8 1 0.7-1.6 [facility]annCHEM IZSTO5235-20-66 08:45:000.3[facility] HermannCHEM PANEL 2017-07-28 08:45:0092[facility] HermannCHEM OWBIP9369-70-58 08:45:008.5[facility] HermannCHEM JJTKH4354-70-40 08:45:0017[facility] HermannCHEM YBLXC8718-66-58 08:45:0020[facility] HermannCHEM HGXMS8303-83-06 08:45:003.2[facility] LCTWUBRAIW9135-24-20 08:45:0030.7[facility] RarsplbGVCJKIPWNA4561-11-06 08:45:00* Test Item Value Reference Range Interpretation Comments MCH (test code = MCH) 22.4 pg 27.0-31.0 [facility] SxktgthGNVYNGHQCP4803-59-65 08:45:0018.1[facility]annHEMATOLOGY 2017-07-28 08:45:0073.0[facility] UvypzeoWUAKOGTIKJ5980-21-89 08:45:38956Mszssekr PyzpggmMCGGBZGSQS8778-69-25 08:45:008.6[facility] FcgxsasUUTJJPTWRU1726-95-66 08:45:003.82[facility] UyjxhmrXNSHANKNAR7755-70-07 08:45:008.6[facility] LJQTOXEUDP2637-93-34 08:45:0027.9[facility] HsowqrsDGSUGEPLUP6662-57-55 08:45:00 7.6[facility] OejqbxcZTNUKNSCGY3227-73-62 08:45:001+ *ABN*(07/28/17 3:45 AM) [facility] KxcidwfIVJJJARWCC7595-66-24 08:45:000.2[facility] HermannHEMATOLOGY 2017-07-28 08:45:0033.6[facility] OlkxegcFLLPKMNAQY2274-38-30 08:45:0055.4[facility] RadxhqcWVNPJUFHLF3770-49-62 08:45:000.6[facility] UfdmmppCRSTBLTKGV4363-35-04 08:45:000.5[facility] DsihuarYUCPJJVAYW3898-07-13 08:45:004.2[facility] Silt SXPBEHOOIO2814-04-24 08:45:002.5[facility] QwdehhgHYFBVAJFCX6726-64-27 08:45:002.9 [facility] DtvrjjgVWKZRWYOTJ6697-29-23 08:45:007.6[facility] HermannCARDIAC ENZYMES 2017-07-28 02:14:0013[facility]annCARDIAC CPYIQCO2882-96-37 02:14:12528 [facility]annCARDIAC NJYDJGV2393-15-55 02:14:00<1.0[facility] HermannCARDIAC GHPNZSA8678-50-49 02:14:00<0.02[facility] HermannCARDIAC GBGGXDK2768-39-56 02:14:00<1.0[facility] HermannCHEM DZEED7179-01-03 02:14:0036[facility] HermannCHEM FBOYS5586-39-54 02:14:007.8[facility] HermannCHEM OSUSJ8275-48-96 02:14:008.2 [facility]annCHEM LOTDW9704-91-17 02:14:0031[facility] HermannCHEM PANEL 2017-07-28 02:14:56292Qlhmxlxt HermannCHEM JCEJY8553-21-49 02:14:003.8[facility] HermannCHEM BVRWY3829-77-54 02:14:000.3[facility] HermannCHEM DFSWK3295-84-96 02:14:99772Rjtphols HermannCHEM WJYLZ7702-62-21 02:14:0013[facility] HermannCHEM KSNVH5098-03-08 02:14:0020[facility]annCHEM VPRKG5023-79-66 02:14:003.2 [facility]annCHEM OXVHP4496-16-50 02:14:001.57[facility] HermannCHEM PANEL 2017-07-28 02:14:99283Ptkczgwh HermannCHEM SCLOT3268-39-39 02:14:0038[facility] HermannCHEM XXARL8978-73-10 02:14:19816Zhkdngzk HermannCHEM VYEDH1252-19-45 02:14:00* Test Item Value Reference Range Interpretation Comments A/G Ratio (test code = A/G Ratio) 0.7 1 0.7-1.6 [facility] HermannCHEM RDTFP2775-50-40 02:14:004.6[facility] HermannCHEM PANEL 2017-07-28 02:14:00* Test Item Value Reference Range Interpretation Comments B/C Ratio (test code = B/C Ratio) 24 1 6-25 [facility] HermannCHEM JSSEI6613-88-24 02:14:0014.8[facility] HermannHEMATOLOGY 2017-07-28 02:14:00* Test Item Value Reference Range Interpretation Comments PTT (test code = PTT) 32.6 s 22.9-35.8 [facility] YvfvyugYABQTZABBG7827-26-00 02:14:00* Test Item Value Reference Range Interpretation Comments PT (test code = PT) 12.9 s 12.0-14.7 [facility] FaznipaAYQJXUOPRV4633-02-74 02:14:00* Test Item Value Reference Range Interpretation Comments INR (test code = INR) 0.97 1 0.85-1.17 [facility] AxihzelGWSLNVIDJT4386-46-71 02:14:00* Test Item Value Reference Range Interpretation Comments MCH (test code = MCH) 23.0 pg 27.0-31.0 [facility] DpfcoxtVRYLKAKOHJ0460-74-75 02:14:004.01[facility] HermannHEMATOLOGY 2017-07-28 02:14:0074.0[facility] AywkoskNWJLWKYNRS6564-71-61 02:14:009.2[facility] JppxbrkXCVLZEPPZC4155-21-62 02:14:008.1[facility] CwbgvliIPCUWSMLLP5653-93-69 02:14:0029.7[facility] TlshbhlKMXWFOJAUJ1930-30-12 02:14:83156Bmbiednf Silt XGFLRLUOLH8729-28-87 02:14:008.3[facility] JwxijbnQJIBPVIUOZ6183-12-11 02:14:00 31.0[facility] LyzyexoYWQBIUVNIH4723-59-73 02:14:0018.1[facility] HermannHEMATOLOGY 2017-07-28 02:14:005.8[facility] OvqwufmDBLUXNLTMQ9433-65-74 02:14:0022.0[facility] CaobqwgYGNVZEWHDE3418-98-27 02:14:0069.1[facility] EtutantDYHCZSUHEV3691-71-69 02:14:001+ *ABN*(07/27/17 9:14 PM)[facility] JxrwgnfHYROIJPEFG4969-39-30 02:14:00 0.5[facility] TijmlysKFOZZOHNNQ9065-14-76 02:14:002.6[facility] HermannHEMATOLOGY 2017-07-28 02:14:001.8[facility] TfqfhecXMUSJCXNZI8601-07-27 02:14:005.6[facility] BiagvvmILJMFIYKWQ4839-65-21 02:14:000.5[facility] CjwqqotEUCSPVETVJ7115-42-76 02:14:000.2[facility] HermannCHEM RKTNV0594-68-37 10:28:0031[facility] HermannCHEM ZNVCZ8090-59-65 10:28:007.4[facility] HermannCHEM NZDTI6518-30-61 10:28:85843 [facility]annCHEM ASZHW8538-50-86 10:28:001.80[facility] HermannCHEM PANEL 2016-06-08 10:28:0013.8[facility] HermannCHEM HTWKR4114-82-35 10:28:0029[facility] HermannCHEM GFGWH9593-83-99 10:28:0098[facility] HermannCHEM UUCLA3764-73-48 10:28:003.8[facility] HermannCHEM LGQTC7328-69-12 10:28:04077Uizmxnfc HermannCHEM GIJLE4610-86-70 10:28:0039[facility] CsmragpWQDXIBYCMO8374-04-18 10:28:0015.0 [facility] UrqvajiCUBDPOEXUW7058-75-02 10:28:0031.9[facility] HermannHEMATOLOGY 2016-06-08 10:28:009.9[facility] RqcpzwdILIMHAQVFG9600-87-62 10:28:44377Hmirzdxk OsneuicUIDPPVWIPF1364-65-06 10:28:00* Test Item Value Reference Range Interpretation Comments MCH (test code = MCH) 24.4 pg 27.0-31.0 [facility] BqjkpjpOYZZWQMVQI9308-78-82 10:28:0010.1[facility] HermannHEMATOLOGY 2016-06-08 10:28:0076.4[facility] ZjzswxxAZQHGGNBRB3743-65-92 10:28:0031.7[facility] HxjdfsvEINVLJPNNC5855-75-73 10:28:004.15[facility] UsiiaxqIJSEQZMWJE9595-72-95 10:28:006.4[facility] HermannCHEM HRLML1913-43-24 12:06:65896Pflqimva HermannCHEM IEUHM5845-69-43 12:06:4753[facility] HermannCHEM FNFCG6720-21-04 12:06:476.7 [facility]annCHEM BMZLV5174-01-23 12:06:4720[facility] HermannCHEM PANEL 2016-06-07 12:06:4729[facility] HermannCHEM HCUGK6662-49-55 12:06:4716.2[facility] HermannCHEM OSMYQ4471-94-79 12:06:474.2[facility] HermannCHEM XUUOE8545-07-17 12:06:4795[facility] HermannCHEM LCULI3287-90-66 12:06:472.60[facility] HermannCHEM YSBPB9405-41-33 12:06:20152Erawrjyy HermannCHEM IONDR7499-44-64 12:06:470.5 [facility]annCHEM KDLBQ1918-47-84 12:06:4777[facility] HermannCHEM PANEL 2016-06-07 12:06:4732[facility] HermannCHEM RXUBF8968-53-47 12:06:4727[facility] HermannCHEM JRCZM7573-02-34 12:06:472.9[facility] HermannCHEM NMUVX1088-09-46 12:06:473.0[facility] HermannCHEM NGQQF5812-54-66 12:06:471.0[facility] HermannCHEM ZFGLK8857-58-95 12:06:475.9[facility] HermannCHEM QYNTA3363-34-84 12:06:4720 [facility]annCHEM LULDP7049-30-20 12:06:471.4[facility] HermannHEMATOLOGY 2016-06-07 12:06:471+ *ABN*(06/07/16 6:06 AM)[facility] GyscdflJIJWNCYXOB5694-94-05 12:06:470.1[facility] BojrxxvFZYVTQQCET4138-46-03 12:06:471.1[facility] Silt XKRLNISFHX0577-85-56 12:06:470.7[facility] NpiplybSCRABJTXSA0239-17-41 12:06:475.9 [facility] EiuiqcmPDBDRKYIQA9635-46-89 12:06:4710.3[facility] HermannHEMATOLOGY 2016-06-07 12:06:473.6[facility] TgfdjkgSRUMDXKVWH2158-55-63 12:06:471.9[facility] QlzvkluOVXFKHHBJQ2213-34-91 12:06:470.4[facility] KvibaeeSVWITQHIUI1099-44-66 12:06:4754.3[facility] LdktotoWTDUUOJEJZ5016-93-97 12:06:4728.4[facility] Silt IJBWRVQKSF5712-15-42 12:06:476.6[facility] GaohswfKQJIDCYXMA9971-15-26 12:06:47 3.66[facility] RsqdqcfMMNQXGCXTI8480-91-48 12:06:4776.4[facility] HermannHEMATOLOGY 2016-06-07 12:06:47* Test Item Value Reference Range Interpretation Comments MCH (test code = MCH) 24.3 pg 27.0-31.0 [facility] OsadiziIONLMBEIWZ5632-94-74 12:06:4731.9[facility] HermannHEMATOLOGY 2016-06-07 12:06:478.9[facility] DuxqrqaGMYGLCKJBV8321-30-56 12:06:4728.0[facility] JtgtctoETXZIXCCKY4055-27-54 12:06:4715.3[facility] QbfkrgcSXUPXIJEAW2664-12-85 12:06:47423Snztxhge WhkbzpwKKENZXPWNV8259-08-81 12:06:4710.0[facility] Pr[facility]av PARATHYROID FERHBMA5689-38-74 12:06:470.80[facility]annPARATHYROID PROFILE 2016-06-07 12:06:470.83[facility]annANEMIA WADOY0408-79-52 12:06:02529 [facility]annANEMIA FCAXY2640-31-37 12:06:0041[facility]annANEMIA STUDY 2016-06-07 12:06:72585Duxdtcnr HermannANEMIA ZIDHU0277-77-15 12:06:0010[facility] HermannCHEM SNBII3715-95-53 16:26:0016[facility] HermannCHEM YYBBM1342-81-47 16:26:0016.7[facility] HermannCHEM VKYIK8947-93-41 16:26:0029[facility]annCHEM LDQVC7820-14-36 16:26:006.6[facility]annCHEM IPAJZ7116-09-22 16:26:05821 [facility]annCHEM BUZEP2276-21-54 16:26:0054[facility]annCHEM PANEL 2016-06-06 16:26:55920Qjlzztze HermannCHEM IXCVQ8276-02-10 16:26:003.10[facility]annCHEM ZOWAX1302-69-37 16:26:003.7[facility]annCHEM AESVG3386-83-87 16:26:0095[facility]annURINE AND JJHBZ2276-89-76 12:51:005.0[facility] URINE AND TSPXH4460-70-81 12:51:001[facility]ann[facility] AND UYCCX5954-36-66 12:51:00<1[facility]ann[facility] AND LNDWE4063-74-21 12:51:00<1[facility] URINE AND KRDIQ5952-31-74 12:51:00Negative (06/06/16 6:51 AM)[facility]INE AND SREAI5364-89-62 12:51:00Negative (06/06/16 6:51 AM)[facility] AND BWPYE5032-23-78 12:51:00Negative *NA*(06/06/16 6:51 AM)[facility] AND YLTKK8642-10-50 12:51:00Negative (06/06/16 6:51 AM)[facility] URINE AND GQCWK0749-37-54 12:51:001.009[facility] AND UBAKA7556-75-35 12:51:00Slight *ABN*(06/06/16 6:51 AM)[facility] [place] [address] Patient Name: MAHESH GOLDBERG MR #: [id number] : Age/Sex: 57/F Req #: [id number] Adm Physician: Ordered by: JORDIN DENSON MD Report #: [id number] Location: [place] m/Bed: Procedure: [id number] DX/CHEST SINGLE (PORTABLE ) Exam Date: 07/31/17 Exam Time: 0635 REPORT S TATUS: Signed CHEST SINGLE (PORTABLE), 07/31/2017 5:49 AM Technique: CHES T SINGLE (PORTABLE) Comparison: None available. Clinical history: Dizziness Findings: See Impression Impression: Limited by body habitus, port able technique and motion 1. Mildly enlarged cardiomediastinal silhouette, acc entuated by technique. 2. No consolidation. No effusion or pneumothorax. Signed by: Dr Arianna Chappell MD on 07/31/2017 6:49 AM Dictated By: ARIANNA CHAPPELL MD [place] scribed By: WILDA on 07/31/17648 COPY TO: JORDIN DENSON MD CT BRAIN WO [place] [address] Patient Name: MAHESH GOLDBERG MR #: [id number] : 1960 Age/Sex: 57/F Req #: [id number] [facility] Physician: Ordered by: JORDIN DENSON MD Report #: [id number] Location: Room/Bed: Procedure: [id number] CT/CT BRAIN WO Exam Date : 07/31/17 Exam Time: 628 REPORT STATUS: Sarah d Examination: CT BRAIN WITHOUT CONTRAST History:Dizziness. Comparison studies:None Technique: Axial images were obtained from the skull base t o the vertex. Coronal and sagittal images reconstructed from the axial data. Intravenous contrast: None Findings: Scalp: No abnormalities. Bones : No fractures, blastic or lytic lesions. Brain sulci: Appropriate for age. Ventricles: Normal in size and configuration. No hydrocephalus. Extra-ax ial space: No abnormalities. Parenchyma: No abnormal densities. No masses, hemorrhage, or acute or chronic cortical based vascular insults.. S ellar/suprasellar region: No abnormalities. Craniocervical junction: Patent fo ramen magnum. No Chiari one malformation. Incidental findings: None. Impression: No intracranial abnormalities. Signed by: Dr. Karina Bautista M.D. on 07/31/2017 6:54 AM Dictated By: KARINA ACHARYA MD [address] [place] scribed By: WILDA on 07/31/17653 COPY TO: JORDIN DENSON MD
[2019-12-03 11:42] LABS: ALBUMIN/GLOBULIN RATIO 0.7 (0.8-2.0); ANION GAP 18.1 mmol/L (8-16); CALCIUM 9.5 mg/dL (8.4-10.2); CREATININE, SERUM 2.23 mg/dL (0.57-1.11); POTASSIUM 4.1 mmol/L (3.5-5.1)
--- NOTE | 2019-12-03 14:59 | Diagnostic Imaging Report ---
TECHNIQUE: Frontal view of the chest. INDICATION: ^Y ^60% room air ^20191203 ^1250 COMPARISON: 07/31/2017 DISCUSSION: Limited evaluation due to portable technique and patient body habitus. Lines and hardware: Overlying EKG leads are noted Heart and mediastinum: Cardio medius on the silhouette is enlarged. Central vascular congestive opacities are noted. Lungs and pleura: Prominent interstitial markings are noted. Negative for large effusion, focal consolidation or large pneumothorax. Soft tissues and bones: No acute abnormality. IMPRESSION: Limited evaluation. Cardiomegaly, significant vascular congestion and prominent interstitial markings are concerning for fluid overload/pulmonary edema. Negative for effusions. Signed by: Manuel Orozco MD on 12/03/2019 2:56 PM
--- OUTSIDE RECORDS SUMMARY | 2019-12-03 15:06 | XMS REPORT | Continuity of Care Document ---
Author Author Jose Luis [place] [employer] MAHESH Escalante [employer] Information [employer] Address Unknown Phone Unavailable Care Team Providers Care Geomorphologist Name Role Phone [facility] [employer] Unavailable Un available Problems Problem Status Onset Date Classification Date Reported Comments Source Obstructive sleep apnea (adult) (pediatric) 04/02/2018 10/14/2018 [facility] Pain in left knee 03/27/2018 10/09/2018 [facility] CPAP [id number] Active 03/12/2018 [facility] 1ST NIGHT - 44271 Active 01/21/2018 [facility] Encounter for screening for malignant neoplasm of colo n 12/26/2017 07/08/2018 [facility] UNK Active 0 12/18/2017 [facility] DIFF BREATHING Active 07/27/2017 [facility] MARCUM (DYSPNEA ON EXERTION), BILATERAL PUL Active 07/27/2017 [facility] RENAL FAILURE Active 06/06/2016 [facility] SCREENING NO PAIN, NO LUMPS, NO IMPLA Active 03/28/2016 [facility] M79.89=OTHER SPECIFIED SOFT TISSUE DISOR Active 08/09/2015 [facility] BMI 50.0-59.9, adult Active Diagnosis 11/08/2016 [facility] Chronic kidney disease, stage III (moderate) Active Diagnosis 11/08/2016 [facility] Hot flashes Active Diagnosis 11/08/2016 [facility] Arthritis Active Diagnosis 11/08/2016 [facility] Gastroesophageal reflux disease without esophagitis Active Diagnosis 11/08/2016 [facility] Diabetic neuropathy Active Diagnosis 11/08/2016 [facility] GERD (gastroesophageal reflux disease) Active Problem [facility] Hyperlipemia Active Diagnosis 11/08/2016 [facility] Acquired hypothyroidism Active Diagnosis 11/08/2016 [facility] Epistaxis Active Problem 11/08/2016 [facility] Dyspnea on exertion Active Problem 11/08/2016 [facility] Decreased urine output Active Problem 11/08/2016 [facility] Leg swelling Active Problem 11/08/2016 [facility] Type 2 diabetes mellitus with hyperglycemia Active Diagnosis 11/08/2016 [facility] Hypertension Active Diagnosis 11/08/2016 [facility] Localized swelling of both lower legs Active Problem [facility] Shortness of breath Active Problem 11/08/2016 [facility] Obesity, morbid, BMI 50 or higher Active Problem [facility] Microalbuminuria Active Problem 11/08/2016 [facility] Low vitamin D level Active Problem 11/08/2016 [facility] Morbid (severe) obesity due to excess [...] (urinary tract infection) Active Diagnosis 0 08/05/2015 [facility] Concern about STD in female without diagnosis Active Diagnosis 03/23/2016 [facility] Final: Acute kidney failure, unspecified 06/11/2016 [facility] Diabetes mellitus (disorder) R esolved Problem 07/2018 [facility] [facility] Hyperlipidemia (disorder) Reso lved Problem 07/2018 [facility] JONO [place],[facility] Hypertensive disorder, systemic arterial (disorder) Resolved Problem 10/16/2018 [facility], JONO [place],[facility] Morbid obesity (disorder) Acti ve Problem 07/2018 [facility], JONO [place],[facility] Unspecified chronic gastritis without bleeding 07/08/2018 [facility] Anemia, unspecified 07/08/2018 [facility] Hypertensive chronic kidney disease with stage 1 through stage 4 chronic kidney disease, or unspecified chronic kidney disease 07/08/2018 [facility] Chronic kidney disease, stage 3 (moderate) 07/08/2018 [facility] Type 2 diabetes mellitus with diabetic c hronic kidney disease 07/08/2018 [facility] Vitamin D deficiency, unspecified 07/08/2018 [facility] Other tear of medial meniscus, current i njury, left knee, initial encounter 10/09/2018 [facility] [place] Effusion, left knee 10/09/2018 [facility] [place] Spinal stenosis, lumbar region without n eurogenic claudication 10/09/2018 [facility] [place] Osteophyte, vertebrae 10/09/2018 [facility] [place] Other intervertebral disc displacement, lumbar region 10/09/2018 [facility] [place] Unilateral primary osteoarthritis, left knee 10/09/2018 [facility] [place] Dorsalgia, unspecified 10/09/2018 [facility] [place] Other forms of dyspnea 08/02/2017 [facility] ACUTE KIDNEY FAILURE, UNSPECIFIED Active [facility] RENAL FAILURE FOLLOWING INCOMPLETE SPONT Active [facility] COUGH Active [facility] UNSPECIFIED ASTHMA, UNCOMPLICATED Active [facility] OTHER FORMS OF DYSPNEA Active [facility] OTHER PULMONARY EMBOLISM WITHOUT ACUTE C Active [facility] Medications Medication Details Route Status Patient Instructions [...] 01/18/18 8:05:00 CDT, 2.54, m2 Inactive 12/19/2017 [facility] Ferrousal 325 mg oral tablet 3 25 mg = 1 tab, PO, Q-M-W-F, 0 Refill(s) Active 12/18/2017 [facility] ferrous sulfate PO, 0 Refill(s) Inactive 12/18/2017 [facility] gabapentin 800 MG Oral Tablet [Neurontin] 800 mg = 1 tab, PO, 0 Refill(s) Active 12/18/2017 [facility] Oxymetazoline hydrochloride 0.5 MG/ML Na armand [place] [Afrin] Notes: (Same as: Afrin) Inactive 07/30/2017 [facility] Amlodipine 5 mg, PO, Daily, 0 Refill(s) Active 07/30/2017 [facility] Hydrochlorothiazide 25 MG / Losartan Pot assium 100 MG Oral Tablet 1 tab, PO, Daily, 0 Refill(s) Active 07/30/2017 [facility] metoprolol tartrate 100 mg oral tablet 100 mg = 1 tab, PO, BID, 0 Refill(s) Active 07/30/2017 [facility] DULoxetine 30 mg oral delayed release capsule 30 mg = 1 cap, PO, BID, 0 Refill(s) Active 07/30/2017 [facility] Vitamin D3 10,000 intl units oral capsule 10,000 IntlUnit = 1 cap, PO, QID, 0 Refill(s) Active 07/30/2017 [facility] Aspirin 81 MG Enteric Coated Tablet 81 mg = 1 tab, PO, Daily, # 90 tab, 3 Refill(s) Active 07/30/2017 [facility] omeprazole 40 mg oral delayed release capsule 40 mg = 1 cap, PO, Daily, 0 Refill(s) Active 07/30/2017 [facility] Furosemide 40 MG Oral Tablet 4 0 mg = 1 tab, PO, Daily, 0 Refill(s) Active 07/30/2017 [facility] levothyroxine 50 mcg (0.05 mg) oral tablet 50 microgram = 1 tab, PO, Q630AM, # 30 tab, 0 Refill(s), Pharmacy: [facility] [place]/pharmacy [facility][id number] Active 07/29/2017 [facility] metoprolol tartrate 50 mg oral tablet 50 mg = 1 tab, PO, Q12H, # 60 tab, 0 Refill(s), Pharmacy: [facility] [place]/pharmacy #[id number] Inactive 07/29/2017 [facility] rivaroxaban 15 MG Oral Tablet [Xarelto] 15 mg = 1 tab, PO, Q12H, # 42 tab, 0 Refill(s), Pharmacy: [facility] [place]/pharmacy #[id number] Active 07/29/2017 [facility] Thyroxine Notes: Take 1 hour b efore or 2 hours after meal; Enteral feeds may interefere with the absorption of this medication.(Same as:Levothroid, Synthroid) No Longer Active 07/29/2017 [facility] Xarelto Notes: (Same as: Xarel to) Administer with food No Longer Active 07/29/2017 [facility] Mupirocin 0.02 MG/MG Topical Ointment 1 appl, Route: TOP, Q12H, Drug form: OINT, Start date: 07/28/17 21:00:00 CDT, Duration: 5 day, Stop date: 08/02/17 9:00:00 CDT No Longer Active 07/29/2017 [facility] Insulin Lispro Notes: (Same as : Humalog ) Roll in palms of hands gently; Do not shake `vigorously. "Single Patient Use Only " WASTE: F/P - Black; E - Municipal Trash Bin Stable for 28 days at room temp erature. Expires in days from Date No Longer Active 07/29/2017 [facility] Tylenol Notes: Do not exceed 4 gm/day. (Same as: Tylenol) No Longer Active 07/28/2017 [facility] Hydrochlorothiazide 25 MG / Metoprolol T artrate 100 MG Oral Tablet 1 tab, PO, BID, # 60 tab, 0 Refill(s) No Longer Active 07/28/2017 [facility] Tresiba FlexTouch 140 units, S UB-Q, Bedtime, 0 Refill(s) Active 07/28/2017 [facility] NovoLog 55 units, SUB-Q, TID-M eals, 0 Refill(s) Active 07/28/2017 [facility] insulin detemir 65 unit, Route : SUB-Q, Drug form: SOLN, Daily, Dosing Weight 150, kg, Start date: 07/28/17 9:00:00 CDT, Duration: 30 day, Stop date: 08/26/17 9:00:00 CDT Inactive 07/28/2017 [facility] metoprolol tartrate Notes: (Sa me as: Lopressor) No Longer Active 07/28/2017 [facility] insulin glargine Notes: (Same as: Lantus) Do not hold insulin without contacting prescriber WASTE: F/P - Black; E - Municipal Trash Bin "single patient use only" Inactive 07/28/2017 [facility] Humalog Notes: (Same as: Humal og ) Roll in palms of hands gently; Do not shake `vigorously. "Single Patient Use Only " WASTE: F/P - Black; E - Municipal Trash Bin Stable for 28 days at room temperature. Expires in days from Date No Longer Active 07/28/2017 [facility] NovoLog 12 unit, Route: SUB-Q, Drug form: SOLN, TID- Before Meals, Dosing Weight 150, kg, Start date: 07/28/17 7:30:00 CDT, Duration: 30 day, Stop date: 08/26/17 16:30:00 CDT Inactive 07/28/2017 [facility] Hydralazine Notes: (Same as: A presoline) Push over 5 minutes No Longer Active 07/28/2017 [facility] Insulin Lispro Notes: (Same as : Humalog ) Roll in palms of hands gently; Do not shake `vigorously. "Single Patient Use Only " WASTE: F/P - Black; E - Municipal Trash Bin Stable for 28 days at room temp erature. Expires in days from Date No Longer Active 07/28/2017 [facility] Dextrose 50% Syringe 12.5 gm, 25 mL, Route: IVP, Drug Form: INJ, Dosing Weight 150, kg, PRN, PRN Blood Glucose Results, Start date: 07/28/17 4:50:00 CDT, Duration: 30 day, Stop date: 08/27/17 4:49:00 CDT No Longer Active 07/28/2017 [facility] Glucagon 1 mg, Route: IM, Drug form: PDR/INJ, PRN, Dosing Weight 150, kg, PRN Blood Glucose Results, Start date: 07/28/17 4:50:00 CDT, Duration: 30 day, Stop date: 08/27/17 4:49:00 CDT No Longer Active 07/28/2017 [facility] Lasix Notes: (Same as: Lasix) Inactive 07/28/2017 [facility] Heparin 40 unit/kg Bolus (Heparin Dosing Weight) Route: IVP, PRN, 3,600 unit, 3.6 mL, Drug form: INJ, PRN, Heparin Protocol, Start date: 07/28/17 2:47:00 CDT Stop date: 08/27/17 2:46:00 CDT, 30 day Inactive 07/28/2017 [facility] Saline Flush 0.9% Notes: (Same as: BD Posiflush) No Longer Active 07/28/2017 [facility] Ondansetron Notes: (Same as: Rebecca hopper) MEDICATION WASTE Product Size: 4 mg Product Wasted: ___ mg No Longer Active 07/28/2017 [facility] Heparin 80 unit/kg Bolus (Heparin Dosing Weight) Route: IVP, PRN, 7,200 unit, 7.2 mL, Drug form: INJ, PRN, Heparin Protocol, Start date: 07/28/17 0:43:00 CDT Stop date: 08/27/17 0:42:00 CDT, 30 day Inactive 07/28/2017 [facility] heparin additive 25,000 unit [18 unit/kg /hr] + Premix Diluent Dextrose 5% 500 mL 500 mL, Rate: 32.42 ml/hr, Infuse over: 15.4 hr, Route: IV, Dosing Weight 90.06 kg, Total Volume: 500 mL, Start date: 07/28/17 0:43:00 CDT, Duration: 30 day, Stop date: 08/27/17 0:42:00 CDT, 2.02, m2 Inactive 07/28/2017 [facility] Heparin - one time bolus for DVT/PE 7,200 unit, 7.2 mL, Route: IVP, Drug form: INJ, ONCE, Dosing Weight 150, kg, Priority: STAT, Start date: 07/28/17 0:43:00 CDT, Stop date: 07/28/17 0:43:00 CDT Inactive 07/28/2017 [facility] Losartan Potassium-HCTZ 1 tabl et Orally Active 100-25 MG Orally Once a day 09/04/2016 [facility] Amlodipine Besylate 1 tablet Orally Active 5 MG Orally Once a day 09/04/2016 [facility] Cymbalta 1 capsule Orally Active 30 MG Orally twice a da y (bid) 06/19/2016 [facility] Insulin, Aspart, Human Notes: Roll in palms of hands gently; Do not shake vigorously. (Same as: NovoLOG) "single patient use only" WASTE: F/P - Black; E - Municipal Trash Bin Stable for 28 days at room temperature. Expires in days from Date Inactive 06/09/2016 [facility] insulin detemir 100 units/mL subcutaneous solution 65 unit, SUB-Q, Bedtime, # 15 mL, 0 Refill(s), Pharmacy: [facility] [place]/pharmacy #[id number] Active 06/08/2016 [facility] levothyroxine 50 mcg (0.05 mg) oral tablet 50 microgram = 1 tab, PO, Q630AM, # 30 tab, 0 Refill(s), Pharmacy: [facility] [place]/pharmacy #[id number] Active 06/08/2016 [facility] Insulin, Aspart, Human 100 UNT/ML Inject able Solution [NovoLog] 12 unit, SUB-Q, TID-Before Meals, # 15 m L, 0 Refill(s), other Active 06/08/2016 [facility] levothyroxine 50 mcg (0.05 mg) oral tablet 50 microgram = 1 tab, PO, Q630AM, # 30 tab, 0 Refill(s), other Inactive 06/08/2016 [facility] insulin detemir 100 units/mL subcutaneous solution 65 unit, SUB-Q, Bedtime, 0 Refill(s) Inactive 06/08/2016 [facility] Insulin, Aspart, Human Notes: Roll in palms of hands gently; Do not shake vigorously. (Same as: NovoLOG) "single patient use only" WASTE: F/P - Black; E - Municipal Trash Bin Stable for 28 days at room temperature. Expires in days from Date No Longer Active 06/08/2016 [facility] Glucagon 1 mg, Route: IM, PRN, Dosing Weight 150.085, kg, PRN Blood Glucose Results, Start date: 06/07/16 22:14:00 ADMINISTRATOR OF HOME HEALTH, Duration: 30 day, Stop date: 07/07/16 23:13:00 CDT Inactive 06/08/2016 [facility] Dextrose 50% Syringe 50 mL, [place]: IVP, Dosing Weight 150.085, kg, PRN, PRN Blood Glucose Results, Start date: 06/07/16 22:14:00 ADMINISTRATOR OF HOME HEALTH, Duration: 30 day, Stop date: 07/07/16 23:13:00 CDT Inactive 06/08/2016 [facility] Magnesium Sulfate Notes: WASTE : F/P - Sink; E - Municipal Trash Bin Inactive 06/07/2016 [facility] Calcium Carbonate Notes: (Same As: Tumblanquita) Calcium Carbonate 500 mg = 200 mg elemental calcium Dose = mg calcium carbonate ( mg elemental calcium) No Longer Active 06/07/2016 [facility] Synthroid Notes: Take 1 hour b efore or 2 hours after meal; Enteral feeds may interefere with the absorption of this medication.(Same as:Levothroid, Synthroid) No Longer Active 06/07/2016 [facility] Insulin Glargine 100 UNT/ML Injectable S olution [Lantus] Route: SUB-Q, Drug form: SOLN, Bedtime, Dosing Weight 150.085, kg, Start date: 06/06/16 21:00:00 ADMINISTRATOR OF HOME HEALTH, Duration: 30 day, Stop date: 07/05/16 21:00:00 CDT Inactive 06/07/2016 [facility] Levemir FlexPen Notes: Same as Levemir Do not hold insulin without contacting prescriber WASTE: F/P - Black; E - Municipal Trash Bin "single patient use only" No Longer Active 06/07/2016 [facility] sodium chloride 0.9% 1000 ml INJ 1,000 mL 1,000 mL, Rate: 75 ml/hr, Infuse over: 13.3 hr, Route: IV, Dosing Weight 150.085 kg, Total Volume: 1,000, Start date: 06/06/16 16:01:00 ADMINISTRATOR OF HOME HEALTH, Duration: 2 doses or times, Stop date: 06/07/16 18:36:00 ADMINISTRATOR OF HOME HEALTH No Longer Active 06/06/2016 [facility] Calcium Gluconate Notes: WASTE : F/P - Sink; E - Municipal Trash Bin Inactive 06/06/2016 [facility] gabapentin 300 MG Oral Capsule Notes: (Same as: Neurontin) No Longer Active 06/06/2016 [facility] metoprolol tartrate Notes: (Sa me as: Lopressor) No Longer Active 06/06/2016 [facility] atorvastatin Notes: (Same as: Lipitor) No Longer Active 06/06/2016 [facility] Aspirin Notes: Take with food. No Longer Active 06/06/2016 [facility] pneumococcal capsular polysaccharide typ e 1 vaccine / pneumococcal capsular polysaccharide type 10A vaccine / pneumococcal capsular polysaccharide type 11A vaccine / pneumococcal capsular polysaccharide type 12F vaccine / pneumococcal capsular polysacchar Notes: (Same as: Pneumovax 23) Refrigerate Inactive 06/06/2016 [facility] influenza virus vaccine, inactivated Notes: (Same as: Fluzone Quadrivalent, Fluarix Quadrivalent) For 3 years of age and older (0.5 mL IM) Shake well before use Inactive 06/06/2016 [facility] Lasix Notes: (Same as: Lasix) MEDICATION WASTE Product Size: 40 mg Product Wasted: ___ mg No Longer Active 06/06/2016 [facility] Lovenox Notes: (Same as: Loven ox) No Longer Active 06/06/2016 [facility] Insulin Glargine 100 UNT/ML Injectable S olution [Lantus] Route: SUB-Q, Drug form: SOLN, Breakfast , Dosing Weight 150.085, kg, Start date: 06/06/16 8:00:00 ADMINISTRATOR OF HOME HEALTH, Duration: 30 day, Stop date: 07/05/16 8:00:00 CDT Inactive 06/06/2016 [facility] Levemir FlexPen Notes: Same as Levemir Do not hold insulin without contacting prescriber WASTE: F/P - Black; E - Municipal Trash Bin "single patient use only" No Longer Active 06/06/2016 [facility] Zithromax Notes: (Same As: Zit hromax IV) No Longer Active 06/06/2016 [facility] NovoLog Notes: Roll in palms o f hands gently; Do not shake vigorously. (Same as: NovoLOG) "single patient use only" WASTE: F/P - Black; E - Municipal Trash Bin Stable for 28 days at room temperature. Expires in days from Date No Longer Active 06/06/2016 [facility] Insulin, Aspart, Human Notes: Roll in palms of hands gently; Do not shake vigorously. (Same as: NovoLOG) "single patient use only" WASTE: F/P - Black; E - Municipal Trash Bin Stable for 28 days at room temperature. Expires in days from Date No Longer Active 06/06/2016 [facility] Dextrose 50% Syringe 12.5 gm, 25 mL, Route: IVP, Drug Form: INJ, Dosing Weight 150.085, kg, PRN, PRN Blood Glucose Results, Start date: 06/06/16 7:06:00 ADMINISTRATOR OF HOME HEALTH, Duration: 30 day, Stop date: 07/06/16 8:05:00 CDT No Longer Active 06/06/2016 [facility] Glucagon 1 mg, Route: IM, Drug form: PDR/INJ, PRN, Dosing Weight 150.085, kg, PRN Blood Glucose Results, Start date: 06/06/16 7:06:00 ADMINISTRATOR OF HOME HEALTH, Duration: 30 day, Stop date: 07/06/16 8:05:00 CDT No Longer Active 06/06/2016 [facility] Ondansetron Notes: (Same as: Rebecca hopper) MEDICATION WASTE Product Size: 4 mg Product Wasted: ___ mg No Longer Active 06/06/2016 [facility] Morphine Notes: (Same as:MORPh ine Sulfate) No Longer Active 06/06/2016 [facility] naproxen 500 mg oral tablet 50 0 mg = 1 tab, PO, BID, PRN Pain Score 1-5, 0 Refill(s) N o Longer Active 06/06/2016 [facility] NovoLog 10 unit, SUB-Q, TID-Be fore Meals, 0 Refill(s) No Longer Active 06/06/2016 [facility] metoprolol tartrate 100 mg oral tablet 100 mg = 1 tab, PO, BID, 0 Refill(s) Active 06/06/2016 [facility] Hydrochlorothiazide 12.5 MG / Lisinopril 20 MG Oral Tablet 1 tab, PO, BID, 0 Refill(s) No Longer Active 06/06/2016 [facility] Insulin Glargine 100 UNT/ML Injectable S olution [Lantus] 60 units, SUB-Q, Bedtime, 0 Refill(s) Active 06/06/2016 [facility] Aspirin 81 mg, PO, Daily, 0 Re fill(s) Active 06/06/2016 [facility] gabapentin 800 MG Oral Tablet 800 mg = 1 tab, PO, TID, 0 Refill(s) Active 06/06/2016 [facility] Metformin 1,000 mg, PO, BID, w ith meals, 0 Refill(s) No Longer Active 06/06/2016 [facility] atorvastatin 40 mg oral tablet 40 mg = 1 tab, PO, Daily, 0 Refill(s) Active 06/06/2016 [facility] Lasix 1 tablet Orally Active 40 MG Orally three time s a day (tid) [facility] 05/30/2016 [facility] Naproxen 1 tablet as needed Orally Active 500 MG Orally every 12 hrs [facility] 04/27/2016 [facility] Victoza 1.8 mg Subcutaneous Active 18 MG/3ML Subcutaneous Once a day [facility] 01/20/2016 [facility] Victoza 1.2 mg Subcutaneous Active 18 MG/3ML Subcutaneous Once a day [facility] 11/26/2015 [facility] Metoprolol Tartrate 1 tablet Orally Active 25 MG Orally Twice a day [facility] 09/05/2015 [facility] Victoza 1.2 mg Subcutaneous Active 18 MG/3ML Subcutaneous Once a day [facility] 09/05/2015 [facility] NovoLog Flexpen as directed Subcutaneous Active 100 UNIT/ML Subcutaneous as directed [facility] 08/04/2015 [facility] Ergocalciferol 1 capsule Orally Active 64775 UNIT Orally once a week [facility] 08/04/2015 [facility] Omeprazole 1 capsule Orally Active 40 mg Orally Once a day [facility] 08/04/2015 [facility] Ciprofloxacin HCl 1 tablet Orally Active 500 mg Orally Twice a day [facility] 08/04/2015 [facility] Atorvastatin Calcium 1 tablet Orally Active 40 mg Orally Once a day [facility] 08/04/2015 [facility] Metformin HCl 1 tablet with me als Orally Active 1000 mg Orally Twice a day [facility] 07/14/2015 [facility] Gabapentin 1 capsule Orally Active 300 MG Orally twice a d ay (bid) [facility] 07/14/2015 [facility] Lisinopril-Hydrochlorothiazide 1 tablet Orally Active 20-12.5 MG Orally Once a day [facility] 07/14/2015 [facility] Lantus SoloStar 20 units Subcutaneous Active 100 UNIT/ML Subcutaneous every morning [facility] 07/14/2015 [facility] Atorvastatin Calcium 1 tablet Orally Active 40 mg Orally Once a day [facility] Gabapentin 1 capsule Orally Active 800 MG Orally three mingo es a day (tid) [facility] Metoprolol Tartrate 1 tablet Orally Active 100 MG Orally Twice a day [facility] Lisinopril-Hydrochlorothiazide 1 tablet Orally Active 20-12.5 MG Orally twice a day (bid) [facility] [place] [facility] Synthroid take 1 tablet by trice th at 6.30 am Orally Active 50 MCG Orally daily [facility] Cymbalta 1 capsule Orally Active 30 MG Orally twice a da y (bid) [facility] Tresiba FlexTouch 130 units at night Subcutaneous Active 200 UNIT/ML Subcutaneous daily [facility] Accu-Chek SmartView USE TO CORNELIUS CK BLOOD GLUCOSE TWICE A DAY NA Active - [facility] Omeprazole 1 capsule Orally Active 40 mg Orally Once a day [facility] Atorvastatin Calcium 1 tablet [...] Orally three mingo es a day (tid) [facility] Amlodipine Besylate 1 tablet Orally Active 10 MG Orally Once a day [facility] NovoLog Flexpen 35 units Subcutaneous Active 100 UNIT/ML Subcutaneous three times a day (tid) [facility] Lisinopril 1 tablet Orally Active 40 MG Orally Once a day [facility] Lansoprazole 1 capsule Orally Active 30 MG Orally Once a day [facility] Victoza Unknown NA Active [facility] Metformin HCl 1 tablet with me als Orally Active 1000 mg Orally Twice a day [facility] NIFEdipine ER 1 tablet Orally Active 90 MG Orally Once a day [facility] Lisinopril-Hydrochlorothiazide 1 tablet Orally Active 20-12.5 MG [...] MD, PA Ergocalciferol 1 capsule Orally Active 56608 UNIT Orally Parmjit Parnell MD, DIXON Victoza 0.2 ml Subcutaneous Active 18 MG/3ML Subcutaneous Once a day Parmjit Parnell MD, [place] NovoLog 55 units Subcutaneous Active 100 UNIT/ML Subcutaneou s three times a day (tid) [facility] Losartan Potassium-HCTZ 1 tabl et Orally Active 100-25 MG Orally Once a day [facility] Amlodipine Besylate 1 tablet Orally Active 5 MG Orally Once a day [facility] Lantus SoloStar 90 units in th e mornings and 70 units at night Subcutaneous Active 100 UNIT/ML Subcutaneous every morning [facility] Gabapentin 1 capsule Orally Active 600 MG Orally three mingo es a day (tid) [facility] Metoprolol Tartrate 1 tablet Orally Active 50 mg Orally Twice a day [facility] Allergies, Adverse Reactions, Alerts Substance Category Reaction Severity Reaction type Status Date Reported Comments Source N.K.D.A. Adverse Reaction Info Not Available Adverse Reaction Active 10/29/2018 Pako Parnell MD, [place] No Known Medication Allergies Assertion Drug nacho Sainz Neuro Immunizations Immunization Date Given Site Status Last Updated Comments Source FLU SHOT 3 & UP 06/19/2016 completed [facility] Primary pneumococcal 23-valent vaccine 06/06/2016 Right deltoid completed [facility] [place], inactivated 06/06/2016 Left deltoid completed Arnaldo Crowley, KELLY [facility] [place] JONO [place] FLU SHOT 3 & UP 05/30/2016 completed [facility] Primary FLU SHOT 3 & UP 03/22/2016 completed [facility] FLU SHOT 3 & UP 02/21/2016 completed [facility] Primary FLU SHOT 3 & UP 09/27/2015 completed [facility] Primary Results Order Name Results Value Reference Range Date Interpretation Comments Source ELECTROLYTES AGAP 16.9 10.0 - 20.0 07/30/2017 [facility] ELECTROLYTES eGFR 57 07/30/2017 Result Comment: The [...] should be multiplied by the estimated BMI. [facility] ELECTROLYTES Sodium Lvl 145 135 - 145 07/30/2017 [facility] ELECTROLYTES Potassium Lvl 3.9 3.5 - 5.1 07/30/2017 [facility] ELECTROLYTES Chloride Lvl 103 95 - 109 07/30/2017 [facility] ELECTROLYTES BUN 23 7 - 22 07/30/2017 [facility] ELECTROLYTES Creatinine Lvl 1.0 8 0.50 - 1.40 07/30/2017 [facility] ELECTROLYTES Glucose Lvl 298 70 - 99 07/30/2017 [facility] ELECTROLYTES Calcium Lvl 9.6 8.5 - 10.5 07/30/2017 [facility] ELECTROLYTES CO2 29 24 - 32 07/30/2017 [facility] HEMATOLOGY Platelet 276 133 - 450 07/30/2017 [facility] HEMATOLOGY MPV 8.6 7.4 - 10.4 07/30/2017 [facility] HEMATOLOGY MCH 22.2 27.0 - 31.0 07/30/2017 [facility] HEMATOLOGY MCHC 30.6 32.0 - 36.0 07/30/2017 [facility] HEMATOLOGY RDW 18.1 11.5 - 14.5 07/30/2017 [facility] HEMATOLOGY Hct 30.9 36.0 - 48.0 07/30/2017 [facility] HEMATOLOGY MCV 72.6 80.0 - 98.0 07/30/2017 [facility] HEMATOLOGY WBC 9.4 3.7 - 10.4 07/30/2017 [facility] HEMATOLOGY RBC 4.25 4.20 - 5.40 07/30/2017 [facility] HEMATOLOGY Hgb 9.4 12.0 - 16.0 07/30/2017 [facility] HEMATOLOGY Segs-Bands # 7.1 1.5 - 8.1 07/30/2017 [facility] HEMATOLOGY Lymphocytes # 1.4 1.0 - 5.5 07/30/2017 [facility] HEMATOLOGY Monocytes # 0.8 0.0 - 0.8 07/30/2017 [facility] HEMATOLOGY Eosinophils # 0.1 0.0 - 0.5 07/30/2017 [facility] HEMATOLOGY Microcyte 1+ *ABN* (07/30/17 6:04 AM) None Seen 07/30/2017 [facility] HEMATOLOGY Hypochrom 1+ (07/30/17 6:04 AM) None Seen 07/30/2017 [facility] HEMATOLOGY Lymphocytes 15.4 20.0 - 40.0 07/30/2017 [facility] HEMATOLOGY Segs 75.5 45.0 - 75.0 07/30/2017 [facility] HEMATOLOGY Basophils 0.4 0.0 - 1.0 07/30/2017 [facility] Monocytes 8.1 2.0 - 12.0 07/30/2017 [facility] HEMATOLOGY Eosinophils 0.6 0.0 - 4.0 07/30/2017 [facility] HEMATOLOGY Plt Morph Tiana l (07/30/17 6:04 AM) 07/30/2017 [facility] SPECIAL CHEMISTRY Hgb A1C 7.8 <=5.6 % 07/29/2017 [facility] CARDIAC ENZYMES CK MB <1.0 0.5 - 3.6 07/28/2017 [facility] CARDIAC ENZYMES CK MB Index <1.2 0.0 - 2.5 07/28/2017 [facility] CARDIAC ENZYMES Total CK 81 12 - 191 07/28/2017 [facility] CARDIAC ENZYMES Troponin-I <0.02 0.00 - 0.40 07/28/2017 [facility] HEMATOLOGY PTT 91.2 22.9 - 35.8 07/28/2017 [facility] URINE CHEM U Creatinine 15.30 07/28/2017 [facility] URINE CHEM U Sodium 124 07/28/2017 [facility] CARDIAC ENZYMES CK MB Index 1.1 0.0 - 2.5 07/28/2017 [facility] CARDIAC ENZYMES CK MB 1.0 0.5 - 3.6 07/28/2017 [facility] CARDIAC ENZYMES Troponin-I <0.02 0.00 - 0.40 07/28/2017 [facility] CARDIAC ENZYMES Total CK 93 12 - 191 07/28/2017 [facility] CHEM PANEL eGFR 43 07/28/2017 Result Comment: [...] should be multiplied by the estimated BMI. [facility] CHEM PANEL BUN 34 7 - 22 07/28/2017 [facility] CHEM PANEL Glucose Lvl 177 70 - 99 07/28/2017 [facility] CHEM PANEL Potassium Lvl 3.7 3.5 - 5.1 07/28/2017 [facility] CHEM PANEL Chloride Lvl 107 95 - 109 07/28/2017 [facility] CHEM PANEL Sodium Lvl 143 135 - 145 07/28/2017 [facility] CHEM PANEL Creatinine Lvl 1.37 0.50 - 1.40 07/28/2017 [facility] CHEM PANEL B/C Ratio 25 6 - 25 07/28/2017 [facility] CHEM PANEL AGAP 8.7 10.0 - 20.0 07/28/2017 [facility] CHEM PANEL CO2 31 24 - 32 07/28/2017 [facility] CHEM PANEL Total Protein 7.3 6.4 - 8.4 07/28/2017 [facility] CHEM PANEL Globulin 4.1 2.7 - 4.2 07/28/2017 [facility] CHEM PANEL A/G Ratio 0.8 0.7 - 1.6 07/28/2017 [facility] CHEM PANEL Bili Total 0.3 0.2 - 1.3 07/28/2017 [facility] CHEM PANEL Alk Phos 92 39 - 136 07/28/2017 [facility] CHEM PANEL Calcium Lvl 8.5 8.5 - 10.5 07/28/2017 [facility] CHEM PANEL AST 17 0 - 37 07/28/2017 [facility] CHEM PANEL ALT 20 0 - 65 07/28/2017 [facility] CHEM PANEL Albumin Lvl 3.2 3.5 - 5.0 07/28/2017 [facility] MCHC 30.7 32.0 - 36.0 07/28/2017 [facility] MCH 22.4 27.0 - 31.0 07/28/2017 [facility] HEMATOLOGY RDW 18.1 11.5 - 14.5 07/28/2017 [facility] MCV 73.0 80.0 - 98.0 07/28/2017 [facility] Platelet 263 133 - 450 07/28/2017 [facility] MPV 8.6 7.4 - 10.4 07/28/2017 [facility] RBC 3.82 4.20 - 5.40 07/28/2017 [facility] Hgb 8.6 12.0 - 16.0 07/28/2017 [facility] Hct 27.9 36.0 - 48.0 07/28/2017 [facility] WBC 7.6 3.7 - 10.4 07/28/2017 [facility] Microcyte 1+ *ABN* (07/28/17 3:45 AM) None Seen 07/28/2017 [facility] Eosinophils # 0.2 0.0 - 0.5 07/28/2017 [facility] Lymphocytes 33.6 20.0 - 40.0 07/28/2017 [facility] HEMATOLOGY Segs 55.4 45.0 - 75.0 07/28/2017 [facility] Monocytes # 0.6 0.0 - 0.8 07/28/2017 [facility] Basophils 0.5 0.0 - 1.0 07/28/2017 [facility] Segs-Bands # 4.2 1.5 - 8.1 07/28/2017 [facility] Lymphocytes # 2.5 1.0 - 5.5 07/28/2017 [facility] Eosinophils 2.9 0.0 - 4.0 07/28/2017 [facility] Monocytes 7.6 2.0 - 12.0 07/28/2017 [facility] CARDIAC ENZYMES BNP 13 <=100 pg/mL 07/28/2017 [facility] CARDIAC ENZYMES Total CK 103 12 - 191 07/28/2017 [facility] CARDIAC ENZYMES CK MB <1.0 0.5 - 3.6 07/28/2017 [facility] CARDIAC ENZYMES Troponin-I <0.02 0.00 - 0.40 07/28/2017 [facility] CARDIAC ENZYMES CK MB Index <1.0 0.0 - 2.5 07/28/2017 [facility] CHEM PANEL eGFR 36 07/28/2017 Result Comment: [...] should be multiplied by the estimated BMI. [facility] CHEM PANEL Total Protein 7.8 6.4 - 8.4 07/28/2017 [facility] CHEM PANEL Calcium Lvl 8.2 8.5 - 10.5 07/28/2017 [facility] CHEM PANEL CO2 31 24 - 32 07/28/2017 [facility] CHEM PANEL Chloride Lvl 103 95 - 109 07/28/2017 [facility] CHEM PANEL Potassium Lvl 3.8 3.5 - 5.1 07/28/2017 [facility] CHEM PANEL Bili Total 0.3 0.2 - 1.3 07/28/2017 [facility] CHEM PANEL Alk Phos 105 39 - 136 07/28/2017 [facility] CHEM PANEL AST 13 0 - 37 07/28/2017 [facility] CHEM PANEL ALT 20 0 - 65 07/28/2017 [facility] CHEM PANEL Albumin Lvl 3.2 3.5 - 5.0 07/28/2017 [facility] CHEM PANEL Creatinine Lvl 1.57 0.50 - 1.40 07/28/2017 [facility] CHEM PANEL Sodium Lvl 145 135 - 145 07/28/2017 [facility] CHEM PANEL BUN 38 7 - 22 07/28/2017 [facility] CHEM PANEL Glucose Lvl 296 70 - 99 07/28/2017 [facility] CHEM PANEL A/G Ratio 0.7 0.7 - 1.6 07/28/2017 [facility] CHEM PANEL Globulin 4.6 2.7 - 4.2 07/28/2017 [facility] CHEM PANEL B/C Ratio 24 6 - 25 07/28/2017 [facility] CHEM PANEL AGAP 14.8 10.0 - 20.0 07/28/2017 [facility] HEMATOLOGY PTT 32.6 22.9 - 35.8 07/28/2017 [facility] HEMATOLOGY PT 12.9 12.0 - 14.7 07/28/2017 [facility] HEMATOLOGY INR 0.97 0.85 - 1.17 07/28/2017 [facility] MCH 23.0 27.0 - 31.0 07/28/2017 [facility] RBC 4.01 4.20 - 5.40 07/28/2017 [facility] MCV 74.0 80.0 - 98.0 07/28/2017 [facility] Hgb 9.2 12.0 - 16.0 07/28/2017 [facility] WBC 8.1 3.7 - 10.4 07/28/2017 [facility] HEMATOLOGY Hct 29.7 36.0 - 48.0 07/28/2017 [facility] Platelet 280 133 - 450 07/28/2017 [facility] MPV 8.3 7.4 - 10.4 07/28/2017 [facility] MCHC 31.0 32.0 - 36.0 07/28/2017 [facility] RDW 18.1 11.5 - 14.5 07/28/2017 [facility] Monocytes 5.8 2.0 - 12.0 07/28/2017 [facility] Lymphocytes 22.0 20.0 - 40.0 07/28/2017 [facility] Segs 69.1 45.0 - 75.0 07/28/2017 [facility] Microcyte 1+ *ABN* (07/27/17 9:14 PM) None Seen 07/28/2017 [facility] HEMATOLOGY Basophils 0.5 0.0 - 1.0 07/28/2017 [facility] HEMATOLOGY Eosinophils 2.6 0.0 - 4.0 07/28/2017 [facility] Lymphocytes # 1.8 1.0 - 5.5 07/28/2017 [facility] Segs-Bands # 5.6 1.5 - 8.1 07/28/2017 [facility] HEMATOLOGY Monocytes # 0.5 0.0 - 0.8 07/28/2017 [facility] HEMATOLOGY Eosinophils # 0.2 0.0 - 0.5 07/28/2017 [facility] CHEM PANEL eGFR 31 06/08/2016 Result Comment: [...] should be multiplied by the estimated BMI. [facility] CHEM PANEL Calcium Lvl 7.4 8.5 - 10.5 06/08/2016 [facility] CHEM PANEL Sodium Lvl 137 135 - 145 06/08/2016 [facility] CHEM PANEL Creatinine Lvl 1.80 0.50 - 1.40 06/08/2016 [facility] CHEM PANEL AGAP 13.8 10.0 - 20.0 06/08/2016 [facility] CHEM PANEL CO2 29 24 - 32 06/08/2016 [facility] CHEM PANEL Chloride Lvl 98 95 - 109 06/08/2016 [facility] CHEM PANEL Potassium Lvl 3.8 3.5 - 5.1 06/08/2016 [facility] CHEM PANEL Glucose Lvl 339 70 - 99 06/08/2016 [facility] CHEM PANEL BUN 39 7 - 22 06/08/2016 [facility] HEMATOLOGY RDW 15.0 11.5 - 14.5 06/08/2016 [facility] HEMATOLOGY MCHC 31.9 32.0 - 36.0 06/08/2016 [facility] MPV 9.9 7.4 - 10.4 06/08/2016 [facility] Platelet 253 133 - 450 06/08/2016 [facility] MCH 24.4 27.0 - 31.0 06/08/2016 [facility] HEMATOLOGY Hgb 10.1 12.0 - 16.0 06/08/2016 [facility] HEMATOLOGY MCV 76.4 80.0 - 98.0 06/08/2016 [facility] HEMATOLOGY Hct 31.7 36.0 - 48.0 06/08/2016 [facility] HEMATOLOGY RBC 4.15 4.20 - 5.40 06/08/2016 [facility] HEMATOLOGY WBC 6.4 3.7 - 10.4 06/08/2016 [facility] CHEM PANEL Glucose Lvl 300 70 - 99 06/07/2016 [facility] CHEM PANEL BUN 53 7 - 22 06/07/2016 [facility] CHEM PANEL Calcium Lvl 6.7 8.5 - 10.5 06/07/2016 Result Comment: Critical Result(s) lulu hines at 06/07/2016 06:47 byjw. Read back OK. [facility] CHEM PANEL B/C Ratio 20 6 - 25 06/07/2016 [facility] CHEM PANEL CO2 29 24 - 32 06/07/2016 [facility] CHEM PANEL AGAP 16.2 10.0 - 20.0 06/07/2016 [facility] CHEM PANEL Potassium Lvl 4.2 3.5 - 5.1 06/07/2016 [facility] CHEM PANEL Chloride Lvl 95 95 - 109 06/07/2016 [facility] CHEM PANEL Creatinine Lvl 2.60 0.50 - 1.40 06/07/2016 [facility] CHEM PANEL Sodium Lvl 136 135 - 145 06/07/2016 [facility] CHEM PANEL Bili Total 0.5 0.2 - 1.3 06/07/2016 [facility] CHEM PANEL Alk Phos 77 39 - 136 06/07/2016 [facility] CHEM PANEL ALT 32 0 - 65 06/07/2016 [facility] CHEM PANEL AST 27 0 - 37 06/07/2016 [facility] CHEM PANEL Albumin Lvl 2.9 3.5 - 5.0 06/07/2016 [facility] CHEM PANEL Globulin 3.0 2.7 - 4.2 06/07/2016 [facility] CHEM PANEL A/G Ratio 1.0 0.7 - 1.6 06/07/2016 [facility] CHEM PANEL Total Protein 5.9 6.4 - [...] should be multiplied by the estimated BMI. [facility] CHEM PANEL Magnesium Lvl 1.4 1.8 - 2.4 06/07/2016 [facility] HEMATOLOGY Microcyte 1+ *ABN* (06/07/16 6:06 AM) None Seen 06/07/2016 [facility] Basophils # 0.1 0.0 - 0.2 06/07/2016 [facility] HEMATOLOGY Basophils 1.1 0.0 - 1.0 06/07/2016 [facility] HEMATOLOGY Monocytes # 0.7 0.0 - 0.8 06/07/2016 [facility] HEMATOLOGY Eosinophils 5.9 0.0 - 4.0 06/07/2016 [facility] HEMATOLOGY Monocytes 10.3 2.0 - 12.0 06/07/2016 [facility] Segs-Bands # 3.6 1.5 - 8.1 06/07/2016 [facility] Lymphocytes # 1.9 1.0 - 5.5 06/07/2016 [facility] Eosinophils # 0.4 0.0 - 0.5 06/07/2016 [facility] HEMATOLOGY Segs 54.3 45.0 - 75.0 06/07/2016 [facility] Lymphocytes 28.4 20.0 - 40.0 06/07/2016 [facility] HEMATOLOGY WBC 6.6 3.7 - 10.4 06/07/2016 [facility] HEMATOLOGY RBC 3.66 4.20 - 5.40 06/07/2016 [facility] MCV 76.4 80.0 - 98.0 06/07/2016 [facility] MCH 24.3 27.0 - 31.0 06/07/2016 [facility] MCHC 31.9 32.0 - 36.0 06/07/2016 [facility] HEMATOLOGY Hgb 8.9 12.0 - 16.0 06/07/2016 [facility] HEMATOLOGY Hct 28.0 36.0 - 48.0 06/07/2016 [facility] HEMATOLOGY RDW 15.3 11.5 - 14.5 06/07/2016 [facility] HEMATOLOGY Platelet 225 133 - 450 06/07/2016 [facility] HEMATOLOGY MPV 10.0 7.4 - 10.4 06/07/2016 [facility] PARATHYROID PROFILE Ca Norm WB 0.80 1.05 - 1.25 06/07/2016 [facility] PARATHYROID PROFILE Ca Ion WB 0.83 1.05 - 1.25 06/07/2016 Result Comment: Critical Result(s) lulu zuñiga at 06/07/2016 06:32 byjw. Read back OK. [facility] ANEMIA STUDY TIBC 402 228 - 428 06/07/2016 [facility] ANEMIA STUDY Iron 41 30 - 160 06/07/2016 [facility] ANEMIA STUDY UIBC 361 110 - 370 06/07/2016 [facility] ANEMIA STUDY % [place] Fe 10 12 - 57 06/07/2016 [facility] CHEM PANEL eGFR 16 06/06/2016 Result Comment: [...] should be multiplied by the estimated BMI. [facility] CHEM PANEL AGAP 16.7 10.0 - 20.0 06/06/2016 [facility] CHEM PANEL CO2 29 24 - 32 06/06/2016 [facility] CHEM PANEL Calcium Lvl 6.6 8.5 - 10.5 06/06/2016 Result Comment: Critical Result(s) lulu Mcintosh at 06/06/2016 11:04 by iona. Read back OK. [facility] CHEM PANEL Glucose Lvl 329 70 - 99 06/06/2016 [facility] CHEM PANEL BUN 54 7 - 22 06/06/2016 [facility] CHEM PANEL Sodium Lvl 137 135 - 145 06/06/2016 [facility] CHEM PANEL Creatinine Lvl 3.10 0.50 - 1.40 06/06/2016 [facility] CHEM PANEL Potassium Lvl 3.7 3.5 - 5.1 06/06/2016 [facility] CHEM PANEL Chloride Lvl 95 95 - 109 06/06/2016 [facility] URINE AND STOOL UA Urobilinogen <=1.0 mg/dL 0.1 - 1.0 06/06/2016 [facility] URINE AND STOOL UA Color Ltyellow 06/06/2016 [facility] URINE AND STOOL UA Sq Epi None Seen 06/06/2016 [facility] URINE AND STOOL UA pH 5.0 5.0 - 8.0 06/06/2016 [facility] URINE AND STOOL UA Bacteria Occasional /HPF None Seen /HPF 06/06/2016 [facility] URINE AND STOOL UA Hyal Cast 1 0 - 2 06/06/2016 [facility] URINE AND STOOL UA RBC <1 0 - 2 06/06/2016 [facility] URINE AND STOOL UA WBC <1 0 - 5 06/06/2016 [facility] URINE AND STOOL UA Leuk Est Negative (06/06/16 6:51 AM) Negative 06/06/2016 [facility] URINE AND STOOL UA Blood Negative (06/06/16 6:51 AM) Negative 06/06/2016 [facility] URINE AND STOOL UA Bili Negative *NA* (06/06/16 6:51 AM) Negative 06/06/2016 [facility] URINE AND STOOL UA Nitrite Negative (06/06/16 6:51 AM) Negative 06/06/2016 [facility] URINE AND STOOL UA Protein Negative mg/dL Negative mg/dL 06/06/2016 [facility] URINE AND STOOL UA Ketones Negative mg/dL Negative mg/dL 06/06/2016 [facility] URINE AND STOOL UA Glucose Negative mg/dL Negative mg/dL 06/06/2016 [facility] URINE AND STOOL UA Spec Grav 1.009 <=1.030 06/06/2016 [facility] URINE AND STOOL UA Turbidity Slight *ABN* (06/06/16 6:51 AM) Clear 06/06/2016 [facility] Pathology Reports No Data Provided for This [...] acute abnormality. 2. Multilevel degenerative changes. 07/10/2018 [facility] Hip 2/3 views uni w pelvis DX [...] there is a persistent clinical concern. 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 CLINICAL INDICATION: 57 years Female M54.9 Dorsalgia, [...] Other mild stenoses as above. 03/21/2018 [facility] wo contrast MRI EXAMINATI ON: MRI [...] and collate ral ligaments. 03/21/2018 KE[facility] DALLASD [facility] [place] 1-2 Views unilateral DX E XAM: [...] most prominent in the medial compartment. 01/27/2018 [facility] Pulmonary Embolism CTA Clinical Indication: [...] on 07/28/2017, 1217 hours SL: NOEMI 07/27/2017 [facility] Chest 1view DX Patient Name: Sy GOLDBERG : 1960; Age: 57 years y/o Female MR: [id number] * CHEST, portable, 1 view HISTORY: Dyspnea. COMPARISON: None TECHNIQUE: A portable frontal radiograph of the chest was obtained. FINDINGS: There is no evidence of an active or acute process within the chest. The lungs are clear. There are no pleural effusions. The heart is normal in size. The regional skeleton is unremarkable. IMPRESSION: 1. No active disease. SL: SYLVIA-PC 07/27/2017 [facility] Knee 1-2 Views unilateral DX E XAM: [...] space narrowing of the medial compartment. 02/05/2017 [facility] Spine lumbar series DX EXAM: X R [...] due to poor image quali ty. 02/05/2017 [facility] Femur series DX EXAM: XR RIGHT FEMUR 2 VIEWS DATE: 02/05/2017 10:31 AM CDT INDICATION: - M79.651 Pain in right thigh COMPARISON: None. TECHNIQUE: AP and lateral radiographs of the femur FINDINGS: No acute fracture or malalignment is identified. No soft tissue abnormality is identified. IMPRESSION: No acute abnormality. 02/05/2017 [facility] Retroperitoneal Complete US St udy: Retroperitoneal Complete [...] evaluation. IMPRESSION: 1. Normal renal ultrasound. SL: [id number] 06/06/2016 [facility] Breast Mammo Scrn SILAS incl CAD MA [...] screening mammogram is recommended. Jessica guido/penrad:05/31/2016 14:53:39 [employer]: Gabby Guevara, [facility] [facility] This exam was dictated and interpreted by [id number] for [facility] Breast [place]. 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 Lungs: The lungs are grossly clear. Mediastinum: The cardiac silhouette is mildly enlarged. Midline trachea. Bones and soft tissues: No acute abnormalities. IMPRESSION: No acute cardiopulmonary abnormalities. SL: [id number] 05/30/2016 [facility] Ext Lower Arterial Doppler bilat US Clinical [...] at both ankles. IMPRESSION: Sonographically unremarkable. SL: [id number] 08/12/2015 [facility] Ext Lower Venous Doppler Bilat US Clinical Indication: Bilateral leg swelling.; Comparison: None Findings: Bilateral lower extremity venous Doppler ultrasound exam demonstrates normal flow and compressibility of the common femoral, superficial femoral and popliteal venous segments. Normal distal augmentation. IMPRESSION: No evidence for deep vein thrombosis within either lower extremity. SL: [id number] 08/12/2015 [facility] Consultation Notes No Data Provided for This [...] Parnell MD, PA Respitory Rate 11 12/19/2017 [facility] Systolic (mm Hg) 124 12/19/2017 [facility] Diastolic (mm Hg) 54 12/19/2017 [facility] Systolic (mm Hg) 125 12/19/2017 [facility] Diastolic (mm Hg) 60 12/19/2017 [facility] Respitory Rate 20 12/19/2017 [facility] Respitory Rate 21 12/19/2017 [facility] Systolic (mm Hg) 99 12/19/2017 [facility] Diastolic (mm Hg) 43 12/19/2017 [facility] Weight 140.909 12/18/2017 [facility] Height 157.48 cm 12/18/2017 [facility] BMI Calculated 56.82 12/18/2017 [facility] Systolic (mm Hg) 162 07/30/2017 [facility] Diastolic (mm Hg) 77 07/30/2017 [facility] Heart Rate 92 07/30/2017 [facility] Temperature Oral (F) 99 F 07/30/2017 [facility] Respitory Rate 20 07/30/2017 [facility] Systolic (mm Hg) 155 07/30/2017 [facility] Diastolic (mm Hg) 74 07/30/2017 [facility] Respitory Rate 20 07/30/2017 [facility] Heart Rate 100 07/30/2017 [facility] Temperature Oral (F) 98.2 F 07/30/2017 [facility] Systolic (mm Hg) 162 07/30/2017 [facility] Diastolic (mm Hg) 76 07/30/2017 [facility] Heart Rate 98 07/30/2017 [facility] Respitory Rate 20 07/30/2017 [facility] Temperature Oral (F) 98.5 F 07/30/2017 [facility] Weight 159.003 07/28/2017 [facility] BMI Calculated 60.48 07/28/2017 [facility] Weight 150 07/28/2017 [facility] Height 157.48 cm 07/28/2017 [facility] Weight 317.1 11/07/2016 [facility] Primary Height 62 0 11/07/2016 [facility] Primary Temperature Oral (F) 97.1 F 11/07/2016 [facility] Primary Heart Rate 75 11/07/2016 [facility] Primary Diastolic (mm Hg) 76 11/07/2016 [facility] Primary Systolic (mm Hg) 143 11/07/2016 [facility] Primary Weight 316.6 09/04/2016 [facility] Primary Height 62 0 09/04/2016 [facility] Primary Temperature Oral (F) 98.4 F 09/04/2016 [facility] Primary Heart Rate 73 09/04/2016 [facility] Primary Diastolic (mm Hg) 82 09/04/2016 [facility] Primary Systolic (mm Hg) 160 09/04/2016 [facility] Primary Weight 318.0 07/31/2016 [facility] Primary Height 62 0 07/31/2016 [facility] Primary Temperature Oral (F) 97.9 F 07/31/2016 [facility] Primary Heart Rate 112 07/31/2016 [facility] Primary Diastolic (mm Hg) 77 07/31/2016 [facility] Primary Systolic (mm Hg) 153 07/31/2016 [facility] Primary Weight 321.6 06/19/2016 [facility] Primary Height 62 0 06/19/2016 [facility] Primary Temperature Oral (F) 97.0 F 06/19/2016 [facility] Primary Heart Rate 76 06/19/2016 [facility] Primary Diastolic (mm Hg) 79 06/19/2016 [facility] Primary Systolic (mm Hg) 136 06/19/2016 [facility] Primary Systolic (mm Hg) 155 06/08/2016 [facility] Diastolic (mm Hg) 77 06/08/2016 [facility] Temperature Oral (F) 98.1 F 06/08/2016 [facility] Respitory Rate 18 06/08/2016 [facility] Heart Rate 72 06/08/2016 [facility] Temperature Oral (F) 97.6 F 06/08/2016 [facility] Respitory Rate 18 06/08/2016 [facility] Heart Rate 71 06/08/2016 [facility] Systolic (mm Hg) 137 06/08/2016 [facility] Diastolic (mm Hg) 73 06/08/2016 [facility] Systolic (mm Hg) 122 06/08/2016 [facility] Diastolic (mm Hg) 69 06/08/2016 [facility] Heart Rate 70 06/08/2016 [facility] Respitory Rate 18 06/08/2016 [facility] Temperature Oral (F) 98 F 06/08/2016 [facility] Height 157.48 cm 06/06/2016 [facility] Weight 150.085 06/06/2016 [facility] BMI Calculated 60.52 06/06/2016 [facility] Weight 336.6 05/30/2016 [facility] Primary Height 62 0 05/30/2016 [facility] Primary Temperature Oral (F) 97.7 F 05/30/2016 [facility] Primary Heart Rate 87 05/30/2016 [facility] Primary Diastolic (mm Hg) 79 05/30/2016 [facility] Primary Systolic (mm Hg) 149 05/30/2016 [facility] Primary Weight 321.9 04/27/2016 [facility] Primary Height 62 0 04/27/2016 [facility] Primary Temperature Oral (F) 98.2 F 04/27/2016 [facility] Primary Heart Rate 90 04/27/2016 [facility] Primary Diastolic (mm Hg) 95 04/27/2016 [facility] Primary Systolic (mm Hg) 178 04/27/2016 [facility] Primary Weight 319.7 03/22/2016 [facility] Primary Height 62 1 05/23/2015 [facility] Primary Temperature Oral (F) 98.0 F 03/22/2016 [facility] Primary Heart Rate 91 03/22/2016 [facility] Primary Diastolic (mm Hg) 79 03/22/2016 [facility] Primary Systolic (mm Hg) 149 03/22/2016 [facility] Primary Weight 312.1 02/21/2016 [facility] Primary Height 62 1 04/22/2015 [facility] Primary Temperature Oral (F) 98.2 F 02/21/2016 [facility] Primary Heart Rate 90 02/21/2016 [facility] Primary Diastolic (mm Hg) 92 02/21/2016 [facility] Primary Systolic (mm Hg) 170 02/21/2016 [facility] Primary Weight 310.2 11/21/2015 [facility] Primary Height 62 0 11/21/2015 [facility] Primary Temperature Oral (F) 97.9 F 11/21/2015 [facility] Primary Heart Rate 101 11/21/2015 [facility] Primary Diastolic (mm Hg) 87 11/21/2015 [facility] Primary Systolic (mm Hg) 151 11/21/2015 [facility] Primary Weight 305.2 09/27/2015 [facility] Primary Height 62 0 09/27/2015 [facility] Primary Temperature Oral (F) 97.9 F 09/27/2015 [facility] Primary Heart Rate 101 09/27/2015 [facility] Primary Diastolic (mm Hg) 90 09/27/2015 [facility] Primary Systolic (mm Hg) 159 09/27/2015 [facility] Primary Weight 306.0 09/05/2015 [facility] Primary Height 62 0 09/05/2015 [facility] Primary Temperature Oral (F) 98.2 F 09/05/2015 [facility] Primary Heart Rate 101 09/05/2015 [facility] Primary Diastolic (mm Hg) 84 09/05/2015 [facility] Primary Systolic (mm Hg) 156 09/05/2015 [facility] Primary Weight 299.7 08/04/2015 [facility] Primary Height 62 0 08/04/2015 [facility] Primary Temperature Oral (F) 97.1 F 08/04/2015 [facility] Primary Heart Rate 50 08/04/2015 [facility] Primary Diastolic (mm Hg) 81 08/04/2015 [facility] Primary Systolic (mm Hg) 158 08/04/2015 [facility] Primary Weight 304.4 07/14/2015 [facility] Primary Height 62 0 07/14/2015 [facility] Primary Temperature Oral (F) 98.6 F 07/14/2015 [facility] Primary Heart Rate 105 07/14/2015 [facility] Primary Diastolic (mm Hg) 101 07/14/2015 [facility] Primary Systolic (mm Hg) 168 07/14/2015 [facility] Primary Encounters Location Location Details Encounter Type Encounter Number Reason For Visit Attending Provider ADM Date DC Date Status Source [facility] Primary Care new patient here to establish care [id number] 07/14/2015 07/14/2015 [facility] Primary Care new patient here to establish care [id number] 07/14/2015 07/14/2015 [facility] Primary Care new patient here to establish care [id number] 07/14/2015 07/14/2015 Pako Parnell MD, [facility] Primary Care new patient here to establish care [id number] 07/14/2015 07/14/2015 [facility] Primary Care new patient here to establish care [id number] 07/14/2015 07/14/2015 [facility] Primary Care new patient here to establish care [id number] 07/14/2015 07/14/2015 [facility] Primary Care new patient here to establish care [id number] 07/14/2015 07/14/2015 [facility] Primary Care new patient here to establish care [id number] 07/14/2015 07/14/2015 [facility] Primary Care new patient here to establish care [id number] 07/14/2015 07/14/2015 [facility] Primary Care new patient here to establish care [id number] 07/14/2015 07/14/2015 [facility] Primary Care new patient here to establish care [id number] 07/14/2015 07/14/2015 [facility] Primary Care new patient here to establish care [id number] 07/14/2015 07/14/2015 [facility] Primary Care Unknown [id number] 08/01/19 16 08/01/2015 [facility] Primary Care Unknown [id number] 08/01/19 16 08/01/2015 Pako Parnell MD, [facility] Primary Care Unknown [id number] 08/01/19 16 08/01/2015 [facility] Primary Care Unknown [id number] 08/01/19 16 08/01/2015 [facility] Primary Care Unknown [id number] 08/01/19 16 08/01/2015 [facility] Primary Care Unknown [id number] 08/01/19 16 08/01/2015 [facility] Primary Care Unknown [id number] 08/01/19 16 08/01/2015 [facility] Primary Care Unknown [id number] 08/01/19 16 08/01/2015 [facility] Primary Care Unknown [id number] 08/01/19 16 08/01/2015 [facility] Primary Care Unknown [id number] 08/01/19 16 08/01/2015 [facility] Primary Care Unknown [id number] 08/01/19 16 08/01/2015 [facility] Primary Care Patient here to follow up on labs, blood pressure and diabetes [id number] 08/04/2015 08/04/2015 Pako Parnell MD, [place] [facility] Primary Care Patient here to follow up on labs, blood pressure and diabetes [id number] 08/04/2015 08/04/2015 [facility] Primary Care Patient here to follow up on labs, blood pressure and diabetes [id number] 08/04/2015 08/04/2015 [facility] Primary Care Patient here to follow up on labs, blood pressure and diabetes [id number] 08/04/2015 08/04/2015 [facility] Primary Care Patient here to follow up on labs, blood pressure and diabetes [id number] 08/04/2015 08/04/2015 [facility] Primary Care Patient here to follow up on labs, blood pressure and diabetes [id number] 08/04/2015 08/04/2015 [facility] Primary Care Patient here to follow up on labs, blood pressure and diabetes [id number] 08/04/2015 08/04/2015 [facility] Primary Care Patient here to follow up on labs, blood pressure and diabetes [id number] 08/04/2015 08/04/2015 [facility] Primary Care Patient here to follow up on labs, blood pressure and diabetes [id number] 08/04/2015 08/04/2015 [facility] Primary Care Patient here to follow up on labs, blood pressure and diabetes [id number] 08/04/2015 08/04/2015 [facility] Outpatient [id number] Miranda Iqbal 08/12/2015 08/13/2015 [facility] Primary Care Unknown [id number] 09/05/19 16 09/05/2015 Pako Parnell MD, PA [facility] Primary Care Unknown [id number] 09/05/19 16 09/05/2015 [facility] Primary Care Unknown [id number] 09/05/19 16 09/05/2015 [facility] Primary Care Unknown [id number] 09/05/19 16 09/05/2015 [facility] Primary Care Unknown [id number] 09/05/19 16 09/05/2015 [facility] Primary Care Unknown [id number] 09/05/19 16 09/05/2015 [facility] Primary Care Unknown [id number] 09/05/19 16 09/05/2015 [facility] Primary Care Unknown [id number] 09/05/19 16 09/05/2015 [facility] Primary Care Unknown [id number] 09/05/19 16 09/05/2015 [facility] Primary Care Patient here to follow up on diabetes and blood pressure [id number] 09/27/2015 09/27/2015 Pako Parnell MD, PA [facility] Primary Care Patient here to follow up on diabetes and blood pressure [id number] 09/27/2015 09/27/2015 [facility] Primary Care Patient here to follow up on diabetes and blood pressure [id number] 09/27/2015 09/27/2015 [facility] Primary Care Patient here to follow up on diabetes and blood pressure [id number] 09/27/2015 09/27/2015 [facility] Primary Care Patient here to follow up on diabetes and blood pressure [id number] 09/27/2015 09/27/2015 [facility] Primary Care Patient here to follow up on diabetes and blood pressure [id number] 09/27/2015 09/27/2015 [facility] Primary Care Patient here to follow up on diabetes and blood pressure [id number] 09/27/2015 09/27/2015 [facility] Primary Care Patient here to follow up on diabetes and blood pressure [id number] 09/27/2015 09/27/2015 [facility] Pako Parnell MD, [place] carotid & arterial dopplers [id number] 09/27/2015 09/27/2015 Pako Parnell MD, [place] Pako Parnell MD, [place] carotid & arterial dopplers [id number] 09/27/2015 09/27/2015 [facility] Pako Parnell MD, PA carotid & arterial dopplers [id number] 09/27/2015 09/27/2015 [facility] Pako Parnell MD, PA carotid & arterial dopplers [id number] 09/27/2015 09/27/2015 [facility] Pako Parnell MD, PA carotid & arterial dopplers [id number] 09/27/2015 09/27/2015 [facility] Pako Parnell MD, PA carotid & arterial dopplers [id number] 09/27/2015 09/27/2015 [facility] Pako Parnell MD, [place] carotid & arterial dopplers [id number] 09/27/2015 09/27/2015 [facility] Primary Care patient here for medication refill [id number] 11/21/2015 11/21/2015 [facility] Primary Care patient here for medication refill [id number] 11/21/2015 11/21/2015 [facility] Primary Care patient here for medication refill [id number] 11/21/2015 11/21/2015 [facility] Primary Care patient here for medication refill [id number] 11/21/2015 11/21/2015 [facility] Primary Care patient here for medication refill [id number] 11/21/2015 11/21/2015 [facility] Primary Care patient here for medication refill [id number] 11/21/2015 11/21/2015 [facility] Primary Care Patient here for ER follow up on stomach pain. [id number] 02/21/2016 02/21/2016 [facility] Primary Care Patient here for ER follow up on stomach pain. [id number] 02/21/2016 02/21/2016 [facility] Primary Care Patient here for ER follow up on stomach pain. [id number] 02/21/2016 02/21/2016 [facility] Primary Care Patient here for ER follow up on stomach pain. [id number] 02/21/2016 02/21/2016 [facility] Primary Care Patient here for ER follow up on stomach pain. [id number] 02/21/2016 02/21/2016 [facility] Primary Care wwe and labs [id number] 03/22/20 16 03/22/2016 [facility] Primary Care wwe and labs [id number] 03/22/20 16 03/22/2016 [facility] Primary Care wwe and labs [id number] 03/22/20 16 03/22/2016 [facility] Primary Care wwe and labs [id number] 03/22/20 16 03/22/2016 [facility] Primary Care patient here need medication refill [id number] 04/27/2016 04/27/2016 [facility] Primary Care patient here need medication refill [id number] 04/27/2016 04/27/2016 [facility] Primary Care patient here need medication refill [id number] 04/27/2016 04/27/2016 [facility] Primary Care Patient here for high blood pressure and diabetes [id number] 05/30/2016 05/30/2016 [facility] Primary Care Patient here for high blood pressure and diabetes [id number] 05/30/2016 05/30/2016 [facility] Outpatient [id number] Miranda Iqbal 05/30/2016 05/31/2016 [facility] Inpatient [id number] Stanley Galeana 06/06/2016 06/09/2016 [facility] Primary Care patient here for sick visit, went to the ER and stated that she was diagnosed with strep, but was not scribed anything for it [id number] 06/19/2016 06/19/2016 [facility] [place] [facility] Di[facility] Services [id number] 00 Alexx Kwok 02/05/2017 02/06/2017 [facility] Inpatient [id number] Navya Nevarez 07/28/2017 07/30/2017 [facility]ded Outpatient [id number] Avinash Locke 12/19/2017 12/19/2017 [facility] - [place] Out[facility] Diag Services [id number] Alexx Kwok 01/27/2018 01/28/2018 [facility] Outpatient [id number] Tyrese Garrison 02/05/2018 02/05/2018 [facility] Outpatient [facility] - [place] Out[facility] Diag Services [id number] Alexx Kwok 03/21/2018 03/22/2018 [facility] Outpatient [id number] Tyrese Garrison 03/27/2018 03/27/2018 [facility] Neurosurgery [facility] Phone Message [id number] 03/27/2018 03/29/2018 [facility] Outpatient Imaging - [place] Out[facility] Diag Services [id number] Genoveva Ramos 07/10/2018 07/11/2018 [facility] Procedures Procedure Code Date Perfomer Comments Source Colonoscopy [id number] 12/19/2017 [facility], [place], [place],[facility] section [id number] 04/15/1991 [facility] [place] Cholecystectomy [id number] 04/15/1991 [facility],[place] [facility] Assessment and Plan Assessment and Plan Date [...] Pain Intensity NRS (0-10 ) 0 07/29/[address] 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 Status: No June 19, 2016 06/19/2016 [facility] Primary Social History TypeResponse Substance Abuse Use: [...] Tobacco Smoke None entered on: 12/18/17 06/06/2016 [facility] Social History TypeResponse Substance Abuse Use: None. Alcohol Never Smoking Status Cigarette Smoking Last 365 Days No; Reg Smoking Cessation Counseling No; Never smoker; Exposure to Tobacco Smoke None entered on: 12/18/17 06/06/2016 [facility] Social History TypeResponse Substance Abuse Use: [...] Comment not available September 27, 2015 09/28/2015 [facility] Primary Advance Directives No Data Provided for This Section Functional Status No Data Provided for This Section
--- OUTSIDE RECORDS SUMMARY | 2019-12-03 15:07 | XMS REPORT | Continuity of Care Document ---
Author Author [facility] t Organization [facility] Address [address] [place] [address] Phone Unavailable Care Team Providers Care Stud Setter Name Role Phone NONSTAFF PCP Unavailable RAZIA SRIVASTAVA Attphys Unavailable Chintan Ramos Attphys Tyrese Garrison Attphys Mich Kwok Attphys Laura Locke Attphys Tamara DENSON Attphys Unavailable Roque, Vang Adnan Attphys Anton Kwok Attphys Ghebranious, Ramsis Amir Attphys Caitlin Iqbal Attphys TY MAHARAJ Admphys Unavailable Roque, Vang Adnan Admphys Ghebranious, Ramsis Amir Admphys Payers Payer Name Policy Type Policy Number Effective Date Expiration Date [facility] Choice Excha [id number] 2015 00:0 0:00 [facility] Problems Condition Name Condition Details Condition Category Status Onset Date Resolution Date Last Treatment Date Treating Clinician Comments Source CPAP [id number] CPAP [id number] Active 03/12/2018 [facility] Active 2018-03-12 00:00:00 2018-03-26 19:18:00 [facility] [place] 1ST NIGHT - 40211 1ST NIGHT - 47002 Active 01/21/2018 [facility] Active 2018-01-21 00:00:00 2018-02-04 19:50:00 [facility] UNK UNK Active 12/18/2017 [facility] Active 2017-12-18 00:00:00 2017-12-19 [facility] BRE[facility] DIFF BREATHING Active 07/27/2017 [facility] Active 2017-07-27 00:00:00 2017-07-27 22:07:00 [facility] [place] MARCUM (DYSPNEA ON EXERTION), BILATERAL PUL MARCUM (DYSPNEA ON EXERTION), BILATERAL PUL Active 07/27/2017 [facility] Ac tive 2017-07-27 00:00:00 2017-07-29 14:58:00 M abbyrilisa [place] RENAL FAILURE TRE L FAILURE Active 06/06/2016 [facility] Active 2016-06-06 02:45:00 2016-06-22 19:12:00 [facility] Pranav SCREENING NO PAIN, NO LUMPS, NO IMPLA SCREENING NO PAIN, NO LUMPS, NO IMPLA Active 03/28/2016 [facility] Ac tive 2016-03-28 00:00:00 2016-05-30 14:58:00 [facility] 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 Active 08/09/2015 [facility] Ac tive 2015-08-09 00:00:00 2015-08-12 15:05:00 [facility] Pancreatitis Pancreatitis Problem Active [facility] Final: Acute kidney failure, unspecified Final: Acute kidney failure, unspecified 06/11/2016 [facility] Problem 2016-06-11 03:11:26 [facility] Pranav Unspecified chronic gastritis without bleeding Unspecified chronic gastritis without bleeding 07/08/2018 [facility] Problem 2018-07-08 13:58:20 [facility] k[facility]ina [place] Anemia, unspecified Anem ia, unspecified 07/08/2018 [facility] Problem 2018-07-08 13:58:20 [place] morial Pranav Hypertensive chronic kidney disease with stage 1 through stage 4 chronic kidney disease, or unspecified chronic kidney disease Hypertensive chronic kidney disease with stage 1 through stage 4 chronic kidney disease, or unspecified chronic kidney disease 07/08/2018 [facility] Problem 2018-07-08 13:58:20 Nic [place] Chronic kidney disease, stage 3 (moderate) Chronic kidney disease, stage 3 (moderate) 07/08/2018 [facility] Problem 2018-07-08 13:58:20 Jose Luis [place] Type 2 diabetes mellitus with diabetic chronic kidney disease Type 2 diabetes mellitus with diabetic chronic kidney disease 07/08/2018 [facility] Primary Problem 2018-07-08 13: 58:20 [facility] Pranav Vitamin D deficiency, unspecified Vitamin D deficiency, unspecified 07/08/2018 [facility] Problem 2018-07-08 1 3:58:20 Jose Luis [place] Other tear of medial meniscus, current injury, left kn ee, initial encounter Other tear of medial meniscus, current injury, left knee, initial encounter 10/09/2018 [facility] [place] Problem 2018-10-09 11:39:39 [facility] Pranav Effusion, left knee Effu gilberto, left knee 10/09/2018 [facility] [place] Problem 2018-10-09 11:39:39 [facility] Pranav Spinal stenosis, lumbar region without neurogenic tyrese dication Spinal stenosis, lumbar region without neurogenic claudication 10/09/2018 [facility] [place] Problem 2018-10-09 11:39:39 [facility] Osteophyte, vertebrae Oste ophyte, vertebrae 10/09/2018 [facility] [place] Problem 2018-10-09 11:39:39 [facility] Pranav Other intervertebral disc displacement, lumbar region Other intervertebral disc displacement, lumbar region 10/09/2018 [facility] [place] Problem 2018-10-09 11:39:39 [place] Unilateral primary osteoarthritis, left knee Unilateral primary osteoarthritis, left knee 10/09/2018 [facility] [place] Problem 2018-10-09 11:39:39 [facility] Dorsalgia, unspecified Dors algia, unspecified 10/09/2018 [facility] [place] Problem 2018-10-09 11:39:39 [facility] Pranav Other forms of dyspnea Othe r forms of dyspnea 08/02/2017 [facility] Problem 2017-08-02 02:45:56 [facility] Diabetes mellitus (disorder) D iabetes mellitus (disorder) Resolved Problem 10/16/2018 [facility], [facility] [place],[facility], [facility] [place] Problem Resolved 2018-10-16 12:08:53 Jose Luis [place] Hyperlipidemia (disorder) Hype rlipidemia (disorder) Resolved Problem 10/16/2018 [facility], JONO Bell,[facility], [facility] [place] Problem Resolved 2018-10-16 12:08:53 [place]ander [place] Hypertensive disorder, systemic arterial (disorder) Hypertensive disorder, systemic arterial (disorder) Resolved Problem 10/16/2018 [facility], JONO Bell,[facility], [facility] [place] Problem Resolved 2018-10-16 12:08:53 [facility] k[facility]ina [place] BMI 50.0-59.9, adult BMI 50.0-59.9, adult Active Diagnosis 11/08/2016 [facility] Primary Diagnosis Active 2016-11-08 0 2:45:18 Jose Luis [place] Hot flashes Hot flashes Active Diagnosis 11/08/2016 [facility] Primary Diagnosis Active 2016-11-08 02:45:18 Jose [place] Arthritis Arth ritis Active Diagnosis 11/08/2016 [facility] Primary Diagnosis Active 2016-11-08 02:45:18 Jose Luis [place] Gastroesophageal reflux disease without esophagitis Gastroesophageal reflux disease without esophagitis Active Diagnosis 11/08/2016 [facility] Primary Diagnosis Active 2016-11-08 02:45:1 8 Jose Luis [place] Hyperlipemia Hype rlipemia Active Diagnosis 11/08/2016 [facility] Primary Diagnosis Active 2016-11-08 02:45:18 Jose Luis [place] Acquired hypothyroidism Acqu ired hypothyroidism Active Diagnosis 11/08/2016 [facility] Primary Diagnosis Active 2016-11-08 02:45:18 [place] Epistaxis Epis taxis Active Problem 11/08/2016 [facility] Primary Problem Active 2016-11-08 02:45:18 Jose Luis [place] Decreased urine output Decr eased urine output Active Problem 11/08/2016 [facility] Primary Problem Active 2016-11-08 02: 45:18 Jose Luis [place] Type 2 diabetes mellitus with hyperglycemia Type 2 diabetes mellitus with hyperglycemia Active Diagnosis 11/08/2016 [facility] Primary Diagnosis Active 2016-11-08 02:45:18 Nj brannon [place] Hypertension Hype rtension Active Diagnosis 11/08/2016 [facility] Primary Diagnosis Active 2016-11-08 02:45:18 Jose Luis [place] Localized swelling of both lower legs Localized swelling of both lower legs Active Problem 11/08/2016 [facility] Primary Problem Ac tive 2016-11-08 02:45:18 Jose Luis nino Shortness of breath Shor tness of breath Active Problem 11/08/2016 [facility] Primary Problem Active 2016-11-08 02:45:18 Jose Luis Rcok Microalbuminuria Micr oalbuminuria Active Problem 11/08/2016 [facility] Primary Problem Active 2016-11-08 02:45:18 Jose Luis [place] Morbid (severe) obesity due to excess calories Morbid (severe) obesity due to excess calories Active Problem 10/30/2018 Pako Parnell MD, [place] Problem Active 2018-10-30 04:10:20 [place] Lower extremity edema Lowe r extremity edema Active Problem 10/30/2018 Pako Parnell MD, PA Problem Active 2018-10-30 04 :10:20 [facility] Luis [place] Type 2 diabetes mellitus with diabetic neuropathy, uns pecified Type 2 diabetes mellitus with diabetic neuropathy, unspecified Active Problem 10/30/2018 Pako Parnell MD, [place] Problem Active 2018-10-30 04 :10:20 [facility] [place] Personal history of pulmonary embolism Personal history of pulmonary embolism Active Problem 10/30/2018 Pako Parnell MD, PA Problem Active 2018-10-30 04:10:20 [place] Hypertensive heart disease without heart failure Hypertensive heart disease without heart failure Active Problem 10/30/2018 Pako Parnell MD, PA Problem Active 2018-10-30 04:10:20 Jose Luis Pranav Venous insufficiency (chronic) (peripheral) Venous insufficiency (chronic) (peripheral) Active Problem 10/30/2018 Pako Parnell MD, PA Problem Active 2018-10-30 04:10:20 Edmondnanette [place] Right bundle-branch block Righ t bundle-branch block Active Problem 10/30/2018 Pako Parnell MD, PA Problem Active 2018-10-30 04:10:20 [facility] Pranav Dyspnea, unspecified Dysp sudhakar, unspecified Active Problem 10/30/2018 Pako Parnell MD, PA Problem Active 2018-10-30 04 :10:20 [facility] [place] Mixed hyperlipidemia Mixe d hyperlipidemia Active Problem 10/30/2018 Pako Parnell MD, PA Problem Active 2018-10-30 04 :10:20 [facility] Tachycardia, unspecified Tach ycardia, unspecified Active Problem 10/30/2018 Pako Parnell MD, PA Problem Active 2018-10-30 04:10:20 Jose Luis [place] UTI (urinary tract infection) UTI (urinary tract infection) Active Diagnosis 08/05/2015 [facility] Primary Diagnosis Active 2015-08-05 02:53:10 Jose Luis [place] Concern about STD in female without diagnosis Concern about STD in female without diagnosis Active Diagnosis 03/23/2016 [facility] Primary Diagnosis Active 2016-03-23 03:46:45 Nj brannon [place] Morbid obesity (disorder) Morb id obesity (disorder) Active Problem 10/16/2018 [facility], JONO Bell, [facility], [facility] Problem Active 2018-10-16 12:08:53 [place] ACUTE KIDNEY FAILURE, UNSPECIFIED ACUTE KIDNEY FAILURE, UNSPECIFIED Active [facility] Active 2016-06-22 19 :12:00 Jose Luis [place] RENAL FAILURE FOLLOWING INCOMPLETE SPONT RENAL FAILURE FOLLOWING INCOMPLETE SPONT Active [facility] Active 2016-06-06 03:28:00 Jose Luis [place] COUGH COUG H Active [facility] Active 2016-06-07 10:01:00 Jose Luis [place] UNSPECIFIED ASTHMA, UNCOMPLICATED UNSPECIFIED ASTHMA, UNCOMPLICATED Active [facility] Active 2016-06-07 1 0:01:00 [facility] Pranav OTHER FORMS OF DYSPNEA OTHE R FORMS OF DYSPNEA Active [facility] Active 2017-07-29 14:58:00 M emochristal [place] OTHER PULMONARY EMBOLISM WITHOUT ACUTE C OTHER PULMONARY EMBOLISM WITHOUT ACUTE C Active [facility] Active 2017-07-29 14:58:00 Jose Luis [place] Obstructive sleep apnea (adult) (pediatric) Obstructive sleep apnea (adult) (pediatric) 04/02/2018 10/14/2018 [facility] Problem 2018-04-02 05:08:30 2018-10-14 11:16:28 2018-10-14 11:16:28 Jose Luis [place] Pain in left knee Pain in left knee 03/27/2018 10/09/2018 JONO Bell, [facility] Problem 2018-03-27 04: 40:06 2018-10-09 11:39:39 2018-10-09 11:39:39 Jose Luis nino Encounter for screening for malignant neoplasm of colo n Encounter for screening for malignant neoplasm of colon 12/26/2017 07/08/2018 [facility] Problem 2017-12-26 04:06:16 2018-07-08 13:58:20 2018-06 13:58:20 [facility] Allergies, Adverse Reactions, Alerts Allergy Name Allergy Type Status Severity Reaction(s) Onset Date Inacti ve Date Treating Clinician Comments Source Lu Leigh Active Info Not Available 2018-10-29 00:00:00 [facility] No Known Allergies DA Active U 2015-07-17 00:00:00 [facility] No Known Medication Allergies No Known Medication Allergies Active [facility] Family History Family Member Diagnosis Comments Start Date Stop Date Source Unknown Family Member Family History 2015-09-28 02:48:06 2 02:48:06 [facility] Social History Social Habit Start Date Stop Date Quantity Comments Source SmokeExposure: 2016-06-19 00:00:00 2016-06-19 00:00:00 [facility] Social History 2016-06-06 10:00:08 2016-06-06 10:00:08 [facility] Medications Ordered Medication Name Filled Medication Name Start Date Stop Da te Current Medication? Ordering Clinician Indication Dosage Frequency Signature (SIG) Comments Components Source Atorvastatin Calcium 2018-10-30 04:10:20 Yes Pako Boland n Parmjit 1 tablet [facility] NovoLog Flexpen 2018-10-30 04:10:20 Yes Pako cisse not defined [facility] Gabapentin 2018-10-30 04:10:20 Yes Pako Parnell 1 capsule [facility] Xarelto 2018-10-30 04:10:20 Yes Pako Parnell 1 tablet with food [facility] Lantus 2018-10-30 04:10:20 Yes Pako Parnell not defined [facility] Omeprazole 2018-10-30 04:10:20 Yes Pako Parnell 1 capsule [facility] Furosemide 2018-10-30 04:10:20 Yes Pako Parnell 1 tablet [facility] Losartan Potassium-HCTZ 2018-10-30 04:10:20 Yes Pako Parnell 1 tablet [facility] Duloxetine HCl 2018-08-20 04:10:33 Yes Pako Parnell 1 capsule [facility] Amlodipine Besylate 2018-08-20 04:10:33 Yes Pako Parnell 1 tablet [facility] Potassium Chloride ER 2018-08-19 00:00:00 Yes Pako Parnell 1 tablet with food oJse Luis [place] Lisinopril-Hydrochlorothiazide 2018-07-24 04:10:07 Yes Pako Parnell 1 tablet Jose Luis Cortez nn Metformin HCl 2018-07-24 04:10:07 Yes Pako Parnell 1 tablet [place] Aspirin 2018-07-24 04:10:07 Yes Pako Parnell 1 tablet [facility] [place] Metoprolol Tartrate 2018-07-24 04:10:07 Yes Pako Parnell 1 tablet [place] Ergocalciferol 2018-07-24 04:10:07 Yes Pako Parnell 1 capsule [place] Victoza 2018-07-24 04:10:07 Yes Pako Parnell 0.2 ml [place] Sodium Chloride 0.9% IV 1,000 mL 2017-12-19 [...] Luis [place] Oxymetazoline hydrochloride 0.5 MG/ML Nasal [place] [Afrin] 2017-07-30 05:00:00 No Notes: (Same as: Afrin) Jose Luis [place] Amlodipine 2017-07-30 01:53:00 Yes 5 mg, PO, Daily, 0 Refill(s) Jose [place] Hydrochlorothiazide 25 MG / Losartan Potassium 100 MG Oral T ablet 2017-07-30 01:53:00 Yes 1 tab, PO, Daily, 0 Refill(s) [facility] metoprolol tartrate 100 mg oral tablet 2017-07-30 01:53:00 Yes 100 mg = 1 tab, PO, BID, 0 Refill(s) Layla martines Pranav DULoxetine 30 mg oral delayed release capsule 2017-07-30 01:53:0 0 Yes 30 mg = 1 cap, PO, BID, 0 Refill(s) [facility] Vitamin D3 10,000 intl units oral capsule 2017-07-30 01:53:00 Yes 10,000 IntlUnit = 1 cap, PO, QID, 0 Refill(s) [facility] Aspirin 81 MG Enteric Coated Tablet 2017-07-30 01:53:00 Yes 81 mg = 1 tab, PO, Daily, # 90 tab, 3 Refill(s) [facility] omeprazole 40 mg oral delayed release capsule 2017-07-30 01:53:0 0 Yes 40 mg = 1 cap, PO, Daily, 0 Refill(s) [facility] Furosemide 40 MG Oral Tablet 2017-07-30 01:53:00 Yes 40 mg = 1 tab, PO, Daily, 0 Refill(s) [facility] levothyroxine 50 mcg (0.05 mg) oral tablet 2017-07-29 19:11:00 Yes 50 microgram = 1 tab, PO, Q630AM, # 30 tab, 0 Refill(s), Pharmacy: [facility]/pharmacy #[id number] [facility] metoprolol tartrate 50 mg oral tablet 2017-07-29 19:11:00 N o 50 mg = 1 tab, PO, Q12H, # 60 tab, 0 Refill(s), Pharmacy: [facility]/pharmacy #[id number] [facility] rivaroxaban 15 MG Oral Tablet [Xarelto] 2017-07-29 18:35:00 Yes 15 mg = 1 tab, PO, Q12H, # 42 tab, 0 Refill(s), Pharmacy: [facility]/pharmacy #[id number] [facility] Thyroxine 2017-07-29 11:30:00 No Notes: Take 1 hour before or 2 hours after meal; Enteral feeds may interefere with the absorption of this medication.(Same as:Levothroid, Synthroid) [facility] Xarelto 2017-07-29 02:00:00 No Notes: (Same as: [...] room temperature. Expires in days from Date [facility] NovoLog 2017-07-28 12:30:00 No 12 unit, Route: SUB-Q, Drug form: SOLN, TID-Before Meals, Dosing Weight 150, kg, Start date: 07/28/17 7:30:00 CDT, Duration: 30 day, Stop date: 08/26/17 16:30:00 CDT [facility] Hydralazine 2017-07-28 10:00:00 No Notes: (Same as: Apresoline) Push over 5 minutes [facility] Insulin Lispro 2017-07-28 09:50:00 No Notes: (Same as: Humalog ) Roll in palms of hands gently; Do not shake `vigorously. "Single Patient Use Only " WASTE: F/P - Black; E - Municipal Trash Bin Stable for 28 days at room temperature. Expires in days from Date [facility] Dextrose 50% Syringe 2017-07-28 09:50:00 No 12.5 gm, 25 mL, Route: IVP, Drug Form: INJ, Dosing Weight 150, kg, PRN, PRN Blood Glucose Results, Start date: 07/28/17 4:50:00 CDT, Duration: 30 day, Stop date: 08/27/17 4:49:00 CDT [facility] Glucagon 2017-07-28 09:50:00 No 1 mg, Route: IM, Drug form: PDR/INJ, PRN, Dosing Weight 150, kg, PRN Blood Glucose Results, Start date: 07/28/17 4:50:00 CDT, Duration: 30 day, Stop date: 08/27/17 4:49:00 CDT [facility] Lasix 2017-07-28 09:13:00 No Notes: (Same a s: Lasix) [facility] Heparin 40 unit/kg Bolus (Heparin Dosing Weight) 2017-07-28 07:4 7:00 No Route: IVP, PRN, 3,600 unit, 3.6 mL, Drug form: INJ, PRN, Heparin Protocol, Start date: 07/28/17 2:47:00 CDT Stop date: 08/27/17 2:46:00 CDT, 30 day [facility] Saline Flush 0.9% 2017-07-28 07:32:00 No Notes: (Same as: BD Posiflush) [facility] Ondansetron 2017-07-28 07:32:00 No Notes: (Same as: Zofran) MEDICATION WASTE Product Size: 4 mg Product Wasted: ___ mg [facility] Heparin 80 unit/kg Bolus (Heparin Dosing Weight) 2017-07-28 05:4 3:00 No Route: IVP, PRN, 7,200 unit, 7.2 mL, Drug form: INJ, PRN, Heparin Protocol, Start date: 07/28/17 0:43:00 CDT Stop date: 08/27/17 0:42:00 CDT, 30 day [facility] heparin additive 25,000 unit [18 unit/kg /hr] + Premix Diluent Dextrose 5% 500 mL 2017-07-28 05:43:00 No 500 mL, Rate: 32.42 ml/hr, Infuse over: 15.4 hr, Route: IV, Dosing Weight 90.06 kg, Total Volume: 500 mL, Start date: 07/28/17 0:43:00 CDT, Duration: 30 day, Stop date: 08/27/17 0:42:00 CDT, 2.02, m2 [facility] Heparin - one time bolus for DVT/PE 2017-07-28 05:43:00 No 7,200 unit, 7.2 mL, Route: IVP, Drug form: INJ, ONCE, Dosing Weight 150, kg, Priority: STAT, Start date: 07/28/17 0:43:00 CDT, Stop date: 07/28/17 0:43:00 CDT [facility] Atorvastatin Calcium 2016-11-08 02:45:18 Yes Miranda Gutierrezmar 1 tablet [facility] Gabapentin 2016-11-08 02:45:18 Yes Miranda Rasheed 1 capsule [facility] Metoprolol Tartrate 2016-11-08 02:45:18 Yes Miranda Rasheed 1 tablet [facility] Synthroid 2016-11-08 02:45:18 Yes Miranda Iqbal take 1 tablet by mouth at 6.30 am [facility] Cymbalta 2016-11-08 02:45:18 Yes Miranda Gutierrezmar 1 c apsule [facility] Tresiba FlexTouch 2016-11-08 02:45:18 Yes Miranda Iqbal 130 units at night [facility] Accu-Chek SmartView 2016-11-08 02:45:18 Yes Miranda Iqbal USE TO CHECK BLOOD GLUCOSE TWICE A DAY [facility] nn Omeprazole 2016-11-08 02:45:18 Yes Miranda Gutierrezmar 1 capsule [facility] NovoLog 2016-11-08 02:45:18 Yes Miranda Iqbal 55 u nits [facility] Losartan Potassium-HCTZ 2016-11-08 02:45:18 Yes Miranda Rasheed 1 tablet [facility] Amlodipine Besylate 2016-11-08 02:45:18 Yes Miranda Rasheed 1 tablet [facility] Lisinopril-Hydrochlorothiazide 2016-09-05 02:45:02 Yes W ajiha Rasheed 1 tablet [facility] Losartan Potassium-HCTZ 2016-09-04 00:00:00 Yes Miranda Rasheed 1 tablet [facility] Amlodipine Besylate 2016-09-04 00:00:00 Yes Miranda Rasheed 1 tablet [facility] NovoLog Flexpen 2016-08-01 02:45:15 Yes Miranda Iqbal 35 units [facility] Metformin HCl 2016-06-20 03:51:04 Yes Miranda Iqbal 1 tablet with meals [facility] Lantus SoloStar 2016-06-20 03:51:04 Yes Miranda Rasheed 90 units in the mornings and 70 units at night [facility] Cymbalta 2016-06-19 00:00:00 Yes Miranda Iqbal 1 c apsule [facility] Insulin, Aspart, Human 2016-06-09 00:58:00 No Notes: Roll in palms of hands gently; Do not shake vigorously. (Same as: NovoLOG) "single patient use only" WASTE: F/P - Black; E - Municipal Trash Bin Stable for 28 days at room temperature. Expires in days from Date [facility] insulin detemir 100 units/mL subcutaneous solution 2016-05 21:05:00 Yes 65 unit, SUB-Q, Bedtime, # 15 mL, 0 Refill(s), Pharmacy: [facility]/pharmacy #[id number] [facility] levothyroxine 50 mcg (0.05 mg) oral tablet 2016-06-08 21:04:00 Yes 50 microgram = 1 tab, PO, Q630AM, # 30 tab, 0 Refill(s), Pharmacy: [facility]/pharmacy #[id number] [facility] Insulin, Aspart, Human 100 UNT/ML Injectable Solution [NovoL og] 2016-06-08 15:55:00 Yes 12 unit, S UB-Q, TID-Before Meals, # 15 mL, 0 Refill(s), other [facility] levothyroxine 50 mcg (0.05 mg) oral tablet 2016-06-08 15:55:00 No 50 microgram = 1 tab, PO, Q630AM, # 30 tab, 0 Refill(s), other [facility] insulin detemir 100 units/mL subcutaneous solution 2016-05-17 4 15:55:00 No 65 unit, SUB-Q, Bedtime, 0 Refill(s) [facility] Insulin, Aspart, Human 2016-06-08 04:14:00 No Notes: Roll in palms of hands gently; Do not shake vigorously. (Same as: NovoLOG) "single patient use only" WASTE: F/P - Black; E - Municipal Trash Bin Stable for 28 days at room temperature. Expires in days from Date [facility] Glucagon 2016-06-08 04:14:00 No 1 mg, Route: IM, PRN, Dosing Weight 150.085, kg, PRN Blood Glucose Results, Start date: 06/07/16 22:14:00 AGILE BUSINESS ANALYST, Duration: 30 day, Stop date: 07/07/16 23:13:00 CDT [facility] Dextrose 50% Syringe 2016-06-08 04:14:00 No 50 mL, Route: IVP, Dosing Weight 150.085, kg, PRN, PRN Blood Glucose Results, Start date: 06/07/16 22:14:00 AGILE BUSINESS ANALYST, Duration: 30 day, Stop date: 07/07/16 23:13:00 CDT [facility] Pranav Magnesium Sulfate 2016-06-07 14:29:00 No Notes: WASTE: F/P - Sink; E - Municipal Trash Bin [facility] Pranav Calcium Carbonate 2016-06-07 14:00:00 No Notes: (Same As: Tums) Calcium Carbonate 500 mg = 200 mg elemental calcium Dose = mg calcium carbonate ( mg elemental calcium) [facility] Pranav Synthroid 2016-06-07 12:30:00 No Notes: Take 1 hour before or 2 hours after meal; Enteral feeds may interefere with the absorption of this medication.(Same as:Levothroid, Synthroid) [facility] Insulin Glargine 100 UNT/ML Injectable Solution [Lantus] 2016-06-07 03:00:00 No Route: SUB-Q, Drug form: SOLN, Bedtime, Dosing Weight 150.085, kg, Start date: 06/06/16 21:00:00 AGILE BUSINESS ANALYST, Duration: 30 day, Stop date: 07/05/16 21:00:00 T [facility] Pranav Levemir FlexPen 2016-06-07 03:00:00 No Notes: Same as Levemir Do not hold insulin without contacting prescriber WASTE: F/P - Black; E - Municipal Trash Bin "single patient use only" [facility] sodium chloride 0.9% 1000 ml INJ 1,000 mL 2016-06-06 22:01:00 No 1,000 mL, Rate: 75 ml/hr, Infuse over: 13.3 hr, Route: IV, Dosing Weight 150.085 kg, Total Volume: 1,000, Start date: 06/06/16 16:01:00 AGILE BUSINESS ANALYST, Duration: 2 doses or times, Stop date: 06/07/16 18:36:00 AGILE BUSINESS ANALYST [facility] [place] Calcium Gluconate 2016-06-06 21:45:00 No Notes: WASTE: F/P - Sink; E - Municipal Trash Bin [facility] Pranav gabapentin 300 MG Oral Capsule 2016-06-06 15:00:00 No Notes: (Same as: Neurontin) [facility] [place] metoprolol tartrate 2016-06-06 15:00:00 No Notes: (Same as: Lopressor) [facility] at[facility]atin 2016-06-06 15:00:00 No Notes: (Same as: Lipitor) [facility] Aspirin 2016-06-06 15:00:00 No Notes: Take with food. [facility] pneumococcal capsular polysaccharide typ e 1 vaccine / pneumococcal capsular polysaccharide type 10A vaccine / pneumococcal capsular polysaccharide type 11A vaccine / pneumococcal capsular polysaccharide type 12F vaccine / pneumococcal capsular polysacchar 2016-06-06 15:00:00 No Notes: (Same as: Pneumovax 23) Refrigerate [facility] alejandro influenza virus vaccine, inactivated 2016-06-06 15:00:00 No Notes: (Same as: Fluzone Quadrivalent, Fluarix Quadrivalent) For 3 years of age and older (0.5 mL IM) Shake well before use [facility] Lasix 2016-06-06 15:00:00 No Notes: (Same as: Lasix) MEDICATION WASTE Product Size: 40 mg Product Wasted: ___ mg [facility] Lovenox 2016-06-06 15:00:00 No Notes: (Same as: Lovenox) [facility] Insulin Glargine 100 UNT/ML Injectable Solution [Lantus] 2016-06-06 14:00:00 No Route: SUB-Q, Drug form: SOLN, Breakfast, Dosing Weight 150.085, kg, Start date: 06/06/16 8:00:00 AGILE BUSINESS ANALYST, Duration: 30 day, Stop date: 07/05/16 8:00:00 CDT [facility] Levemir FlexPen 2016-06-06 14:00:00 No Notes: Same as Levemir Do not hold insulin without contacting prescriber WASTE: F/P - Black; E - Municipal Trash Bin "single patient use only" [facility] Z[facility] 2016-06-06 14:00:00 No Notes: (Sa me As: Zithromax IV) [facility] NovoLog 2016-06-06 13:30:00 No Notes: Roll in palms of hands gently; Do not shake vigorously. (Same as: NovoLOG) "single patient use only" WASTE: F/P - Black; E - Municipal Trash Bin Stable for 28 days at room temperature. Expires in days from Date [facility] Insulin, Aspart, Human 2016-06-06 13:06:00 No Notes: Roll in palms of hands gently; Do not shake vigorously. (Same as: NovoLOG) "single patient use only" WASTE: F/P - Black; E - Municipal Trash Bin Stable for 28 days at room temperature. 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, Duration: 30 day, Stop date: 07/06/16 8:05:00 CDT [facility] Glucagon 2016-06-06 13:06:00 No 1 mg, Route: IM, Drug form: PDR/INJ, PRN, Dosing Weight 150.085, kg, PRN Blood Glucose Results, Start date: 06/06/16 7:06:00 AGILE BUSINESS ANALYST, Duration: 30 day, Stop date: 07/06/16 8:05:00 T [facility] Ondansetron 2016-06-06 12:02:00 No Notes: (Same as: Hua) MEDICATION WASTE Product Size: 4 mg Product Wasted: ___ mg [facility] Morphine 2016-06-06 12:02:00 No Not es: (Same as:MORPhine Sulfate) [facility] naproxen 500 mg oral tablet 2016-06-06 10:30:00 No 500 mg = 1 tab, PO, BID, PRN Pain Score 1-5, 0 Refill(s) [facility] NovoLog 2016-06-06 10:30:00 No 10 unit, SUB-Q, TID-Before Meals, 0 Refill(s) [facility] metoprolol tartrate 100 mg oral tablet 2016-06-06 10:30:00 Yes 100 mg = 1 tab, PO, BID, 0 Refill(s) [facility] Hydrochlorothiazide 12.5 MG / Lisinopril 20 MG Oral Tablet 2016-06-06 10:30:00 No 1 tab, PO, BID, 0 Refill(s) [facility] Insulin Glargine 100 UNT/ML Injectable Solution [Lantus] 2016-06-06 10:30:00 Yes 60 units, SUB-Q, Bedtime, 0 Refi ll(s) [facility] Aspirin 2016-06-06 10:30:00 Yes 81 mg, PO, D aily, 0 Refill(s) [facility] gabapentin 800 MG Oral Tablet 2016-06-06 10:30:00 Yes 800 mg = 1 tab, PO, TID, 0 Refill(s) [facility] nn Metformin 2016-06-06 10:30:00 No 1,000 mg, PO, BID, with meals, 0 Refill(s) [facility] atorvastatin 40 mg oral tablet 2016-06-06 10:30:00 Yes 40 mg = 1 tab, PO, Daily, 0 Refill(s) [facility] nino Lasix 2016-05-30 00:00:00 Yes Miranda Gutierrezmar 1 tabl et [facility] Naproxen 2016-04-27 00:00:00 Yes Miranda Gutierrezmar 1 t ablet as needed [facility] Metoprolol Tartrate 2016-03-23 03:46:45 Yes Miranda Rasheed 1 tablet [facility] Victoza 2016-01-20 00:00:00 Yes Miranda Rasheed 1.8 mg [facility] Victoza 2015-11-26 00:00:00 Yes Miranda Rasheed 1.2 mg [facility] Gabapentin 2015-11-22 02:54:44 Yes Miranda Rasheed 1 capsule [facility] Gabapentin 2015-09-07 02:47:19 Yes Miranda Rasheed 1 capsule [facility] Metoprolol Tartrate 2015-09-05 00:00:00 Yes Miranda Rasheed 1 tablet [facility] Victoza 2015-09-05 00:00:00 Yes Miranda Rasheed 1.2 mg [facility] NovoLog Flexpen 2015-08-04 00:00:00 Yes Miranda Gutierrezmar as directed [facility] Ergocalciferol 2015-08-04 00:00:00 Yes Miranda Rasheed 1 capsule [facility] Omeprazole 2015-08-04 00:00:00 Yes Miranda Rasheed 1 capsule [facility] Ciprofloxacin HCl 2015-08-04 00:00:00 Yes Miranda Rasheed 1 tablet [facility] Atorvastatin Calcium 2015-08-04 00:00:00 Yes Miranda Rasheed 1 tablet [facility] Amlodipine Besylate 2015-07-15 02:47:09 Yes Miranda Rasheed 1 tablet [facility] Lisinopril 2015-07-15 02:47:09 Yes Miranda Rasheed 1 tablet [facility] Lansoprazole 2015-07-15 02:47:09 Yes Miranda Rasheed 1 capsule [facility] Victoza 2015-07-15 02:47:09 Yes Miranda Rasheed Unkn own [facility] NIFEdipine ER 2015-07-15 02:47:09 Yes Miranda Rasheed 1 tablet [facility] Metformin HCl 2015-07-14 00:00:00 Yes Miranda Rasheed 1 tablet with meals [facility] Gabapentin 2015-07-14 00:00:00 Yes Miranda Rasheed 1 capsule [facility] Lisinopril-Hydrochlorothiazide 2015-07-14 00:00:00 Yes W nasraa Rasheed 1 tablet [facility] Lantus SoloStar 2015-07-14 00:00:00 Yes Miranda Rasheed 20 units [facility] Aspirin (Aspir 81) 81 Mg Tablet. Aspirin (Aspir 81) 81 Mg Tablet. Yes 81 Daily [facility] Atorvastatin Calcium (Lipitor) 20 Mg Tablet Atorvastat in Calcium (Lipitor) 20 Mg Tablet Yes 40 Bedtime [facility] Gabapentin 300 Mg Capsule Gabapentin 300 Mg Capsule Yes 600 Three Times A Day [facility] Insulin Aspart (Novolog) 100 Units/1 Ml Inj Insulin As part (Novolog) 100 Units/1 Ml Inj Yes 10 Three Times A Day [facility] Insulin Glargine (Lantus) 100 Units/Ml Ml Insulin Glar gine (Lantus) 100 Units/Ml Ml Yes 60 Every Morning [facility] Insulin Glargine (Lantus) 100 Units/Ml Ml Insulin Glar gine (Lantus) 100 Units/Ml Ml Yes 40 Bedtime [facility] Lisinopril/Hydrochlorothiazide (Lisinopril-Hctz 20-12. 5 Mg Tab) 1 Each Tablet Lisinopril/Hydrochlorothiazide (Lisinopril-Hctz 20-12.5 Mg Tab) 1 Each Tablet Yes 1 Twice A Day [facility] Metformin Hcl (Metformin Hcl Er) 500 Mg Tab.er.24 Metf ormin Hcl (Metformin Hcl Er) 500 Mg Tab.er.24 Yes 1000 Twice A Day [facility] Metoprolol Succinate 50 Mg Tab.er.24h Metoprolol Succinate 50 Mg Ta b.er.24h Yes 50 Twice A Day [facility] Omeprazole (Prilosec) 40 Mg Capsule. Omeprazole (Prilosec) 40 Mg Capsule. Yes 40 Daily [facility] High Cholesterol Unknown Strength , Unknown Dose High Cholesterol Unknown Strength , Unknown Dose 2016-02-07 00:00:00 [facility] Liraglutide (Victoza 2-Stephen) 0.6 Mg/0.1 Ml Pen.injctr, Liraglutide (Victoza 2- Stephen) 0.6 Mg/0.1 Ml Pen.injctr, 2016-02-07 00:00:00 [facility] Vital Signs Vital Name Observation Time Observation Value Comments Source Weight 2018-10-29 19:15:00 [facility] [place] Heart Rate 2018-10-29 19:15:00 [facility] Diastolic (mm Hg) 2018-10-29 19:15:00 [facility] orial Pranav Systolic (mm Hg) 2018-10-29 19:15:00 [place] Weight 2018-08-19 16:15:00 [facility] [place] Heart Rate 2018-08-19 16:15:00 [facility] Diastolic (mm Hg) 2018-08-19 16:15:00 [facility] Systolic (mm Hg) 2018-08-19 16:15:00 [place] Weight 2018-07-21 20:30:00 [facility] Heart Rate 2018-07-21 20:30:00 [facility] [place] Diastolic (mm Hg) 2018-07-21 20:30:00 [facility] Systolic (mm Hg) 2018-07-21 20:30:00 [facility] Respitory Rate 2017-12-19 14:50:00 [facility] Systolic (mm Hg) 2017-12-19 14:50:00 [facility] [place] Diastolic (mm Hg) 2017-12-19 14:50:00 [facility] Systolic (mm Hg) 2017-12-19 14:35:00 [facility] Diastolic (mm Hg) 2017-12-19 14:35:00 [facility] Respitory Rate 2017-12-19 14:35:00 [facility] [place] Respitory Rate 2017-12-19 14:18:00 [facility] [place] Systolic (mm Hg) 2017-12-19 14:18:00 [facility] [place] Diastolic (mm Hg) 2017-12-19 14:18:00 [facility] [place] Weight 2017-12-18 21:23:00 [facility] Height 2017-12-18 21:23:00 157.48 cm [facility] BMI Calculated 2017-12-18 21:23:00 [facility] [place] Systolic (mm Hg) 2017-07-30 16:17:00 [facility] [place] Diastolic (mm Hg) 2017-07-30 16:17:00 [facility] [place] Heart Rate 2017-07-30 16:17:00 [facility] [place] Temperature Oral (F) 2017-07-30 16:17:00 99 F [facility] Respitory Rate 2017-07-30 16:17:00 [facility] [place] Systolic (mm Hg) 2017-07-30 12:25:00 [facility] Diastolic (mm Hg) 2017-07-30 12:25:00 [facility] [place] Respitory Rate 2017-07-30 12:25:00 [facility] Heart Rate 2017-07-30 12:25:00 [facility] [place] Temperature Oral (F) 2017-07-30 12:25:00 98.2 F [facility] Systolic (mm Hg) 2017-07-30 09:48:00 [facility] Diastolic (mm Hg) 2017-07-30 09:48:00 [facility] [place] Heart Rate 2017-07-30 09:15:00 [facility] [place] Respitory Rate 2017-07-30 09:15:00 [facility] [place] Temperature Oral (F) 2017-07-30 09:15:00 98.5 F [facility] Weight 2017-07-28 11:06:00 [facility] [place] BMI Calculated 2017-07-28 01:28:00 [facility] Weight 2017-07-28 01:28:00 [facility] [place] Height 2017-07-28 01:28:00 157.48 cm [facility] Weight 2016-11-07 14:00:00 [facility] [place] Height 2016-11-07 14:00:00 [facility] Temperature Oral (F) 2016-11-07 14:00:00 97.1 F [facility] Heart Rate 2016-11-07 14:00:00 [facility] Diastolic (mm Hg) 2016-11-07 14:00:00 [facility] [place] Systolic (mm Hg) 2016-11-07 14:00:00 [facility] Weight 2016-09-04 14:00:00 [facility] [place] Height 2016-09-04 14:00:00 [facility] [place] Temperature Oral (F) 2016-09-04 14:00:00 98.4 F [facility] Heart Rate 2016-09-04 14:00:00 [facility] Diastolic (mm Hg) 2016-09-04 14:00:00 [facility] [place] Systolic (mm Hg) 2016-09-04 14:00:00 [facility] [place] Weight 2016-07-31 14:00:00 [facility] [place] Height 2016-07-31 14:00:00 [facility] Temperature Oral (F) 2016-07-31 14:00:00 97.9 F [facility] Heart Rate 2016-07-31 14:00:00 [facility] [place] Diastolic (mm Hg) 2016-07-31 14:00:00 [facility] Systolic (mm Hg) 2016-07-31 14:00:00 [facility] Weight 2016-06-19 15:15:00 [facility] Height 2016-06-19 15:15:00 [facility] [place] Temperature Oral (F) 2016-06-19 15:15:00 97.0 F [facility] Heart Rate 2016-06-19 15:15:00 [facility] [place] Diastolic (mm Hg) 2016-06-19 15:15:00 [facility] Systolic (mm Hg) 2016-06-19 15:15:00 [facility] Systolic (mm Hg) 2016-06-08 17:16:00 [facility] [place] Diastolic (mm Hg) 2016-06-08 17:16:00 [facility] Temperature Oral (F) 2016-06-08 17:16:00 98.1 F [facility] [place] Respitory Rate 2016-06-08 17:16:00 [facility] [place] Heart Rate 2016-06-08 17:16:00 [facility] Temperature Oral (F) 2016-06-08 13:37:00 97.6 F [facility] Respitory Rate 2016-06-08 13:37:00 [facility] Heart Rate 2016-06-08 13:37:00 [facility] [place] Systolic (mm Hg) 2016-06-08 13:37:00 [facility] [place] Diastolic (mm Hg) 2016-06-08 13:37:00 [facility] [place] Systolic (mm Hg) 2016-06-08 09:08:00 [facility] Diastolic (mm Hg) 2016-06-08 09:08:00 [facility] [place] Heart Rate 2016-06-08 09:08:00 [facility] Respitory Rate 2016-06-08 09:08:00 [facility] Temperature Oral (F) 2016-06-08 09:08:00 98 F [facility] [place] Height 2016-06-06 09:54:00 157.48 cm [facility] Weight 2016-06-06 09:54:00 [facility] [place] BMI Calculated 2016-06-06 09:54:00 [facility] Weight 2016-05-30 19:15:00 [facility] [place] Height 2016-05-30 19:15:00 [facility] Temperature Oral (F) 2016-05-30 19:15:00 97.7 F [facility] [place] Heart Rate 2016-05-30 19:15:00 [facility] [place] Diastolic (mm Hg) 2016-05-30 19:15:00 [facility] Systolic (mm Hg) 2016-05-30 19:15:00 [facility] [place] Weight 2016-04-27 20:45:00 [facility] Height 2016-04-27 20:45:00 [facility] [place] Temperature Oral (F) 2016-04-27 20:45:00 98.2 F [facility] [place] Heart Rate 2016-04-27 20:45:00 [facility] Diastolic (mm Hg) 2016-04-27 20:45:00 [facility] [place] Systolic (mm Hg) 2016-04-27 20:45:00 [facility] [place] Weight 2016-03-22 14:45:00 [facility] Height 2016-03-22 14:45:00 [facility] [place] Temperature Oral (F) 2016-03-22 14:45:00 98.0 F [facility] [place] Heart Rate 2016-03-22 14:45:00 [facility] [place] Diastolic (mm Hg) 2016-03-22 14:45:00 [facility] [place] Systolic (mm Hg) 2016-03-22 14:45:00 [facility] Weight 2016-02-21 14:45:00 [facility] Height 2016-02-21 14:45:00 [facility] [place] Temperature Oral (F) 2016-02-21 14:45:00 98.2 F [facility] Heart Rate 2016-02-21 14:45:00 [facility] [place] Diastolic (mm Hg) 2016-02-21 14:45:00 [facility] Systolic (mm Hg) 2016-02-21 14:45:00 [facility] Weight 2015-11-21 14:00:00 [facility] [place] Height 2015-11-21 14:00:00 [facility] Temperature Oral (F) 2015-11-21 14:00:00 97.9 F [facility] Heart Rate 2015-11-21 14:00:00 [facility] Diastolic (mm Hg) 2015-11-21 14:00:00 [facility] Systolic (mm Hg) 2015-11-21 14:00:00 [facility] [place] Weight 2015-09-27 14:15:00 [facility] Height 2015-09-27 14:15:00 [facility] [place] Temperature Oral (F) 2015-09-27 14:15:00 97.9 F [facility] Heart Rate 2015-09-27 14:15:00 [facility] Diastolic (mm Hg) 2015-09-27 14:15:00 [facility] Systolic (mm Hg) 2015-09-27 14:15:00 [facility] [place] Weight 2015-09-05 19:45:00 [facility] Height 2015-09-05 19:45:00 [facility] Temperature Oral (F) 2015-09-05 19:45:00 98.2 F [facility] Heart Rate 2015-09-05 19:45:00 [facility] [place] Diastolic (mm Hg) 2015-09-05 19:45:00 [facility] Systolic (mm Hg) 2015-09-05 19:45:00 [facility] Weight 2015-08-04 18:15:00 [facility] Height 2015-08-04 18:15:00 [facility] Temperature Oral (F) 2015-08-04 18:15:00 97.1 F [facility] [place] Heart Rate 2015-08-04 18:15:00 [facility] [place] Diastolic (mm Hg) 2015-08-04 18:15:00 [facility] [place] Systolic (mm Hg) 2015-08-04 18:15:00 [facility] Weight 2015-07-14 14:15:00 [facility] [place] Height 2015-07-14 14:15:00 [facility] Temperature Oral (F) 2015-07-14 14:15:00 98.6 F [facility] Heart Rate 2015-07-14 14:15:00 [facility] Diastolic (mm Hg) 2015-07-14 14:15:00 [facility] Systolic (mm Hg) 2015-07-14 14:15:00 [facility] [place] Procedures Procedure Date / Time Performed Performing Clinician [facility] Colonoscopy 2017-12-19 05:00:00 [facility] Her nino Computed tomography of brain without radiopaque contrast 201 11-16-17 00:00:[address] [facility] section 1991-04-15 00:00:00 [facility] rmann Cholecystectomy 1991-04-15 00:00:00 [facility] Her nino Encounters Start Date/Time End Date/Time Encounter Type Admission Type [facility] Facility Care Department Encounter ID Source 2018-10-29 14:15:00 2018-10-29 14:15:00 Outpatient Pako Reyes [id number] eClinicalWorks 2018-08-19 11:15:00 2018-08-19 11:15:00 Outpatient Pako Reyes [id number] eClinicalWorks 2018-07-21 15:30:00 2018-07-21 15:30:00 [place] [id number] eClinicalWorks 2018-07-10 16:30:00 2018-07-10 23:59:00 Outpatient Genoveva Dominguez MHOIB MHOIB [id number] 2018-03-27 14:04:00 2018-03-28 23:59:59 Outpatient KELLYMIVernon MENDOZAMISCHER [id number] 2018-03-26 18:58:00 2018-03-26 23:59:00 Outpatient Yanelis Garrison MHSE MHSE [id number] 2018-03-21 13:34:00 2018-03-21 23:59:00 Outpatient Alexx Kwok MHHOIP MHHOIP [id number] 2018-02-04 19:41:00 2018-02-04 23:59:00 Outpatient Yanelis Garrison MHSE MHSE [id number] 2018-01-27 11:20:00 2018-01-27 23:59:00 Outpatient Evonne wKok MHOIB MHOIB [id number] 2017-12-19 07:33:00 2017-12-19 10:00:00 Outpatient Jeanne Locke MHSE MHSE [id number] 2017-07-31 05:38:00 2017-07-31 07:21:00 Departed Emergency Room ER JORDIN DENSON [facility] [id number] [facility] 2017-07-27 20:27:00 2017-07-30 17:34:00 Outpatient Alex Nevarez MHSE MHSE [id number] 2017-02-05 09:22:00 2017-02-05 23:59:00 Outpatient Evonne Kwok MHOIB MHOIB [id number] 2016-11-07 09:00:00 2016-11-07 09:00:00 Outpatient [facility] [id number] eClinicalWo rks 2016-09-04 09:00:00 2016-09-04 09:00:00 Outpatient [facility] [id number] eClinicalWo rks 2016-07-31 09:00:00 2016-07-31 09:00:00 Outpatient [facility] [id number] eClinicalWo s 2016-06-19 09:15:00 2016-06-19 09:15:00 Outpatient [facility] [id number] eClinicalWorks 2016-06-06 16:16:00 2016-06-08 19:40:00 Outpatient Stanley Grace MHSE MHSE [id number] 2016-05-30 14:49:00 2016-05-30 23:59:00 Outpatient Checo Iqbal belgica Tucker MHSE MHSE [id number] 2016-05-30 13:15:00 2016-05-30 13:15:00 Outpatient [facility] [id number] eClinicalWorks 2016-04-27 14:45:00 2016-04-27 14:45:00 Outpatient [facility] [id number] eClinicalWorks 2016-03-22 08:45:00 2016-03-22 08:45:00 Outpatient [facility] [id number] eClinicalWorks 2016-02-21 08:45:00 2016-02-21 08:45:00 Outpatient [facility] [id number] eClinicalWorks 2015-11-21 09:00:00 2015-11-21 09:00:00 Outpatient [facility] [id number] eClinicalWorks 2015-09-27 11:00:00 2015-09-27 11:00:00 Outpatient Pako [place], [place] [id number] eClinicalWorks 2015-09-27 09:15:00 2015-09-27 09:15:00 Outpatient [facility] [id number] eClinicalWorks 2015-09-05 14:45:00 2015-09-05 14:45:00 Outpatient [facility] [id number] eClinicalWorks 2015-08-12 14:25:00 2015-08-12 23:59:00 Outpatient Checo Iqbal belgica Tucker MHSE MHSE [id number] 2015-08-04 13:15:00 2015-08-04 13:15:00 Outpatient [facility] [id number] eClinicalSCIenergy 2015-08-01 11:09:00 2015-08-01 11:09:00 Outpatient [facility] Primary [facility] [id number] eClinicalWorks 2015-07-14 09:15:00 2015-07-14 09:15:00 Outpatient [facility] [id number] [employer] Results Test Description Test Time Test Comments Results Result Comments Source CHEST SINGLE (PORTABLE) 2019-12-03 14:55:00 [facility] [address] [place] [address] Patient Name: MAHESH LEWIS MR #: [id number] : 1960 Age/Sex: 59/F Req #: [id number] Adm Physician: Ordered by: RAZIA SRIVASTAVA DO Report #: [id number] Location: ER Room/Bed: Procedure: [id number] DX/CHEST SINGLE (PORTABLE) Exam Date: 12/03/19 Exam Time: 1250 REPORT STATUS: Signed TECHNIQUE: Frontal view of the chest. INDICATION: Y 60% room air [id number] 1250 COMPARISON: 07/31/2017 DISCUSSION: Limited evaluation due to portable technique and patient body habitus. Lines and hardware: Overlying EKG leads are noted Heart and mediastinum: Cardio medius on the silhouette is enlarged. Central vascular congestive opacities are noted. Lungs and pleura: Prominent interstitial markings are noted. Negative for large effusion, focal consolidation or large pneumothorax. Soft tissues and bones: No acute abnormality. IMPRESSION: Limited evaluation. Cardiomegaly, significant vascular congestion and prominent interstitial markings are concerning for fluid overload/pulmonary edema. Negative for effusions. Signed by: Brittany Orozco MD on 12/03/2019 2:56 PM Dictated By: BRITTANY OROZCO MD [id number] Transcribed By: WILDA on 12/03/196 COPY TO: RAZIA SRIVASTAVA DO - DUP VEIN SILAS 2018-09-24 14:26:00 Name: MAHESH VENTURA : 1960 Age/S: 58 / F [address] [facility] Unit #: [id number] Loc: [place] [address] Phys: Preston Ennis MD Acct: [id number] Dis Date: Status: REG RCR PHONE #: [phone] Exam Date: 09/16/2018 1203 FAX #: [phone] Reason: CVI,WOUND OF LLE EXAMS: CPT CODE: [id number] DUP VEIN SILAS 29715 EXAM: Duplex sonography of the venous system [...] Preston Ennis MD Technologist: BARRY WOLF RVT Trnscb Date/Time: 09/24/2018 (6235) t.AIDEE Orig Print D/T: S: 09/24/2018 (1593) Probe: PAGE 1 Signed Report - DOP ART 1-2 LEVELS SILAS 2018-09-24 14:26:00 N lana: MAHESH GOLDBERG [facility] : 1960 Age/S: 58 / F [address] [facility] Unit #: [id number] Loc: JOSE JU[place] [address] Phys: Preston Ennis MD Acct: [id number] Dis Date: Status: REG RCR PHONE #: [phone] Exam Date: 09/16/2018 1204 FAX #: [phone] Reason: LLE WOUND EXAMS: CPT CODE: [id number] DOP ART 1-2 LEVELS SILAS 20575 EXAM: Duplex sonography of the venous system [...] Coleman; Preston Ennis MD Technologist: BARRY WOLF Evonne Trnorb Date/Time: 09/24/2018 (1426) AdrienGRW Orig Print D/T: S: 09/24/2018 (3406) Probe: PAGE 1 Signed Report Sodium Level 2017-07-31 07:03:00 Test Item Sodium Level (test code = 2951-2) 140 136-145 [facility] Sgpyp3838-81-09 07:03:00* Test Item Value Reference Range Interpretation Comments Potassium Level (test code = 2823-3) 3.8 3.5-5.1 [facility]leChloride Vzdkk8398-92-58 07:03:00* Test Item Value Reference Range Interpretation Comments Chloride Level (test code = 2075-0) 100 98-107 [facility]leCarbon Dioxide Bycap8293-88-89 07:03:00* Test Item Value Reference Range Interpretation Comments Carbon Dioxide Level (test code = 2028-9) 29 22-29 [facility] AzleAnion Ulf7211-32-68 07:03:00* Test Item Value Reference Range Interpretation Comments Anion Gap (test code = 43781-7) 14.8 8-16 [facility]leBlood Urea Ylgytcqa7294-48-46 07:03:00* Test Item Value Reference Range Interpretation Comments Blood Urea Nitrogen (test code = 3094-0) 22 7-26 [facility]leCreatinine2018-04-18 07:03:00* Test Item Value Reference Range Interpretation Comments Creatinine (test code = 2160-0) 1.18 0.57-1.11 H [facility]leBUN/Creatinine Wsrfo4801-40-35 07:03:00* Test Item Value Reference Range Interpretation Comments BUN/Creatinine Ratio (test code = 3097-3) 19 6-25 [facility] AzleEstimat Glomerular Filtration Rate 2017-07-31 07:03:00* Test Item Value Reference Range Interpretation Comments Estimat Glomerular Filtration Rate (test code = 56759-6) 47 >60 L Ranges were taken from the National Kidney Disease Education Program and the [facility] literature.Reference ranges:60 or greater: Hwvuzw36-57 ( for 3 consecutive months): Chronic kidney disease 15 or less: Kidney failureTexas [facility] Hospital AzleGlucose Mspui8536-59-36 07:03:00* Test Item Value Reference Range Interpretation Comments Glucose Level (test code = XKA2673) 264 74-118 H [facility]leCalcium Grpsf5963-55-84 07:03:00* Test Item Value Reference Range Interpretation Comments Calcium Level (test code = 60481-5) 9.5 8.4-10.2 [facility] AzleTotal Symnhxqno6979-29-87 07:03:00* Test Item Value Reference Range Interpretation Comments Total Bilirubin (test code = 1975-2) 0.7 0.2-1.2 [facility] AzleAspartate Amino Transf (AST/SGOT) 2017-07-31 07:03:00* Test Item Value Reference Range Interpretation Comments Aspartate Amino Transf (AST/SGOT) (test code = Aspartate Amino Transf (AST/SGOT)) 21 5-34 [facility]leAlanine Aminotransferase (ALT/SGPT) 2017-07-31 07:03:00* Test Item Value Reference Range Interpretation Comments Alanine Aminotransferase (ALT/SGPT) (test code = 1742-6) 18 0-55 [facility]leTotal Vqhvaot0647-37-38 07:03:00* Test Item Value Reference Range Interpretation Comments Total Protein (test code = 2885-2) 7.6 6.5-8.1 [facility] AzleAlbumin2018-04-18 07:03:00* Test Item Value Reference Range Interpretation Comments Albumin (test code = 1751-7) 3.4 3.5-5.0 L [facility] AzleGlobulin2018-04-18 07:03:00* Test Item Value Reference Range Interpretation Comments Globulin (test code = 59812-7) 4.2 2.3-3.5 H [facility] AzleAlbumin/Globulin Fvdoq2075-91-00 07:03:00 * Test Item Value Reference Range Interpretation Comments Albumin/Globulin Ratio (test code = 1759-0) 0.8 0.8-2.0 [facility] AzleAlkaline Zbaxiasnuxy3411-15-15 07:03:00* Test Item Value Reference Range Interpretation Comments Alkaline Phosphatase (test code = 6768-6) 85 40-150 [facility] AzleCreatine Rcqfzf5088-99-72 07:03:00* Test Item Value Reference Range Interpretation Comments Creatine Kinase (test code = 2157-6) 259 29-168 H [facility] AzleCreatine Kinase TU5814-08-50 06:58:00* Test Item Value Reference Range Interpretation Comments Creatine Kinase MB (test code = 56547-3) 2.20 0-5.0 [facility] AzleTroponin Y1270-89-98 06:58:00* Test Item Value Reference Range Interpretation Comments Troponin I (test code = OOH2008) -0.001 0-0.300 [facility] AzleActivated Partial Thromboplast Time 2017-07-31 06:48:00* Test Item Value Reference Range Interpretation Comments Activated Partial Thromboplast Time (test code = 81159-3) 40.7 23.8-35.5 H [facility] AzleProthrombin Kdkz1546-36-01 06:45:00* Test Item Value Reference Range Interpretation Comments Prothrombin Time (test code = 5902-2) 17.7 11.9-14.5 H [facility] AzleProthromb Time International Ratio 2017-07-31 06:45:00* Test Item Value Reference Range Interpretation Comments Prothromb Time International Ratio (test code = 6301-6) 1.58 Oral Anticoagulant Therapy INR Values:1. Low Intensity Therapy 1.5 - 2.02 . Moderate Intensity Therapy 2.0 - 3.03. High Intensity Therapy(1) 2.5 - 3. 54. High Intensity Therapy(2) 3.0 - 4.05. Panic Value INR > 5.0 [facility] AzleWhite Blood Rcfpf6194-93-23 06:38:00* Test Item Value Reference Range Interpretation Comments White Blood Count (test code = 6690-2) 8.46 4.8-10.8 [facility] AzleRed Blood Pubef0710-43-54 06:38:00* Test Item Value Reference Range Interpretation Comments Red Blood Count (test code = 789-8) 3.75 3.6-5.1 [facility] AzleHemoglobin2018-04-18 06:38:00* Test Item Value Reference Range Interpretation Comments Hemoglobin (test code = 13790-6) 8.4 12.0-16.0 L [facility]leHematocrit2018-04-18 06:38:00* Test Item Value Reference Range Interpretation Comments Hematocrit (test code = 4544-3) 28.4 34.2-44.1 L [facility] AzleMean Corpuscular Jsfoyn0531-19-76 06:38:00* Test Item Value Reference Range Interpretation Comments Mean Corpuscular Volume (test code = 787-2) 75.7 81-99 L [facility] AzleMean Corpuscular Kvbgjafpxo6550-91-41 06:38:00* Test Item Value Reference Range Interpretation Comments Mean Corpuscular Hemoglobin (test code = 785-6) 22.4 28-32 L [facility] AzleMean Corpuscular Hemoglobin Concent 2017-07-31 06:38:00* Test Item Value Reference Range Interpretation Comments Mean Corpuscular Hemoglobin Concent (test code = 786-4) 29.6 31-35 L [facility] AzleRed Cell Distribution Mxcws1894-01-13 06:38:00* Test Item Value Reference Range Interpretation Comments Red Cell Distribution Width (test code = 38144-2) 17.9 11.7 -14.4 H [facility] AzlePlatelet Oehye7786-83-89 06:38:00* Test Item Value Reference Range Interpretation Comments Platelet Count (test code = 777-3) 258 140-360 [facility] AzleNeutrophils (%) (Auto)2017-07-31 06:38:00 * Test Item Value Reference Range Interpretation Comments Neutrophils (%) (Auto) (test code = 83359-3) 72.1 38.7-80.0 [facility] AzleLymphocytes (%) (Auto)2017-07-31 06:38:00 * Test Item Value Reference Range Interpretation Comments Lymphocytes (%) (Auto) (test code = 736-9) 18.6 18.0-39.1 [facility] AzleMonocytes (%) (Auto)2017-07-31 06:38:00* Test Item Value Reference Range Interpretation Comments Monocytes (%) (Auto) (test code = 5905-5) 7.3 4.4-11.3 [facility] AzleEosinophils (%) (Auto)2017-07-31 06:38:00 * Test Item Value Reference Range Interpretation Comments Eosinophils (%) (Auto) (test code = 713-8) 1.4 0.0-6.0 [facility] AzleBasophils (%) (Auto)2017-07-31 06:38:00* Test Item Value Reference Range Interpretation Comments Basophils (%) (Auto) (test code = 706-2) 0.2 0.0-1.0 [facility] AzleIM GRANULOCYTES %2017-07-31 06:38:00* Test Item Value Reference Range Interpretation Comments IM GRANULOCYTES % (test code = IM GRANULOCYTES %) 0.4 0.0- 1.0 [facility] AzleNeutrophils # (Auto)2017-07-31 06:38:00* Test Item Value Reference Range Interpretation Comments Neutrophils # (Auto) (test code = 751-8) 6.1 2.1-6.9 [facility] AzleLymphocytes # (Auto)2017-07-31 06:38:00* Test Item Value Reference Range Interpretation Comments Lymphocytes # (Auto) (test code = 45500-9) 1.6 1.0-3.2 [facility]leMonocytes # (Auto)2017-07-31 06:38:00* Test Item Value Reference Range Interpretation Comments Monocytes # (Auto) (test code = 742-7) 0.6 0.2-0.8 [facility]leEosinophils # (Auto)2017-07-31 06:38:00* Test Item Value Reference Range Interpretation Comments Eosinophils # (Auto) (test code = 711-2) 0.1 0.0-0.4 [facility]leBasophils # (Auto)2017-07-31 06:38:00* Test Item Value Reference Range Interpretation Comments Basophils # (Auto) (test code = 704-7) 0.0 0.0-0.1 [facility] AzleAbsolute Immature Granulocyte (auto 2017-07-31 06:38:00* Test Item Value Reference Range Interpretation Comments Absolute Immature Granulocyte (auto (raul t code = Absolute Immature Granulocyte (auto) 0.03 0-0.1 [facility] AzleELECTROLYTES2018-04-17 11:04:0016.9 [facility] IeyrdedVSDESKICJENF7211-78-07 11:04:0057[facility]annELECTROLYTES 2017-07-30 11:04:81613Sawchqhb RmrnqfuFCLWKBNLBTGV2519-78-43 11:04:003.9[facility] LcupfuaSZFBMHTHJIVF3198-13-05 11:04:53605Jyhnrlfs SetwkvjJCGQYXSQAFAQ2519-08-53 11:04:0023[facility] AotccrbYXGUKCNUEUSZ3010-86-74 11:04:001.08[facility] QHLNUZWEUIIJ5995-82-93 11:04:73521Umytlzrl CgiuujrQPPQJIVHYPZQ8131-17-56 11:04:009.6[facility] WjtnmqxOMOQGUHBDVIZ0855-38-40 11:04:0029[facility] CBDRJLOKSI3968-21-60 11:04:63546Ndyzzdfn ZmfrqpzZVNXOTOXSA2617-06-39 11:04:008.6 [facility] XfytjfxLYVPUSRMSF9743-21-72 11:04:00* Test Item Value Reference Range Interpretation Comments MCH (test code = MCH) 22.2 pg 27.0-31.0 [facility] TwildjcAZLDFWOAZY6113-46-25 11:04:0030.6[facility] HermannHEMATOLOGY 2017-07-30 11:04:0018.1[facility] QamakylEJMXHNYIPE7182-71-15 11:04:0030.9[facility] TckangnFKDJYHGIGI1472-32-66 11:04:0072.6[facility] FtdzypeZCXRNQPROJ5918-51-05 11:04:009.4[facility] IbuqynzAFJDUROINT3395-46-67 11:04:004.25[facility] QKGEXFVKKW8557-44-97 11:04:009.4[facility] XccosojPDGKEZOYMQ3058-93-69 11:04:007.1 [facility] VihvwnmLAXITHQFWQ1543-41-82 11:04:001.4[facility] HermannHEMATOLOGY 2017-07-30 11:04:000.8[facility] XondmzeKNNMIXQYRG6410-28-98 11:04:000.1[facility] IncnddkHODMXENUTZ8062-80-72 11:04:001+ *ABN*(07/30/17 6:04 AM)[facility] CMENXHXUXE7636-31-18 11:04:001+ (07/30/17 6:04 AM)[facility] HermannHEMATOLOGY 2017-07-30 11:04:0015.4[facility] SzmhyrjENCPHJPWTO4430-13-18 11:04:0075.5[facility] LvifreaJFHACNTUQT8113-82-44 11:04:000.4[facility] XwtrujsGMIMNEVKUK1094-07-87 11:04:008.1[facility] PvtxrjbUSNQTRFZEE7581-18-76 11:04:000.6[facility] SZMCOLWFUO6869-89-27 11:04:00Normal (07/30/17 6:04 AM)[facility]annSPECIAL BSNICDMFX9674-97-34 11:08:007.8[facility] HermannCARDIAC BSYTRTX3503-25-86 13:18:00<1.0[facility]annCARDIAC HBDUSEA4131-58-35 13:18:00<1.2[facility]annCARDIAC GGEFIIF6538-00-74 13:18:0081[facility]annCARDIAC ENZYMES 2017-07-28 13:18:00<0.02[facility] CibnjtrKJBENTTBFU6980-70-28 13:18:00* Test Item Value Reference Range Interpretation Comments PTT (test code = PTT) 91.2 s 22.9-35.8 [facility]annURINE QQFD9793-04-98 11:40:0015.30[facility] HermannURINE CHEM 2017-07-28 11:40:10797Fdulaued HermannCARDIAC QZUMTIR0105-12-32 08:45:00* Test Item Value Reference Range Interpretation Comments CK MB Index (test code = CK MB Index) 1.1 1 <=2.5 [facility]annCARDIAC FAJHOGY0395-50-76 08:45:001.0[facility]annCARDIAC OCBINXA7921-86-81 08:45:00<0.02[facility]annCARDIAC TYMUQPP7923-41-91 08:45:0093[facility] HermannCHEM DMTDX6823-70-38 08:45:0043[facility] HermannCHEM SWJKK9817-46-04 08:45:0034[facility] HermannCHEM SHNNH1607-99-93 08:45:55860 [facility]annCHEM SLMNA2113-57-63 08:45:003.7[facility] HermannCHEM PANEL 2017-07-28 08:45:33887Geetmzvl HermannCHEM KQUKF6904-10-15 08:45:85029Pznjyixh HermannCHEM BQAOA5237-68-03 08:45:001.37[facility] HermannCHEM DSTZY1902-75-93 08:45:00* Test Item Value Reference Range Interpretation Comments B/C Ratio (test code = B/C Ratio) 25 1 6-25 [facility] HermannCHEM SEQOM2091-09-04 08:45:008.7[facility] HermannCHEM PANEL 2017-07-28 08:45:0031[facility] HermannCHEM RFLDI9742-25-42 08:45:007.3[facility] HermannCHEM RPPGH8943-63-65 08:45:004.1[facility] HermannCHEM VIOHP8224-83-65 08:45:00* Test Item Value Reference Range Interpretation Comments A/G Ratio (test code = A/G Ratio) 0.8 1 0.7-1.6 [facility] HermannCHEM JIKKZ6584-96-49 08:45:000.3[facility] HermannCHEM PANEL 2017-07-28 08:45:0092[facility] HermannCHEM OOOEG6362-76-84 08:45:008.5[facility] HermannCHEM EVBTF8498-88-50 08:45:0017[facility] HermannCHEM FKSRB0959-52-57 08:45:0020[facility] HermannCHEM ZDGVI2305-69-54 08:45:003.2[facility] SRHVWCKVUN6272-81-47 08:45:0030.7[facility] TdgwouwLUJINKNRHK1077-60-74 08:45:00* Test Item Value Reference Range Interpretation Comments MCH (test code = MCH) 22.4 pg 27.0-31.0 [facility] YdqpnmdLNXIMOSSCC7838-59-93 08:45:0018.1[facility] HermannHEMATOLOGY 2017-07-28 08:45:0073.0[facility] CjlcyrcHDPZQAFWMD8437-54-42 08:45:86175Cmhpruew DsssvedXBCXYHQXOH2668-65-44 08:45:008.6[facility] SvcglziLIFQMNOBEJ6289-70-66 08:45:003.82[facility] RntaqaeLFMEQIWSMO4409-93-27 08:45:008.6[facility] QMWHTKBCFK6208-39-85 08:45:0027.9[facility] HejvhziJKDPEPCFCS4739-23-43 08:45:00 7.6[facility] FbnmwtbUTLCZLRMQN8557-82-15 08:45:001+ *ABN*(07/28/17 3:45 AM) [facility] VyipscaYCDNKAHOPS4030-59-35 08:45:000.2[facility] HermannHEMATOLOGY 2017-07-28 08:45:0033.6[facility] BglftdkWIBZODKMXR0828-59-80 08:45:0055.4[facility] NrpfrzgUAHFUOGNAA4372-11-01 08:45:000.6[facility] ScrcdhePIVUIBFRAW0389-62-76 08:45:000.5[facility] QwugrapDLYSKHKPID3603-80-66 08:45:004.2[facility] MPYGBWSTMX8371-37-34 08:45:002.5[facility] LgkfvorSZSFKWTTTL7126-22-57 08:45:002.9 [facility] HhqnlbbWJFSUCAHSJ9256-02-53 08:45:007.6[facility] HermannCARDIAC ENZYMES 2017-07-28 02:14:0013[facility] HermannCARDIAC CNQQWGP1927-77-68 02:14:81399 [facility]annCARDIAC EWUZTFD2475-88-75 02:14:00<1.0[facility] HermannCARDIAC NTBGKWS7483-93-67 02:14:00<0.02[facility] HermannCARDIAC IJBBLEE5800-95-97 02:14:00<1.0[facility] HermannCHEM EKSLZ9585-14-72 02:14:0036[facility] HermannCHEM JXCHE1279-74-40 02:14:007.8[facility] HermannCHEM SXYRP7331-10-03 02:14:008.2 [facility]annCHEM JUTZD8401-40-30 02:14:0031[facility] HermannCHEM PANEL 2017-07-28 02:14:55584Ywdpxojw HermannCHEM VLGBA8980-81-23 02:14:003.8[facility] HermannCHEM IHEFK8506-62-36 02:14:000.3[facility] HermannCHEM ZIALA4367-91-44 02:14:49046Mbttugkb HermannCHEM SRAMX7865-37-27 02:14:0013[facility] HermannCHEM LLZLC9394-56-97 02:14:0020[facility] HermannCHEM FGGDF6692-17-96 02:14:003.2 [facility]annCHEM OYDBL7238-25-59 02:14:001.57[facility] HermannCHEM PANEL 2017-07-28 02:14:96718Npsngvnc HermannCHEM ZZMYH3383-21-02 02:14:0038[facility] HermannCHEM PYIAH5997-94-35 02:14:08821Onwgnpfl HermannCHEM SIXGR9883-28-38 02:14:00* Test Item Value Reference Range Interpretation Comments A/G Ratio (test code = A/G Ratio) 0.7 1 0.7-1.6 [facility]annCHEM ABFWG3691-80-77 02:14:004.6[facility] HermannCHEM PANEL 2017-07-28 02:14:00* Test Item Value Reference Range Interpretation Comments B/C Ratio (test code = B/C Ratio) 24 1 6-25 [facility] HermannCHEM KOURK4112-28-55 02:14:0014.8[facility] HermannHEMATOLOGY 2017-07-28 02:14:00* Test Item Value Reference Range Interpretation Comments PTT (test code = PTT) 32.6 s 22.9-35.8 [facility] YtqyzkmRUDJUSHYKF9978-07-30 02:14:00* Test Item Value Reference Range Interpretation Comments PT (test code = PT) 12.9 s 12.0-14.7 [facility] HvrnpejACAZLHKZNM1348-79-95 02:14:00* Test Item Value Reference Range Interpretation Comments INR (test code = INR) 0.97 1 0.85-1.17 [facility] GngkusfJPIUZGAZQK2146-93-62 02:14:00* Test Item Value Reference Range Interpretation Comments MCH (test code = MCH) 23.0 pg 27.0-31.0 [facility] JvqvkqpVEZOXQNXSR9564-39-29 02:14:004.01[facility] HermannHEMATOLOGY 2017-07-28 02:14:0074.0[facility] MtwbghzLKKNMOGZYT8707-70-36 02:14:009.2[facility] YcfydsoCMVAXIWHZP0089-20-18 02:14:008.1[facility] MxkwktiJAEFYHWHQW4764-81-14 02:14:0029.7[facility] BldjtsvKQZHLEDYDP3903-65-99 02:14:49901Vnvpumzg Pranav UYYRNLVJYA0869-73-41 02:14:008.3[facility] WdjpgmhLUQHNWJIOQ6417-63-73 02:14:00 31.0[facility] FxvduytMEWCGKUVWE0960-38-66 02:14:0018.1[facility] HermannHEMATOLOGY 2017-07-28 02:14:005.8[facility] LrlhsofFCKOHYFUVA3759-26-77 02:14:0022.0[facility] FxtxrxxWRBCICADQC9439-07-01 02:14:0069.1[facility] CblqzbgUWGIEKTFEY3891-35-85 02:14:001+ *ABN*(07/27/17 9:14 PM)[facility] JwddalcJTAFDBAAJY6285-20-25 02:14:00 0.5[facility] DzzgspwRMXWTUFUCI4829-27-24 02:14:002.6[facility] HermannHEMATOLOGY 2017-07-28 02:14:001.8[facility] KcxjxsfJIJZEENYVN9908-18-50 02:14:005.6[facility] YaxsjqlHYVAVBMSLV2617-91-90 02:14:000.5[facility] TyuzqwiEMISFCEKTH4462-14-58 02:14:000.2[facility] HermannCHEM PCFPI7029-46-68 10:28:0031[facility] HermannCHEM GIYPS1236-69-85 10:28:007.4[facility] HermannCHEM PXKJK2518-61-43 10:28:25797 [facility]annCHEM UTEEY7727-88-77 10:28:001.80[facility] HermannCHEM PANEL 2016-06-08 10:28:0013.8[facility] HermannCHEM QMWNT8827-61-18 10:28:0029[facility] HermannCHEM VBXCG0118-40-95 10:28:0098[facility] HermannCHEM PCQEM5571-35-77 10:28:003.8[facility] HermannCHEM VPAYY3341-95-70 10:28:13421Vcljzaut HermannCHEM XDGHH6510-19-86 10:28:0039[facility] HuihocmJJFFPJACOW3284-49-13 10:28:0015.0 [facility] RcpfhvaHDEEHSAYBU8420-05-24 10:28:0031.9[facility] HermannHEMATOLOGY 2016-06-08 10:28:009.9[facility] XddrbyaBJMFBZWBOA3588-97-28 10:28:29061Dmhrkhhk RfryxbzRETTFSKSNV3143-70-82 10:28:00* Test Item Value Reference Range Interpretation Comments MCH (test code = MCH) 24.4 pg 27.0-31.0 [facility] JkkfblcMEUPXQSJPT5346-71-71 10:28:0010.1[facility]annHEMATOLOGY 2016-06-08 10:28:0076.4[facility] ImirstnHSNDUTANIB5370-76-99 10:28:0031.7[facility] XpkmkmoSYCYUQFSXZ5821-87-01 10:28:004.15[facility] GtxbtydMJAVURAFIC7588-04-34 10:28:006.4[facility] HermannCHEM QCJEC7160-87-47 12:06:19606Mkomrwtc HermannCHEM CTUND8124-34-03 12:06:4753[facility] HermannCHEM SJKNT2453-93-80 12:06:476.7 [facility]annCHEM CTQNU0348-80-95 12:06:4720[facility] HermannCHEM PANEL 2016-06-07 12:06:4729[facility] HermannCHEM UYXQM0157-96-33 12:06:4716.2[facility] HermannCHEM ADTPR0205-14-28 12:06:474.2[facility] HermannCHEM LMQZV8584-47-90 12:06:4795[facility] HermannCHEM FFJBB3960-71-49 12:06:472.60[facility] HermannCHEM ZBKCP8514-69-05 12:06:03299Spwcazhw HermannCHEM FNVXD2205-75-07 12:06:470.5 [facility]annCHEM ZOHAA8849-20-61 12:06:4777[facility] HermannCHEM PANEL 2016-06-07 12:06:4732[facility] HermannCHEM LWPYU2952-22-94 12:06:4727[facility] HermannCHEM LSYHT9793-19-62 12:06:472.9[facility] HermannCHEM RNXXC6540-36-21 12:06:473.0[facility] HermannCHEM JGDQK2839-54-30 12:06:471.0[facility] HermannCHEM GLCNN9697-02-72 12:06:475.9[facility] HermannCHEM VTABR2756-00-68 12:06:4720 [facility]annCHEM TTZGH4822-88-52 12:06:471.4[facility]annHEMATOLOGY 2016-06-07 12:06:471+ *ABN*(06/07/16 6:06 AM)[facility] NxctvksRKKYVLRSGI1267-18-38 12:06:470.1[facility] NxvjncvYLXNQLIFDM0669-10-91 12:06:471.1[facility] Pr[facility]av FJJUNSFSZT4433-46-31 12:06:470.7[facility] GjmxanzZITKRLUANP7736-59-62 12:06:475.9 [facility] MfekyfkUHSQSSADTL4653-12-96 12:06:4710.3[facility]annHEMATOLOGY 2016-06-07 12:06:473.6[facility] TupxvcrFCMQYKZWLH7971-19-25 12:06:471.9[facility] HpaveooMRQXIZCJQX2741-03-09 12:06:470.4[facility] XqkpktkGMVMTUSYEX5872-56-82 12:06:4754.3[facility] EbtxcljAXIDTZWBAH8519-28-24 12:06:4728.4[facility] SXZRQOYSRA8649-76-03 12:06:476.6[facility] PgjxczsUFIBPCWFJN2202-86-62 12:06:47 3.66[facility] XbsmkjhLNUHREIYEW1055-26-71 12:06:4776.4[facility] HermannHEMATOLOGY 2016-06-07 12:06:47* Test Item Value Reference Range Interpretation Comments MCH (test code = MCH) 24.3 pg 27.0-31.0 [facility] IgqmkldOKIXSVENUE4510-38-62 12:06:4731.9[facility] HermannHEMATOLOGY 2016-06-07 12:06:478.9[facility] BcfhfhyUHCLTICBUV0025-54-89 12:06:4728.0[facility] IwijqumTDWAPUNLGW7223-51-00 12:06:4715.3[facility] WpcjdycLYFRUEDLCW6752-31-83 12:06:62606Nuvjihkl OhsejpyPIIZZJKQMA3476-31-21 12:06:4710.0[facility] PARATHYROID QYASNED2027-99-37 12:06:470.80[facility] HermannPARATHYROID PROFILE 2016-06-07 12:06:470.83[facility] HermannANEMIA QHGQH7899-81-12 12:06:19422 [facility]annANEMIA CNKSI3852-76-89 12:06:0041[facility] HermannANEMIA STUDY 2016-06-07 12:06:22360Wwuddlyu HermannANEMIA YIZWR2946-62-65 12:06:0010[facility] HermannCHEM WQOKE9768-65-49 16:26:0016[facility] HermannCHEM [id number] 16:26:0016.7[facility]annCHEM [id number] 16:26:0029[facility]annCHEM [id number] 16:26:006.6[facility]annCHEM [id number] 16:26:91130 [facility]annCHE[facility] [id number] 16:26:0054[facility]annCHEM PANEL 2016-06-06 16:26:70655Tmzyiyra HermannCHEM [id number] 16:26:003.10[facility]annCHEM [id number] 16:26:003.7[facility]annCHEM [id number] 16:26:0095[facility] AND [id number] 12:51:005.0[facility] AND [id number] 12:51:001[facility] AND [id number] 12:51:00<1[facility] [id number] 12:51:00<1[facility] AND [id number] 12:51:00Negative (06/06/16 6:51 AM)[facility]INE AND [id number] 12:51:00Negative (06/06/16 6:51 AM)[facility] AND [id number] 12:51:00Negative *NA*(06/06/16 6:51 AM)[facility] [id number] 12:51:00Negative (06/06/16 6:51 AM)[facility] AND [id number] 12:51:001.009[facility] AND [id number] 12:51:00Slight *ABN*(06/06/16 6:51 AM)[facility] SINGLE (PORTABLE) [place] [address] Patient Name: MAHESH GOLDBERG MR #: [id number] : Age/Sex: 57/F Req #: [id number] Adm Physician: Ordered by: JORDIN DENSON MD Report #: [id number] Location: [facility]/Bed: Procedure: [id number] DX/CHEST SINGLE (PORTABLE ) Exam Date: 07/31/17 [...] 6:49 AM Dictated By: ARIANNA CHAPPELL MD Srivastava scribed By: WILDA on 07/31/1749 COPY TO: JORDIN DENSON MD CT BRAIN WO [place] [address] Patient Name: MAHESH GOLDBERG MR #: [id number] : 1960 Age/Sex: 57/F Req #: [id number] [facility] Physician: Ordered by: JORDIN DENSON MD Report #: [id number] Location: ER Room/Bed: Procedure: [id number] CT/CT BRAIN WO Exam Date : 07/31/17 [...] Impression: No intracranial abnormalities. Signed by: Dr. Gage Bautista M.D. on 07/31/2017 6:54 AM Dictated By: GAGE ACHARYA MD 3 Srivastava scribed By: WILDA on 07/31/17653 COPY TO: JORDIN DENSON MD
[2019-12-03 15:25] LABS: CREATINE KINASE MB 3.2 ng/mL (0-5.0)
[2019-12-03] MEDS ORDERED: ENOXAPARIN SODIUM INJ 100 MG/ML SYR SC STA (16:06)
[2019-12-03 16:31] LABS: ABG HCO3 39 mmol/L (22-26); ABG PCO2 75 mmHg (35-45); ABG PH 7.32 (7.35-7.45); ABG PO2 131 mmHg (80-105); ABG TCO2 41
--- NOTE | 2019-12-03 18:50 | NUR ---
Pt received from ER at this time. Pt is aox3 and able to verbalize needs but mostly in Hungarian. Pt is on 4L/NC and saturations are 100%. Pt complaining of pain to bilateral lower ext. Pt has purewick in place, hematuria noted at this time. Dr. López here to see pt and made him aware of hematuria no new orders received from him at this time.
--- NOTE | 2019-12-03 19:47 | NUR ---
Pt has order of Lovenox 150 mg subQ. Bright, red urine noted in PureWick canister. Dr. Reno notified. Current wt 330 lb. New orders received for prophylactic Lovenox 30 mg subQ every 12 hours. Will continue to monitor pt.
[2019-12-03 20:00] VITALS: BP 172/95
--- NOTE | 2019-12-03 20:04 | Diagnostic Imaging Report ---
Perfusion Lung Scan NOTE: Lung ventilation studies with xenon are not being performed per the recommendation of the Society of [employer] and [employer]. It is not possible to be certain that the ventilation system is adequately disinfected. Ventilation studies with Tc-99m DTPA particles is contraindicated because the delivery by nebulization generates too many water droplets from the patient's airway. Clinical Information: Hypoxia Comparison: Chest radiograph 12/03/2019 Discussion: Ventilation images were not obtained. See note above. Perfusion images of the lungs were obtained in multiple projections following intravenous administration of approximately 6.3 mCi of Tc-99m MAA. Distribution of tracer is mildly irregular throughout the lungs There are no segmental perfusion defects of any size. The cardiomediastinal silhouette is enlarged. Impression: 1. Scan findings represent a VERY LOW probability for acute pulmonary embolic disease based on the perfusion-only PIOPED II criteria. Concurrent ventilation study would not have changed this assigned probability for PE. 2. Scan findings are compatible with diffuse parenchymal including pulmonary edema, and/or obstructive lung disease. 3. Enlarged cardiac silhouette. Signed by: Dr. Genoveva Mejia M.D. on 12/03/2019 8:00 PM
--- NOTE | 2019-12-03 22:00 | NUR ---
Received report from nurse.
[2019-12-03] MEDS: ASPIRIN 81 MG CHEW TAB PO SCH (22:22)
[2019-12-03] MEDS: FUROSEMIDE INJ 10 MG/ML 4 ML VIAL IV SCH (22:22)
[2019-12-03] MEDS: ATORVASTATIN 40 MG TAB PO SCH (22:22)
[2019-12-03] MEDS: ENOXAPARIN 30 MG/0.3 ML SYR SC SCH (22:22)
--- NOTE | 2019-12-03 22:27 | NUR ---
Patient arrived to floor via stretcher.
--- NOTE | 2019-12-03 22:38 | NUR ---
Pt transported to room 187 via bed per MD orders. Daughter, Eboni, notified of transfer. Report given to VIKTORIA Mallory. Respiratory at bedside to apply Bipap. Care transferred.
[2019-12-03 22:54] VITALS: BP 153/79
--- NOTE | 2019-12-03 22:55 | NUR ---
Patient placed on bipap setting 03/22 16 40%. Sat at 100%. Patient slightly lethargic. Does not follow commands.
[2019-12-03 23:25] VITALS: BP 153/79
[2019-12-03 23:41] VITALS: BP 153/79
[2019-12-04] VITALS (7 sets, daily range): BP systolic 96–151; BP diastolic 60–82
[2019-12-04 00:47] LABS: CREATINE KINASE MB 3.3 ng/mL (0-5.0)
[2019-12-04] MEDS ORDERED: SODIUM CHLORIDE 0.9% 250ML 250 ML ONE (01:09)
--- NOTE | 2019-12-04 02:01 | Consultation ---
DATE OF CONSULTATION: Pulmonary Consultation REASON FOR CONSULT: Shortness of breath. HISTORY OF PRESENT ILLNESS: Ms. Naila Izquierdo is a 59-year-old female. She presented to the emergency room with worsening shortness of breath. She is morbidly obese. She has a history of diabetes, hypertension, and hyperlipidemia. The patient is Thai speaking only. She reported that the symptoms started for the last few days, progressively getting worse. She is also complaining of pain in her left leg and redness in the left leg with that has been going on for few days as well. She denies any nausea, vomiting, or diarrhea. In the emergency room, the patient received a dose of vancomycin, Lovenox 30 b.i.d. was started. Blood cultures were sent. The patient was given one dose of vancomycin. Chest x-ray showed congestion and cardiomegaly. She underwent a V/Q scan, which was negative for PE, very low probability for PE. Venous Doppler is pending. PHYSICAL EXAMINATION: GENERAL APPEARANCE: She is morbidly obese. VITAL SIGNS: Temperature 98, pulse of 99, blood pressure 145/71. CHEST: Decreased air entry bilaterally. HEART: S1-S2 audible. ABDOMEN: Soft. EXTREMITIES: Bilateral pedal edema. NEUROLOGIC: Awake and alert. No focal neurologic deficit. LABORATORY DATA: Reviewed. Creatinine is up to 2.23. Previously, she had a creatinine, which was 1.18 in 2018. ASSESSMENT/PLAN: A 59-year-old female with fluid overload, shortness of breath, and morbidly obese, came in with cellulitis of extremities. PLAN: IV diuretics, Lambert catheter, transfer to [facility]. The patient will need BiPAP, high likelihood of obstructive sleep apnea and OHS. The patient's blood gas is suggestive of acute on chronic hypercapnic respiratory failure. Continue Lovenox b.i.d. V/Q scan is negative. We will check venous Doppler. Thank you for this consult. MD JULIA Ferguson/MODL /[id number]
--- NOTE | 2019-12-04 03:02 | History and Physical ---
CHIEF COMPLAINT: 1. Bilateral lower extremity cellulitis. 2. Acute hypoxia. 3. Possible congestive heart failure. 4. Morbidly obese. HISTORY OF PRESENT ILLNESS: The patient is a 59-year-old female, who is morbidly obese and BMI is greater than 60 approximately, presented to the hospital with a 2-week history of increasing lower extremity swelling and redness. The patient's lower extremity is quite edematous, associated with also her severely obesity. The patient had redness below the knee area, extent to the foot and ankle. It is worse on the left compared to the right. More importantly, the patient also is quite hypoxic without oxygen. Her saturation dropped down to 60. 4 L of nasal cannula brought the patient's oxygen back to around high 80s to low 90% saturation. The patient is otherwise stable. She is admitted for further evaluation and treatment. The patient's WBC was 8.1, hemoglobin and hematocrit are 9.5 and 31.6. Renal function; the patient does have renal failure. BUN and creatinine of 80 and 2.2. Her BNP is over 1000. Her troponin I is 1.036. Her BNP is 453. Imaging tests; chest x-ray, limited evaluation, but does have cardiomegaly associated with vascular congestion. V/Q scan of the lungs show very low probability of pulmonary embolism. The patient seemed to have fluid overload with increasing edema. The patient is admitted for further treatment. PAST MEDICAL HISTORY: Severely obesity, hypertension, diabetes type 2, history of pulmonary embolism in the past. PAST SURGICAL HISTORY: Cholecystectomy and SOCIAL HISTORY: The patient does not smoke or use alcohol. No regular drugs. ALLERGIES: NO KNOWN ALLERGIES. HOME MEDICATIONS: The patient is on aspirin, Lipitor, gabapentin, NovoLog insulin, insulin Lantus, lisinopril/HCTZ, metformin, metoprolol succinate, omeprazole. PHYSICAL EXAMINATION: VITAL SIGNS: Temperature is 98, blood pressure 153/79, pulse rate is 96, and respirations 16. GENERAL: The patient is not in acute distress, although she is short of breath. She is stable. HEENT: Normocephalic and atraumatic. She is anicteric. NECK: Supple. PULMONARY: Diminished breath sounds bilaterally with coarse and rales at the bases. CARDIOVASCULAR: S1 and S2. Regular rate and rhythm. ABDOMEN: Soft, morbidly obese. : Lambert catheter in place. EXTREMITIES bilateral lower extremity cellulitis, worse on the left compared to the right, associated with chronic venous incompetency with venous stasis skin changes and more importantly bilateral lower extremity edema, worse on the left compared to the right. NEUROLOGIC: The patient is awake and alert without any is focal deficit. LABORATORY DATA: Sodium is 139, potassium 4.1, chloride 93, bicarb 32, BUN is 80, creatinine is 2.3, glucose is 240. WBC is 8.2, hemoglobin 9.5, hematocrit 31.6, and platelets 185. Laboratory; troponin I is 1.036. BNP is 453. IMPRESSION: 1. Fcjwv-vh-rgrdmek congestive heart failure exacerbation, most likely diastolic, associated with pulmonary hypertension and severe obesity. 2. Bilateral lower extremity cellulitis, worse on the left compared to the right. 3. Acute hypoxia, most likely secondary to the above, congestive heart failure. 4. Bilateral lower extremity lymphedema. 5. Diabetes type 2, on insulin therapy. 6. Elevation of troponin I at 1.036, could be secondary to cardiac stress. PLAN: Admit the patient. IV antibiotics. DVT prophylaxis with Lovenox. Zosyn and IV vancomycin. Lasix (furosemide). Lambert catheter in place. Insulin sliding scale coverage. Repeat lab work. Dr. Jessi Multani and Dr. Whiteside. We will monitor the patient closely at this time. Echocardiogram is ordered. We will get a CT chest without contrast for better understanding of the patient's lung. MD JONO Guerrero/MODL /[id number]
--- NOTE | 2019-12-04 03:32 | Consultation ---
DATE OF CONSULTATION: 12/03/2019 Cardiology Consultation CONSULTING PHYSICIAN: Sánchez Whiteside MD, Interventional Cardiology. REASON FOR CONSULTATION: Heart failure. HISTORY OF PRESENT ILLNESS: Ms. Naila Izquierdo is a 59-year-old woman with history of extreme morbid obesity, hypertension, diabetes mellitus type 2, and dyslipidemia, who presents with complaints of lower extremity discomfort. She has wound to left leg and right and left discomfort and erythema. She also does describe some exertional shortness of breath. Denies any chest pain, syncope, or palpitations. REVIEW OF SYSTEMS: A 12-system reviewed negative except for as noted above. PAST MEDICAL HISTORY: Hypertension, diabetes, dyslipidemia, and morbid obesity. SOCIAL HISTORY: No smoking, alcohol, or drugs. FAMILY HISTORY: Noncontributory. PHYSICAL EXAMINATION: VITAL SIGNS: Temperature 98.2, heart rate 97, respiratory rate 23, blood pressure 145/71, O2 saturation 94% on nasal cannula. GENERAL: In no acute distress. Alert. Morbidly obese. NECK: Supple. Short neck. Unable to assess JVD. CHEST: With decreased breath sounds. No rales. CARDIOVASCULAR: Regular rate and rhythm. Normal S1 and S2. No S3 or S4. Systolic ejection murmur. ABDOMEN: Soft. Bowel sounds positive. EXTREMITIES: 3+ erythema to lower extremities. LABORATORY DATA: Studies, white blood cells 8, hemoglobin 9.5, platelets 195. ABG 7.32/75/131. Sodium 139, potassium 4.1, chloride 93, bicarbonate 32, BUN 60, creatinine 2.2, glucose 240. Lactic acid 1.8. COVID-19 study negative. Total protein 7.4, albumin 3, AST 23, ALT 18, and alkaline phosphatase 103. BNP 453. Troponin I 1.03. V/Q scan pending. ASSESSMENT AND PLAN: 1. A 59-year-old woman presents with acute heart failure, diabetes, hypertension, dyslipidemia, elevated cardiac biomarkers, BNP, and troponin. Lower extremity edema and erythema concerning for underlying cellulitis. Recommend diuretics. 2. Lovenox and aspirin. Monitor for related hematuria. 3. Obtain echocardiogram. 4. Ordered V/Q scan as PE withn the differential. Further recommendations to follow. Continue to trend troponin. MD FRANKLIN Martins/MAURY /[id number] MTDD
[2019-12-04 04:35] LABS: BASOPHILS % 0.4 % (0.0-1.0); EOSINOPHILS # (AUTO) 0.1 (0.0-0.4); EOSINOPHILS % 1.1 % (0.0-6.0); HEMATOCRIT 30.2 % (34.2-44.1); HEMOGLOBIN 8.8 g/dL (12.0-16.0); LYMPHOCYTES # (AUTO) 0.9 (1.0-3.2); LYMPHOCYTES % 10.8 % (18.0-39.1); MEAN CORPUSCULAR HEMOGLOBIN 26.5 pg (28-32); MEAN CORPUSCULAR HGB CONC 29.1 g/dL (31-35); MONOCYTES # (AUTO) 0.7 (0.2-0.8); MONOCYTES % 8.7 % (4.4-11.3); NEUTROPHILS # (AUTO) 6.4 (2.1-6.9); NEUTROPHILS % 78.8 % (38.7-80.0); PLATELET COUNT 197 x10e3/uL (140-360); RED BLOOD COUNT 3.32 x10e6/uL (3.6-5.1); RED CELL DISTRIBUTION WIDTH 16.2 % (11.7-14.4)
[2019-12-04 04:55] LABS: ALBUMIN 2.7 g/dL (3.5-5.0); ALBUMIN/GLOBULIN RATIO 0.6 (0.8-2.0); ANION GAP 13.8 mmol/L (8-16); CALCIUM 9.6 mg/dL (8.4-10.2); CREATININE, SERUM 1.85 mg/dL (0.57-1.11); POTASSIUM 3.8 mmol/L (3.5-5.1)
[2019-12-04] MEDS: PIPER-TAZ 3.375 GM 50 ML IV SCH ×5 (06:00→23:58)
[2019-12-04] MEDS: INSULIN LISPRO 100 UNIT/1 ML 3ML VIAL SQ SCH ×5 (07:30→20:43)
[2019-12-04] MEDS ORDERED: CYMBALTA30 MG PO (07:31)
[2019-12-04] MEDS ORDERED: CLINDAMYCIN HC150 MG PO (07:33)
[2019-12-04] MEDS ORDERED: TERBINAFINE HC250 MG PO (07:39)
[2019-12-04] MEDS ORDERED: FERROUS SULFAT325 MG PO (07:39)
[2019-12-04] MEDS ORDERED: LOSARTAN-HCTZ1 EAC1 PO (07:43)
[2019-12-04] MEDS ORDERED: LYRICA150 MG PO (07:45)
[2019-12-04] MEDS ORDERED: XARELTO20 MG PO (07:55)
[2019-12-04] MEDS ORDERED: TRESIBA FL200 UNIT/1 SQ (07:57)
[2019-12-04] MEDS ORDERED: BUSPIRONE HCL5 MG PO (07:57)
[2019-12-04] MEDS ORDERED: INSULIN AS100 UNIT/3 SQ (07:59)
[2019-12-04] MEDS: ASPIRIN 81 MG CHEW TAB PO SCH (09:10)
[2019-12-04] MEDS: FUROSEMIDE INJ 10 MG/ML 4 ML VIAL IV SCH ×2 (09:10→20:37)
[2019-12-04] MEDS: ENOXAPARIN 30 MG/0.3 ML SYR SC SCH (09:10)
[2019-12-04 09:19] LABS: CREATINE KINASE MB 1.6 ng/mL (0-5.0)
[2019-12-04] MEDS ORDERED: RIVAROXABAN 20 MG TABLET PO SCH (10:45)
[2019-12-04] MEDS ORDERED: INSULIN LISPRO 100 UNIT/1 ML 3ML VIAL SQ SCH (12:00)
[2019-12-04] MEDS ORDERED: INSULIN ASPART 40 UNIT SQ SCH (12:00)
[2019-12-04] MEDS: PANTOPRAZOLE SOD 40 MG TABEC PO SCH (12:13)
[2019-12-04] MEDS: METOPROLOL SUCCINATE 50 MG TAB XL PO SCH ×2 (12:14→20:38)
--- NOTE | 2019-12-04 12:48 | Progress Note ---
DATE: Pulmonary Followup SUBJECTIVE: The patient was moved to [facility] and has been doing well since the patient use BiPAP overnight. Creatinine is down to 1.85 with diuresis. The patient is awake and alert. PHYSICAL EXAMINATION: VITAL SIGNS: Temperature 100, pulse of 108, blood pressure 151/80, respiratory rate of 18, and O2 saturation 94% on 4 L. HEENT: Head is atraumatic. The patient is morbidly obese. Body habitus highly suggestive of obstructive sleep apnea. CHEST: Decreased air entry bilaterally. HEART: S1 and S2 audible. ABDOMEN: Soft. EXTREMITIES: Bilateral pedal edema and erythema. ASSESSMENT/PLAN: Ms. Naila Izquierdo is a 59-year-old female, morbidly obese, very high likelihood of obstructive sleep apnea, obesity hypoventilation syndrome, and fluid overload likely secondary to diastolic heart failure. The patient has cellulitis in both lower extremities. PLAN: Continue the patient on BiPAP during hours of sleep. Oxygen as needed. Hypercapnia is improving. Clinically, renal failure is improving. Diuretic dose has been increased. The patient is already on Xarelto. Venous Doppler is pending. V/Q scan was negative. MD JULIA Ferguson/MAURY /[id number]
--- NOTE | 2019-12-04 13:18 | NUR ---
WOUND CARE CONSULT 59 YO FEMALE HX OF BILATERAL LOWER LEG CELLULITIS ,MORBID OBESITY ,HYPOXIA ALYSSA 14 0N MODERATE PUP STATUS AND INTERVENTIONS RECOMMEND BARIATRIC BED AND ALTERNATING PRESSURE MATTRESS LABS: WBC- 8.13 HGB- 8.8 GLUCOSE-114 HEM A1C - 6.1 SKIN ASSESSMENT COMPLETE PATIENT PRESENTS WITH BILATERAL LOWER LEGS WITH 3+ PITTING EDEMA AND CELLULITIS BRIGHT RED AND WEEPING ASHU AREA AND BILATERAL GROIN HAS RED MOISTURE RASH NOTED RECOMMENDATIONS: NURSING TO CONTINUE TO MONITOR PATIENT AND KEEP SKIN CLEAN AND DRY MOISTURE AND CONTINUE TO FOLLOW MODERATE PUP INTERVENTIONS NURSING TO CONTINUE TO GET PATIENT OUT OF BED FOR MEALS AND MUCH TOLERATED NURSING TO CLEAN BILATERAL LEGS WITH NONABRASIVE SKIN SIGNALMAN DAILY AND APPLY VENELEX OINTMENT AND LEAVE OPEN TO AIR MAY USE ABD PAD SECURED WITH KERLIX WHEN WEEPING OCCURS NURSING TO CLEAN BILATERAL GROIN WITH NONABRASIVE SKIN SIGNALMAN DRY WELL DAILY AND APPLY DESITIN OINTMENT NEEDED Addendum: 12/04/19 at 1327 by Sam Stein RN Amended: Links added.
[2019-12-04] MEDS ORDERED: ZINC OXIDE/COD LIVER OIL 30 GM TUBE TOP PRN (13:30)
[2019-12-04] MEDS: BUSPIRONE HCL 5 MG TAB PO SCH (16:36)
[2019-12-04] MEDS: FERROUS SULFATE 325 MG TAB PO SCH (16:37)
[2019-12-04] MEDS: PREGABALIN 50 MG CAP PO SCH (16:37)
[2019-12-04] MEDS ORDERED: PREGABALIN 75 MG CAP PO SCH (17:00)
--- NOTE | 2019-12-04 17:34 | NUR ---
Nutrition Screen Note RD Recommendation for Physician: -Recommend adding ADA diet to diet order Plan of Care: RD following, monitoring for tolerance and adequacy Nutrition reason for involvement: Nutrition Risk Trigger Primary Diagnose(s): cellulitis, hypoxia PMH: Severely obesity, hypertension, diabetes type 2, history of pulmonary embolism in the past. Ht: 62 in Wt:330 lb BMI: 60.4 kg/m2 IBW:[address] Assessment: (12/04/19) Chart reviewed. Labs and meds reviewed. Pt is a 59 year old female admitted with cellulitis and hypoxia. Attempted to speak to pt, but pt was primarily Guinean speaking. There are no reports of decreased appetite prior to admission, but pt reports unsure weight loss per chart. % meal intake is not recorded at this time. There are no previous weights in chart. Will continue to monitor. Current Diet: cardiac Malnutrition Evaluation (12/04/19) The patient does not meet criteria for a specified degree of malnutrition at this time. Will re-evaluate at follow-up as appropriate. Diet Education Needs Assessment: RD is available for diet education as needed Nutrition Care Level: low Signed: Lola Wright, RD, LD
[2019-12-04] MEDS: ATORVASTATIN 40 MG TAB PO SCH (20:38)
[2019-12-04] MEDS: CARVEDILOL 3.125 MG TAB PO SCH (20:45)
[2019-12-04] MEDS ORDERED: INSULIN DEGLUDEC 100 UNIT SC SCH (21:00)
[2019-12-04] MEDS ORDERED: ATORVASTATIN 20 MG TAB PO SCH (21:00)
[2019-12-04] MEDS ORDERED: ATORVASTATIN 40 MG TAB PO SCH (21:00)
--- NOTE | 2019-12-04 21:00 | NUR ---
Patient refused bipap. Informed patient must go on bipap do to o2 level at night. Patient refused.
--- NOTE | 2019-12-04 21:08 | NUR ---
Patient off the floor to CT scan.
--- NOTE | 2019-12-04 21:36 | Progress Note ---
DATE: 12/04/2019 Cardiology Progress Note SUBJECTIVE: Ms. Izquierdo denies any chest discomfort or shortness of breath at this point. She has improvement in lower extremity discomfort too. She was somnolent earlier, but after BiPAP resumed she has done better. OBJECTIVE: VITAL SIGNS: Temperature 99.1, heart rate 87, blood pressure 129/66, respiratory rate 22, and O2 saturation 98%. GENERAL: Awake and alert. HEENT: Dry mucosa. NECK: Supple. CHEST: With rales and decreased breath sounds in the lower bases. CARDIOVASCULAR: Regular rate and rhythm. Normal S1, S2. ABDOMEN: Soft. Bowel sounds positive. EXTREMITIES: 2+ edema. Erythema improving. CARDIOVASCULAR MEDICATIONS: Reviewed. Furosemide 40 mg IV every 12 hours, Xarelto 20 mg daily, atorvastatin 40 mg at bedtime, aspirin 81 mg daily, carvedilol 3.125 mg b.i.d. STUDIES: Reviewed. Sodium 144, potassium 3.8, chloride 95, bicarbonate 39, BUN 73, creatinine 1.85, glucose 114. Hemoglobin 8.8, white blood cells 8.1, and platelets 197. AST 19, ALT 17, alkaline phosphatase 85. ASSESSMENT AND PLAN: A 59-year-old woman presents with: 1. Cmgxy-oo-aprvkvr heart failure, unspecified. 2. Type 2 myocardial infarction. 3. Anemia. 4. Hypertension. 5. Diabetes. 6. Dyslipidemia. 7. Extreme morbid obesity. 8. History of deep venous thrombosis, on anticoagulation with Xarelto. 9. Lower extremity cellulitis. RECOMMEND: 1. Continue current regimen with statin, antiplatelets, and beta-marco a. 2. Continue anticoagulation and monitor H and H. 3. Continue diuretics. 4. CPAP as needed. 5. Not a candidate for invasive evaluation given extreme morbid obesity, BMI 60. 6. Echocardiogram ordered and pending. Obtain verbal from nurse, stating that severely suboptimal acoustic windows were limiting any visualization from a ventricular systolic function standpoint. We will attempt to confirm this with tech. At this point, we will medically manage and consider alternative assessment of ventricular systolic function at a later date once better optimized. Given her morbid status and issues with hypercarbia, high suspicion for obesity hypoventilation syndrome. At this point, given her unstable heart failure condition BERNARD would be associated with elevated risk of respiratory complications and is not advisable. MD FRANKLIN Martins/MAURY /[id number] MTDD
--- NOTE | 2019-12-05 01:00 | NUR ---
Patient sat at 100%, 99%, 93%. En couraged patient to go on bipap. Patient agreed. Bipap on.
--- NOTE | 2019-12-05 02:58 | Diagnostic Imaging Report ---
EXAM: CT Chest WITHOUT contrast INDICATION: Short of breath COMPARISON: None TECHNIQUE: Chest was scanned utilizing a multidetector helical scanner from the lung apex through the level of the adrenal glands without administration of IV contrast. Absence of intravenous contrast decreases sensitivity for detection of lymphadenopathy and vascular pathology. Coronal and sagittal reformations were obtained. Routine protocol was performed. IV CONTRAST: None COMPLICATIONS: None RADIATION DOSE: Total DLP: 776 mGy*cm Estimated effective dose: (DLP x 0.014 x size factor) mSv CTDIvol has been reviewed. It is below the limits set by the Radiation Protocol Committee (RPC). Dose modulation, iterative reconstruction, and/or weight based adjustment of the mA/kV was utilized to reduce the radiation dose to as low as reasonably achievable. FINDINGS: LINES/ TUBES: None. LUNGS AND AIRWAYS: Small lung volumes. Bibasilar atelectasis. Prominent pulmonary vasculature. Airways are normal. PLEURA: The pleural spaces are clear. HEART AND MEDIASTINUM: Mild cardiomegaly. Dilated main pulmonary artery, 3.47 m in diameter. The thyroid gland is normal. No mediastinal, hilar or axillary lymphadenopathy. The heart is normal in size. There is no pericardial effusion. Aortic valve calcifications. Aortic calcifications. UPPER ABDOMEN: Unremarkable. BONES: The visualized bony thorax is within normal limits. SOFT TISSUES: Unremarkable. IMPRESSION: Mild cardiomegaly and Dilated main pulmonary artery can be seen with pulmonary hypertension. Small lung volumes with bibasilar atelectasis.Correlate for obstructive sleep apnea/obesity hypoventilation syndrome. The opacities in the lungs is likely atelectasis given the small lung volumes however superimposed infection is possible. Signed by: Nemesio Cutler DO on 12/05/2019 2:55 AM
[2019-12-05 04:47] VITALS: BP 120/57
[2019-12-05 05:03] LABS: BASOPHILS % 0.3 % (0.0-1.0); EOSINOPHILS # (AUTO) 0.1 (0.0-0.4); EOSINOPHILS % 1.8 % (0.0-6.0); HEMATOCRIT 31.4 % (34.2-44.1); HEMOGLOBIN 9.1 g/dL (12.0-16.0); LYMPHOCYTES % 15.2 % (18.0-39.1); MEAN CORPUSCULAR HEMOGLOBIN 26.9 pg (28-32); MEAN CORPUSCULAR VOLUME 92.9 fL (81-99); MONOCYTES # (AUTO) 0.7 (0.2-0.8); MONOCYTES % 11.1 % (4.4-11.3); NEUTROPHILS # (AUTO) 4.6 (2.1-6.9); NEUTROPHILS % 71.3 % (38.7-80.0); PLATELET COUNT 215 x10e3/uL (140-360); RED BLOOD COUNT 3.38 x10e6/uL (3.6-5.1); RED CELL DISTRIBUTION WIDTH 16.1 % (11.7-14.4)
[2019-12-05 05:24] LABS: MAGNESIUM 1.7 MG/DL (1.3-2.1)
[2019-12-05 05:30] LABS: ANION GAP 13.8 mmol/L (8-16); CREATININE, SERUM 1.96 mg/dL (0.57-1.11); POTASSIUM 3.8 mmol/L (3.5-5.1)
[2019-12-05 05:45] LABS: THYROID STIMULATING HORMONE 1.209 uIU/mL (0.350-4.940)
[2019-12-05] MEDS: PIPER-TAZ 3.375 GM 50 ML IV SCH ×4 (06:00→23:05)
[2019-12-05 07:30] VITALS: BP 125/60
[2019-12-05] MEDS: DULOXETINE HCL 30 MG DELAYED RELEASE PO SCH (08:54)
[2019-12-05] MEDS: PANTOPRAZOLE SOD 40 MG TABEC PO SCH (08:54)
[2019-12-05] MEDS: FERROUS SULFATE 325 MG TAB PO SCH ×2 (08:54→16:50)
[2019-12-05] MEDS: ASPIRIN 81 MG CHEW TAB PO SCH (08:54)
[2019-12-05] MEDS: PREGABALIN 50 MG CAP PO SCH ×2 (08:54→16:50)
[2019-12-05] MEDS: BUSPIRONE HCL 5 MG TAB PO SCH ×2 (08:54→16:50)
[2019-12-05] MEDS: BALSAM PERU/CASTOR OIL 60 GM OINT...G. TP SCH (08:54)
[2019-12-05] MEDS: FUROSEMIDE INJ 10 MG/ML 4 ML VIAL IV SCH ×2 (08:54→20:09)
[2019-12-05] MEDS: CARVEDILOL 3.125 MG TAB PO SCH ×2 (08:58→16:50)
[2019-12-05] MEDS: METOPROLOL SUCCINATE 50 MG TAB XL PO SCH ×2 (08:58→20:11)
[2019-12-05] MEDS: INSULIN LISPRO 100 UNIT/1 ML 3ML VIAL SQ SCH ×7 (08:58→20:33)
[2019-12-05 09:00] VITALS: BP 125/60
[2019-12-05] MEDS ORDERED: NON-FORMULARY MEDICATION (Omeprazole (Prilosec) 40 MG) PO SCH (09:00)
[2019-12-05 12:45] VITALS: BP 106/61
[2019-12-05 15:56] LABS: FREE T4 (FREE THYROXINE) 0.85 ng/dL (0.8-1.8); THYROID STIMULATING HORMONE 1.233 uIU/mL (0.350-4.940)
[2019-12-05] MEDS ORDERED: INSULIN LISPRO 100 UNIT/1 ML 3ML VIAL SQ SCH (16:30)
[2019-12-05 16:45] VITALS: BP 126/65
--- NOTE | 2019-12-05 19:38 | Progress Note ---
DATE: 12/05/2019 Cardiology Progress Note SUBJECTIVE: Ms. Izquierdo denies any chest pain or shortness of breath. She denies improvement in lower extremity discomfort. OBJECTIVE: VITAL SIGNS: Temperature 98.7, heart rate 79, blood pressure 106/61, respiratory rate 20, O2 saturation 98%. GENERAL: No acute distress, alert. NECK: Short, obese, supple. CHEST: With decreased breath sounds in bilateral bases. CARDIOVASCULAR: Regular rate and rhythm. Normal S1 and S2. No S3 or S4. Distant heart sounds. ABDOMEN: Soft. Bowel sounds positive. EXTREMITIES: With improving bilateral lower extremity edema and erythema. Dressings in place to left lower extremity. CARDIOVASCULAR MEDICATIONS: Reviewed. Furosemide 40 mg IV every 12 hours, metoprolol succinate 50 mg every 12 hours, atorvastatin 40 mg at bedtime, Xarelto 20 mg daily, aspirin 81 mg daily, carvedilol 3.125 mg every 12 hours and Zosyn. We switch beta blockers to single agent and adjust dosing accordingly as needed. LABORATORY DATA: Studies reviewed. Sodium 149, potassium 3.8, chloride 94, bicarbonate 45, BUN 67, creatinine 1.9, glucose 128. White blood cell 6.5, hemoglobin 9.1, platelets 215. AST 19, ALT 17, alkaline phosphatase 85, total bilirubin 0.5. ASSESSMENT: A 59-year-old woman presents with: 1. Hypertension. 2. Dyslipidemia. 3. Diabetes. 4. Anemia. 5. Cellulitis. 6. History of deep vein thrombosis. 7. Extreme morbid obesity. 8. Acute on chronic diastolic heart failure. 9. Type 2 myocardial infarction. RECOMMENDATIONS: Continue current cardiovascular medications. Continue diuresis. Discontinue carvedilol. Continue metoprolol and rest of cardiovascular medications. Sánchez Whiteside MD AFCarlo/MODL /[id number]
[2019-12-05] MEDS: ATORVASTATIN 40 MG TAB PO SCH (20:09)
[2019-12-05] MEDS ORDERED: TRESIBA SC SCH (21:00)
[2019-12-05 21:46] VITALS: BP 118/72
--- NOTE | 2019-12-05 22:29 | Consultation ---
DATE OF CONSULTATION: 12/04/2019 Endocrine Consultation The patient of Dr. Reno. Thank you very much for referring this patient. HISTORY OF PRESENT ILLNESS: This is a 59-year-old lady, who was referred to me for evaluation of uncontrolled diabetes mellitus. The patient is mostly Polish speaking. The history is available from the chart and some from the patient. The patient has history of chronic respiratory failure. She has ROBIN, diabetes mellitus type 2, uncontrolled with complications, cellulitis of the legs, and acute non-STEMI myocardial infarction. The patient has a history of congestive cardiac failure and cellulitis of the leg as already mentioned. At home, the patient takes insulin. The exact details are not available. She is on several medications at home including Lipitor, antibiotics, insulin aspart 60 units three times a day and Tresiba 120 units at bedtime. The patient is also on Lyrica. PHYSICAL EXAMINATION: GENERAL: Today, the patient is morbidly obese. She has mild respiratory distress and wheezing. VITAL SIGNS: Her heart rate is around 78, blood pressure is 160/90 mmHg. HEENT: Essentially unremarkable. Thyroid is palpable. Clinically, she is near euthyroid. CHEST: Bilateral vesicular breathing. She has bilateral bronchospasm and basilar rales. EXTREMITIES: She has cellulitis of the left leg and decreased peripheral pulses, both dorsalis pedis and posterior tibial. LABORATORY DATA: At the time of admission, her blood sugars were 250 to 300 and anion gap was 18.1. Presently, her blood sugars are still elevated. Her hemoglobin is 9.1 and hematocrit 31.4. CLINICAL IMPRESSION: Diabetes mellitus type 2, uncontrolled with complications, non-ST segment elevation myocardial infarction, chronic respiratory failure, obstructive sleep apnea, cellulitis of the leg, hypertension, and hyperlipidemia. PLAN: At this time is to monitor her blood sugars closely. We will start her back on the Lantus and Humalog insulin and also consider other options including maybe putting her on the GLP-1 analog on followup. Thanks again for referring this patient. I will be following this patient with you. MD MEI De Santiago/MODL /[id number]
[2019-12-06] VITALS (7 sets, daily range): BP systolic 111–150; BP diastolic 60–72
[2019-12-06] MEDS: PIPER-TAZ 3.375 GM 50 ML IV SCH ×4 (05:00→23:41)
[2019-12-06] MEDS: BUSPIRONE HCL 5 MG TAB PO SCH ×3 (05:15→17:00)
[2019-12-06 06:34] LABS: ANION GAP 14.9 mmol/L (8-16); CREATININE, SERUM 1.78 mg/dL (0.57-1.11); POTASSIUM 3.9 mmol/L (3.5-5.1)
[2019-12-06 07:10] LABS: FREE T4 (FREE THYROXINE) 0.82 ng/dL (0.8-1.8); THYROID STIMULATING HORMONE 1.134 uIU/mL (0.350-4.940)
[2019-12-06] MEDS: INSULIN LISPRO 100 UNIT/1 ML 3ML VIAL SQ SCH ×7 (07:20→21:00)
[2019-12-06] MEDS: BALSAM PERU/CASTOR OIL 60 GM OINT...G. TP SCH (08:02)
[2019-12-06] MEDS: PANTOPRAZOLE SOD 40 MG TABEC PO SCH (08:02)
[2019-12-06] MEDS: DULOXETINE HCL 30 MG DELAYED RELEASE PO SCH (08:02)
[2019-12-06] MEDS: FUROSEMIDE INJ 10 MG/ML 4 ML VIAL IV SCH (08:02)
[2019-12-06] MEDS: METOPROLOL SUCCINATE 50 MG TAB XL PO SCH ×2 (08:02→21:00)
[2019-12-06] MEDS: ASPIRIN 81 MG CHEW TAB PO SCH ×2 (08:02→09:00)
[2019-12-06] MEDS: PREGABALIN 50 MG CAP PO SCH ×2 (08:02→17:00)
[2019-12-06] MEDS: FERROUS SULFATE 325 MG TAB PO SCH ×2 (08:02→17:00)
[2019-12-06] MEDS ORDERED: ACETAZOLAMIDE 250 MG TAB PO NR ×2 (10:45→16:30)
[2019-12-06] MEDS: DEXTROSE 50% SYRINGE 50 ML IV PRN ×2 (12:09→21:12)
[2019-12-06 16:45] LABS: ABG HCO3 55 mmol/L (22-26); ABG PCO2 82 mmHg (35-45); ABG PH 7.43 (7.35-7.45); ABG PO2 78 mmHg (80-105); ABG TCO2 50
[2019-12-06] MEDS ORDERED: FUROSEMIDE INJ 10 MG/ML 4 ML VIAL IV SCH (17:00)
[2019-12-06] MEDS ORDERED: ACETAZOLAMIDE SODIUM 500 MG/VIAL IV NR (17:15)
--- NOTE | 2019-12-06 20:00 | NUR ---
INITIAL ASSESSMENT COMPLETE, PT IN BED, ABLE TO TURN OVER ON HER OWN, LOWER EXTREMITIES RED, SCALY, WRAPPED WITH KERLIX, SOME OLD WEEPING NOTED, PT IS VERY LARGE, EDEMA THROUGHOUT, ABD LARGE AND ROUND, NON TENDER, ARMAS DRAINING CLEAR YELLOW URINE, BIPAP ON PT, 100% O2 SAT AT THIS TIME, VS WNL, IV INTACT TO RIGHT ARM, TELE AT BEDSIDE NSR, NO DISTRESS NOTED,.
[2019-12-06] MEDS ORDERED: TRESIBA SC SCH (21:00)
[2019-12-06] MEDS: ATORVASTATIN 40 MG TAB PO SCH (21:00)
--- NOTE | 2019-12-06 21:10 | NUR ---
PT BLOOD SUGAR 66, 61 ON RETAKE, PT HAS NOT EATEN TODAY, PUSHED D50 TO IV, WILL RECHECK.
--- NOTE | 2019-12-06 21:35 | NUR ---
RECHECK ON BLOOD SUGAR, 73, PT ALERT AND ORIENTED, ABLE TO DRINK WITHOUT PROBLEMS, CALL LIGHT IN REACH, BIPAP ON PT. VS WNL
[2019-12-07] VITALS (9 sets, daily range): BP systolic 96–156; BP diastolic 58–83
--- NOTE | 2019-12-07 | NUR ---
PT IN BED, BIPAP ON, VS WNL, NO DISTRESS NOTED, CALL LIGHT IN REACH, WILL CONTINUE TO MONITOR
--- NOTE | 2019-12-07 04:30 | NUR ---
PT IS RESTLESS, MOVES AROUND IN THE BED A LOT, CONTINUE TO MONITOR AND STRAIGHTEN PATIENT OUT.
[2019-12-07] MEDS: BUSPIRONE HCL 5 MG TAB PO SCH ×2 (05:21→17:48)
[2019-12-07] MEDS: PIPER-TAZ 3.375 GM 50 ML IV SCH ×4 (05:49→18:41)
[2019-12-07] MEDS: INSULIN LISPRO 100 UNIT/1 ML 3ML VIAL SQ SCH ×7 (07:30→21:00)
[2019-12-07] MEDS: PANTOPRAZOLE SOD 40 MG TABEC PO SCH ×2 (07:30→11:10)
[2019-12-07] MEDS ORDERED: FUROSEMIDE INJ 10 MG/ML 4 ML VIAL IV SCH (09:00)
[2019-12-07] MEDS: ASPIRIN 81 MG CHEW TAB PO SCH (11:11)
[2019-12-07] MEDS: DULOXETINE HCL 30 MG DELAYED RELEASE PO SCH (11:11)
[2019-12-07] MEDS: FERROUS SULFATE 325 MG TAB PO SCH ×2 (11:11→17:48)
[2019-12-07] MEDS: BALSAM PERU/CASTOR OIL 60 GM OINT...G. TP SCH (11:16)
[2019-12-07] MEDS: METOPROLOL SUCCINATE 50 MG TAB XL PO SCH ×2 (11:25→22:47)
--- NOTE | 2019-12-07 11:43 | Progress Note ---
DATE: 12/07/2019 SUBJECTIVE: No complaints. OBJECTIVE: VITAL SIGNS: Temperature 98.1, heart rate 74, blood pressure 138/60, respiratory rate 17, and O2 saturation 100%. GENERAL: No acute distress. CHEST: With decreased breath sounds. CARDIOVASCULAR: Regular rate and rhythm. Normal S1 and S2. ABDOMEN: Soft. EXTREMITIES: Edema and erythema improving. CARDIOVASCULAR MEDICATIONS: Reviewed. Atorvastatin 40 mg at bedtime, Xarelto 20 mg daily, acetazolamide 250 mg x1, and furosemide 40 mg b.i.d. STUDIES: Reviewed. Sodium 148, potassium 3.9, chloride 93, bicarbonate 44, BUN 66, creatinine 1.7, and glucose 61. White blood cells 6.5, hemoglobin 9.1, and platelets 215. ASSESSMENT AND PLAN: A 59-year-old woman with history of deep venous thrombosis, hypertension, extreme morbid obesity, diabetes, leg cellulitis, suspected obesity hypoventilation syndrome. RECOMMENDATIONS: Continue current cardiovascular medications. Signs of intravascular depletion starting to be observed with elevated BUN to creatinine ratio and contraction alkalosis. Monitor closely. Acetazolamide has been administered during hospital stay. Sánchez Whiteside MD AFCarlo/MODL /[id number]
[2019-12-07] MEDS: ATORVASTATIN 40 MG TAB PO SCH (22:00)
[2019-12-07] MEDS: INSULIN GLARGINE 100 UNITS/ML VIAL SQ SCH (22:04)
[2019-12-08] VITALS (10 sets, daily range): BP systolic 127–144; BP diastolic 60–77
[2019-12-08] MEDS: PIPER-TAZ 3.375 GM 50 ML IV SCH ×4 (00:53→18:45)
--- NOTE | 2019-12-08 02:42 | NUR ---
Report received and care transferred. Patient resting, eyes closed. Call light within reach. Will continue to monitor.
[2019-12-08 05:14] LABS: ANION GAP 14.1 mmol/L (8-16); CALCIUM 9.5 mg/dL (8.4-10.2); CREATININE, SERUM 1.39 mg/dL (0.57-1.11); POTASSIUM 3.1 mmol/L (3.5-5.1)
[2019-12-08] MEDS ORDERED: SODIUM CHLORIDE 0.9% 250ML 250 ML ONE (05:34)
--- NOTE | 2019-12-08 05:49 | NUR ---
Left message with Dr Multani answering service (Yumiko) to report lab alert: CO2 43. Awaiting call back.
[2019-12-08] MEDS ORDERED: PREGABALIN 50 MG CAP PO SCH (07:30)
[2019-12-08] MEDS: INSULIN LISPRO 100 UNIT/1 ML 3ML VIAL SQ SCH ×7 (07:30→21:41)
--- NOTE | 2019-12-08 08:28 | NUR ---
ORDERS FOR BIPAP AT HOME CM SPOKE WITH PT'S DTR ISA GOLDBERG AT [phone] ANA COOPER OFFICE HAS HER SLEEP STUDY AND HAS STARTED WORK ON ARRANGING BIPAP PT DOES NOT HAVE HOME 0XYGEN HOME 02 EVAL ORDERED CM WILL F/U WITH DR CEDENO OFFICE REGARDING ARRANGEMENTS OF BIPAP DR SRIVASTAVA STATES PT NOT READY FOR DISCHARGE, HOPEFULLY CAN DC BY END OF WEEK
[2019-12-08] MEDS ORDERED: OXYMETAZOLINE HCL 0.05% NAS 1 SPRAY BTL PRN (09:15)
[2019-12-08] MEDS: SALINE 0.65% NAS SOLN 1 SPRAY BTL SCH ×3 (09:45→21:39)
[2019-12-08] MEDS ORDERED: POTASSIUM CHLORIDE 10MEQ EA PO ONE (09:50)
[2019-12-08] MEDS: FUROSEMIDE INJ 10 MG/ML 4 ML VIAL IV SCH (10:20)
[2019-12-08] MEDS: PANTOPRAZOLE SOD 40 MG TABEC PO SCH (10:20)
[2019-12-08] MEDS: ASPIRIN 81 MG CHEW TAB PO SCH (10:21)
[2019-12-08] MEDS: BUSPIRONE HCL 5 MG TAB PO SCH ×2 (10:21→17:47)
[2019-12-08] MEDS: BALSAM PERU/CASTOR OIL 60 GM OINT...G. TP SCH (10:21)
[2019-12-08] MEDS: DULOXETINE HCL 30 MG DELAYED RELEASE PO SCH (10:21)
[2019-12-08] MEDS: FERROUS SULFATE 325 MG TAB PO SCH ×2 (10:21→17:47)
[2019-12-08] MEDS: ACETAZOLAMIDE 250 MG TAB PO SCH (10:21)
[2019-12-08] MEDS: METOPROLOL SUCCINATE 50 MG TAB XL PO SCH ×2 (10:24→21:43)
--- NOTE | 2019-12-08 12:29 | Progress Note ---
DATE: 12/08/2019 Cardiology Progress Note SUBJECTIVE: Feels better. Denies chest pain or shortness of breath. Lower extremity edema improving, erythema improving. OBJECTIVE: VITAL SIGNS: Temperature 98.9, heart rate 73, blood pressure 127/61, respiratory rate 17, and O2 saturation 99%. GENERAL: In no acute distress. Alert. NECK: No JVD. CHEST: Clear to auscultation. CARDIOVASCULAR: Regular rate and rhythm. Normal S1 and S2. ABDOMEN: Soft. Bowel sounds positive. EXTREMITIES: With 2+ edema. Erythema to lower extremities. CARDIOVASCULAR MEDICATIONS: Reviewed. Xarelto 20 mg daily, metoprolol succinate 50 mg every 12 hours, acetazolamide 250 mg daily, and furosemide 40 mg. STUDIES: Reviewed. Creatinine 1.3 and potassium 3.1. Hemoglobin 9.1, white blood cell 6.5, and platelets 215. ASSESSMENT AND PLAN: A 59-year-old woman with extreme morbid obesity, history of deep venous thrombosis, on anticoagulation with Xarelto, presents with lower extremity cellulitis and [id number] heart failure in the setting of hypertension. RECOMMEND: Continue diuresis. Outpatient followup advised upon discharge in 2 to 4 weeks. MD FRANKLIN Martins/MAURY /[id number]
--- NOTE | 2019-12-08 19:45 | NUR ---
Pt. is alert and oriented x3. Respirations are even and unlabored. Lying quietly. l
[2019-12-08] MEDS: ATORVASTATIN 40 MG TAB PO SCH (21:42)
[2019-12-08] MEDS: INSULIN GLARGINE 100 UNITS/ML VIAL SQ SCH (21:42)
[2019-12-09] VITALS (8 sets, daily range): BP systolic 126–158; BP diastolic 53–73
[2019-12-09] MEDS: PIPER-TAZ 3.375 GM 50 ML IV SCH ×4 (00:26→17:31)
[2019-12-09] MEDS: INSULIN LISPRO 100 UNIT/1 ML 3ML VIAL SQ SCH ×7 (07:40→20:09)
[2019-12-09] MEDS: PANTOPRAZOLE SOD 40 MG TABEC PO SCH (07:48)
[2019-12-09] MEDS: FUROSEMIDE INJ 10 MG/ML 4 ML VIAL IV SCH (07:48)
[2019-12-09 07:56] LABS: BASOPHILS % 0.5 % (0.0-1.0); EOSINOPHILS # (AUTO) 0.2 (0.0-0.4); EOSINOPHILS % 3.1 % (0.0-6.0); HEMATOCRIT 36.6 % (34.2-44.1); HEMOGLOBIN 10.5 g/dL (12.0-16.0); LYMPHOCYTES # (AUTO) 1.2 (1.0-3.2); LYMPHOCYTES % 18.5 % (18.0-39.1); MEAN CORPUSCULAR HEMOGLOBIN 25.6 pg (28-32); MEAN CORPUSCULAR HGB CONC 28.7 g/dL (31-35); MEAN CORPUSCULAR VOLUME 89.3 fL (81-99); MONOCYTES # (AUTO) 0.5 (0.2-0.8); MONOCYTES % 7.9 % (4.4-11.3); NEUTROPHILS # (AUTO) 4.3 (2.1-6.9); NEUTROPHILS % 69.5 % (38.7-80.0); PLATELET COUNT 275 x10e3/uL (140-360); RED CELL DISTRIBUTION WIDTH 15.1 % (11.7-14.4)
[2019-12-09 08:17] LABS: ANION GAP 16.2 mmol/L (8-16); CALCIUM 9.7 mg/dL (8.4-10.2); CREATININE, SERUM 1.46 mg/dL (0.57-1.11); POTASSIUM 3.2 mmol/L (3.5-5.1)
--- NOTE | 2019-12-09 09:47 | NUR ---
JULES SPOKE WITH [facility] AT [phone] SPOKE WITH VILMA SHE CONFIRMED THEY REC'D ORDERS FROM DR ANA COOPER FOR BIPAP HOWEVER CONFIRMED YESTERDAY THAT THEY ARE OUT OF NETWORK FOR PT'S INSURANCE CM CALLED AUGUSTIN AT DR ANA COOPER OFFICE AND EXPLAINED THAT DME COMPANY THEY SENT TO IS OUT OF NETWORK SHE FAXED ME THE SLEEP STUDY CM CALLED JUAN[facility] AT [phone] AND SPOKE WITH ANDREW WHO CONFIRMS THEY ARE IN NETWORK WITH [facility] FAXED CLINICALS, SLEEP STUDY AND HOME 02 ORDERS TO [phone]; CONFIRMATION REC'D REQUEST TO EXPEDITE PT IS SCHEDULED TO GO HOME ON SATURDAY PT AND PT'S DTR AWARE OF PLANS CHOICE LETTER ON CHART
[2019-12-09] MEDS: DULOXETINE HCL 30 MG DELAYED RELEASE PO SCH (09:54)
[2019-12-09] MEDS: FERROUS SULFATE 325 MG TAB PO SCH ×2 (09:54→17:30)
[2019-12-09] MEDS: SALINE 0.65% NAS SOLN 1 SPRAY BTL SCH ×3 (09:54→20:17)
[2019-12-09] MEDS: BALSAM PERU/CASTOR OIL 60 GM OINT...G. TP SCH (09:54)
[2019-12-09] MEDS: ASPIRIN 81 MG CHEW TAB PO SCH (09:54)
[2019-12-09] MEDS: ACETAZOLAMIDE 250 MG TAB PO SCH (09:54)
[2019-12-09] MEDS: BUSPIRONE HCL 5 MG TAB PO SCH ×2 (09:54→17:30)
[2019-12-09] MEDS: METOPROLOL SUCCINATE 50 MG TAB XL PO SCH ×2 (09:56→20:43)
[2019-12-09] MEDS ORDERED: POTASSIUM CHLORIDE 20 MEQ TAB CR PO STA (16:49)
[2019-12-09] MEDS: AMMONIUM LACTATE 12% LOTION 225GM BTL TOP SCH (17:30)
[2019-12-09] MEDS: PENTOXIFYLLINE 400 MG TAB CR PO SCH (17:30)
--- NOTE | 2019-12-09 20:08 | NUR ---
BP 99/53, 70, Page out to Dr López regarding Toprol XL 50 mg po at bedtime. Awaiting call back.
[2019-12-09] MEDS: ATORVASTATIN 40 MG TAB PO SCH (20:17)
[2019-12-09] MEDS: INSULIN GLARGINE 100 UNITS/ML VIAL SQ SCH (20:44)
--- NOTE | 2019-12-09 22:57 | Progress Note ---
DATE: 12/09/2019 Cardiology Progress Note SUBJECTIVE: Ms. Naila Izquierdo denies any chest discomfort or shortness of breath. Her lower extremity edema has continued to improve. OBJECTIVE: VITAL SIGNS: Temperature 97.9, heart rate 73, blood pressure 149/72, respiratory rate 16, and O2 saturation 100%. GENERAL: No acute distress. Alert. NECK: Supple. CHEST: With decreased breath sounds. CARDIOVASCULAR: Regular rate and rhythm with normal S1 and S2. ABDOMEN: Soft. EXTREMITIES: With improving edema and erythema to lower extremities. CARDIOVASCULAR MEDICATIONS: Reviewed. Xarelto 20 mg daily, metoprolol succinate 50 mg every 12 hours, atorvastatin 40 mg at bedtime, aspirin 81 mg daily, furosemide 40 mg daily. STUDIES: Reviewed. Sodium 146, potassium 3.2, chloride 97, bicarbonate 36, BUN 44, creatinine 1.46, glucose 144. White blood cells 6.2, hemoglobin 10.5, and platelets 275. AST 19, ALT 17, alkaline phosphatase 85. ASSESSMENT: A 59-year-old woman presents with morbid obesity, anemia, diabetes, hypertension, dyslipidemia, history of deep venous thrombosis, acute heart failure. RECOMMENDATIONS: Continue current cardiovascular medications. Clinically improving. Continue with physical therapy. Monitor H and H. MD FRANKLIN Martins/MAURY /[id number]
[2019-12-10] VITALS (8 sets, daily range): BP systolic 109–129; BP diastolic 44–63
[2019-12-10] MEDS: PIPER-TAZ 3.375 GM 50 ML IV SCH ×5 (01:15→23:31)
[2019-12-10] MEDS: INSULIN LISPRO 100 UNIT/1 ML 3ML VIAL SQ SCH ×7 (07:30→22:41)
[2019-12-10] MEDS: DULOXETINE HCL 30 MG DELAYED RELEASE PO SCH (08:07)
[2019-12-10] MEDS: BUSPIRONE HCL 5 MG TAB PO SCH ×2 (08:07→16:38)
[2019-12-10] MEDS: FUROSEMIDE INJ 10 MG/ML 4 ML VIAL IV SCH (08:07)
[2019-12-10] MEDS: PENTOXIFYLLINE 400 MG TAB CR PO SCH ×2 (08:07→16:38)
[2019-12-10] MEDS: ASPIRIN 81 MG CHEW TAB PO SCH (08:07)
[2019-12-10] MEDS: PANTOPRAZOLE SOD 40 MG TABEC PO SCH (08:07)
[2019-12-10] MEDS: SALINE 0.65% NAS SOLN 1 SPRAY BTL SCH ×3 (08:07→21:41)
[2019-12-10] MEDS: ACETAZOLAMIDE 250 MG TAB PO SCH (08:07)
[2019-12-10] MEDS: METOPROLOL SUCCINATE 50 MG TAB XL PO SCH ×2 (08:07→21:41)
[2019-12-10] MEDS: FERROUS SULFATE 325 MG TAB PO SCH ×2 (08:07→16:38)
[2019-12-10] MEDS: BALSAM PERU/CASTOR OIL 60 GM OINT...G. TP SCH (08:10)
[2019-12-10] MEDS: AMMONIUM LACTATE 12% LOTION 225GM BTL TOP SCH ×2 (08:10→16:41)
--- NOTE | 2019-12-10 15:26 | Progress Note ---
DATE: 12/10/2019 Cardiology Progress Note SUBJECTIVE: Desi denies any chest discomfort or shortness of breath. Her lower extremity edema is improving. She has no other complaints. On exam today, sitting up the chair. OBJECTIVE: VITAL SIGNS: Temperature 98.2, heart rate 76, respiratory rate 18, blood pressure 109/53, and O2 saturation 100% on nasal cannula. GENERAL: No acute distress. Alert. NECK: No JVD. CHEST: Clear to auscultation. CARDIOVASCULAR: Regular rate and rhythm. Normal S1 and S2. ABDOMEN: Soft. EXTREMITIES: 2+ edema. Erythema to lower extremities. CARDIOVASCULAR MEDICATIONS: Reviewed. Diamox 250 mg daily, furosemide 40 mg IV daily, metoprolol succinate 50 mg every 12 hours, ferrous sulfate 325 mg daily, aspirin 81 mg daily. STUDIES: Reviewed. White blood cells 6.2, hemoglobin 10.5, and platelets 275. Glucose 235. Telemetry, in sinus rhythm. ASSESSMENT AND PLAN: A 59-year-old woman with morbid obesity, anemia, diabetes, hypertension, dyslipidemia, history of deep venous thrombosis, on chronic anticoagulation and acute heart failure, unspecified. RECOMMEND: Continue current cardiovascular medications. Noted improvement in volume status. Attempt repeat transthoracic echocardiogram to see if images can be obtained to estimate ventricular systolic function. Volume status is improving. Sánchez Whiteside MD AFCarlo/MODL /[id number]
--- NOTE | 2019-12-10 19:15 | NUR ---
RECEIVED REPORT FROM PREVIOUS NURSE. CALL LIGHT WITHIN REACH. PATIENT IN BED.
[2019-12-10] MEDS ORDERED: INSULIN GLARGINE 100 UNITS/ML VIAL SQ SCH (21:00)
[2019-12-10] MEDS: ATORVASTATIN 40 MG TAB PO SCH (21:41)
[2019-12-11] VITALS (8 sets, daily range): BP systolic 115–140; BP diastolic 55–68
[2019-12-11] MEDS ORDERED: SODIUM CHLORIDE 0.9% 250ML 250 ML ONE (00:20)
[2019-12-11 05:01] LABS: BASOPHILS % 0.4 % (0.0-1.0); EOSINOPHILS # (AUTO) 0.2 (0.0-0.4); EOSINOPHILS % 3.2 % (0.0-6.0); HEMATOCRIT 33.4 % (34.2-44.1); HEMOGLOBIN 10.1 g/dL (12.0-16.0); LYMPHOCYTES # (AUTO) 1.2 (1.0-3.2); LYMPHOCYTES % 16.9 % (18.0-39.1); MEAN CORPUSCULAR HEMOGLOBIN 26.4 pg (28-32); MEAN CORPUSCULAR HGB CONC 30.2 g/dL (31-35); MEAN CORPUSCULAR VOLUME 87.4 fL (81-99); MONOCYTES # (AUTO) 0.5 (0.2-0.8); MONOCYTES % 7.7 % (4.4-11.3); NEUTROPHILS # (AUTO) 4.9 (2.1-6.9); NEUTROPHILS % 71.5 % (38.7-80.0); PLATELET COUNT 273 x10e3/uL (140-360); RED BLOOD COUNT 3.82 x10e6/uL (3.6-5.1)
[2019-12-11 05:16] LABS: ANION GAP 18.3 mmol/L (8-16); CALCIUM 9.2 mg/dL (8.4-10.2); CREATININE, SERUM 1.91 mg/dL (0.57-1.11); POTASSIUM 3.3 mmol/L (3.5-5.1)
[2019-12-11] MEDS: PIPER-TAZ 3.375 GM 50 ML IV SCH ×3 (05:36→17:57)
--- NOTE | 2019-12-11 07:06 | NUR ---
GAVE BEDSIDE SHIFT REPORT TO ONCOMING NURSE. PATIENT IN BED. CALL LIGHT WITHIN REACH. HOURLY ROUNDING PERFORMED. ARMAS DRAINING WELL
[2019-12-11] MEDS: ASPIRIN 81 MG CHEW TAB PO SCH (07:41)
[2019-12-11] MEDS: FUROSEMIDE INJ 10 MG/ML 4 ML VIAL IV SCH (07:41)
[2019-12-11] MEDS: PANTOPRAZOLE SOD 40 MG TABEC PO SCH (07:41)
[2019-12-11] MEDS: PENTOXIFYLLINE 400 MG TAB CR PO SCH ×2 (07:42→17:57)
[2019-12-11] MEDS: INSULIN LISPRO 100 UNIT/1 ML 3ML VIAL SQ SCH ×7 (07:55→20:00)
[2019-12-11] MEDS ORDERED: POTASSIUM CHLORIDE 10MEQ EA PO SCH (08:45)
[2019-12-11] MEDS: SALINE 0.65% NAS SOLN 1 SPRAY BTL SCH ×4 (09:40→21:55)
[2019-12-11] MEDS: ACETAZOLAMIDE 250 MG TAB PO SCH (09:40)
[2019-12-11] MEDS: FERROUS SULFATE 325 MG TAB PO SCH ×2 (09:40→17:56)
[2019-12-11] MEDS: DULOXETINE HCL 30 MG DELAYED RELEASE PO SCH (09:40)
[2019-12-11] MEDS: BUSPIRONE HCL 5 MG TAB PO SCH ×2 (09:40→17:56)
[2019-12-11] MEDS: BALSAM PERU/CASTOR OIL 60 GM OINT...G. TP SCH (09:41)
[2019-12-11] MEDS: METOPROLOL SUCCINATE 50 MG TAB XL PO SCH ×2 (09:41→21:55)
[2019-12-11] MEDS: AMMONIUM LACTATE 12% LOTION 225GM BTL TOP SCH ×2 (09:41→17:57)
--- NOTE | 2019-12-11 11:13 | NUR ---
REC'D EMAIL FROM RON WITH [facility] 02 WAS DELIVERED TO PT'S HOME YESTERDAY, CONCENTRATOR AND [employer] STILL WORKING ON AUTH FOR BIPAP FAMILY TO BRING PORTABLE TANK WHEN THEY PICK HER UP FOR DISCHARGE
--- NOTE | 2019-12-11 13:55 | NUR ---
I spoke with the technical maintenance technician and he reports that he was unable to get images due o the pt's size. A call was placed to the swatch checker to report findings.
--- NOTE | 2019-12-11 15:45 | NUR ---
Nutrition Screen Note RD Recommendation for Physician: -Recommend adding ADA diet to diet order Plan of Care: RD following, monitoring for tolerance and adequacy Nutrition reason for involvement: Nutrition Risk Trigger Primary Diagnose(s): cellulitis, hypoxia PMH: Severely obese, hypertension, diabetes type 2, history of pulmonary embolism in the past. Ht: 62 in Wt:330 lb BMI: 60.4 kg/m2 IBW:[address] Assessment: (12/11/19) Chart reviewed. RN reports pt is eating well and consuming >50% of meals. Will continue to monitor. (12/04/19) Chart reviewed. Labs and meds reviewed. Pt is a 59 year old female admitted with cellulitis and hypoxia. Attempted to speak to pt, but pt was primarily [place] speaking. There are no reports of decreased appetite prior to admission, but pt reports unsure weight loss per chart. % meal intake is not recorded at this time. There are no previous weights in chart. Will continue to monitor. Current Diet: cardiac Malnutrition Evaluation (12/11/19) The patient does not meet criteria for a specified degree of malnutrition at this time. Will re-evaluate at follow-up as appropriate. Diet Education Needs Assessment: RD is available for diet education as needed Nutrition Care Level: low Signed: Lola Wright, RD, LD
--- NOTE | 2019-12-11 17:25 | Consultation ---
DATE OF CONSULTATION: 12/11/2019 Hospital consultation HISTORY OF PRESENT ILLNESS: I was kindly asked to see this 59-year-old woman for evaluation of epistaxis. The patient has a history of intermittent epistaxis, much worse on the left side present for the last four days. She has been using nasal prong oxygen. She also has a history suggestive of possible obstructive sleep apnea. Her history of present illness, past medical history, and past surgical history were reviewed in detail in the chart. MEDICATIONS: Also reviewed. PHYSICAL EXAMINATION: On examination, the right pinna was normal. Right external auditory canal was normal. Right tympanic membrane was normal. Right postauricular area had no abnormalities. Left pinna was normal. Left external auditory canal normal. Left tympanic membrane was normal. Left postauricular area was normal. She had a moderate to severe nasal septal deviation to the left. There was edema and crusting on both sides of the anterior nasal vestibule, significantly worse on the left side. There was no blood noted in the oral cavity or along the posterior pharyngeal wall. She had redundant folds of her upper pharyngeal mucosa. There was no palpable cervical adenopathy on fiberoptic diagnostic rhinoscopy. There was no active paranasal sinus pathology noted. The only bleeding points noted were along the left anterior nasal septum. After application of 2% Pontocaine, the bleeding vessels on the left side were cauterized with silver nitrate. ASSESSMENT: 1. Nasal septal deviation. 2. Epistaxis treated with silver nitrate cautery. 3. Probable obstructive sleep apnea. PLAN: 1. [place] nasal spray two puffs each side of nose q.4 hours while awake. 2. Bacitracin ointment to each nostril t.i.d. 3. Addition of heated humidification to nasal prong oxygen. MD LEDY Alexis/MAURY /[id number]
--- NOTE | 2019-12-11 20:49 | NUR ---
SPOKE TO DR. SRIVASTAVA REGARDING PATIENT C/O HEADACHE. NEW ORDER RECEIVED FOR TYLENOL 650MG PO Q6H PRN.
[2019-12-11] MEDS ORDERED: INSULIN GLARGINE 100 UNITS/ML VIAL SQ SCH (21:00)
[2019-12-11] MEDS: ACETAMINOPHEN 325 MG TAB PO PRN (21:55)
[2019-12-11] MEDS: NEOMYCIN/POLYMYXIN/BACITRACIN 15 GM TUBE TOP SCH (21:55)
[2019-12-11] MEDS: ATORVASTATIN 40 MG TAB PO SCH (21:55)
[2019-12-12] VITALS (7 sets, daily range): BP systolic 116–143; BP diastolic 55–65
--- NOTE | 2019-12-12 01:42 | Progress Note ---
DATE: 12/11/2019 Cardiology Progress Note SUBJECTIVE: Denies chest pain or shortness of breath. Edema improving to lower extremities. No other complaints. Sitting in chair. OBJECTIVE: VITAL SIGNS: Temperature 97.8, heart rate 74, respiratory rate 20, blood pressure 140/68, O2 saturation 95% on nasal cannula. GENERAL: No acute distress. Alert. NECK: No JVD. CHEST: Clear to auscultation. CARDIOVASCULAR: Regular rate and rhythm. Normal S1, S2. ABDOMEN: Soft. Bowel sounds positive. EXTREMITIES: 1+ edema to lower extremities. Erythema has improved. CARDIOVASCULAR MEDICATIONS: Reviewed metoprolol succinate 50 mg every 12 hours, atorvastatin 40 mg at bedtime, ferrous sulfate 325 mg daily, furosemide 40 mg IV daily, acetazolamide 250 mg Mondays and Fridays. BMI 60. On telemetry, sinus rhythm. ASSESSMENT AND PLAN: This is a 59-year-old woman presents with extreme morbid obesity, anemia, diabetes, hypertension, dyslipidemia, suspected obesity hypoventilation syndrome, has obstructive sleep apnea, history of DVT on chronic anticoagulation, acute heart failure, unspecified. RECOMMEND: Continue current cardiovascular medications. Attempted on several occasions to obtain transthoracic echocardiogram, however, extremely poor acoustic windows. Given body habitus, not currently a candidate for a V/Q scan or CT/MRI. Given elevated risk for complications from a respiratory/ventilatory standpoint with sedation at this point, preferred to defer on doing BERNARD just to assess ventricular systolic function and empirically treat for possible systolic heart failure with beta-marco a and as blood pressure allows adding ARB. Once the patient is stabilized as outpatient, can reassess candidacy for BERNARD. MD FRANKLIN Martins/MODL /[id number]
[2019-12-12] MEDS: PIPER-TAZ 3.375 GM 50 ML IV SCH ×5 (05:46→23:45)
[2019-12-12] MEDS: SALINE 0.65% NAS SOLN 1 SPRAY BTL SCH ×5 (05:47→21:38)
[2019-12-12] MEDS ORDERED: POTASSIUM CHLORIDE 10MEQ EA PO SCH (07:00)
[2019-12-12] MEDS: PANTOPRAZOLE SOD 40 MG TABEC PO SCH (09:07)
[2019-12-12] MEDS: FUROSEMIDE INJ 10 MG/ML 4 ML VIAL IV SCH (09:07)
[2019-12-12] MEDS: METOPROLOL SUCCINATE 50 MG TAB XL PO SCH ×2 (09:10→21:00)
[2019-12-12] MEDS: PENTOXIFYLLINE 400 MG TAB CR PO SCH ×2 (09:10→16:37)
[2019-12-12] MEDS: BUSPIRONE HCL 5 MG TAB PO SCH ×2 (09:10→16:36)
[2019-12-12] MEDS: NEOMYCIN/POLYMYXIN/BACITRACIN 15 GM TUBE TOP SCH ×3 (09:10→21:00)
[2019-12-12] MEDS: DULOXETINE HCL 30 MG DELAYED RELEASE PO SCH (09:10)
[2019-12-12] MEDS: AMMONIUM LACTATE 12% LOTION 225GM BTL TOP SCH ×2 (09:10→16:36)
[2019-12-12] MEDS: BALSAM PERU/CASTOR OIL 60 GM OINT...G. TP SCH (09:10)
[2019-12-12] MEDS: FERROUS SULFATE 325 MG TAB PO SCH ×2 (09:10→16:36)
[2019-12-12] MEDS: INSULIN LISPRO 100 UNIT/1 ML 3ML VIAL SQ SCH ×7 (09:11→21:00)
[2019-12-12] MEDS: POTASSIUM CHLORIDE 10MEQ EA PO SCH (12:29)
[2019-12-12] MEDS: APIXABAN 5 MG TABLET PO SCH ×2 (12:29→16:36)
[2019-12-12] MEDS: FUROSEMIDE 40 MG TAB PO SCH (12:29)
[2019-12-12] MEDS: ACETAMINOPHEN 325 MG TAB PO PRN (16:53)
[2019-12-12] MEDS: ATORVASTATIN 40 MG TAB PO SCH (21:00)
[2019-12-12] MEDS ORDERED: INSULIN GLARGINE 100 UNITS/ML VIAL SQ SCH (21:00)
[2019-12-13 00:22] VITALS: BP 132/62
[2019-12-13] MEDS: PIPER-TAZ 3.375 GM 50 ML IV SCH ×2 (06:00→12:34)
[2019-12-13] MEDS: SALINE 0.65% NAS SOLN 1 SPRAY BTL SCH ×2 (06:00→10:36)
[2019-12-13 06:07] VITALS: BP 133/59
[2019-12-13 06:18] LABS: BASOPHILS % 0.5 % (0.0-1.0); EOSINOPHILS # (AUTO) 0.2 (0.0-0.4); EOSINOPHILS % 3.6 % (0.0-6.0); HEMATOCRIT 32.2 % (34.2-44.1); HEMOGLOBIN 9.8 g/dL (12.0-16.0); LYMPHOCYTES # (AUTO) 1.2 (1.0-3.2); LYMPHOCYTES % 20.5 % (18.0-39.1); MEAN CORPUSCULAR HEMOGLOBIN 27.4 pg (28-32); MEAN CORPUSCULAR HGB CONC 30.4 g/dL (31-35); MEAN CORPUSCULAR VOLUME 89.9 fL (81-99); MONOCYTES # (AUTO) 0.5 (0.2-0.8); MONOCYTES % 8.1 % (4.4-11.3); NEUTROPHILS # (AUTO) 4.1 (2.1-6.9); PLATELET COUNT 218 x10e3/uL (140-360); RED BLOOD COUNT 3.58 x10e6/uL (3.6-5.1); RED CELL DISTRIBUTION WIDTH 15.1 % (11.7-14.4)
[2019-12-13 06:38] LABS: ANION GAP 16.1 mmol/L (8-16); CALCIUM 9.3 mg/dL (8.4-10.2); CREATININE, SERUM 1.82 mg/dL (0.57-1.11); POTASSIUM 3.1 mmol/L (3.5-5.1)
[2019-12-13] MEDS: INSULIN LISPRO 100 UNIT/1 ML 3ML VIAL SQ SCH ×4 (07:30→13:09)
[2019-12-13] MEDS: METOPROLOL SUCCINATE 50 MG TAB XL PO SCH (08:08)
[2019-12-13] MEDS: FERROUS SULFATE 325 MG TAB PO SCH (08:08)
[2019-12-13] MEDS: AMMONIUM LACTATE 12% LOTION 225GM BTL TOP SCH (08:08)
[2019-12-13] MEDS: DULOXETINE HCL 30 MG DELAYED RELEASE PO SCH (08:08)
[2019-12-13] MEDS: BALSAM PERU/CASTOR OIL 60 GM OINT...G. TP SCH (08:08)
[2019-12-13] MEDS: NEOMYCIN/POLYMYXIN/BACITRACIN 15 GM TUBE TOP SCH (08:08)
[2019-12-13] MEDS: BUSPIRONE HCL 5 MG TAB PO SCH (08:08)
[2019-12-13] MEDS: APIXABAN 5 MG TABLET PO SCH (08:08)
[2019-12-13] MEDS: POTASSIUM CHLORIDE 10MEQ EA PO SCH ×2 (08:09→12:34)
[2019-12-13] MEDS: PENTOXIFYLLINE 400 MG TAB CR PO SCH (08:09)
[2019-12-13] MEDS: FUROSEMIDE 40 MG TAB PO SCH ×2 (08:09→12:33)
[2019-12-13] MEDS: PANTOPRAZOLE SOD 40 MG TABEC PO SCH (08:09)
[2019-12-13 08:52] VITALS: BP 121/56
[2019-12-13] MEDS ORDERED: POTASSIUM CHLORIDE 10MEQ EA PO ONE (09:30)
--- NOTE | 2019-12-13 12:32 | NUR ---
Spoke with Christine Ramon RN regarding BIPAP. She stated Aeraubrey is working with Dr. Potter, but pt can go home w/o BIPAP and that home oxygen has been delivered. Jason BLUM speaking w/ Dr. Ren[place] and then he spoke with CM. He was updated on BIPAP and home oxygen, and gave order to dc pt home.
[2019-12-13] MEDS ORDERED: LASIX40 MG PO (13:33)
[2019-12-13] MEDS ORDERED: PENTOXIFYLLINE400 MG PO (13:35)
[2019-12-13] MEDS ORDERED: K DUR10 MEQ PO (13:37)
[2019-12-13] MEDS ORDERED: KEFLEX500 MG PO (13:37)
[2019-12-13] MEDS ORDERED: KEFLEX500 MG (13:38)
[2019-12-13] MEDS ORDERED: ACETAZOLAMIDE250 MG PO (13:43)
--- NOTE | 2019-12-14 02:59 | Progress Note ---
DATE: 12/12/2019 Cardiology Progress Note SUBJECTIVE: No complaints today, sitting up in bed. OBJECTIVE: VITAL SIGNS: Temperature 98.8, heart rate 72, blood pressure 130/56, respiratory rate 20, O2 saturation 100%. BMI 60. GENERAL: No acute distress. Alert. NECK: No JVD. CHEST: Clear to auscultation. CARDIOVASCULAR: Regular rate and rhythm. Normal S1 and S2. ABDOMEN: Soft. Bowel sounds positive. EXTREMITIES: 1+ edema. Improved erythema. CARDIOVASCULAR MEDICATIONS: Reviewed. Eliquis 5 mg every 12 hours, furosemide 40 mg b.i.d., ferrous sulfate, potassium chloride, atorvastatin 40 at bedtime. STUDIES: Reviewed. Potassium 3.3, creatinine 1.9, bicarbonate 28. White blood cells 6.9, hemoglobin 10.1, and platelets 273. ASSESSMENT: A 59-year-old woman with severe morbid obesity, BMI is over 60, diabetes, hypertension, dyslipidemia, left leg cellulitis and deep venous thrombosis, acute heart failure, unspecified. RECOMMENDATION: 1. Continue volume optimization with diuretics and current cardiovascular medications. DICTATION ENDS HERE Sánchez Whiteside MD AFV/MODTamara /[id number]
[2019-12-14] MEDS ORDERED: ACETAZOLAMIDE 250 MG TAB PO SCH (09:00)
== END 2019-12-13 14:11 | disposition home or self-care (01) | DRG 281 ==
LOC: ER 11:20 → ERHOLD 14:38 → MED/SURG3 18:23 → IMCU 22:16 → MED/SURG 12-10 09:13
PROVIDERS: ADMIT Internal Medicine; ATTEND Internal Medicine
PROC: 093K8ZZ Control Bleeding in Nasal Mucosa and Soft Tissue, Via Natural or Artificial Opening Endoscopic (ICD-10-PCS; principal; 2019-12-11)
DX: I11.0 Hypertensive heart disease with heart failure (principal); I21.A1 Myocardial infarction type 2; L03.115 Cellulitis of right lower limb; J96.11 Chronic respiratory failure with hypoxia; Z68.44 Body mass index [BMI] 60.0-69.9, adult; L03.116 Cellulitis of left lower limb; E66.2 Morbid (severe) obesity with alveolar hypoventilation; I50.33 Acute on chronic diastolic (congestive) heart failure; Z86.711 Personal history of pulmonary embolism; Z90.49 Acquired absence of other specified parts of digestive tract; G47.33 Obstructive sleep apnea (adult) (pediatric); D64.9 Anemia, unspecified; E78.5 Hyperlipidemia, unspecified; Z79.01 Long term (current) use of anticoagulants; R04.0 Epistaxis; J34.2 Deviated nasal septum; E11.8 Type 2 diabetes mellitus with unspecified complications; Z79.4 Long term (current) use of insulin
CPT/HCPCS: 36415; 36600; 71045; 71250; 78582; 80048; 80053; 82550; 82553; 82607; 82805; 82948; 83036; 83605; 83735; 83880; 84100; 84439; 84443; 84484; 85025; 87040; 93005; 93971; 94660; 96372; 97139; 99285; A9540; J1650; J1815; J1940; J2543; J3370; J7050; J7799; U0002